=== PATIENT | female | born 1990 | race Caucasian/White ===

== ENCOUNTER 2022-09-14 14:10 | Outpatient (OUT) | payer BC, SELFPAY ==
--- NOTE | 2022-09-14 14:13 | US_ITS ---
[address] [address] Patient Name: MARCUS BURKS MRN: [id number] date: 1990 Sex: F Assigned Patient Location: Current Patient Location: Accession/Order Number: [id number] Exam Date: 09/14/2022 14:15 Report Date: 09/14/2022 15:39 At the request of: DAPHNEY AVILA Procedure: US OB growth EXAMINATION: US OB growth HISTORY: O26.849 size inconsistent with dates COMPARISON: Ultrasound venous anatomy 06/15/2022 FINDINGS: Heart Rate: 157.9 bpm Number: 1.0 Position: Breech Amniotic Fluid Volume: 9.7 cm Maximum Vertical Pocket: 3.1 cm BIOMETRY: BPD: 8.1 cm cm; 32 weeks 3 days; 16% HC: 30.8 cmcm; 34 weeks 3 days; 33% AC: 28.7 cm cm; 32 weeks 5 days; 27% FL: 6.1 cm cm; 31 weeks 4 days; 4% EFW: 1988.4 grams; 15% FL/AC: 21.2 FL/BPD: 75.2 HC/AC: 1.1 GESTATIONAL AGE: Age by EDC: 33 weeks 4 days MIGUEL ANGEL by EDC: 10/21/2022 Age by US: 32 weeks 6 days MIGUEL ANGEL by US: 11/03/2022 IMPRESSION: 1. Single live intrauterine with growth detailed above. Electronically authenticated by: ASHLEY FRANCO Date: 09/14/2022 15:39
--- NOTE | 2022-09-14 14:14 | US_ITS ---
[address] [address] Patient Name: MARCUS BURKS MRN: [id number] date: 1990 Sex: F Assigned Patient Location: US Current Patient Location: Accession/Order Number: [id number] Exam Date: 09/14/2022 14:15 Report Date: 09/14/2022 15:40 At the request of: DAPHNEY AVILA Procedure: US OB BPP w non-stress EXAMINATION: US OB BPP w non-stress HISTORY: O26.849 size inconsistent with dates COMPARISON: Ultrasound anatomy 06/15/2022 TECHNIQUE: Ultrasound biophysical profile was performed in the radiology department. BREATHING MOVEMENTS: 2.0 GROSS BODY MOVEMENTS: 2.0 TONE: 2.0 QUALITATIVE AMNIOTIC FLUID VOLUME: 2.0 PRESENTATION: Breech HEART RATE: 157.9 bpm bpm. AMNIOTIC FLUID VOLUME: 9.7 cm GESTATIONAL AGE: 33 weeks 4 days CONCLUSION: Total biophysical profile score 8.0. Electronically authenticated by: ASHLEY FRANCO Date: 09/14/2022 15:40
[2022-09-14 14:39] VITALS: BP 108/67; PULSE 73
== END 2022-09-14 15:09 | disposition home or self-care (01) ==
LOC: US 14:15 → FBC 14:17
PROVIDERS: PCP Obstetrics & Gynecology; Visit Provider Obstetrics & Gynecology
DX: O26.843 Uterine size-date discrepancy, third trimester (principal); Z3A.33 33 weeks gestation of pregnancy; O32.1XX0 Maternal care for breech presentation, not applicable or unspecified
CPT/HCPCS: 59025; 76816; 76818

== ENCOUNTER 2022-09-17 10:23 | Outpatient (OUT) | payer BC, SELFPAY ==
[2022-09-17 10:25] VITALS: BP 104/65; PULSE 85
== END 2022-09-17 11:52 | disposition home or self-care (01) ==
LOC: FBCO 10:23 → FBC 10:24
PROVIDERS: PCP Obstetrics & Gynecology; Visit Provider Obstetrics & Gynecology
DX: O26.849 Uterine size-date discrepancy, unspecified trimester (principal)
CPT/HCPCS: 59025

== ENCOUNTER 2022-09-21 14:03 | Outpatient (OUT) | payer BC, SELFPAY ==
--- NOTE | 2022-09-21 14:08 | US_ITS ---
[address] [address] Patient Name: MARCUS BURKS MRN: [id number] date: 1990 Sex: F Assigned Patient Location: [facility] Current Patient Location: Accession/Order Number: [id number] Exam Date: 09/21/2022 14:06 Report Date: 09/21/2022 15:25 At the request of: DAPHNEY AVILA Procedure: US OB BPP w non-stress EXAMINATION: US OB BPP w non-stress HISTORY: SIZE INCONSISTENT WITH DATES O26.849 COMPARISON: Ultrasound biophysical profile 09/14/2022 TECHNIQUE: Ultrasound biophysical profile was performed in the radiology department. BREATHING MOVEMENTS: 2.0 GROSS BODY MOVEMENTS: 2.0 TONE: 2.0 QUALITATIVE AMNIOTIC FLUID VOLUME: 2.0 PRESENTATION: BREECH HEART RATE: 149.2 bpm bpm. AMNIOTIC FLUID VOLUME: 11.8 cm GESTATIONAL AGE: 34 weeks 4 days CONCLUSION: Total biophysical profile score 8.0. Electronically authenticated by: ASHLEY FRANCO Date: 09/21/2022 15:25
[2022-09-21 14:39] VITALS: BP 102/67; PULSE 74
== END 2022-09-21 15:05 | disposition home or self-care (01) ==
LOC: FBCO 14:03 → FBC 14:04
PROVIDERS: PCP Obstetrics & Gynecology; Visit Provider Obstetrics & Gynecology
DX: O26.843 Uterine size-date discrepancy, third trimester (principal); Z3A.34 34 weeks gestation of pregnancy
CPT/HCPCS: 59025; 76818

== ENCOUNTER 2022-09-24 14:03 | Outpatient (OUT) | payer BC, SELFPAY ==
[2022-09-24 14:14] VITALS: BP 114/60; PULSE 74
== END 2022-09-24 14:38 | disposition home or self-care (01) ==
LOC: FBCO 14:04 → FBC 14:06
PROVIDERS: Visit Provider Obstetrics & Gynecology
DX: O26.899 Other specified pregnancy related conditions, unspecified trimester (principal)
CPT/HCPCS: 59025

== ENCOUNTER 2022-09-28 14:30 | Outpatient (OUT) | payer BC, SELFPAY ==
--- NOTE | 2022-09-28 14:35 | US_ITS ---
[address] [address] Patient Name: MARCUS BURKS MRN: [id number] date: 1990 Sex: F Assigned Patient Location: [facility] Current Patient Location: Accession/Order Number: [id number] Exam Date: 09/28/2022 14:36 Report Date: 09/28/2022 20:37 At the request of: DAPHNEY AVILA Procedure: US OB BPP w non-stress EXAMINATION: US OB BPP w non-stress HISTORY: size inconsistent with dates O26.849 COMPARISON: No relevant comparison available. TECHNIQUE: Ultrasound biophysical profile was performed in the radiology department. FINDINGS: BREATHING MOVEMENTS: 2.0 GROSS BODY MOVEMENTS: 2.0 TONE: 2.0 QUALITATIVE AMNIOTIC FLUID VOLUME: 2.0 PRESENTATION: Breech HEART RATE: 156.1 bpm H.B./min AMNIOTIC FLUID VOLUME: 8.9 cm cm GESTATIONAL AGE: 35 weeks 4 days CONCLUSION: Total biophysical profile score: 8.0 Electronically authenticated by: NO NICK Date: 09/28/2022 20:37
[2022-09-28 15:09] VITALS: BP 109/69; PULSE 76
== END 2022-09-28 15:32 | disposition home or self-care (01) ==
LOC: US 14:31 → FBC 14:33
PROVIDERS: Visit Provider Obstetrics & Gynecology
DX: Z34.93 Encounter for supervision of normal pregnancy, unspecified, third trimester (principal); O26.843 Uterine size-date discrepancy, third trimester; Z3A.35 35 weeks gestation of pregnancy
CPT/HCPCS: 59025; 76818

== ENCOUNTER 2022-09-28 21:30 | Outpatient (REF) | payer BC, SELFPAY | END 2022-09-28 21:31 | disposition home or self-care (01) | LOC: LAB 21:30 | PROVIDERS: Visit Provider Physician Assistant | DX: Z34.93 Encounter for supervision of normal pregnancy, unspecified, third trimester (principal) | CPT/HCPCS: 87081 ==

== ENCOUNTER 2022-10-01 07:41 | Outpatient (OUT) | payer BC, SELFPAY | END 2022-10-01 15:11 | disposition home or self-care (01) | LOC: FBCO 07:41 → FBC 14:39 | PROVIDERS: Visit Provider Obstetrics & Gynecology | DX: O26.849 Uterine size-date discrepancy, unspecified trimester (principal); Z3A.00 Weeks of gestation of pregnancy not specified | CPT/HCPCS: 59025 ==

== ENCOUNTER 2022-10-04 08:55 | Outpatient (OUT) | payer BC, SELFPAY ==
--- NOTE | 2022-10-04 09:01 | US_ITS ---
[address] [address] Patient Name: MARCUS BURKS MRN: [id number] date: 1990 Sex: F Assigned Patient Location: US Current Patient Location: Accession/Order Number: [id number] Exam Date: 10/04/2022 09:01 Report Date: 10/04/2022 10:48 At the request of: YANG PHAN Procedure: US OB BPP w non-stress EXAMINATION: US OB BPP w non-stress HISTORY: SIZE INCONSISTENT WITH DATES O26.849 COMPARISON: Ultrasound biophysical 09/28/2022 TECHNIQUE: Ultrasound biophysical profile was performed in the radiology department. BREATHING MOVEMENTS: 2.0 GROSS BODY MOVEMENTS: 2.0 TONE: 2.0 QUALITATIVE AMNIOTIC FLUID VOLUME: 2.0 PRESENTATION: BREECH HEART RATE: 150.0 bpm bpm. AMNIOTIC FLUID VOLUME: 8.6 cm GESTATIONAL AGE: 36 weeks 3 days CONCLUSION: Total biophysical profile score 8.0. Electronically authenticated by: ASHLEY FRANCO Date: 10/04/2022 10:48
== END 2022-10-04 10:10 | disposition home or self-care (01) ==
LOC: US 09:06 → FBC 09:07
PROVIDERS: Visit Provider Physician Assistant
DX: O26.843 Uterine size-date discrepancy, third trimester (principal); Z3A.36 36 weeks gestation of pregnancy
CPT/HCPCS: 59025; 76818

== ENCOUNTER 2022-10-08 14:14 | Outpatient (OUT) | payer BC, SELFPAY ==
[2022-10-08 14:30] VITALS: BP 121/76; PULSE 87
== END 2022-10-08 14:58 | disposition home or self-care (01) ==
LOC: FBCO 14:15 → FBC 14:16
PROVIDERS: Visit Provider Obstetrics & Gynecology
DX: O26.849 Uterine size-date discrepancy, unspecified trimester (principal)
CPT/HCPCS: 59025

== ENCOUNTER 2022-10-12 14:00 | Outpatient (OUT) | payer BC, SELFPAY ==
--- NOTE | 2022-10-12 14:23 | US_ITS ---
[address] [address] Patient Name: MARCUS BURKS MRN: [id number] date: 1990 Sex: F Assigned Patient Location: US Current Patient Location: Accession/Order Number: [id number] Exam Date: 10/12/2022 14:25 Report Date: 10/12/2022 15:56 At the request of: DAPHNEY AVILA Procedure: US OB BPP w non-stress EXAMINATION: US OB BPP w non-stress HISTORY: Third trimester Z34.93 COMPARISON: Ultrasound biophysical 10/04/2022 TECHNIQUE: Ultrasound biophysical profile was performed in the radiology department. BREATHING MOVEMENTS: 2.0 GROSS BODY MOVEMENTS: 2.0 TONE: 2.0 QUALITATIVE AMNIOTIC FLUID VOLUME: 2.0 PRESENTATION: Breech HEART RATE: 145.9 bpm bpm. AMNIOTIC FLUID VOLUME: 7.4 cm GESTATIONAL AGE: 37 weeks 4 days CONCLUSION: 1. Total biophysical profile score 8.0. 2. Borderline oligohydramnios. Fluid has decreased slightly since prior study Electronically authenticated by: ASHLEY FRANCO Date: 10/12/2022 15:56
[2022-10-12 14:53] VITALS: BP 112/79; PULSE 90; RESP 16
== END 2022-10-12 15:20 | disposition home or self-care (01) ==
LOC: US 14:23 → FBC 14:24
PROVIDERS: Visit Provider Obstetrics & Gynecology
DX: Z34.93 Encounter for supervision of normal pregnancy, unspecified, third trimester (principal); O26.843 Uterine size-date discrepancy, third trimester; Z3A.37 37 weeks gestation of pregnancy
CPT/HCPCS: 76818

== ENCOUNTER 2022-10-15 14:14 | Outpatient (OUT) | payer BC, SELFPAY ==
[2022-10-15 14:20] VITALS: BP 105/60; PULSE 76
== END 2022-10-15 14:45 | disposition home or self-care (01) ==
LOC: FBCO 14:14 → FBC 14:16
PROVIDERS: Visit Provider Obstetrics & Gynecology
DX: O26.843 Uterine size-date discrepancy, third trimester (principal); Z3A.00 Weeks of gestation of pregnancy not specified
CPT/HCPCS: 59025

== ENCOUNTER 2022-10-18 11:12 | Outpatient (OUT) | payer BC, SELFPAY ==
[2022-10-18 11:18] VITALS: BP 114/77; PULSE 86
--- NOTE | 2022-10-18 11:41 | US_ITS ---
[address] [address] Patient Name: MARCUS BURKS MRN: [id number] date: 1990 Sex: F Assigned Patient Location: US Current Patient Location: Accession/Order Number: [id number] Exam Date: 10/18/2022 11:55 Report Date: 10/18/2022 19:48 At the request of: YANG PHAN Procedure: US OB BPP w non-stress EXAMINATION: US OB BPP w non-stress HISTORY: SIZE INCONSISTENT WITH DATES O26.849 COMPARISON: No relevant comparison available. TECHNIQUE: Ultrasound biophysical profile was performed in the radiology department. non-reactive stress testing was performed by nursing staff in the birthing center. FINDINGS: BREATHING MOVEMENTS: 2.0 GROSS BODY MOVEMENTS: 2.0 TONE: 2.0 QUALITATIVE AMNIOTIC FLUID VOLUME: 2.0 PRESENTATION: BREECH HEART RATE: 145.2 bpm H.B./min AMNIOTIC FLUID VOLUME: 7.1 cm cm GESTATIONAL AGE: 38 weeks 3 days CONCLUSION: Total biophysical profile score: 8.0 Electronically authenticated by: NO NICK Date: 10/18/2022 19:48
== END 2022-10-18 12:56 ==
LOC: US 11:12 → FBC 11:14
PROVIDERS: Visit Provider Physician Assistant
DX: O26.843 Uterine size-date discrepancy, third trimester (principal); Z3A.38 38 weeks gestation of pregnancy
CPT/HCPCS: 59025; 76818

== ENCOUNTER 2022-10-22 14:20 | Outpatient (OUT) | payer BC, SELFPAY ==
--- NOTE | 2022-10-22 14:29 | US_ITS ---
[address] [address] Patient Name: MARCUS BURKS MRN: [id number] date: 1990 Sex: F Assigned Patient Location: [facility] Current Patient Location: [facility] Accession/Order Number: [id number] Exam Date: 10/22/2022 14:30 Report Date: 10/22/2022 15:23 At the request of: DAPHNEY AVLIA Procedure: US OB amniotic fluid vol PROCEDURE: US OB amniotic fluid vol, 10/22/2022 2:30 PM EDT CLINICAL INDICATIONS: Oligohydramnios, encounter for third trimester 2 para 1 Expected gestational age: 39 weeks 0 days Expected MIGUEL ANGEL: 10/29/2022 COMPARISON: 10/18/2022 TECHNIQUE: Limited third trimester obstetric sonogram, amniotic fluid assessment FINDINGS: A single living intrauterine is identified in breech presentation. body, cardiac activity is noted, heart rate 153 bpm. Amniotic fluid index 12.0 cm, 5-95th percentile, maximum vertical pocket 4.5 cm. Placenta: Not evaluated. biometry: Not performed. anatomic assessment: Not performed. US/US OB amniotic fluid vol IMPRESSION: 1. Single living intrauterine , breech presentation 2. Normal amniotic fluid index, 12.0 cm, 5-95th percentile, maximum vertical pocket 4.5 cm. Previously TALYA 7.1 cm Electronically authenticated by: NEIL KENDRICK Date: 10/22/2022 15:23
[2022-10-22 14:32] VITALS: BP 112/65; PULSE 80
== END 2022-10-22 15:25 | disposition home or self-care (01) ==
LOC: FBCO 14:20 → FBC 14:22
PROVIDERS: Visit Provider Obstetrics & Gynecology
DX: O41.03X0 Oligohydramnios, third trimester, not applicable or unspecified (principal); Z3A.39 39 weeks gestation of pregnancy
CPT/HCPCS: 76815

== ENCOUNTER 2022-10-24 08:20 | Inpatient (IN) | payer BC, SELFPAY ==
[2022-10-24] VITALS (23 sets, daily range): BP systolic 93–118; BP diastolic 64–85; PULSE 57–84; RESP 13–23; TEMP 35.8–37.1; O2SAT 99–100
[2022-10-24] MEDS: 0.9 % SODIUM CHLORIDE 1,000 ML 1000 ML IV (08:51)
[2022-10-24] MEDS: CEFAZOLIN SODIUM/DEXTROSE,ISO 2 GM/50 ML PIGGYBACK IV ×2 (08:53→17:15)
[2022-10-24 09:13] LABS: Basophils Percent Auto 0.5 % (0.2-2.0); Eosinophils Absolute Auto 0.1 10^3/uL (0.0-0.7); Eosinophils Percent Auto 0.8 % (0.9-7.0); Hematocrit 37.3 % (36.0-48.0); Hemoglobin 12.4 g/dL (12.0-16.0); Immature Granulocytes Abs Auto 0.04 10^3/uL (0.00-0.03); Immature Granulocytes Pct Auto 0.6 % (0.0-0.5); Lymphocytes Absolute Auto 1.5 10^3/uL (1.2-3.8); Mean Corpuscular HGB Conc 33.2 g/dL (29.9-35.2); Mean Corpuscular Volume 87.4 fL (81.0-99.0); Mean Platelet Volume 11.3 fL (9.5-13.5); Monocytes Absolute Auto 0.3 10^3/uL (0.3-0.8); Monocytes Percent Auto 4.9 % (1.7-12.0); Neutrophils Absolute Auto 4.4 10^3/uL (1.4-6.5); Neutrophils Percent Auto 70.2 % (43.0-75.0); Platelet Count 175 10^3/uL (150-450); Red Blood Count 4.27 10^6/uL (4.20-5.40); White Blood Count 6.3 10^3/uL (4.0-11.0)
[2022-10-24] MEDS: FAMOTIDINE/PF 20 MG/2 ML VIAL IV (09:14)
[2022-10-24] MEDS: ONDANSETRON PF 4 MG/2 ML VIAL IV (09:14)
--- NOTE | 2022-10-24 09:17 | P.OBHP_ITS ---
OB - H&P: HPI History of Present Illness Chief complaint: CONTRACTIONS : 3 Para: 2 Comments: 39wks, active labor, breech presentation History of Present care: good care Medical complications OB: none Review of Systems ROS Status of ROS 10 or more systems reviewed and unremarkable except as noted in history and below [facility] Medical History Social History Within the past year, how often did you have a drink containing alcohol: never Score interpretation: A score less than 3 is consistent with normal alcohol consumption. Smoking status: Never smoker Non-prescribed substance use: denies use Meds Home Medications and Allergies Home Medications Medication Instructions Recorded Confirmed Type prenat.vits,susana,sym-tvfs-tvuij 1 tab PO DAILY 09/21/22 10/22/22 History acyclovir 400 mg tablet 500 mg PO DAILY 10/08/22 10/22/22 History Allergies Allergy/AdvReac Type Severity Reaction Status Date / Time No Known Drug Allergies Allergy Verified 09/21/22 14:29 Exam Constitutional Vital Signs, click to edit/add: Last Vital Signs Temp 96.4 F L 10/24/22 08:26 Pulse 84 10/24/22 08:26 BP 118/85 H 10/24/22 08:26 Documenting provider has reviewed patient's vital signs: yes Common normals: no apparent distress Respiratory Common normals: normal respiratory effort and clear to auscultation bilaterally Cardio Common normals: regular rate and regular rhythm GI Common normals: Normal to inspection, nondistended, normoactive bowel sounds present Common normals: no CVA tenderness Extremity Common normals: no clubbing, cyanosis or edema and no calf tenderness OB - A/P Assessment and Plan (1) Active labor at term: Plan iup at 39wks, breech presentation, active labor-routine labs, consent obtained, mmc reviewed procedure reviewed, will proceed to or for section
[2022-10-24 09:28] LABS: Amphetamine Screen Urine NEGATIVE (NEGATIVE); Barbiturates Screen Urine NEGATIVE (NEGATIVE); Benzodiazepines Screen Urine NEGATIVE (NEGATIVE); Buprenorphine Screen Urine NEGATIVE (NEGATIVE); Cannabinoid Screen Urine NEGATIVE (NEGATIVE); Cocaine Screen Urine NEGATIVE (NEGATIVE); Methadone Screen Urine NEGATIVE (NEGATIVE); Methamphetamines Screen Urine NEGATIVE (NEGATIVE); Opiate Screen Urine NEGATIVE (NEGATIVE); Oxycodone Screen Urine NEGATIVE (NEGATIVE); Phencyclidine Screen Urine NEGATIVE (NEGATIVE); Tricyclic Antidepressant Urine NEGATIVE (NEGATIVE)
[2022-10-24] MEDS: LACTATED RINGER'S SOLUTION 1,000 ML 50 ML IV (09:55)
--- NOTE | 2022-10-24 10:17 | P.ON_ITS ---
Brief Operative Note Date of procedure: 10/24/22 Pre-op diagnosis: iup at 39wks, breech presentatin, active labor Post-op diagnosis: same Procedure: NAME OF PROCEDURE: [ section ] PROCEDURE: Patient was taken back to the Operating Room where she was given a spinal anesthesia with Duramorph without difficulty. She was prepped and draped in the normal sterile fashion. A Pfannenstiel skin incision was then made 2 cm above the symphysis pubis and carried down to underlying rectus fascia using a Bovie. The fascia was incised in the midline and extended laterally using Ellis scissors. Two Kadeem clamps were placed on the superior aspect of the fascia and dissected off the underlying rectus muscles. The same was performed on the inferior aspect as well. The muscles were then in the midline. Peritoneum was identified and entered bluntly. The peritoneum was then extended superiorly and inferiorly with good visualization of the bladder. The bladder blade was inserted. A low transverse incision was made on the patient's uterus and extended laterally digitally. The was then delivered atraumatically after the bladder blade was removed in the cephalic position. The cord was clamped and cut. Cord blood was obtained. The infant was handed off to awaiting team. The patient's placenta was spontaneously delivered. The uterus was then exteriorized. The uterus was cleared of all clots and debris. The bladder blade was reinserted. The patient's uterine incision was closed using #0 Vicryl in a running lock fashion. Excellent hemostasis was assured. The uterus was then returned to the patient's abdomen. The patient's abdomen was copiously irrigated using warm saline. Peritoneal gutters were cleared of all clots and debris. Again excellent hemostasis was assured. The patient's peritoneum was carin sed using 3-0 Vicryl in a running fashion. The patient's fascia was closed using #0 Vicryl in a running fashion. The patient's skin was closed using 4-0 Vicryl subcuticularly. The patient tolerated the procedure well. Sponge, lap, and needle counts were correct x2. The patient was taken to the Recovery Room in stable condition. Anesthesia: spinal Surgeon: Jose Antonio Pena Animal Behaviourist: Aidee Wakefield Estimated blood loss (mL): 575 Pathology: none sent Condition: stable Disposition: floor
--- NOTE | 2022-10-24 10:18 | P.OBPRC_ITS ---
Procedure Pre-op/Post-op diagnoses: Pre-Op/Post-Op Diagnoses Operation Date: 10/24/22 09:15 <No data on this case meets the specified criteria> Procedure: Procedures Operation Date: 10/24/22 09:15 Actual Procedure Side Surgeon p Not Applicable Jose Antonio Pena DO Loss Prevention Lead: Aidee Wakefield Estimated blood loss (mL): 575 Disposition: floor Anesthesia type: Spinal
--- NOTE | 2022-10-24 11:59 | PC.NURSE ---
holds infant , denies pain or needs. Takes ice chips and water well.
[2022-10-24] MEDS: ENOXAPARIN SODIUM 40 MG/0.4 ML SYRINGE SUBQ (20:20)
[2022-10-24] MEDS: KETOROLAC TROMETHAMINE 30 MG/ML VIAL IVP (20:20)
[2022-10-25 00:15] VITALS: BP 106/66; PULSE 67; RESP 14; TEMP 36.6
[2022-10-25] MEDS: KETOROLAC TROMETHAMINE 30 MG/ML VIAL IVP ×2 (02:20→08:11)
[2022-10-25 04:30] VITALS: BP 102/55; PULSE 61; RESP 14; TEMP 36.5
[2022-10-25 06:25] LABS: Basophils Percent Auto 0.2 % (0.2-2.0); Eosinophils Percent Auto 0.2 % (0.9-7.0); Hemoglobin 9.1 g/dL (12.0-16.0); Immature Granulocytes Abs Auto 0.04 10^3/uL (0.00-0.03); Immature Granulocytes Pct Auto 0.4 % (0.0-0.5); Lymphocytes Absolute Auto 1.5 10^3/uL (1.2-3.8); Lymphocytes Percent Auto 12.8 % (20.5-60.0); Mean Corpuscular HGB Conc 33.7 g/dL (29.9-35.2); Mean Corpuscular Hemoglobin 29.7 pg (26.7-34.0); Mean Corpuscular Volume 88.2 fL (81.0-99.0); Monocytes Absolute Auto 0.6 10^3/uL (0.3-0.8); Monocytes Percent Auto 4.8 % (1.7-12.0); Neutrophils Absolute Auto 9.3 10^3/uL (1.4-6.5); Neutrophils Percent Auto 81.6 % (43.0-75.0); Platelet Count 173 10^3/uL (150-450); Red Blood Count 3.06 10^6/uL (4.20-5.40); Red Cell Distribution Width 12.9 % (11.0-15.0); White Blood Count 11.4 10^3/uL (4.0-11.0)
--- NOTE | 2022-10-25 07:59 | W.PC.ACHO ---
Registration Status: ADM JAMIE Primary Language: Preferred Language: Active Medications Report given to Ashish Pan RN Generic Name Dose Route Start Last Admin Trade Name Freq PRN Reason Stop Dose Admin Al Hydroxide/Mg Hydroxide 2,400 mg 10/24/22 10:15 Magnesium Hydroxide 2,400 Mg/10 Ml Oral.Susp PO Q6H PRN Dyspepsia Diphenhydramine HCl 25 mg 10/24/22 10:15 Diphenhydramine Hcl 50 Mg/Ml (1ml) Vial IV 10/25/22 10:16 Q6H PRN Itching Docusate Sodium 100 mg 10/25/22 09:00 Docusate Sodium 100 Mg Capsule PO BID MARIE Enoxaparin Sodium 40 mg 10/24/22 21:00 10/24/22 20:20 Enoxaparin Sodium 40 Mg/0.4 Ml Syringe SUBQ 40 mg Q24H MARIE Administration Lactated Ringer's 1,000 mls @ 50 mls/hr 10/24/22 10:00 10/24/22 09:55 Lactated Ringers IV 50 mls/hr .Q20H MARIE Administration Sodium Chloride 1,000 mls @ 125 mls/hr 10/24/22 10:15 Sodium Chloride 0.9% 1,000 Ml IV .Q8H MARIE Ibuprofen 800 mg 10/24/22 10:15 Ibuprofen 400 Mg Tablet PO Q8H PRN Pain Ketorolac Tromethamine 30 mg 10/24/22 10:15 10/25/22 02:20 Ketorolac Tromethamine 30 Mg/Ml Vial IVP 10/26/22 10:16 30 mg Q6H PRN Administration Pain Nalbuphine HCl 10 mg 10/24/22 10:15 Nalbuphine Hcl 10 Mg/Ml Ampule IV 10/25/22 10:16 Q3H PRN Itching Ondansetron HCl 4 mg 10/24/22 10:15 Ondansetron Pf 4 Mg/2 Ml Vial IV Q6H PRN Nausea And Vomiting Ondansetron HCl 4 mg 10/24/22 10:15 Ondansetron 4 Mg Rapdis Tablet PO Q6H PRN Nausea And Vomiting Oxycodone/Acetaminophen 1 each 10/24/22 10:15 Oxycodone Hcl/Acetaminophen 5-325 Mg Tablet PO Q4H PRN Pain Oxycodone/Acetaminophen 2 each 10/24/22 10:15 Oxycodone Hcl/Acetaminophen 5-325 Mg Tablet PO Q4H PRN Pain Senna 17.2 mg 10/24/22 20:00 Sennosides 8.6 Mg Tablet PO QHS PRN Constipation Simethicone 80 mg 10/24/22 10:15 Simethicone 80 Mg Tab.Chew PO QID PRN Abdominal Distention Diet Category Date Time Status Regular Consistency Diet Diet 10/24/22 Dinner Active IV Insertion/Site Date of IV Line Insertion [ 10/24/22 Long PIV (>1.75 in) 20g left Forearm] IV Insertion Time [Long PIV (> 08:52 1.75 in) 20g left Forearm] Respiratory Lung sounds [Bilateral clear Throughout] Lung sounds [Bilateral clear Throughout] Lung sounds [Bilateral clear Throughout] Pulse Oximetry 100 Pulse Oximetry 100 Pulse Oximetry 100 Pulse Oximetry 100 Pulse Oximetry 99 Pulse Oximetry 100 Pulse Oximetry 100 Pulse Oximetry 100 Pulse Oximetry 100 Pulse Oximetry 100 Pulse Oximetry 100 Pulse Oximetry 100 Pulse Oximetry 100 Pulse Oximetry 100 Pulse Oximetry 100 Pulse Oximetry 100 Pulse Oximetry 100 Pulse Oximetry 100 Pulse Oximetry 100 Pulse Oximetry 100 Oxygen Delivery Method Room Air Oxygen Delivery Method Room Air Oxygen Delivery Method Room Air Oxygen Delivery Method Room Air Oxygen Delivery Method Room Air Oxygen Delivery Method Room Air Oxygen Delivery Method Room Air Oxygen Delivery Method Room Air Oxygen Delivery Method Room Air Cardiology Heart Sounds Strong,Regular Heart Sounds Strong,Regular Heart Sounds Strong,Regular Bowels Bowel Pattern No Bowel Movement Bowel Pattern No Bowel Movement Bowel Pattern No Bowel Movement Renal Bladder Pattern Continent Bladder Pattern Continent Bladder Pattern Continent Catheter Date Urinary Catheter Removed 10/25/22 [Urethral] Time Urinary Catheter 00:15 Discontinued [Urethral]
--- NOTE | 2022-10-25 08:05 | P.OBPN_ITS ---
OB - PN: Subj Subjective Patient comments: no complaints Whitefield status: doing well Exam Constitutional Vital Signs, click to edit/add: Last Vital Signs Temp 97.7 F 10/25/22 04:30 Pulse 61 10/25/22 04:30 Resp 14 10/25/22 04:30 BP 102/55 L 10/25/22 04:30 Pulse Ox 100 10/24/22 11:40 O2 Del Method Room Air 10/25/22 04:30 Documenting provider has reviewed patient's vital signs: yes Common normals: no apparent distress Respiratory Common normals: normal respiratory effort and clear to auscultation bilaterally Cardio Common normals: regular rate and regular rhythm GI Common normals: Normal to inspection, nondistended, normoactive bowel sounds present Extremity Common normals: no clubbing, cyanosis or edema and no calf tenderness Results Labs Labs: Short CBC 10/24/22 10/25/22 Range/Units 08:50 06:20 WBC 6.3 11.4 H (4.0-11.0) 10^3/uL Hgb 12.4 9.1 L (12.0-16.0) g/dL Hct 37.3 27.0 L (36.0-48.0) % Plt Count 175 173 (150-450) 10^3/uL OB - PN: A/P Assessment and Plan (1) Active labor at term: Plan - day: 1 Plan: routine postop care Time Spent with Patient Time: Total time spent is greater than 50% in coordination of care (as documented) at patient's floor/unit and/or counseling patient: Total time spent with greater than 50% in coordination of care (as documented) at patient's floor/unit and/or counseling patient: less than 15 minutes
[2022-10-25] MEDS: DOCUSATE SODIUM 100 MG CAPSULE PO ×2 (08:11→20:31)
[2022-10-25] MEDS: IBUPROFEN 400 MG TABLET 800 MG PO ×2 (11:32→18:36)
[2022-10-25 16:25] VITALS: BP 107/57; PULSE 76
--- NOTE | 2022-10-25 19:18 | W.PC.ACHO ---
Registration Status: ADM IN Primary Language: Preferred Language: Active Medications Generic Name Dose Route Start Last Admin Trade Name Freq PRN Reason Stop Dose Admin Al Hydroxide/Mg Hydroxide 2,400 mg 10/24/22 10:15 Magnesium Hydroxide 2,400 Mg/10 Ml Oral.Susp PO Q6H PRN Dyspepsia Docusate Sodium 100 mg 10/25/22 09:00 10/25/22 08:11 Docusate Sodium 100 Mg Capsule PO 100 mg BID MARIE Administration Enoxaparin Sodium 40 mg 10/24/22 21:00 10/24/22 20:20 Enoxaparin Sodium 40 Mg/0.4 Ml Syringe SUBQ 40 mg Q24H MARIE Administration Lactated Ringer's 1,000 mls @ 50 mls/hr 10/24/22 10:00 10/24/22 09:55 Lactated Ringers IV 50 mls/hr .Q20H MARIE Administration Sodium Chloride 1,000 mls @ 125 mls/hr 10/24/22 10:15 Sodium Chloride 0.9% 1,000 Ml IV .Q8H MARIE Ibuprofen 800 mg 10/24/22 10:15 10/25/22 18:36 Ibuprofen 400 Mg Tablet PO 800 mg Q8H PRN Administration Pain Ketorolac Tromethamine 30 mg 10/24/22 10:15 10/25/22 08:11 Ketorolac Tromethamine 30 Mg/Ml Vial IVP 10/26/22 10:16 30 mg Q6H PRN Administration Pain Ondansetron HCl 4 mg 10/24/22 10:15 Ondansetron Pf 4 Mg/2 Ml Vial IV Q6H PRN Nausea And Vomiting Ondansetron HCl 4 mg 10/24/22 10:15 Ondansetron 4 Mg Rapdis Tablet PO Q6H PRN Nausea And Vomiting Oxycodone/Acetaminophen 1 each 10/24/22 10:15 10/25/22 13:53 Oxycodone Hcl/Acetaminophen 5-325 Mg Tablet PO 1 each Q4H PRN Administration Pain Oxycodone/Acetaminophen 2 each 10/24/22 10:15 Oxycodone Hcl/Acetaminophen 5-325 Mg Tablet PO Q4H PRN Pain Senna 17.2 mg 10/24/22 20:00 Sennosides 8.6 Mg Tablet PO QHS PRN Constipation Simethicone 80 mg 10/24/22 10:15 Simethicone 80 Mg Tab.Chew PO QID PRN Abdominal Distention Respiratory Lung sounds [Bilateral clear Throughout] Lung sounds [Bilateral clear Throughout] Lung sounds [Bilateral clear Throughout] Lung sounds [Bilateral clear Throughout] Oxygen Delivery Method Room Air Oxygen Delivery Method Room Air Oxygen Delivery Method Room Air Oxygen Delivery Method Room Air Oxygen Delivery Method Room Air Oxygen Delivery Method Room Air Cardiology Heart Sounds Strong,Regular Heart Sounds Strong,Regular Heart Sounds Strong,Regular Bowels Bowel Pattern No Bowel Movement Bowel Pattern No Bowel Movement Bowel Pattern No Bowel Movement Renal Bladder Pattern Continent Bladder Pattern Continent Bladder Pattern Continent Catheter Date Urinary Catheter Removed 10/25/22 [Urethral] Time Urinary Catheter 00:15 Discontinued [Urethral]
[2022-10-25] MEDS: ENOXAPARIN SODIUM 40 MG/0.4 ML SYRINGE SUBQ (20:30)
[2022-10-25 23:30] VITALS: BP 101/62; PULSE 73; RESP 16; TEMP 36.7
[2022-10-26] MEDS: IBUPROFEN 400 MG TABLET 800 MG PO ×2 (02:11→11:50)
--- NOTE | 2022-10-26 07:34 | PM.OBPN ---
OB - PN: Subj Subjective Patient comments: no complaints and pain well controlled [facility] status: doing well Exam Constitutional Vital Signs, click to edit/add: Last Vital Signs Temp 98.1 F 10/25/22 23:30 Pulse 73 10/25/22 23:30 Resp 16 10/25/22 23:30 BP 101/62 10/25/22 23:30 Pulse Ox 100 10/24/22 11:40 O2 Del Method Room Air 10/25/22 23:30 Documenting provider has reviewed patient's vital signs: yes Common normals: no apparent distress Respiratory Common normals: normal respiratory effort and clear to auscultation bilaterally Cardio Common normals: regular rate and regular rhythm GI Common normals: Normal to inspection, nondistended, normoactive bowel sounds present Common normals: no CVA tenderness Extremity Common normals: no clubbing, cyanosis or edema and no calf tenderness OB - PN: A/P Assessment and Plan (1) Active labor at term: Plan - day: 2 Plan: routine postop care, discharge home and follow up 6 weeks Time Spent with Patient Time: Total time spent is greater than 50% in coordination of care (as documented) at patient's floor/unit and/or counseling patient: Total time spent with greater than 50% in coordination of care (as documented) at patient's floor/unit and/or counseling patient: less than 15 minutes
--- NOTE | 2022-10-26 07:45 | W.PC.ACHO ---
Registration Status: ADM IN Primary Language: Preferred Language: Active Medications Generic Name Dose Route Start Last Admin Trade Name Freq PRN Reason Stop Dose Admin Al Hydroxide/Mg Hydroxide 2,400 mg 10/24/22 10:15 Magnesium Hydroxide 2,400 Mg/10 Ml Oral.Susp PO Q6H PRN Dyspepsia Docusate Sodium 100 mg 10/25/22 09:00 10/25/22 20:31 Docusate Sodium 100 Mg Capsule PO 100 mg BID MARIE Administration Enoxaparin Sodium 40 mg 10/24/22 21:00 10/25/22 20:30 Enoxaparin Sodium 40 Mg/0.4 Ml Syringe SUBQ 40 mg Q24H MARIE Administration Lactated Ringer's 1,000 mls @ 50 mls/hr 10/24/22 10:00 10/24/22 09:55 Lactated Ringers IV 50 mls/hr .Q20H MARIE Administration Sodium Chloride 1,000 mls @ 125 mls/hr 10/24/22 10:15 Sodium Chloride 0.9% 1,000 Ml IV .Q8H MARIE Ibuprofen 800 mg 10/24/22 10:15 10/26/22 02:11 Ibuprofen 400 Mg Tablet PO 800 mg Q8H PRN Administration Pain Ketorolac Tromethamine 30 mg 10/24/22 10:15 10/25/22 08:11 Ketorolac Tromethamine 30 Mg/Ml Vial IVP 10/26/22 10:16 30 mg Q6H PRN Administration Pain Ondansetron HCl 4 mg 10/24/22 10:15 Ondansetron Pf 4 Mg/2 Ml Vial IV Q6H PRN Nausea And Vomiting Ondansetron HCl 4 mg 10/24/22 10:15 Ondansetron 4 Mg Rapdis Tablet PO Q6H PRN Nausea And Vomiting Oxycodone/Acetaminophen 1 each 10/24/22 10:15 10/25/22 20:31 Oxycodone Hcl/Acetaminophen 5-325 Mg Tablet PO 1 each Q4H PRN Administration Pain Oxycodone/Acetaminophen 2 each 10/24/22 10:15 Oxycodone Hcl/Acetaminophen 5-325 Mg Tablet PO Q4H PRN Pain Senna 17.2 mg 10/24/22 20:00 Sennosides 8.6 Mg Tablet PO QHS PRN Constipation Simethicone 80 mg 10/24/22 10:15 Simethicone 80 Mg Tab.Chew PO QID PRN Abdominal Distention Respiratory Lung sounds [Bilateral clear Throughout] Lung sounds [Bilateral clear Throughout] Oxygen Delivery Method Room Air Oxygen Delivery Method Room Air Renal Bladder Pattern Continent
[2022-10-26 08:18] VITALS: BP 108/64; PULSE 62
[2022-10-26 08:30] VITALS: BP 108/64; PULSE 62; RESP 14; TEMP 36.6
[2022-10-26] MEDS: DOCUSATE SODIUM 100 MG CAPSULE PO (08:33)
--- NOTE | 2022-10-26 19:13 | PC.NURSE ---
All of this charting [id number] has been reviewed and approved by this hand sign writer.
--- NOTE | 2022-11-03 | DS_ITS ---
DISCHARGE DATE: ??11/03/2022 PRIMARY DIAGNOSES: 1.? Intrauterine at 39 weeks. 2.? Breech presentation. 3.? Active labor. PROCEDURE:? Primary low transverse section. HOSPITAL COURSE:? As expected.? Please see chart for full details.? LABORATORY DATA:? Please see chart. COMPLICATIONS:? None. DISCHARGE CONDITION:? Stable. CONSULTATION:? Anesthesia. DISCHARGE INSTRUCTIONS: 1.? Diet:? Regular. 2.? Medications: a.? Percocet 5/325 one to two p.o. every 4-6 hours p.r.n. pain. b.? Motrin 800 one p.o. every 8 hours p.r.n. pain. 3.? Followup in one week. Restrictions:? Pelvic rest for 6 weeks.? No heavy lifting. ?May drive when pain free and no longer on narcotics. MTDD
== END 2022-10-26 12:15 | disposition home or self-care (01) | DRG 788 ==
PROVIDERS: Admitting Provider Obstetrics & Gynecology; Visit Provider Obstetrics & Gynecology
PROC: 10D00Z1 Extraction of Products of Conception, Low, Open Approach (ICD-10-PCS; CPT 59514; principal; 2022-10-24 09:15)
DX: O32.1XX0 Maternal care for breech presentation, not applicable or unspecified (principal); O99.892 Other specified diseases and conditions complicating childbirth; Z3A.39 39 weeks gestation of pregnancy; Z37.0 Single live birth; M47.812 Spondylosis without myelopathy or radiculopathy, cervical region; R56.9 Unspecified convulsions; Z86.19 Personal history of other infectious and parasitic diseases; Z86.79 Personal history of other diseases of the circulatory system; Z98.890 Other specified postprocedural states
CPT/HCPCS: 36415; 51702; 80307; 85025; 86850; 86900; 86901; 96372; 96374; 96375; 96376

== ENCOUNTER 2023-08-16 20:54 | Outpatient (REF) | payer BC, SELFPAY ==
[2023-08-21 09:09] LABS: Age Gdln ACOG Testing Note (.); HPV Aptima Negative (Negative); IGP, Aptima HPV, rfx 16/18,45 Note (.)
== END 2023-08-16 20:55 | disposition home or self-care (01) ==
LOC: LAB 20:54
PROVIDERS: Visit Provider Physician Assistant
DX: Z01.419 Encounter for gynecological examination (general) (routine) without abnormal findings (principal)
CPT/HCPCS: 87624; G0145

== ENCOUNTER 2023-09-23 21:06 | Emergency (ER) | payer BC, SELFPAY ==
--- OUTSIDE RECORDS SUMMARY | 2023-09-23 21:12 | XMS_ITS | CCD ---
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 BC #### [facility] [address] [place] [address] Dr. Laura Duron Platelet mean volume (Bld) [Entitic vol] 10.4 fL Normal 9.5-13.5 [facility] Comment on above: Performed By: #### C BC #### [facility] [address] [place] [address] Dr. Laura Duron PLT 210 103/ul Normal 150-450 [facility] Comment on above: Performed By: #### C BC #### [facility] [address] [place] [address] Dr. Laura Duron RBC 3.84 106/ul Critically low 4.20-5.40 [facility] Comment on above: Performed By: #### C BC #### [facility] [address] [place] [address] Dr. Laura Duron WBC 6.9 103/ul Normal 4.0-11.0 [facility] Comment on above: Performed By: #### C BC #### [facility] [address] [place] [address] Dr. Laura Duron GLUCOSE - 1HRon 05-05-2023 Glucose [Mass/Vol] 128 mg/dL Critically high 74-106 [facility] Comment on above: Performed By: #### G LU1HR #### [facility] [address] [address] [address] Laura Duron US PREG ANATOMY SINGLEon US PREG ANATOMY SINGLE EXAMINATION: US PREG ANATOMY SINGLE HISTORY: anatomy study COMPARISON: No relevant comparison available. TECHNIQUE: Transabdominal sonographic examination was performed for obstetrical and evaluation. FINDINGS: Number: 1 Heart Rate: 142.0 bpm H.B. /min Amniotic Fluid Volume: Subjectively normal Placental Location: FUNDAL; unable to identify lower margin. Cervix Length: 4.1 cm, closed. ANATOMY: Normal Structures -cerebellum, choroid plexus, cisterna magna, lateral cerebral ventricles, orbits, midline falx, hard palate, four-chamber heart, RVOT, LVOT, stomach, bladder, umbilical cord insertion into abdomen, three-vessel cord, right upper extremity, left upper extremity, right lower extremity, left lower extremity. SUBOPTIMALLY SEEN: Kidneys, spine. ABNORMALITIES: None BIOMETRY: BPD: 5.0 cm 21 weeks 1 days HC: 18.3 cm 20 weeks 5 days AC: 15.7 cm 20 weeks 6 days FL: 3.5 cm 20 weeks 6 days EFW:380.2 grams; 60% FL/AC: 22.0 FL/BPD: 68.9 HC/AC: 1.2 GESTATIONAL AGE: Age by EDC: 20 weeks 4 days MIGUEL ANGEL by EDC: 10/21/2022 Age by current US: 20 weeks 6 days MIGUEL ANGEL by current US: 10/27/2022 IMPRESSION: 1. Single live intrauterine with growth detailed above. 2. Suboptimal visualization of the kidneys and spine due to position. 3. Posterior placenta, lower margin could not be identified to evaluate its distance from the cervix. Follow-up recommended. Electronically authenticated by: ASHLEY FRANCO Date: 2022-06-15 15:12 Normal [facility] HEP B SURFACE ANTIGEN SCREEN on 04-13-2022 HBsAg Screen Negative Normal Negative [facility] Comment on above: Performed By: #### H BSANS #### [facility] [address] [address] [address] Laura Duron HEPATITIS C VIRUS AB W/ REFL EX QUANTon 04-13-2022 HCV AB <0.1 Normal 0.0-0.9 [facility] Comment on above: Performed By: #### H CVPCRR ####[facility] [address] [place], [place] [address]HhCass Duron Interpretation: Comment Normal [facility] Comment on above: Result Comment: Nega tive Not infected with HCV, unless recent infection is suspected or other evidence exists to indicate HCV infection. Performed By: #### H CVPCRR ####[facility] [address] [id number]. Laura Duron HIV 1 AND 2 WITH REFLEXon HIV Screen 4th Generation wRfx Non-Reactive Normal Non Reactive [facility] Comment on above: Result Comment: HIV Negative HIV-1/HIV-2 antibodies and HIV-1 p24 antigen were NOT detected. There is no laboratory evidence of HIV infection. Performed By: #### H IV12 #### [facility] [address] [address] [address] Laura Duron RPR QUANTon 04-13-2022 Rapid Plasma Reagin, Quant Non-Reactive Normal NonRea<1:1 [facility] Comment on above: Result Comment: Plea se Note: This test does not meet current guidelines for screening and diagnosis of syphilis. This test is intended for following treatment response in patients being treated for syphilis infection. To screen for syphilis infection, a reflex cascade that includes both RPR and a treponema-specific assay should be utilized, such as Treponema pallidum (Syphilis) Screening [place] (698553) or Rapid Plasma Reagin (RPR) Test With Reflex to Quantitative RPR and Confirmatory Treponema pallidum Antibodies (104949). Performed By: #### R PRQ #### [facility] [address] [place] [address] Dr. Laura Duron RUBELLA AB IGGon 04-13-2022 Rubella Antibodies, IgG 3.05 index Normal Immune >0.99 [facility] Comment on above: Result Comment: Non- immune <0.90 Equivocal 0.90 - 0.99 Immune >0.99 Performed By: #### R UBIGG #### [facility] [address] [address] [address] Laura Duron CBC AUTO DIFFon 04-12-2022 BASO # 0.0 103/ul Normal 0.0-0.1 [facility] Comment on above: Performed By: #### C BC #### [facility] [address] [address] [address] Laura Duron Basophils/100 WBC (Bld) 0.3 % Normal 0.2-2.0 [facility] Comment on above: Performed By: #### C BC #### [facility] [address] [place] [address] Dr. Laura Duron EO # 0.1 103/ul Normal 0.0-0.7 [facility] Comment on above: Performed By: #### C BC #### [facility] [address] [place] [address] Dr. Laura Duron Eosinophils/100 WBC (Bld) 1.5 % Normal 0.9-7.0 [facility] Comment on above: Performed By: #### C BC #### [facility] [address] [place] [address] Dr. Laura Duron Erythrocyte distribution width (RBC) [Ratio] 11.9 % Normal 11.0-15.0 [facility] Comment on above: Performed By: #### C BC #### [facility] [address] [place] [address] Dr. Laura Duron Hematocrit (Bld) [Volume fraction] 37.4 % Normal 36.0-48.0 [facility] Comment on above: Performed By: #### C BC #### [facility] [address] [place] [address] Dr. Laura Duron Hemoglobin (Bld) [Mass/Vol] 13.7 g/dL Normal 12.0-16.0 [facility] Comment on above: Performed By: #### C BC #### [facility] [address] [place] [address] Dr. Laura Duron IG # 0.02 10e3/ul Normal 0.00-0.03 [facility] Comment on above: Performed By: #### C BC #### [facility] [address] [place] [address] Dr. Laura Duron IG % 0.3 % Normal 0.0-0.5 [facility] Comment on above: Performed By: #### C BC #### [facility] [address] [place] [address] Dr. Laura Duron LYMPH # 1.4 103/ul Normal 1.2-3.8 [facility] Comment on above: Performed By: #### C BC #### [facility] [address] [place] [address] Dr. Laura Duron Lymphocytes/100 WBC (Bld) 23.0 % Normal 20.5-60.0 [facility] Comment on above: Performed By: #### C BC #### [facility] [address] [place] [address] Dr. Laura Duron MANUAL DIFF REQ NO Normal [facility] Comment on above: Performed By: #### C BC #### [facility] [address] [place] [address] Dr. Laura Duron MCH (RBC) [Entitic mass] 30.7 pg Normal 26.7-34.0 [facility] Comment on above: Performed By: #### C BC #### [facility] [address] [place] [address] Dr. Laura Duron MCHC (RBC) [Mass/Vol] 36.6 g/dL Critically high 29.9-35.2 [facility] Comment on above: Performed By: #### C BC #### [facility] [address] [place] [address] Dr. Laura Duron MCV (RBC) [Entitic vol] 83.9 fL Normal 81.0-99.0 [facility] Comment on above: Performed By: #### C BC #### [facility] [address] [place] [address] Dr. Laura Duron MONO # 0.3 103/ul Normal 0.3-0.8 [facility] Comment on above: Performed By: #### C BC #### [facility] [address] [place] [address] Dr. Laura Duron Monocytes/100 WBC (Bld) 4.6 % Normal 1.7-12.0 [facility] Comment on above: Performed By: #### C BC #### [facility] [address] [place] [address] Dr. Laura Duron NEUT # 4.2 103/ul Normal 1.4-6.5 [facility] Comment on above: Performed By: #### C BC #### [facility] [address] [place] [address] Dr. Laura Duron Neutrophils/100 WBC (Bld) 70.3 % Normal 43.0-75.0 [facility] Comment on above: Performed By: #### C BC #### [facility] [address] [place] [address] Dr. Laura Duron Platelet mean volume (Bld) [Entitic vol] 9.1 fL Critically low 9.5-13.5 [facility] Comment on above: Performed By: #### C BC #### [facility] [address] [place] [address] Dr. Laura Duron PLT 258 103/ul Normal 150-450 [facility] Comment on above: Performed By: #### C BC #### [facility] [address] [place] [address] Dr. Laura Duron RBC 4.46 106/ul Normal 4.20-5.40 [facility] Comment on above: Performed By: #### C BC #### [facility] [address] [place] [address] Dr. Laura Duron WBC 6.0 103/ul Normal 4.0-11.0 [facility] Comment on above: Performed By: #### C BC #### [facility] [address] [place] [address] Dr. Laura Duron CULTURE URINEon 04-12-2022 CULTURE URINE Culture Observations : LIGHT GROWTH OF MIXED GENITAL ALISHA. NO POTENTIAL PATHOGENS SEEN. Normal [facility] Comment on above: Performed By: #### U RCX ####[facility] [address] [place], [place] [address]LvDr. Laura Duron GLYCOHEMOGLOBIN A1Con 2022 ADA RECOMMENDATION SEE BELOW Normal [facility] Comment on above: Result Comment: ADA RECOMMENDED LIMIT 4.0 - 6.0 ADA THERAPEUTIC TARGET < 7.0 ACTION SUGGESTED > 7.0 Performed By: #### A 1C #### [facility] [address] [address] [address] Laura Duron Glucose [Mass/Vol] 97 mg/dL Normal [facility] Comment on above: Performed By: #### A 1C #### [facility] [address] [place], [place] [address] Dr. Laura Duron HbA1c (Bld) [Mass fraction] 5.0 % Normal 4.5-6.2 [facility] Comment on above: Performed By: #### A 1C #### [facility] [address] [address] [address] Laura Duron TYPE AND SCREENon 04-12-2022 TYPE AND SCREEN Negative Normal [facility] Comment on above: Performed By: #### T NS #### [facility] [address] [place], [place] [address] Dr. Laura Duron US PREG TVon 03-25-2022 US PREG TV EXAMINATION: US PREG TV HISTORY: Missed period COMPARISON: No relevant comparison available. FINDINGS: GESTATIONAL SAC: Present and normal appearing. YOLK SAC: Present and normal appearing. POLE: Present and normal appearing. CARDIAC: Present. UTERUS: Normal size and appearance. OVARIES: Right: Not seen. Left: Collapsing follicle/corpus lutein cyst. CERVIX: 3.8 cm in length and closed. CUL-DE-SAC: Normal. OTHER: None. AGE BY LMP: 8 weeks 6 days MIGUEL ANGEL BY LMP: 10/29/2022 AGE BY US CRL: 8 weeks 4 days MIGUEL ANGEL BY US CRL: 10/31/2022 IMPRESSION: 1. Single live intrauterine . Electronically authenticated by: ASHLEY FRANCO Date: 2022-03-25 16:36 Normal [facility] Automated basophil %on 07-18 Basophils/100 WBC (Bld) 0.6 % [facility] Automated basophil counton 0 07-18-2020 Basophils (Bld) [#/Vol] 0.0 10*3/uL 0.0-0.2 [facility] Automated blood lymphocyte c ount (number/volume)on 07-18-2020 Lymphocytes (Bld) [#/Vol] 1.0 10*3/uL 1.00-4.8 [facility] Automated blood lymphocyte c ount as percentage of total leukocyteson 07-18-2020 Lymphocytes/100 WBC (Bld) 13.9 % [facility] Automated blood monocyte cou nton 07-18-2020 Monocytes (Bld) [#/Vol] 0.4 10*3/uL 0.0-0.8 [facility] Automated blood platelet cou nt (count/volume)on 07-18-2020 Platelets (Bld) [#/Vol] 271 10*3/uL 150-450 [facility] Automated blood platelet opal n volume measurementon 07-18-2020 Platelet mean volume (Bld) [Entitic vol] 8.1 fL 6.3-10.7 [facility] Automated eosinophil %on Eosinophils/100 WBC (Bld) 0.9 % [facility] Automated eosinophil counton 07-18-2020 Eosinophils (Bld) [#/Vol] 0.1 10*3/uL 0.0-0.45 [facility] Automated erythrocyte distri bution width ratioon 07-18-2020 Erythrocyte distribution width (RBC) [Ratio] 12.5 % 11.9-15.3 [facility] Automated erythrocyte mean c orpuscular hemoglobin (mass per erythrocyte)on 07-18-2020 MCH (RBC) [Entitic mass] 32.6 pg 24.7-34.3 [facility] Automated erythrocyte mean c orpuscular hemoglobin concentration measurement (mass/volon 07-18-2020 MCHC (RBC) [Mass/Vol] 35.5 g/dL 32.0-35.0 [facility] Automated erythrocyte mean c orpuscular volumeon 07-18-2020 MCV (RBC) [Entitic vol] 91.9 fL 80-100 [facility] Automated monocyte %on 07-18 Monocytes/100 WBC (Bld) 4.7 % [facility] Automated neutrophil %on Neutrophils/100 WBC (Bld) 79.9 % [facility] Blood erythrocytes automated count (number/volume)on 07-18-2020 RBC (Bld) [#/Vol] 4.19 10*6/uL 3.60-5.00 [facility] Blood hemoglobin measurement (mass/volume)on 07-18-2020 Hemoglobin (Bld) [Mass/Vol] 13.7 g/dL 11.8-15.4 [facility] Blood leukocytes automated c ount (number/volume)on 07-18-2020 WBC (Bld) [#/Vol] 7.5 10*3/uL 3.8-11.6 [facility] Blood neutrophil count by au tomated method (number/volume)on 07-18-2020 Neutrophils (Bld) [#/Vol] 6.0 10*3/uL 1.8-7.7 [facility] Body fluid albumin measureme nt (mass/volume)on 07-18-2020 Albumin (Body fld) [Mass/Vol] 4.2 g/dL 3.2-5.5 [facility] Estimated glomerular filtrat ion rate (GFR) non- Americanon 07-18-2020 GFR/1.73 sq M predicted among non-blacks MDRD (S/P/Bld) [Vol rate/Area] > 60 mL/Min [facility] Hematocrit [Volume Fraction] of Blood by Automated counton 07-18-2020 Hematocrit (Bld) [Volume fraction] 38.5 % 34.0-46.4 [facility] Otheron 07-18-2020 GFR/1.73 sq M.predicted MDRD (S/P/Bld) [Vol rate/Area] > 60 mL/Min [facility] Comment on above: GFR estimated refere nce range: According to KDOQI guidelines, <60 ml/min/1.73m2 is sufficient to diagnose a patient with chronic kidney disease. Nucleated RBC/100 WBC (Bld) [Ratio] 0.1 % 0-0.5 [facility] Creatinine Clearance (Chem 138.35 [facility] Protein [Mass/volume] in Ser um or Plasmaon 07-18-2020 Protein [Mass/Vol] 7.0 g/dL 6.1-7.9 [facility] Serum globulin measurement b y calculation (mass/volume)on 07-18-2020 Globulin (S) [Mass/Vol] 2.8 g/dL [facility] Serum or plasma alanine coates otransferase measurement without P-5'-P (enzymatic activion 07-18-2020 ALT No additional P-5'-P [Catalytic activity/Vol] 12 U/L 10-60 [facility] Serum or plasma albumin/glob ulin mass ratioon 07-18-2020 Albumin/Globulin [Mass ratio] 1.5 {ratio} [facility] Serum or plasma alkaline josé miguel sphatase measurement (enzymatic activity/volume)on 07-18-2020 ALP [Catalytic activity/Vol] 36 U/L 32-92 [facility] Serum or plasma aspartate am inotransferase measurement (enzymatic activity/volume)on 07-18-2020 AST [Catalytic activity/Vol] 17 U/L 10-42 [facility] Serum or plasma beta choriog onadotropin measurement (units/volume)on 07-18-2020 [place] [address].00 m[IU]/mL [facility] Comment on above: Approximate Approxim ate hCG Gestational Age Range (mIU/ml) (weeks)0.2-1 5-50 1-2 50-500 2-3 100-5,000 3-4 500-10,000 4-5 1,000-50,000 5-6 10,000-100,000 6-8 15,000-200,000 8-12 10,000-100,000 Serum or plasma calcium laura urement (mass/volume)on 07-18-2020 Calcium [Mass/Vol] 9.3 mg/dL 8.2-10.2 [facility] Serum or plasma chloride opal surement (moles/volume)on 07-18-2020 Chloride [Moles/Vol] 101 mmol/L 95-114 [facility] [place] Serum or plasma creatinine m easurement with calculation of estimated glomerular filtron 07-18-2020 Creatinine [Mass/Vol] 0.58 mg/dL 0.44-1.03 [facility] Serum or plasma glucose laura urement (mass/volume)on 07-18-2020 Glucose [Mass/Vol] 102 mg/dL 70-100 [facility] Comment on above: ADA recommended refe rence rangeRandom Glucose Reference Range is dependent on time and content of last meal. Glucose of more than 200 mg/dL in a nonstressed, ambulatory subject supports the diagnosis of Diabetes Mellitus. Serum or plasma potassium me asurement (moles/volume)on 07-18-2020 Potassium [Moles/Vol] 3.4 mmol/L 3.5-5.1 [facility] Serum or plasma sodium measu rement (moles/volume)on 07-18-2020 Sodium [Moles/Vol] 132 mmol/L 136-146 [facility] Serum or plasma total biliru bin measurement (mass/volume)on 07-18-2020 Bilirubin [Mass/Vol] 0.7 mg/dL 0.3-1.2 [facility] [place] Serum or plasma total carbon dioxide measurement (moles/volume)on 07-18-2020 CO2 [Moles/Vol] 20.6 mmol/L 22.0-30.0 [facility] Serum or plasma urea nitroge n measurement (mass/volume)on 07-18-2020 Urea nitrogen [Mass/Vol] 6 mg/dL 9-23 [facility] Activated partial thrombopla stin time (aPTT) in platelet poor plasma by coagulation aon 05-28-2020 aPTT Coag (PPP) [Time] 35.1 s 25.1-36.5 [facility] Automated basophil %on 05-28 Basophils/100 WBC (Bld) 0.7 % [facility] Automated basophil counton 0 05-28-2020 Basophils (Bld) [#/Vol] 0.0 10*3/uL 0.0-0.2 [facility] Automated blood lymphocyte c ount (number/volume)on 05-28-2020 Lymphocytes (Bld) [#/Vol] 0.6 10*3/uL 1.00-4.8 [facility] Automated blood lymphocyte c ount as percentage of total leukocyteson 05-28-2020 Lymphocytes/100 WBC (Bld) 14.3 % [facility] Automated blood monocyte cou nton 05-28-2020 Monocytes (Bld) [#/Vol] 0.4 10*3/uL 0.0-0.8 [facility] Automated blood platelet cou nt (count/volume)on 05-28-2020 Platelets (Bld) [#/Vol] 273 10*3/uL 150-450 [facility] Automated blood platelet opal n volume measurementon 05-28-2020 Platelet mean volume (Bld) [Entitic vol] 8.0 fL 6.3-10.7 [facility] Automated eosinophil %on Eosinophils/100 WBC (Bld) 1.6 % [facility] Automated eosinophil counton 05-28-2020 Eosinophils (Bld) [#/Vol] 0.1 10*3/uL 0.0-0.45 [facility] Automated erythrocyte distri bution width ratioon 05-28-2020 Erythrocyte distribution width (RBC) [Ratio] 13.1 % 11.9-15.3 [facility] Automated erythrocyte mean c orpuscular hemoglobin (mass per erythrocyte)on 05-28-2020 MCH (RBC) [Entitic mass] 32.0 pg 24.7-34.3 [facility] Automated erythrocyte mean c orpuscular hemoglobin concentration measurement (mass/volon 05-28-2020 MCHC (RBC) [Mass/Vol] 34.4 g/dL 32.0-35.0 [facility] Automated erythrocyte mean c orpuscular volumeon 05-28-2020 MCV (RBC) [Entitic vol] 93.1 fL 80-100 [facility] Automated monocyte %on 05-28 Monocytes/100 WBC (Bld) 10.6 % [facility] Automated neutrophil %on Neutrophils/100 WBC (Bld) 72.8 % [facility] Blood erythrocytes automated count (number/volume)on 05-28-2020 RBC (Bld) [#/Vol] 4.24 10*6/uL 3.60-5.00 [facility] Blood hemoglobin measurement (mass/volume)on 05-28-2020 Hemoglobin (Bld) [Mass/Vol] 13.5 g/dL 11.8-15.4 [facility] Blood leukocytes automated c ount (number/volume)on 05-28-2020 WBC (Bld) [#/Vol] 4.0 10*3/uL 3.8-11.6 [facility] Blood neutrophil count by au tomated method (number/volume)on 05-28-2020 Neutrophils (Bld) [#/Vol] 2.9 10*3/uL 1.8-7.7 [facility] COVID-19 SOFIAon 05-28-2020 COVID-19 KATELYN Positive Negative [facility] Comment on above: This is a duplicate test result based off of the Katelyn SARS Antigen (TIA) test performed within the Microbiology department. [facility] 05-28-2020 Natriuretic peptide B (Bld) [Mass/Vol] 44.0 pg/mL 5-100 [facility] Estimated glomerular filtrat ion rate (GFR) non- Americanon 05-28-2020 GFR/1.73 sq M predicted among non-blacks MDRD (S/P/Bld) [Vol rate/Area] mL/min/{1.73_m2} [facility] Hematocrit [Volume Fraction] of Blood by Automated counton 05-28-2020 Hematocrit (Bld) [Volume fraction] 39.4 % 34.0-46.4 [facility] Hematologyon 05-28-2020 PT Coag (PPP) [Time] 12.0 s 9.0-12.9 [facility] [place] Otheron 05-28-2020 GFR/1.73 sq M.predicted MDRD (S/P/Bld) [Vol rate/Area] mL/min/{1.73_m2} [facility] Comment on above: GFR estimated refere nce range: According to KDOQI guidelines, <60 ml/min/1.73m2 is sufficient to diagnose a patient with chronic kidney disease. Nucleated RBC/100 WBC (Bld) [Ratio] 0.2 % 0-0.5 [facility] Creatinine Clearance (Chem 102.31 [facility] SARS Antigen (LFIA) [facility] Platelet poor plasma interna tional normalized ratio (INR) by coagulation assay (relaton 05-28-2020 INR Coag (PPP) [Relative time] 1.1 {INR} [facility] Comment on above: INR Therapeutic Rang e A) Pre- and Peroperative OAT started two weeks before surgery. NOT HIP SURGERY: 1.5 - 2.5 HIP SURGERY: 2 - 3B) Primary and secondary prevention of venous THROMBOSIS: 2 - 3C) Active venous thrombosis, pulmonary embolismand prevention of recurrent venous thrombosis: 2 - 3D) Prevention of arterial thromboembolismincluding patients with mechanical heart valves: 3 - 4.5 Serum or plasma calcium laura urement (mass/volume)on 05-28-2020 Calcium [Mass/Vol] 9.4 mg/dL 8.2-10.2 [facility] Serum or plasma cardiac trop onin I measurement (mass/volume)on 05-28-2020 Troponin I.cardiac [Mass/Vol] ng/mL 0-0.02 [facility] Comment on above: AIDEN VT Cut off value > or equal to 0.03 ng/mL in conjunction with clinical conditions of myocardial infarction.([email or web address].org/[email or web address]) Serum or plasma chloride opal surement (moles/volume)on 05-28-2020 Chloride [Moles/Vol] 102 mmol/L 95-114 [facility] Serum or plasma creatinine m easurement with calculation of estimated glomerular filtron 05-28-2020 Creatinine [Mass/Vol] 0.78 mg/dL 0.44-1.03 [facility] Serum or plasma glucose laura urement (mass/volume)on 05-28-2020 Glucose [Mass/Vol] 106 mg/dL 70-100 [facility] Comment on above: ADA recommended refe rence rangeRandom Glucose Reference Range is dependent on time and content of last meal. Glucose of more than 200 mg/dL in a nonstressed, ambulatory subject supports the diagnosis of Diabetes Mellitus. Serum or plasma potassium me asurement (moles/volume)on 05-28-2020 Potassium [Moles/Vol] 3.4 mmol/L 3.5-5.1 [facility] Serum or plasma sodium measu rement (moles/volume)on 05-28-2020 Sodium [Moles/Vol] 139 mmol/L 136-146 [facility] Serum or plasma total carbon dioxide measurement (moles/volume)on 05-28-2020 CO2 [Moles/Vol] 26.3 mmol/L 22.0-30.0 [facility] Serum or plasma urea nitroge n measurement (mass/volume)on 05-28-2020 Urea nitrogen [Mass/Vol] 7 mg/dL 9- [facility] Coding Summary.on 01-13-2018 Coding Summary. CODING DATE: [address] 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 However, the narrative phrase printed from the coding software may appear abbreviated, or result in slightly different terminology. Revised Coded By: Vee Castaneda Revised Date Saved: 01/13/2018 02:06 pm Normal [facility] Main OR Intraoperative Recor don 01-12-2018 Main OR Intraoperative Record IntraOp Document Type FTURO Summary Primary Physician: Supa Mock Jr., MD Finalized Date/Time: 01/12/18 13:55:40 Pt. Name: MARCUS BURKS/Sex: 1990 Female Med Rec #: [id number] Physician: Supa Mock Jr., MD Financial #: [id number] Pt. 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 URETHRAL DILATION Surgeon Description CYSTOSCOPY UD, REVIEW ULTRASOUND Primary Procedure Yes Primary Surgeon Supa Mock Jr., MD 01/12/18 13:50:00 Stop 01/12/18 13:53:00 Anesthesia Type Local Surgical Service Urology Wound Class 2 - Clean-Contaminated Last Modified By: Doris CUELLO, Cyndi CHOU 01/12/18 13:53:28 General Case Data FTURO Pre-Care Text: Classifies surgical wound, implements aseptic technique, initiates traffic control Entry 1 Case Information OR URO 1 FT Case Level None Wound Class 2 - Clean-Contaminated Specialty Urology Preop Diagnosis URETHRAL STRICTURE, Postop Same As Preop Yes UTI, STRESS INCONTINENCE Postop Diagnosis URETHRAL STRICTURE, Outcomes Met? Yes UTI, STRESS INCONTINENCE Last Modified By: oDris CUELLO, Cyndi CHOU 01/12/18 12:53:12 Post-Care Text: The patient is free from signs and symptoms of infection EU IntraOp - FTURO Pre-Care Text: Implements protective measures prior to operative or invasive procedure, confirms identity before the operative or invasive procedure, verifies operative procedure, surgical site, and laterality Entry 1 EU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
[2023-09-23 21:34] VITALS: BP 120/78; PULSE 75; TEMP 36.6; O2SAT 100; BMI 21.7
--- NOTE | 2023-09-23 21:46 | ED_ITS ---
HPI - Abdominal Pain General Chief Complaint: Abdominal Pain Stated Complaint: abdominal pain, feels like passing out Time Seen by Provider: 09/23/23 21:41 Source: patient Mode of arrival: Wheelchair Limitations: no limitations History of Present Illness HPI narrative: patient ill past 3 days with vomiting and diarrhea. Denies hematemesis. States she does have known hemorrhoids so when she wipes there is blood. abdominal cramping. No fever. Past history of ALEMAN, neuro cardiogenic syncope and episodes of SVT. No fever. Not aware of anyone else who is ill Related Data Home Medications ?Medication ?Instructions ?Recorded ?Confirmed prenat.vits,susana,[id number] 1 tab PO DAILY 09/21/22 10/22/22 acyclovir 400 mg tablet 500 mg PO DAILY 10/08/22 10/22/22 Previous Rx's ?Medication ?Instructions ?Recorded ibuprofen 800 mg tablet 800 mg PO Q8H PRN pain 14 days #40 10/26/22 tabs oxycodone-acetaminophen 5 mg-325 1 tab PO Q6H PRN pain 7 days #28 10/26/22 mg tablet (Percocet) tabs Allergies Allergy/AdvReac Type Severity Reaction Status Date / Time No Known Drug Allergies Allergy Verified 09/21/22 14:29 Review of Systems ROS Status of ROS 10 or more systems reviewed and unremark able except as noted in history and below [facility] Medical History Social History Within the past year, how often did you have a drink containing alcohol: never Score interpretation: A score less than 3 is consistent with normal alcohol consumption. Smoking status: Never smoker Non-prescribed substance use: denies use Exam Constitutional Vital Signs, click to edit/add: Last Vital Signs Temp 97.9 F 09/23/23 21:34 Pulse 69 09/24/23 01:06 Resp 18 09/24/23 01:06 BP 106/70 09/24/23 01:06 Pulse Ox 100 09/24/23 01:06 O2 Del Method Room Air 09/24/23 01:06 Common normals: no apparent distress, average body habitus, oriented x3, no limitations, healthy appearing, alert and well nourished [facility] Common normals: normocephalic and head/scalp atraumatic Eye Common normals: PERRL, EOMs intact bilaterally and conjunctivae normal Respiratory Common normals: normal respiratory effort, no retractions, no use of accessory muscles and clear to auscultation bilaterally Cardio Common normals: regular rate, regular rhythm, S1 normal heart sound and S2 normal heart sound GI Other: soft mild bilat lower quad tenderness. no guarding Extremity Common normals: normal to inspection and full ROM Neuro Common normals: oriented x3, CN's II-XII intact bilaterally, moves all extremities and no focal motor deficits Psych Appearance: grossly normal Course Vital Signs Vital signs: Vital Signs Temperature 97.9 F 09/23/23 21:34 Pulse Rate 75 09/23/23 21:34 Respiratory Rate 16 09/23/23 21:34 Blood Pressure 120/78 09/23/23 21:34 Pulse Oximetry 100 09/23/23 21:34 Temperature 97.9 F 09/23/23 21:34 Pulse Rate 69 09/24/23 01:06 Respiratory Rate 18 09/24/23 01:06 Blood Pressure 106/70 09/24/23 01:06 Pulse Oximetry 100 09/24/23 01:06 Oxygen Delivery Method Room Air 09/24/23 01:06 MDM - Abdominal Pain MDM Narrative Medical decision making narrative: patient presents with 3 day history of vomiting and diarrhea. nausea/vomiting controlled . no diarrhea while in the department. Patient hydrated. Bentyl for abdominal pain and pain decreased to 3/10. CT with finding of collapsing hemorrhagic cyst-right. Patient denies pelvic pain or vaginal bleed. She is feeling better at this time and discharged with zofran and bentyl Lab Data Labs: Lab Results 09/23/23 09/23/23 Range/Units 21:45 23:10 WBC 6.3 (4.0-11.0) 10^3/uL RBC 4.46 (4.20-5.40) 10^6/uL Hgb 13.6 (12.0-16.0) g/dL Hct 39.6 (36.0-48.0) % MCV 88.8 (81.0-99.0) fL MCH 30.5 (26.7-34.0) pg MCHC 34.3 (29.9-35.2) g/dL RDW 12.2 (11.0-15.0) % Plt Count 297 (150-450) 10^3/uL MPV 10.1 (9.5-13.5) fL Neut % (Auto) 59.8 (43.0-75.0) % Lymph % (Auto) 33.4 (20.5-60.0) % [place] % (Auto) 4.8 (1.7-12.0) % Eos % (Auto) 1.3 (0.9-7.0) % Baso % (Auto) 0.5 (0.2-2.0) % Neut # (Auto) 3.8 (1.4-6.5) 10^3/uL Lymph # (Auto) 2.1 (1.2-3.8) 10^3/uL [place] # (Auto) 0.3 (0.3-0.8) 10^3/uL Eos # (Auto) 0.1 (0.0-0.7) 10^3/uL Baso # (Auto) 0.0 (0.0-0.1) 10^3/uL Abs Immat Gran (auto) 0.01 (0.00-0.03) 10^3/uL Imm/Tot Granulo (auto) 0.2 (0.0-0.5) % Sodium 138 (136-145) mmol/L Potassium 3.5 (3.5-5.1) mmol/L Chloride 104 (98-107) mmol/L Carbon Dioxide 23.8 (21.0-32.0) mmol/L Anion Gap 13.7 BUN 15.0 (7.0-18.0) mg/dL Creatinine 0.85 (0.55-1.02) mg/dL Est GFR ( Amer) >60 (>=60) Est GFR (Non-Af Amer) >60 (>=60) BUN/Creatinine Ratio 17.6 Glucose 93 (74-106) mg/dL Lactate 1.3 (0.4-2.0) mmol/L Calcium 10.5 H (8.5-10.1) mg/dL Total Bilirubin 0.9 (0.2-1.0) mg/dL AST 13 L (15-37) U/L ALT 16 (14-59) U/L Alkaline Phosphatase 61 (46-116) U/L Troponin I High Sens <4.0 L (4.0-51.3) pg/mL Total Protein 8.0 (6.4-8.2) g/dL Albumin 4.5 (3.4-5.0) g/dL Globulin 3.5 g/dL Albumin/Globulin Ratio 1.3 Lipase 32.0 (16.0-77.0) U/L Urine Color Lt. yellow (YELLOW) Urine Clarity Clear (CLEAR) Urine pH 8.0 (5.0-9.0) Ur Specific [place] 1.020 (1.005-1.025) Urine Protein Negative (NEG/TRACE) mg/dL Urine Glucose (UA) Negative (NEGATIVE) mg/dL Urine Ketones Trace A (NEGATIVE) mg/dL Urine Occult Blood Negative (NEGATIVE) Urine Nitrite Negative (NEGATIVE) Urine Bilirubin Negative (NEGATIVE) Urine Urobilinogen 0.2 (0.2-1.0) EU/dL Ur Leukocyte Esterase Trace A (NEGATIVE) Urine HCG, Qual Negative (NEGATIVE) Imaging Data CT scan - abdomen: Radiologist's impression: ITS Impressions Abdomen/Pelvis CT 09/23/23 23:33 IMPRESSION: 1. Collapsing right ovarian hemorrhagic cyst. 2. Normal appendix. Electronically authenticated by: Ankur HOU Date: 09/24/2023 00:58 Discharge Plan Discharge Stand Alone Forms: Portal Instructions Chief Complaint: Abdominal Pain Clinical Impression: Gastroenteritis, Haemorrhagic cyst Patient Disposition: Home, Self-Care Prescriptions / Home Meds: No Action prenat.vits,susana,[id number] Tablet 1 tab PO DAILY ibuprofen 800 mg tablet 800 mg PO Q8H PRN (Reason: pain) 14 Days Qty: 40 0RF oxycodone-acetaminophen [Percocet] 5-325 mg tablet 1 tab PO Q6H PRN (Reason: pain) 7 Days Qty: 28 0RF acyclovir 400 mg tablet 500 mg PO DAILY Print Language: Romansh Instructions: Gastroenteritis (ED) Additional Instructions: follow up with your doctor next week for recheck Referrals: Physician,Non-Staff, MD [Primary Care Provider] - 1 week
[2023-09-23] MEDS: 0.9 % SODIUM CHLORIDE 1,000 ML 999 ML IV ×2 (22:01→23:48)
[2023-09-23] MEDS: ONDANSETRON PF 4 MG/2 ML VIAL IV (22:04)
[2023-09-23 22:05] LABS: Basophils Percent Auto 0.5 % (0.2-2.0); Eosinophils Absolute Auto 0.1 10^3/uL (0.0-0.7); Eosinophils Percent Auto 1.3 % (0.9-7.0); Hematocrit 39.6 % (36.0-48.0); Hemoglobin 13.6 g/dL (12.0-16.0); Immature Granulocytes Abs Auto 0.01 10^3/uL (0.00-0.03); Immature Granulocytes Pct Auto 0.2 % (0.0-0.5); Lymphocytes Absolute Auto 2.1 10^3/uL (1.2-3.8); Lymphocytes Percent Auto 33.4 % (20.5-60.0); Mean Corpuscular HGB Conc 34.3 g/dL (29.9-35.2); Mean Corpuscular Hemoglobin 30.5 pg (26.7-34.0); Mean Corpuscular Volume 88.8 fL (81.0-99.0); Mean Platelet Volume 10.1 fL (9.5-13.5); Monocytes Absolute Auto 0.3 10^3/uL (0.3-0.8); Monocytes Percent Auto 4.8 % (1.7-12.0); Neutrophils Absolute Auto 3.8 10^3/uL (1.4-6.5); Neutrophils Percent Auto 59.8 % (43.0-75.0); Platelet Count 297 10^3/uL (150-450); Red Blood Count 4.46 10^6/uL (4.20-5.40); Red Cell Distribution Width 12.2 % (11.0-15.0); White Blood Count 6.3 10^3/uL (4.0-11.0)
[2023-09-23 22:16] LABS: Lactate/Lactic Acid 1.3 mmol/L (0.4-2.0)
[2023-09-23 22:23] LABS: Alanine Aminotransferase 16 U/L (14-59); Albumin Globulin Ratio 1.3; Albumin Level 4.5 g/dL (3.4-5.0); Alkaline Phosphatase 61 U/L (46-116); Anion Gap 13.7; Aspartate Amino Transferase 13 U/L (15-37); BUN Creatinine Ratio 17.6; Bilirubin Total 0.9 mg/dL (0.2-1.0); Calcium 10.5 mg/dL (8.5-10.1); Carbon Dioxide 23.8 mmol/L (21.0-32.0); Chloride 104 mmol/L (98-107); Estimated GFR (African America >60 (>=60); Estimated GFR (Non-African Ame >60 (>=60); Globulin 3.5 g/dL; Glucose 93 mg/dL (74-106); Potassium 3.5 mmol/L (3.5-5.1); Sodium 138 mmol/L (136-145); Troponin I High Sensitivity <4.0 pg/mL (4.0-51.3)
[2023-09-23 23:02] VITALS: BP 113/74; PULSE 77; O2SAT 100
[2023-09-23 23:19] LABS: HCG Qualitative Urine* NEGATIVE (NEGATIVE); Internal Control Within Normal Limits
[2023-09-23 23:23] LABS: Bilirubin Urine NEGATIVE (NEGATIVE); Blood Urine NEGATIVE (NEGATIVE); Clarity Urine CLEAR (CLEAR); Color Urine LT. YELLOW (YELLOW); Glucose Urine UA NEGATIVE (NEGATIVE); Ketones Urine TRACE mg/dL (NEGATIVE); Leukocyte Esterase Urine TRACE (NEGATIVE); Nitrite Urine NEGATIVE (NEGATIVE); Protein Urine NEGATIVE (NEG/TRACE); Urobilinogen Urine 0.2 EU/dL (0.2-1.0)
--- NOTE | 2023-09-23 23:33 | CT_ITS ---
The [address] [address] Patient Name: MARCUS BURKS MRN: [id number] date: 1990 Sex: F Assigned Patient Location: ER Current Patient Location: ER Accession/Order Number: [id number] Exam Date: 09/23/2023 23:58 Report Date: 09/24/2023 00:58 At the request of: KERRY NAVARRETE Procedure: CT abdomen pelvis w con EXAM: CT abdomen pelvis w con HISTORY: abdominal pain COMPARISON: None. TECHNIQUE: Axial CT images through the abdomen and pelvis were obtained after the intravenous administration of contrast. Coronal and sagittal reformats were obtained. Dose reduction techniques were achieved by using automated exposure control and/or adjustment of mA and/or kV according to patient size and/or use of iterative reconstruction technique. FINDINGS: The visualized portions of the lung bases are clear. Abdomen: The liver and spleen enhance homogeneously without focal lesion. There is no intra or extrahepatic biliary duct dilatation. The gallbladder is unremarkable. The pancreas, adrenal glands, kidneys, and bowel loops, including the appendix, are unremarkable. There is no mesenteric or retroperitoneal lymphadenopathy. Pelvis: The bladder and rectum are unremarkable. There is no iliac or inguinal lymphadenopathy. The uterus is present. There is a collapsing right ovarian hemorrhagic cyst. The left ovary appears within normal limits by CT. Bone windows show no aggressive osseous lesions. CT/CT abdomen pelvis w con IMPRESSION: 1. Collapsing right ovarian hemorrhagic cyst. 2. Normal appendix. Electronically authenticated by: Ankur HOU Date: 09/24/2023 00:58
[2023-09-23] MEDS: DICYCLOMINE HCL 20 MG/2 ML VIAL IM (23:53)
[2023-09-24 01:06] VITALS: BP 106/70; PULSE 69; O2SAT 100
[2023-09-24] MEDS: DICYCLOMINE HCL 10 MG CAPSULE 20 MG PO (01:23)
[2023-09-24] MEDS: ONDANSETRON 4 MG RAPDIS TABLET SL (01:23)
== END 2023-09-24 01:44 | disposition home or self-care (01) ==
PROVIDERS: Emergency Provider Internal Medicine
DX: K52.9 Noninfective gastroenteritis and colitis, unspecified (principal); N83.201 Unspecified ovarian cyst, right side; G90.A Postural orthostatic tachycardia syndrome [POTS]
CPT/HCPCS: 36415; 74177; 80053; 81003; 83605; 83631; 83690; 84484; 84703; 85025; 87177; 87209; 87493; 87507; 96361; 96372; 96374; 99284; J0500; J2405; Q0162; Q9967

== ENCOUNTER 2023-09-29 17:50 | Emergency (ER) | payer BC, SELFPAY ==
[2023-09-29 17:55] VITALS: BP 110/80; PULSE 78; TEMP 36.6; O2SAT 99; BMI 22.0
--- OUTSIDE RECORDS SUMMARY | 2023-09-29 17:58 | XMS_ITS | CCD ---
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 LYMPH # 1.4 103/ul Normal 1.2-3.[address] [facility] Comment on above: Performed By: #### C BC #### [facility] [address] [place] [address] Dr. Laura Duron Lymphocytes/100 WBC (Bld) 23.0 % Normal 20.5-60.0 [facility] Comment on above: Performed By: #### C BC #### [facility] [address] [place] [address] Dr. Laura Duron MANUAL DIFF REQ NO Normal [facility] Comment on above: Performed By: #### C BC #### [facility] [address] [place] [address] Dr. Laura Duron MCH (RBC) [Entitic mass] 30.7 pg Normal 26.7-34.0 [facility] Comment on above: Performed By: #### C BC #### [facility] [address] [place] [address] Dr. Laura Duron MCHC (RBC) [Mass/Vol] 36.6 g/dL Critically high 29.9-35.2 [facility] Comment on above: Performed By: #### C BC #### [facility] [address] [place] [address] Dr. Laura Duron MCV (RBC) [Entitic vol] 83.9 fL Normal 81.0-99.0 [facility] Comment on above: Performed By: #### C BC #### [facility] [address] [place] [address] Dr. Laura Duron MONO # 0.3 103/ul Normal 0.3-0.8 [facility] Comment on above: Performed By: #### C BC #### [facility] [address] [place] [address] Dr. Laura Duron Monocytes/100 WBC (Bld) 4.6 % Normal 1.7-12.0 [facility] Comment on above: Performed By: #### C BC #### [facility] [address] [place] [address] Dr. Laura Duron NEUT # 4.2 103/ul Normal 1.4-6.[address] [facility] Comment on above: Performed By: #### C BC #### [facility] [address] [place] [address] Dr. Laura Duron Neutrophils/100 WBC (Bld) 70.3 % Normal 43.0-75.0 [facility] Comment on above: Performed By: #### C BC #### [facility] [address] [address] [address] Laura Duron Platelet mean volume (Bld) [Entitic vol] 9.1 fL Critically low 9.5-13.5 [facility] Comment on above: Performed By: #### C BC #### [facility] [address] [address] [address] Laura Duron PLT 258 103/ul Normal 150-[address] [facility] Comment on above: Performed By: #### C BC #### [facility] [address] [address] [address] Laura Duron RBC 4.46 106/ul Normal 4.20-5.40 [facility] Comment on above: Performed By: #### C BC #### [facility] [address] [address] [address] Laura Duron WBC 6.0 103/ul Normal 4.0-11.[address] [facility] Comment on above: Performed By: #### C BC #### [facility] [address] [address] [address] Laura Duron CULTURE URINEon 04-12-2022 CULTURE URINE Culture Observations : LIGHT GROWTH OF MIXED GENITAL ALISHA. NO POTENTIAL PATHOGENS SEEN. Normal [facility] Comment on above: Performed By: #### U RCX ####[facility] [id number] [place] [address]Dr. Laura Duron GLYCOHEMOGLOBIN A1Con 2022 ADA RECOMMENDATION SEE BELOW Normal [facility] Comment on above: Result Comment: ADA RECOMMENDED LIMIT 4.0 - 6.0 ADA THERAPEUTIC TARGET < 7.0 ACTION SUGGESTED > 7.0 Performed By: #### A 1C #### [facility] [address] [place] [address] Dr. Laura Duron Glucose [Mass/Vol] 97 mg/dL Normal [facility] Comment on above: Performed By: #### A 1C #### [facility] [address] [address] [address] Laura Duron HbA1c (Bld) [Mass fraction] 5.0 % Normal 4.5-6.2 [facility] Comment on above: Performed By: #### A 1C #### [facility] [address] [place] [address] Dr. Laura Duron TYPE AND SCREENon 04-12-2022 TYPE AND SCREEN Negative Normal [facility] Comment on above: Performed By: #### T NS #### [facility] [address] [address] [address] Laura Duron US PREG TVon 03-25-2022 [...] ASHLEY FRANCO Date: 2022-03-25 16:[address] [facility] Automated basophil %on 07-18 Basophils/100 WBC (Bld) 0.6 % [facility] Automated basophil counton 0 07-18-2020 Basophils (Bld) [#/Vol] 0.0 10*3/uL 0.0-0.2 [facility] Automated blood lymphocyte c ount (number/volume)on 07-18-2020 Lymphocytes (Bld) [#/Vol] 1.0 10*3/uL 1.00-4.8 [facility] Automated blood lymphocyte c ount as percentage of total leukocyteson 07-18-2020 Lymphocytes/100 WBC (Bld) 13.9 % [facility] Automated blood monocyte cou nton 07-18-2020 Monocytes (Bld) [#/Vol] 0.4 10*3/uL 0.0-0.8 [facility] Automated blood platelet cou nt (count/volume)on 07-18-2020 Platelets (Bld) [#/Vol] 271 10*3/uL 150-450 [facility] Automated blood platelet opal n volume measurementon 07-18-2020 Platelet mean volume (Bld) [Entitic vol] 8.1 fL 6.3-10.7 [facility] Automated eosinophil %on Eosinophils/100 WBC (Bld) 0.9 % [facility] Automated eosinophil counton 07-18-2020 Eosinophils (Bld) [#/Vol] 0.1 10*3/uL 0.0-0.45 [facility] Automated erythrocyte distri bution width ratioon 07-18-2020 Erythrocyte distribution width (RBC) [Ratio] 12.5 % 11.9-15.3 [facility] Automated erythrocyte mean c orpuscular hemoglobin (mass per erythrocyte)on 07-18-2020 MCH (RBC) [Entitic mass] 32.6 pg 24.7-34.3 [facility] Automated erythrocyte mean c orpuscular hemoglobin concentration measurement (mass/volon 07-18-2020 MCHC (RBC) [Mass/Vol] 35.5 g/dL 32.0-35.0 [facility] Automated erythrocyte mean c orpuscular volumeon 07-18-2020 MCV (RBC) [Entitic vol] 91.9 fL 80-100 [facility] Automated monocyte %on 07-18 Monocytes/100 WBC (Bld) 4.7 % [facility] Automated neutrophil %on Neutrophils/100 WBC (Bld) 79.9 % [facility] Blood erythrocytes automated count (number/volume)on 07-18-2020 RBC (Bld) [#/Vol] 4.19 10*6/uL 3.60-5.00 [facility] Blood hemoglobin measurement (mass/volume)on 07-18-2020 Hemoglobin (Bld) [Mass/Vol] 13.7 g/dL 11.8-15.4 [facility] Blood leukocytes automated c ount (number/volume)on 07-18-2020 WBC (Bld) [#/Vol] 7.5 10*3/uL 3.8-11.6 [facility] Blood neutrophil count by au tomated method (number/volume)on 07-18-2020 Neutrophils (Bld) [#/Vol] 6.0 10*3/uL 1.8-7.7 [facility] Body fluid albumin measureme nt (mass/volume)on 07-18-2020 Albumin (Body fld) [Mass/Vol] 4.2 g/dL 3.2-5.5 [facility] Estimated glomerular filtrat ion rate (GFR) non- Americanon 07-18-2020 GFR/1.73 sq M predicted among non-blacks MDRD (S/P/Bld) [Vol rate/Area] > 60 mL/Min [facility] Hematocrit [Volume Fraction] of Blood by Automated counton 07-18-2020 Hematocrit (Bld) [Volume fraction] 38.5 % 34.0-46.4 [facility] Otheron 07-18-2020 GFR/1.73 sq M.predicted MDRD (S/P/Bld) [Vol rate/Area] > 60 mL/Min [facility] Comment on above: GFR estimated refere nce range: According to KDOQI guidelines, <60 ml/min/1.73m2 is sufficient to diagnose a patient with chronic kidney disease. Nucleated RBC/100 WBC (Bld) [Ratio] 0.1 % 0-0.5 [facility] Creatinine Clearance (Chem 138.35 [facility] Protein [Mass/volume] in Ser um or Plasmaon 07-18-2020 Protein [Mass/Vol] 7.0 g/dL 6.1-7.9 [facility] Serum globulin measurement b y calculation (mass/volume)on 07-18-2020 Globulin (S) [Mass/Vol] 2.8 g/dL [facility] Serum or plasma alanine coates otransferase measurement without P-5'-P (enzymatic activion 07-18-2020 ALT No additional P-5'-P [Catalytic activity/Vol] 12 U/L 10-60 [facility] Serum or plasma albumin/glob ulin mass ratioon 07-18-2020 Albumin/Globulin [Mass ratio] 1.5 {ratio} [facility] Serum or plasma alkaline josé miguel sphatase measurement (enzymatic activity/volume)on 07-18-2020 ALP [Catalytic activity/Vol] 36 U/L 32-92 [facility] Serum or plasma aspartate am inotransferase measurement (enzymatic activity/volume)on 07-18-2020 AST [Catalytic activity/Vol] 17 U/L 10-42 [facility] Serum or plasma beta choriog onadotropin measurement (units/volume)on 07-18-2020 [place] [address].00 m[IU]/mL [facility] Comment on above: Approximate Approxim ate hCG Gestational Age Range (mIU/ml) (weeks)0.2-1 5-50 1-2 50-500 2-3 100-5,000 3-4 500-10,000 4-5 1,000-50,000 5-6 10,000-100,000 6-8 15,000-200,000 8-12 10,000-100,000 Serum or plasma calcium laura urement (mass/volume)on 07-18-2020 Calcium [Mass/Vol] 9.3 mg/dL 8.2-10.2 [facility] Serum or plasma chloride opal surement (moles/volume)on 07-18-2020 Chloride [Moles/Vol] 101 mmol/L 95-114 [facility] Serum or plasma creatinine m easurement with calculation of estimated glomerular filtron 07-18-2020 Creatinine [Mass/Vol] 0.58 mg/dL 0.44-1.03 [facility] Serum or plasma glucose laura urement (mass/volume)on 07-18-2020 Glucose [Mass/Vol] 102 mg/dL 70-100 [facility] Comment on above: ADA recommended refe rence rangeRandom Glucose Reference Range is dependent on time and content of last meal. Glucose of more than 200 mg/dL in a nonstressed, ambulatory subject supports the diagnosis of Diabetes Mellitus. Serum or plasma potassium me asurement (moles/volume)on 07-18-2020 Potassium [Moles/Vol] 3.4 mmol/L 3.5-5.1 [facility] Serum or plasma sodium measu rement (moles/volume)on 07-18-2020 Sodium [Moles/Vol] 132 mmol/L 136-146 [facility] Serum or plasma total biliru bin measurement (mass/volume)on 07-18-2020 Bilirubin [Mass/Vol] 0.7 mg/dL 0.3-1.2 [facility] Serum or plasma total carbon dioxide measurement (moles/volume)on 07-18-2020 CO2 [Moles/Vol] 20.6 mmol/L 22.0-30.0 [facility] Serum or plasma urea nitroge n measurement (mass/volume)on 07-18-2020 Urea nitrogen [Mass/Vol] 6 mg/dL 9 [facility] Activated partial thrombopla stin time (aPTT) in platelet poor plasma by coagulation aon 05-28-2020 aPTT Coag (PPP) [Time] 35.1 s 25.1-36.5 [facility] Automated basophil %on 05-28 Basophils/100 WBC (Bld) 0.7 % [facility] Automated basophil counton 0 05-28-2020 Basophils (Bld) [#/Vol] 0.0 10*3/uL 0.0-0.2 [facility] Automated blood lymphocyte c ount (number/volume)on 05-28-2020 Lymphocytes (Bld) [#/Vol] 0.6 10*3/uL 1.00-4.8 [facility] Automated blood lymphocyte c ount as percentage of total leukocyteson 05-28-2020 Lymphocytes/100 WBC (Bld) 14.3 % [facility] Automated blood monocyte cou nton 05-28-2020 Monocytes (Bld) [#/Vol] 0.4 10*3/uL 0.0-0.8 [facility] Automated blood platelet cou nt (count/volume)on 05-28-2020 Platelets (Bld) [#/Vol] 273 10*3/uL 150-450 [facility] Automated blood platelet opal n volume measurementon 05-28-2020 Platelet mean volume (Bld) [Entitic vol] 8.0 fL 6.3-10.7 [facility] Automated eosinophil %on Eosinophils/100 WBC (Bld) 1.6 % [facility] Automated eosinophil counton 05-28-2020 Eosinophils (Bld) [#/Vol] 0.1 10*3/uL 0.0-0.45 [facility] Automated erythrocyte distri bution width ratioon 05-28-2020 Erythrocyte distribution width (RBC) [Ratio] 13.1 % 11.9-15.3 [facility] Automated erythrocyte mean c orpuscular hemoglobin (mass per erythrocyte)on 05-28-2020 MCH (RBC) [Entitic mass] 32.0 pg 24.7-34.3 [facility] Automated erythrocyte mean c orpuscular hemoglobin concentration measurement (mass/volon 05-28-2020 MCHC (RBC) [Mass/Vol] 34.4 g/dL 32.0-35.0 [facility] Automated erythrocyte mean c orpuscular volumeon 05-28-2020 MCV (RBC) [Entitic vol] 93.1 fL 80-100 [facility] Automated monocyte %on 05-28 Monocytes/100 WBC (Bld) 10.6 % [facility] Automated neutrophil %on Neutrophils/100 WBC (Bld) 72.8 % [facility] Blood erythrocytes automated count (number/volume)on 05-28-2020 RBC (Bld) [#/Vol] 4.24 10*6/uL 3.60-5.00 [facility] Blood hemoglobin measurement (mass/volume)on 05-28-2020 Hemoglobin (Bld) [Mass/Vol] 13.5 g/dL 11.8-15.4 [facility] Blood leukocytes automated c ount (number/volume)on 05-28-2020 WBC (Bld) [#/Vol] 4.0 10*3/uL 3.8-11.6 [facility] Blood neutrophil count by au tomated method (number/volume)on 05-28-2020 Neutrophils (Bld) [#/Vol] 2.9 10*3/uL 1.8-7.7 [facility] COVID-19 SOFIAon 05-28-2020 COVID-19 KATELYN Positive Negative [facility] Comment on above: This is a duplicate test result based off of the Katelyn SARS Antigen (TIA) test performed within the Microbiology department. [facility] 05-28-2020 Natriuretic peptide B (Bld) [Mass/Vol] 44.0 pg/mL 5-100 [facility] Estimated glomerular filtrat ion rate (GFR) non- Americanon 05-28-2020 GFR/1.73 sq M predicted among non-blacks MDRD (S/P/Bld) [Vol rate/Area] mL/min/{1.73_m2} [facility] Hematocrit [Volume Fraction] of Blood by Automated counton 05-28-2020 Hematocrit (Bld) [Volume fraction] 39.4 % 34.0-46.4 [facility] Hematologyon 05-28-2020 PT Coag (PPP) [Time] 12.0 s 9.0-12.9 [facility] Otheron 05-28-2020 GFR/1.73 sq M.predicted MDRD (S/P/Bld) [Vol rate/Area] mL/min/{1.73_m2} [facility] Comment on above: GFR estimated refere nce range: According to KDOQI guidelines, <60 ml/min/1.73m2 is sufficient to diagnose a patient with chronic kidney disease. Nucleated RBC/100 WBC (Bld) [Ratio] 0.2 % 0-0.5 [facility] Creatinine Clearance (Chem 102.31 [facility] SARS Antigen (LFIA) [facility] Platelet poor plasma interna tional normalized ratio (INR) by coagulation assay (relaton 05-28-2020 INR Coag (PPP) [Relative time] 1.1 {INR} [facility] Comment on above: INR Therapeutic Rang [...] (mass/volume)on 05-28-2020 Calcium [Mass/Vol] 9.4 mg/dL 8.2-10.2 [facility] Serum or plasma cardiac trop onin I measurement (mass/volume)on 05-28-2020 Troponin I.cardiac [Mass/Vol] ng/mL 0-0.02 [facility] Comment on above: [facility] Cut off value > or equal to 0.03 ng/mL in conjunction with clinical conditions of myocardial infarction.(www.escardio.org/guidelines) Serum or plasma chloride opal surement (moles/volume)on 05-28-2020 Chloride [Moles/Vol] 102 mmol/L 95-114 [facility] Serum or plasma creatinine m easurement with calculation of estimated glomerular filtron 05-28-2020 Creatinine [Mass/Vol] 0.78 mg/dL 0.44-1.03 [facility] Serum or plasma glucose laura urement (mass/volume)on 05-28-2020 Glucose [Mass/Vol] 106 mg/dL 70-100 [facility] Comment on above: ADA recommended refe rence rangeRandom Glucose Reference Range is dependent on time and content of last meal. Glucose of more than 200 mg/dL in a nonstressed, ambulatory subject supports the diagnosis of Diabetes Mellitus. Serum or plasma potassium me asurement (moles/volume)on 05-28-2020 Potassium [Moles/Vol] 3.4 mmol/L 3.5-5.1 [facility] Serum or plasma sodium measu rement (moles/volume)on 05-28-2020 Sodium [Moles/Vol] 139 mmol/L 136-146 [facility] Serum or plasma total carbon dioxide measurement (moles/volume)on 05-28-2020 CO2 [Moles/Vol] 26.3 mmol/L 22.0-30.0 [facility] Serum or plasma urea nitroge n measurement (mass/volume)on 05-28-2020 Urea nitrogen [Mass/Vol] 7 mg/dL 9-23 [facility] Coding Summary.on 01-13-2018 Coding Summary. CODING DATE: 018 FINAL [facility] DSC STATUS: Home (Routine DC) PAYOR: Medical [employer] DESCRIPTION 5373 Level 3 Urology and [...] Castaneda Revised Date Saved: 01/13/2018 02:06 pm [facility] Main OR Intraoperative Recor krissy 01-12-2018 Main OR Intraoperative Record IntraOp Document Type FTURO Summary Primary Physician: Supa Mock Jr., MD Finalized Date/Time: 01/12/18 13:55:40 Pt. Name: HAKAN BURKSBRISEIDA Go/Sex: 1990 Female Med Rec #: [id number] Physician: Supa Mock Jr., MD Financial #: [id number] Pt. Type: O Room/Bed: / Admit/Disch: 01/12/18 12:46:24 - Institution: Case Times FTURO Entry 1 Patient Times In Room 01/12/18 13:47:00 Out Room 01/12/18 13:55:00 Procedure Times Start 01/12/18 13:50:00 Stop 01/12/18 13:53:00 Anesthesia Times Last Modified By: Doris CUELLO, RN, Cyndi 01/12/18 13:53:24 Case Attendance FTURO Entry 1 Entry 2 Entry 3 Case Attendee Nish Oneal MD, Supa Le [facility], [place] CUELLO, RN, Cyndi Role Performed Surgeon - Primary Scrub - Primary Recreation Officer - Primary Time In 01/12/18 13:47:00 01/12/18 13:47:00 01/12/18 13:47:00 Time Out 01/12/18 13:55:00 01/12/18 13:55:00 01/12/18 13:55:00 Procedure CYSTOSCOPY LOCAL WITH CYSTOSCOPY LOCAL WITH CYSTOSCOPY LOCAL WITH URETHRAL DILATION(.) URETHRAL DILATION(.) URETHRAL DILATION(.) Comments giuliano medical student in the room during the procedure Last Modified By: Doris CUELLO, JOSÉ ANTONIO, Doris CUELLO, JOSÉ ANTONIO, Doris CUELLO, Cyndi CHOU 01/12/18 13:53:27 Cyndi 01/12/18 13:53:27 Cyndi 01/12/18 13:53:27 Surgical Procedures FTURO Entry 1 Procedure Description Procedure CYSTOSCOPY LOCAL WITH Modifiers . URETHRAL DILATION Surgeon Description CYSTOSCOPY UD, REVIEW ULTRASOUND Primary Procedure Yes Primary Surgeon Nish Oneal MD, Supa Munson Start 01/12/18 13:50:00 Stop 01/12/18 13:53:00 Anesthesia Type Local Surgical Service Urology Wound Class 2 - Clean-Contaminated Last Modified By: Doris CUELLO RN, Kelly 01/12/18 13:53:28 General Case Data FTURO Pre-Care Text: Classifies surgical wound, implements aseptic technique, initiates traffic control Entry 1 Case Information OR URO 1 FT Case Level None Wound Class 2 - Clean-Contaminated Specialty Urology Preop Diagnosis URETHRAL STRICTURE, Postop Same As Preop Yes UTI, STRESS INCONTINENCE Postop Diagnosis URETHRAL STRICTURE, Outcomes Met? Yes UTI, STRESS INCONTINENCE Last Modified By: Doris CUELLO RN, Cyndi 01/12/18 12:53:12 Post-Care Text: The patient is [...] Position Verified Availability Equipment, Medication Time Out Supa Mock Jr., MD, Verified (If Participants [place], Applicable) Doris CUELLO RN, Kelly Time Out [...] Doris CUELLO RN, Kelly 01/12/18 13:55 Normal [facility] Main OR Preoperative Recordo n 01-12-2018 Main OR Preoperative Record Holding Area Document Type FTURO Summary Primary Physician: Supa Mock Jr., MD Finalized Date/Time: 01/12/18 13:47:49 Pt. Name: HAKAN BURKSBRISEIDA Go/Sex: 1990 Female Med Rec #: [id number] Physician: Supa Mcok Jr., MD Financial #: [id number] Pt. Type: O Room/Bed: / Admit/Disch: 01/12/18 [...] Complaints of Pain: No Skin Integrity Intact, [place], Warm, & Dry Vitals - EU Blood Pressure 106/66 Pulse 78 bpm Respirations 16 br/min SPO2 Additional None RN Reviewed Yes Specimens Collected Last Modified By: Doris CUELLO RN, Kelly 01/12/18 13:33:30 Finalized By: Doris CUELLO RN, Kelly Document Signatures Signed By: Doris CUELLO RN, Kelly 01/12/18 13:33 Renu Cardenas 01/12/18 13:10 Doris CUELLO RN, Kelly 01/12/18 13:47 Normal [facility] Operative Reporton Operative Report Patient: MARCUS BURKS Age: 27 [...] urine. The Urethra was dilated to: 28 Bulgarian w/ sounds. Devices Implanted: None. Removal: Cystoscope is removed, The patient tolerated it well. Postoperative Information Discharge: Patient is discharged home with antibiotic coverage, Follow up arranged. Normal [facility] Comment on above: Result Comment: Elec tronically Signed By: Krissy Mock Jr., MDald L\.br\Date and Time Signed: 01/12/18 13:58 EDT Vital Signs Date Time Vital Sign Value Performing Clinician Facility 09-23-2023 20:00-0400 Heart rate 88 /min REFRACTORY MANAGER Jenn Kiepert Work Phone: [facility] 09-23-2023 19:32-0400 Body height 172.72 cm REFRACTORY MANAGER Jenn Kiepert Work Phone: [facility] 09-23-2023 19:32-0400 Body temperature 98 [degF] REFRACTORY MANAGER Jenn Kiepert Work Phone: [facility] 09-23-2023 19:32-0400 Body weight 63 kg REFRACTORY MANAGER Jenn Kiepert Work Phone: [facility] 09-23-2023 19:32-0400 Diastolic blood pressure 72 mm[Hg] REFRACTORY MANAGER Jenn Kiepert Work Phone: [facility] 09-23-2023 19:32-0400 Respiratory rate 22 /min REFRACTORY MANAGER Jenn Kiepert Work Phone: [facility] 09-23-2023 19:32-0400 SaO2% (BldA) [Mass fraction] 96 % REFRACTORY MANAGER Jenn Kiepert Work Phone: [facility] 09-23-2023 19:32-0400 Systolic blood pressure 115 mm[Hg] REFRACTORY MANAGER Jenn Kiepert Work Phone: [facility] 02-15-2023 10:36-0500 Diastolic blood pressure 74 mm[Hg] REFRACTORY MANAGER Jenn Kiepert Work Phone: [facility] 02-15-2023 10:36-0500 Heart rate 79 /min REFRACTORY MANAGER Jenn Kiepert Work Phone: [facility] 02-15-2023 10:36-0500 Respiratory rate 18 /min REFRACTORY MANAGER Jenn Kiepert Work Phone: [facility] 02-15-2023 10:36-0500 SaO2% (BldA) [Mass fraction] 97 % REFRACTORY MANAGER Jenn Kiepert Work Phone: [facility] 02-15-2023 10:36-0500 Systolic blood pressure 119 mm[Hg] REFRACTORY MANAGER Jenn Kiepert Work Phone: [facility] 02-15-2023 08:34-0500 Body height 172.72 cm REFRACTORY MANAGER Jenn Kiepert Work Phone: [facility] 02-15-2023 08:34-0500 Body temperature 97.4 [degF] REFRACTORY MANAGER Jenn Kiepert Work Phone: [facility] 02-15-2023 08:34-0500 Body weight 61.8 kg REFRACTORY MANAGER Jenn Kiepert Work Phone: [facility] 10-04-2022 15:30-0400 Respiratory rate 16 /min REFRACTORY MANAGER Jenn Kiepert Work Phone: [facility] 10-04-2022 13:33-0400 SaO2% (BldA) [Mass fraction] 100 % REFRACTORY MANAGER Jenn Kiepert Work Phone: [facility] 10-04-2022 13:31-0400 Diastolic blood pressure 74 mm[Hg] REFRACTORY MANAGER Jenn Kiepert Work Phone: [facility] 10-04-2022 13:31-0400 Heart rate 71 /min REFRACTORY MANAGER Jenn Kiepert Work Phone: [facility] 10-04-2022 13:31-0400 Systolic blood pressure 108 mm[Hg] REFRACTORY MANAGER Jenn Kiepert Work Phone: [facility] 10-04-2022 13:30-0400 Body temperature 97.3 [degF] REFRACTORY MANAGER Jenn Kiepert Work Phone: [facility] 10-04-2022 13:05-0400 Body temperature 97.8 [degF] REFRACTORY MANAGER Jenn Kiepert Work Phone: [facility] 10-04-2022 13:05-0400 Diastolic blood pressure 82 mm[Hg] REFRACTORY MANAGER Jenn Kiepert Work Phone: [facility] 10-04-2022 13:05-0400 Heart rate 86 /min REFRACTORY MANAGER Jenn Kiepert Work Phone: [facility] 10-04-2022 13:05-0400 Respiratory rate 22 /min REFRACTORY MANAGER Jenn Kiepert Work Phone: [facility] 10-04-2022 13:05-0400 SaO2% (BldA) [Mass fraction] 100 % JOLEEN Fall Kiepert Work Phone: [facility] 10-04-2022 13:05-0400 Systolic blood pressure 121 mm[Hg] REFRACTORY MANAGER Jenn Kiepert Work Phone: [facility] 09-29-2021 12:00-0400 Body height Christian Ditty Other [employer] [facility] Other 09-29-2021 12:00-0400 Body mass index (BMI) [Ratio] 20.68 kg/m2 Christian Ditty Other [facility] Other 09-29-2021 12:00-0400 Body weight 61.69 kg Christian Clancy Other [facility] Other 09-29-2021 12:00-0400 Diastolic blood pressure 84 mm[Hg] Christian Clancy Other [facility] Other 09-29-2021 12:00-0400 Systolic blood pressure 131 mm[Hg] Christian Clancy Other [facility] Other 07-18-2020 14:12-0400 BP Diastolic 66 mm[Hg] Jenn Fuentest [facility] 07-18-2020 14:12-0400 BP Systolic 120 mm[Hg] Jenn Fuentest [facility] 07-18-2020 14:12-0400 Pulse (Heart Rate) 79 /min Jenn Ballard [facility] 07-18-2020 14:12-0400 Pulse Oximetry 98 % Jennlorenzo Ballard [facility] 07-18-2020 14:12-0400 Respiratory Rate 18 /min Jenn Ballard [facility] 07-18-2020 12:07-0400 Body Temperature 98.4 [degF] Jenn Ballard [facility] 07-18-2020 12:04-0400 BMI (Body Mass Index) 19.9 kg/m2 [facility] 07-18-[facility] 12:04-0400 Body weight 61.23 kg Jennlorenzo Ballard [facility] 07-18-2020 12:04-0400 Height [facility].26 [facility] 16:58-0500 BP Diastolic 80 mm[Hg] [facility]2020 16:58-0500 BP Systolic 124 mm[Hg] Jennlorenzo Ballard [facility] 05-28-2020 16:58-0500 Pulse (Heart Rate) 94 /min Jenn Ballard [facility] 05-28-2020 16:58-0500 Pulse Oximetry 99 % Jennlorenzo Ballard [facility] 05-28-2020 15:52-0500 Respiratory Rate 16 /min Jenn Ballard [facility] 05-28-2020 14:29-0500 BMI (Body Mass Index) 19.8 kg/m2 [facility]-2020 14:29-0500 Body Temperature 98.6 [degF] [facility]2020 14:29-0500 Body weight 60.9 [facility]-28-2020 14:29-0500 Height 175.26 cm Jenn Ballard [facility] Encounters Encounter Date Encounter Type Care Provider Facility Start: 09-23-2023 End: 09-24-2023 Emergency department patient visit JOLEEN Ballard Work Phone: [facility] Work Phone: Start: 09-16-2023 End: 09-16-2023 ambulatory PARRISH Dyan LESLIE Not Available Start: 09-02-2023 End: 09-02-2023 ambulatory PARRISH A LESLIE Not Available Start: 08-16-2023 End: 08-16-2023 ambulatory YANG PHAN Not Available Start: 02-15-2023 End: 02-15-2023 Emergency department patient visit JOLEEN Ballard Work Phone: [facility] Work Phone: Start: 10-04-2022 End: 10-04-2022 Patient encounter procedure JOLEEN Ballard Work Phone: [facility] - O/P Start: 10-04-2022 End: 10-04-2022 ambulatory JOLEEN Ballard Work Phone: [facility] Work Phone: Start: 10-04-2022 End: 10-04-2022 Emergency department patient visit JOLEEN Ballard Work Phone: [facility] Work Phone: Start: 08-06-2022 End: 08-07-[address] DAPHNEY AVILA . Facility:[facility] Start: 06-15-2022 End: 06-16-[address] NONE LISTED REQUEST Facility:[facility] Start: 04-12-2022 End: 04-13-[address] DAPHNEY AVILA . Facility:[facility] Start: 03-25-2022 End: 03-26-[address] NONE LISTED REQUEST Facility:[facility] Start: 09-29-2021 End: 09-29-2021 ambulatory Christian Clancy Other [facility] Other Start: 09-29-2021 [facility] visit new patient Christian Clancy [facility] Start: 01-13-2021 ([facility]) [facility] Visit Radhika Best [facility] Start: 07-18-2020 End: 07-18-2020 Emergency department patient visit Jenn Ballard -Emergency Room Start: 05-28-2020 End: 05-28-2020 Emergency department patient visit Jenn Ballard -Emergency Room Start: 01-12-2018 End: 01-13-2018 Patient encounter procedure [facility] Facility:[facility] Procedures Date Procedure Procedure Detail Performing Clinician Start: 10-04-2022 Ultrasound scan - obstetric REFRACTORY MANAGER Jenn Ballard Work Phone: Start: 07-18-2020 Diagnostic ultrasoun d of gravid uterus Jenn Ballard Start: 05-28-2020 Plain chest X-ray Zamzam Ballard Start: 05-28-2020 SARS Antigen (LFIA) Car bhaskar Ballard Plan of Treatment Date Care Activity Detail Author Start: 09-23-2023 [facility] Start: 10-04-2022 [facility] Start: 10-04-2022 Bacteria identified in Urine by Culture Urine Culture [facility] Start: 10-04-2022 Hospital admission [facility] Start: 10-04-2022 Ultrasound scan - obstetric US OB li mited [facility] Patient Education [facility] Patient referral [facility] Immunizations Immunization Date Immunization Notes Care Provider Fa pepito 10-12-2017 KENALOG - 10 mg Radhika mcleod Other [facility] Other 04-29-2016 influenza, seasonal, injectable Radhika Best Other [facility] Payers Date Payer Category Payer Self-pay [id number] 2022 Unknown [id number] 2018 Unknown [id number] 1990 Unknown [id number] 2.16.84 [id number] 1991 Unknown [id number] 2.16.84 [id number] 1991 Unknown [id number] 2.16.84 [id number] 1991 Unknown [id number] 2.16.84 [id number] 1991 Unknown [id number] 2.16.84 0.1.527855.3.579.2.593 1991 Unknown [id number] 2.16.84 0.1.610858.3.579.2.1259 1991 Unknown [id number] 2.16.84 0.1.589797.3.579.2.1259 1991 Unknown [id number] 2.16.84 0.1.112341.3.579.2.1259 1991 Unknown [id number] 2.16.84 0.1.817342.3.579.2.1259 1959 Unknown [id number] 1959 Unknown [id number] Unknown [id number] Unknown [id number] Unknown [id number] 2.16.8 [id number] Unknown [id number] 2.16.8 40.1.154977.3.579.2.531 Unknown [id number] 2.16.8 40.1.942229.3.579.2.531 Unknown [id number] 2.16.8 [id number] Social History Date Type Detail Facility Start: 07-18-2020 End: 09-23-2023 Tobacco smoking status NHIS Never smoked tobacco (finding) [facility] Start: 1990 Sex Assigned At Female [facility] Sex Assigned At Sex Assigned At [facility] Other NEGATED: Highlighted row [facility] Goals Date Patient Goal Desired Activity /State Evaluation note 09-29-2021 Note Date & Type Note Facility 09-29-2021 Evaluation note Encounter Date Diagnosis Assessment Notes Sep, Anal fissure (ICD-10 - K60.2) Sep, Hemorrhoids (ICD-10 - K64.9) Sep, Rectal pain (ICD-10 - K62.89) Sep, Family history of colon cancer (ICD-10 - Z80.0) Sep, Rectal bleeding (ICD-10 - K62.5) [facility] Other Evaluation note 01-13-2021 Note Date & [...] email. She has follow-up appointment with her TRUCK MANAGER today and plans to review her lab results with them. The elevation of her total and LDL cholesterol is likely due to her . She is currently 34 weeks. She has requested a reasonable alternative form, and will take this to her TRUCK MANAGER today to have filled out. Again the patient was informed to review the results of her labs with both her primary care physician as well as her TRUCK MANAGER. She denies any additional questions or concerns at this time. [facility] Other Evaluation note Note Date & Type Note Facility Evaluation note No assessment information availa ble [facility] Work Phone: History general Narrative - Reported Note Date & Type Note Facility History general Narrative - Reported Type Medical History Neurocardiogenic syncope Medical History POTS Medical History Chicken Pox Medical History Venous Insufficiency Medical History Measles Medical History Shingles Medical History Arthritis Medical History Fracture right arm Surgical History wisdom teeth extract [facility] Other Hospital Discharge instructions Note Date & Type Note Facility Hospital Discharge instructions Additional Instructions Rest as much as possible. [facility] Work Phone: Summary Purpose Family History No [...] pain-36 wks iup Chief Complaint allergic reaction Chief Complaint abdominal pain, ligh theaded Assessments No Assessments Information Available Additional Source Comments INFORMATION SOURCE (unrecogn ized section and content) DATE CREATED AUTHOR [facility]/13/2018 [place] [facility] DATE CREATED AUTHOR AUTHOR'S ORGANIZ ATION 08/13/2022 [facility] DATE CREATED AUTHOR AUTHOR'S ORGANIZ ATION 09/17/2023 [facility] EPIC DATE CREATED AUTHOR AUTHOR'S ORGANIZ ATION 09/25/2023 [facility] [address] [facility] REASON FOR VISIT (unrecogniz ed section and content) ERIECO F/U WELLNESS PHY, Fol low-upPATIENT HERE FOR CASING MACHINE OPERATOR VISIT FOR ANAL FISSURE/HEMORRHOIDS Care Teams (unrecognized sec tion and content) Team Status: Active Member Role Status Dates Jenn Kiepert , REFRACTORY MANAGER CASING MACHINE OPERATOR-C Primary Care Provider Activ e Team Status: Inactive Member Role Status Dates Jenn Ballard , REFRACTORY MANAGER CASING MACHINE OPERATOR-C Primary Care Provider Activ e Carlitos Mock MD Emergency Provider Active Team Status: Inactive Member Role Status Dates Jenn Ballard , REFRACTORY MANAGER CASING MACHINE OPERATOR-C Primary Care Provider Activ e Hola Kendall , DO Attending Provider Active Team Status: Active Member Role Status Dates Jenn Ballard , REFRACTORY MANAGER CASING MACHINE OPERATOR-C Primary Care Provider Activ e Hola Kendall , DO Attending Provider Active Team Status: Inactive Member Role Status Dates Jenn Ballard , REFRACTORY MANAGER CASING MACHINE OPERATOR-C Primary Care Provider Activ e Francisco Martinez , DO Emergency Provider Active Team Status: Inactive Member Role Status Dates Jenn Ballard , JOLEEN CASING MACHINE OPERATOR-C Primary Care Provider Activ e Start: September 23, 2023 End: September 24, 2023 Mark Marshall DO Emergency Provider Active St art: September 23, 2023 End: September 24, 2023 Goals (unrecognized section and content) Goals may [...] BE BASED ON THE PRIMARY CLINICAL RECORDS. [facility] [employer] [facility]. provides no warranty or guarantee of the accuracy or completeness of information in this document.
[2023-09-29 18:32] LABS: Basophils Percent Auto 0.4 % (0.2-2.0); Eosinophils Absolute Auto 0.1 10^3/uL (0.0-0.7); Hemoglobin 13.4 g/dL (12.0-16.0); Immature Granulocytes Abs Auto 0.02 10^3/uL (0.00-0.03); Immature Granulocytes Pct Auto 0.3 % (0.0-0.5); Lymphocytes Absolute Auto 1.3 10^3/uL (1.2-3.8); Lymphocytes Percent Auto 17.4 % (20.5-60.0); Mean Corpuscular HGB Conc 34.4 g/dL (29.9-35.2); Mean Corpuscular Hemoglobin 30.5 pg (26.7-34.0); Mean Corpuscular Volume 88.8 fL (81.0-99.0); Mean Platelet Volume 10.1 fL (9.5-13.5); Monocytes Absolute Auto 0.3 10^3/uL (0.3-0.8); Monocytes Percent Auto 3.7 % (1.7-12.0); Neutrophils Absolute Auto 5.6 10^3/uL (1.4-6.5); Neutrophils Percent Auto 77.2 % (43.0-75.0); Platelet Count 314 10^3/uL (150-450); Red Blood Count 4.39 10^6/uL (4.20-5.40); White Blood Count 7.3 10^3/uL (4.0-11.0)
--- NOTE | 2023-09-29 18:41 | ED_ITS ---
HPI - Abdominal Pain General Chief Complaint: Abdominal Pain Stated Complaint: abdominal pain Time Seen by Provider: 09/29/23 18:11 Source: patient Mode of arrival: Wheelchair Limitations: no limitations History of Present Illness HPI narrative: This patient is here with her [id number] for continuing and ongoing nausea vomiting abdominal cramping and diarrhea. Symptoms started 8 days ago. She was in this emergency months. She then followed up with a netezza developer the netezza developer did not know what the problem was and they cannot do any type of endoscopy until October 13. She had a previous colonoscopy number of years ago and it was normal. There is no family history of ulcerative colitis, Crohn's disease or any type of inflammatory bowel disease. There is someone who had colon cancer. She did call occasionally notices flecks of bright red blood in the toilet and on the toilet tissue and she attributes that to some hemorrhoidal problems and an anal fissure. She has continued vomiting she is really not been able to eat or drink for about 8 days. She did not have any travel history. There is no antibiotic use. 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 She has no urinary symptoms such as frequency urgency dysuria. No back or flank pain. The cramping is anterior left right upper and lower abdomen. Related Data Home Medications ?Medication ?Instructions ?Recorded ?Confirmed prenat.vits,susana,[id number] 1 tab PO DAILY 09/21/22 10/22/22 acyclovir 400 mg tablet 500 mg PO DAILY 10/08/22 10/22/22 Previous Rx's ?Medication ?Instructions ?Recorded ibuprofen 800 mg tablet 800 mg PO Q8H PRN pain 14 days #40 10/26/22 tabs oxycodone-acetaminophen 5 mg-325 1 tab PO Q6H PRN pain 7 days #28 10/26/22 mg tablet (Percocet) tabs Allergies Allergy/AdvReac Type Severity Reaction Status Date / Time No Known Drug Allergies Allergy Verified 09/21/22 14:29 [facility] Medical History Social History Within the past year, how often did you have a drink containing alcohol: never Score interpretation: A score less than 3 is consistent with normal alcohol consumption. Smoking status: Never smoker Non-prescribed substance use: denies use Exam Narrative Exam Narrative: Awake alert pleasant but uncomfortable. Bent over when walking holding her belly. Vital signs are stable she is afebrile she does not have tachycardia there is no respiratory distress her blood pressure is good. Skin integument are normal with no petechia purpura rash or exanthem there is no evidence of pallor or scleral icterus or anemia. Examination abdomen there are no surgical incisions. There is no hepatosplenomegaly. There is good bowel sounds in all quadrants. There is no rebound or rigidity diffuse tenderness to palpation. She has no respiratory distress cough or congestion. Neurological examination is normal and she has no neurological symptomatology or complaints. Extremities appear normal with no joint swelling or arthropathy. Constitutional Vital Signs, click to edit/add: Last Vital Signs Temp 98 F 09/29/23 17:55 Pulse 78 09/29/23 17:55 Resp 20 09/29/23 17:55 BP 110/80 09/29/23 17:55 Pulse Ox 99 09/29/23 17:55 O2 Del Method Room Air 09/29/23 17:55 Course Vital Signs Vital signs: Vital Signs Temperature 98 F 09/29/23 17:55 Pulse Rate 78 09/29/23 17:55 Respiratory Rate 20 09/29/23 17:55 Blood Pressure 110/80 09/29/23 17:55 Pulse Oximetry 99 09/29/23 17:55 Oxygen Delivery Method Room Air 09/29/23 17:55 Temperature 98 F 09/29/23 17:55 Pulse Rate 78 09/29/23 17:55 Respiratory Rate 20 09/29/23 17:55 Blood Pressure 110/80 09/29/23 17:55 Pulse Oximetry 99 09/29/23 17:55 Oxygen Delivery Method Room Air 09/29/23 17:55 MDM - Abdominal Pain MDM Narrative Medical decision making narrative: Patient with 8 days of continuous vomiting and diarrhea. No history of gastritis pancreatitis hepatitis or previous GI problems. Did not eat any leftover food products or anything that might be food related. No antibiotic us e. 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 Care will be turned over the next ER physician laboratory studies and IV hydration was advised Lab Data Labs: Lab Results 09/29/23 Range/Units 18:25 WBC 7.3 (4.0-11.0) 10^3/uL RBC 4.39 (4.20-5.40) 10^6/uL Hgb 13.4 (12.0-16.0) g/dL Hct 39.0 (36.0-48.0) % MCV 88.8 (81.0-99.0) fL MCH 30.5 (26.7-34.0) pg MCHC 34.4 (29.9-35.2) g/dL RDW 12.0 (11.0-15.0) % Plt Count 314 (150-450) 10^3/uL MPV 10.1 (9.5-13.5) fL Neut % (Auto) 77.2 H (43.0-75.0) % Lymph % (Auto) 17.4 L (20.5-60.0) % [place] % (Auto) 3.7 (1.7-12.0) % Eos % (Auto) 1.0 (0.9-7.0) % Baso % (Auto) 0.4 (0.2-2.0) % Neut # (Auto) 5.6 (1.4-6.5) 10^3/uL Lymph # (Auto) 1.3 (1.2-3.8) 10^3/uL [place] # (Auto) 0.3 (0.3-0.8) 10^3/uL Eos # (Auto) 0.1 (0.0-0.7) 10^3/uL Baso # (Auto) 0.0 (0.0-0.1) 10^3/uL Abs Immat Gran (auto) 0.02 (0.00-0.03) 10^3/uL Imm/Tot Granulo (auto) 0.3 (0.0-0.5) % Discharge Plan Discharge Chief Complaint: Abdominal Pain Clinical Impression: Gastroenteritis Patient Disposition: Still a Patient Prescriptions / Home Meds: No Action prenat.vits,susana,[id number] Tablet 1 tab PO DAILY ibuprofen 800 mg tablet 800 mg PO Q8H PRN (Reason: pain) 14 Days Qty: 40 0RF oxycodone-acetaminophen [Percocet] 5-325 mg tablet 1 tab PO Q6H PRN (Reason: pain) 7 Days Qty: 28 0RF acyclovir 400 mg tablet 500 mg PO DAILY Print Language: Mongolian Referrals: Physician,Non-Staff, MD [Primary Care Provider] - 1 week
--- NOTE | 2023-09-29 18:45 | CT_ITS ---
[address] [address] Patient Name: MARCUS BURKS MRN: [id number] date: 1990 Sex: F Assigned Patient Location: ER Current Patient Location: ED.MAIN Accession/Order Number: [id number] Exam Date: 09/29/2023 19:33 Report Date: 09/29/2023 20:22 At the request of: SAURABH RICK Procedure: CT abdomen pelvis w con EXAM: CT abdomen pelvis w con HISTORY: Vomiting/diarrhea x 8 days COMPARISON: 09/24/2023 exam TECHNIQUE: CT exam was obtained from the diaphragm through the symphysis pubis with Omnipaque 300 IV contrast. FINDINGS: No liver masses. No intra or extrahepatic biliary dilatation. No gallstones or cholecystitis. No evidence of acute pancreatitis. Pancreatic duct is not dilated. No pancreatic lesions are seen. No splenomegaly or splenic masses. Normal symmetrical nephrograms. No renal masses. No renal or ureteral stones are seen. No hydronephrosis or hydroureter bilaterally. No adrenal nodules. Patent IVC, hepatic veins, renal veins and portal venous system. No bowel dilatation or bowel wall thickening. No evidence of bowel obstruction. Moderate diffuse wall thickening of the colon with mild pericolonic fat stranding is seen suggestive of pancolitis. Please correlate clinically. Normal appendix. No ascites or fluid collections. No adenopathy. Clear lung bases. No aggressive osseous lesions are seen. Ovulating follicle in right ovary. Small amount of free fluid in cul-de-sac, probably physiological. Bladder and uterus are unremarkable. CT/CT abdomen pelvis w con IMPRESSION: 1. Moderate diffuse wall thickening of the colon with mild pericolonic fat stranding is seen suggestive of pancolitis. Please correlate clinically. 2. Ovulating right ovarian follicle. Small amount of free fluid in cul-de-sac, probably physiological. Electronically authenticated by: NEFTALY RUSSELL Date: 09/29/2023 20:22
[2023-09-29 18:49] LABS: Alanine Aminotransferase 10 U/L (14-59); Albumin Globulin Ratio 1.3; Albumin Level 4.4 g/dL (3.4-5.0); Alkaline Phosphatase 61 U/L (46-116); Anion Gap 15.7; Aspartate Amino Transferase 12 U/L (15-37); BUN Creatinine Ratio 11.3; Bilirubin Total 0.7 mg/dL (0.2-1.0); Calcium 9.3 mg/dL (8.5-10.1); Carbon Dioxide 23.6 mmol/L (21.0-32.0); Chloride 105 mmol/L (98-107); Estimated GFR (African America >60 (>=60); Estimated GFR (Non-African Ame >60 (>=60); Globulin 3.4 g/dL; Glucose 98 mg/dL (74-106); Potassium 3.3 mmol/L (3.5-5.1); Sodium 141 mmol/L (136-145); Total Protein 7.8 g/dL (6.4-8.2)
[2023-09-29 18:52] LABS: Lactate/Lactic Acid 1.7 mmol/L (0.4-2.0)
[2023-09-29] MEDS: HYDROMORPHONE HCL 1 MG/ML CARTRIDGE IV (19:00)
[2023-09-29] MEDS: PROMETHAZINE HCL 12.5 MG in 0.9 % SODIUM CHLORIDE 50 ML 202 MG IV (19:06)
[2023-09-29] MEDS: 0.9 % SODIUM CHLORIDE 1,000 ML 999 ML IV (19:08)
[2023-09-29] MEDS: ONDANSETRON PF 4 MG/2 ML VIAL IV (19:08)
[2023-09-29] MEDS: CIPROFLOXACIN HCL 500 MG TABLET PO (20:46)
[2023-09-29] MEDS: METRONIDAZOLE 250 MG TABLET 500 MG PO (20:46)
[2023-09-29 21:02] VITALS: BP 112/82; PULSE 80; O2SAT 100
== END 2023-09-29 21:02 | disposition home or self-care (01) ==
PROVIDERS: Emergency Medicine Emergency Medical Services; Emergency Provider Emergency Medicine
DX: K52.9 Noninfective gastroenteritis and colitis, unspecified (principal)
CPT/HCPCS: 36415; 74177; 80053; 83605; 83690; 85025; 87493; 96361; 96374; 96375; 99285; J1170; J2250; J2405; Q9967

== ENCOUNTER 2024-10-16 19:58 | Outpatient (REF) | payer BC, SELFPAY ==
--- OUTSIDE RECORDS SUMMARY | 2017-07-18 04:30 | XMS_ITS | Continuity of Care Document ---
Author Organization [facility] Address [address] [place] [address] Phone Care Team Providers Care Mine Deputy Name Role Phone Hola Knight Unavailable Unavailable Procedures Procedure Date ROUTINE VENIPUNCTURE UDS Exempt TB INTRADERMAL TEST TB INTRADERMAL TEST IMMUNIZATION ADMIN, EACH ADD TDAP VACCINE >7 IM IMMUNIZATION ADMIN CHICKEN POX VACCINE, SC IMMUNIZATION ADMIN, EACH ADD IMMUNIZATION ADMIN TDAP VACCINE >7 IM FLU VAC NO PRSV 4 ISRA[place] 3 YRS+ TB INTRADERMAL TEST PREVENTIVE COUNSELING, INDIV HEPB VACC PED/ADOL 3 DOSE IM HEPB VACC PED/ADOL 3 DOSE IM PREVENTIVE COUNSELING, INDIV TB INTRADERMAL TEST TB INTRADERMAL TEST TB INTRADERMAL TEST PREVENTIVE COUNSELING, INDIV HEPB VACC PED/ADOL 3 DOSE IM HEPB VACC PED/ADOL 3 DOSE IM PREVENTIVE COUNSELING, INDIV Results Test Name Date and Time Measure Units Reference Range Abnormal Flag Status Comments Panel Description: Hepatitis B Surf Ab Quant Fi nal Hepatitis B Surf Ab Quant 13:24:00 7.3 mIU/mL Immunity>9.9 L Final Status of Immunity Anti-HBs Level --- I nconsistent with Immunity 0.0 - 9.9Consistent with Immunity >9.9Performed by:Alphonso Ellison (LAUREN) Panel Description: RPR, Rfx Qn RPR/Confirm TP F inal RPR 04:03:00 Non Reactive Non Reactive Final Performed by:Alphonso Ellison (LAUREN) Panel Description: HIV 1+2 A b+HIV1 p24 Ag [Presence] in Serum or Plasma by Immunoassay Final HIV Screen 4th Generation wRfx 02:25:00 Non Reactive Non Reactive Final Performed by:Alphonso Ellison (LAUREN) Panel Description: HCV Antibody reflex to KELSI F inal HCV Ab 02:26:00 <0.1 s/co ratio 0.0-0.9 Final Performed by:Alhponso Ellison (LAUREN) Panel Description: Interpretation: Final Interpretation : 02:26:00 Comment Final NegativeNot infected with HCV, unless recent infection is suspected or otherevidence exists to indicate HCV infection.Perfo rmed by:Alphonso Ellison (LAUREN) Panel Description: HBsAg Screen Final HBsAg Screen 13:24:00 Negative Negative Final Performed by:Alphonso NAILS) Advance Directives Directive Yes / No Effective Date File Name No Information Encounters Encounter Description Practice Location Reason(s) For Visit Diagnoses Date Provider Providers Copied on Encounter [facility], [address] [place] [address], [id number], [place] tel:[phone] [facility] needle stick labs (chief complaint) No Information Faiza Kumar. [address] [place] [address], [id number], [place]. tel:[phone] [facility], [address] [place] [address], [id number], [place] tel:[phone] [facility] labs (chief complaint) Contact with hypodermic needle, initial encounter Faiza Kumar. [address], [place], [id number], [place]. tel:[phone] [facility], [address], [place], [id number], [place] tel:[phone] [facility] Encounter for screening for respiratory tuberculosis Faiza Kumar. [address], [place], [id number], [place]. tel:[phone] [facility], [address], [place], [id number], [place] tel:[phone] [facility] Encounter for screening for respiratory tuberculosis Faiza Kumar. [address], [place], [id number], [place]. tel:[phone] [facility], [address], [place], [id number], [place] tel:[phone] [facility] Encounter for screening for respiratory tuberculosis Faiza Kumar. [address], [place], [id number], [place]. tel:[phone] [facility], [address], [place], [id number], [place] tel:[phone] [facility] Screening examination for pulmonary tuberculosis Faiza Kumar. [address], [place], [id number], [place]. tel:[phone] [facility], [address], [place], [id number], [place] tel:[phone] [facility] Screening examination for pulmonary tuberculosis Faiza Kumar. [address], [place], [id number], [place]. tel:[phone] PREVENTIVE COUNSELING, INDIV [facility], [address], [place], [id number], [place] tel:[phone] [facility] No Information Faiza Kumar. [address], [place], [id number], [place]. tel:[phone] PREVENTIVE COUNSELING, [facility], [address], [place], [id number], [place] tel:[phone] [facility] No Information Viscdebra Kumar. [address], [place], [id number], [place]. tel:[phone] [facility], [address], [place], [id number], [place] tel:[phone] [facility] No Information Viscdebra Kumar. [address], [place], [id number], [place]. tel:[phone] PREVENTIVE COUNSELING, [facility], [address], [place], [id number], [place] tel:[phone] [facility] No Information Faiza Kumar. [address], [place], [id number], [place]. tel:[phone] PREVENTIVE COUNSELING, [facility], [address], [place], [id number], [place] tel:[phone] [facility] No Information Faiza Kumar. [address], [place], [id number], [place]. tel:[phone] Family History Family Member Type Diagnosis Age At Onset No Information Immunizations Vaccine Date Status Comments Flu (split) (3 yrs or older) administered Note: VIS 11/20/2013 given. ; Source: New Immunization Record Tdap administered Source: New Imm unization Record Hep B (ped/adol, 3 dose) administered Lamar rce: New Immunization Record Hep B (adult) administered Source: New Im munization Record Hep B (ped/adol, 3 dose) administered Not e: DECLINES HPV;MCV;HAV ; Source: New Immunization Record Payers Payer name Insurance type Covered democrat ID Susy mcgregor(s) [employer] [place] [employer] [id number] [employer] [place] [employer] [id number] Social History Type Description Quantity Date Captured Comments Sex Female Smoking Status No Information Chief Complaint And Reason For Visit From encounter dated '07/18/2017 08:30'. needle stick labs (chief complaint). Description: Labs obtained via left antecub after first attempt, pt tolerated well. KBowlingRN Reason For Referral Reason For Referral No Information History Of Present Illness Encounter Date Complaint History Of Prese nt Illness needle stick labs Labs obtained via left antecub after first attempt, pt tolerated well. KBowlingRN labs Pt labs obtained by JOSÉ ANTONIO Hoyt. Functional Status Date Functional Assessmen t No Information Instructions Date Instruction Additional Infor mation No Information Assessments Type Assessment Date No Information Patient Care Teams Name Effective Dates (start - stop) Status Members No Information
--- OUTSIDE RECORDS SUMMARY | 2024-10-15 14:00 | XMS_ITS | Encounter Summary ---
Author Organization [facility] Address [address] [facility] [place] [address] Care Team Providers Care Computer Application Developer Name Role Phone Elida Maria MD Primary Care Provider [phone] Reason for Visit * Reason Comments Adenopathy Encounter Details Date Type Department Care Team (Late st Contact Info) Description 10/15/2024 2:00 PM EDT Office Visit [facility] [address] [place] [id number] Gina Smith [employer] [address] [place] [address] Acute tonsillitis, unspecified etiology (Primary Dx) Social History Tobacco Use Types Packs/Day Years Used Date Smoking Tobacco: Never Smokeless Tobacco: Never Alcohol Use Standard Drinks/Week Comments Never 0 (1 standard drink = 0.6 oz pur e alcohol) Caffeine: none Comments Unknown Sex and Gender Information Value Date Recorded Sex Assigned at Not on file Legal Sex Female 6:38 PM EDT Gender Identity Not on file Sexual Orientation Not on file documented as of this encounter Last Filed Vital Signs Vital Sign Reading Time Taken Comments Blood Pressure 108/72 10/15/2024 2:06 PM EDT Pulse 99 10/15/2024 2:06 PM EDT Temperature 36.1 C (97 F) 10/15/2024 2:06 PM EDT Respiratory Rate - - Oxygen Saturation 99% 10/15/2024 2:06 PM EDT Inhaled Oxygen Concentration - - Weight 58.3 kg (128 lb 9.6 oz) 10/15/2024 2:06 P M EDT Height 172.7 cm (5' 8 ) 10/15/2024 2:06 PM EDT Body Mass Index 19.55 10/15/2024 2:06 PM EDT documented in this encounter Progress Notes * Gina Smith, [employer] - 10/15/2024 2:00 PM EDT Images from the original note were not included. Maryls Carrero is a 34 y.o. female presents with chief complaint of Adenopathy HPI: History of Present Illness The patient is a 34-year-old female who presents with concerns about severe left sided sore throat,pain and lymphadenopathy. She began experiencing unilateral throat pain on 10/08/2024, which she initially attributed to a possible infection from her child. The throat discomfort lasted for a few days and was managed with DayQuil. Currently, the throat pain has subsided, but she reports persistent pain on one side of her neck, which is exacerbated by lying down, turning her head, or swallowing. She also mentions a mild postnasal drip. She recalls feeling unwell on the second day of her symptoms, but this quickly resolved. She still has her tonsils intact. She attempted to seek care at an urgent care facility but was deterred by the long wait time. She reports no fever, body aches, or chills. 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 Before first use, prime pump. After use, clean tip and replace cap. valACYclovir (Valtrex) 500 MG tablet TAKE 1 TABLET BY MOUTH EVERY DAY FOR 30 DAYS ALLERGIES: Allergies Allergen Reactions Midodrine Itching Polymyxin B Swelling SURGICAL HISTORY: Past Surgical History: Procedure Laterality Date SECTION, CLASSIC 10/24/2022 SECTION, LOW TRANSVERSE 10-24-22 COLPOSCOPY 2020 [place] CYSTOSCOPY,DIL URETHRAL STRICTURE 2018 Urethral Dilation TOENAIL EXCISION 2010 WISDOM TOOTH EXTRACTION 2009 [place] Teeth Extraction FAMILY HISTORY: Family History Problem Relation Name Age of Onset Graves' disease Mother Alcohol abuse Father Raynaud syndrome Father Myasthenia gravis Father No Known Problems Sister No Known Problems Daughter Fallyn Colon cancer Maternal Grandmother Jill Rectal cancer Maternal Grandmother Jill Stage 4 Cancer Maternal Grandmother Jill Clotting disorder Paternal Grandmother Aidee Diabetes Paternal Grandmother Aidee SOCIAL HISTORY: Social History Tobacco Use Smoking status: Never Smokeless tobacco: Never Substance Use Topics Alcohol use: Never Comment: Caffeine: none Drug use: Never Depression: Not on file REVIEW OF SYMPTOMS: Review of Systems Constitutional: Negative for activity change, appetite change, fatigue, fever and unexpected weightchange. HENT: Positive for postnasal drip, sore throat, trouble swallowing and voice change. Eyes: Negative. Respiratory: Negative for cough, chest tightness, shortness of breath and wheezing. Cardiovascular: Negative for chest pain, palpitations and leg swelling. Gastrointestinal: Negative for abdominal pain, blood in stool, diarrhea, nausea and vomiting. Musculoskeletal: Negative for arthralgias and myalgias. Skin: Negative for color change, rash and wound. Neurological: Negative for dizziness, tremors, syncope, weakness, numbness and headaches. Psychiatric/Behavioral: Negative for suicidal ideas. The patient is not nervous/anxious. OBJECTIVE: Visit Vitals BP 108/72 Pulse 99 Temp 97 ??F Ht 5' 8 Wt 128 lb 9.6 oz SpO2 99% BMI 19.55 kg/m?? OB Status Unknown Smoking Status Never BSA 1.67 m?? Physical Exam Vitals and nursing note reviewed. Constitutional: General: She is not in acute distress. Appearance: Normal appearance. She is not ill-appearing or toxic-appearing. HENT: Head: Normocephalic and atraumatic. Right Ear: Tympanic membrane, ear canal and external ear normal. There is no impacted cerumen. Left Ear: Tympanic membrane, ear canal and external ear normal. There is no impacted cerumen. Nose: Nose normal. No congestion or rhinorrhea. Mouth/Throat: Pharynx: Posterior oropharyngeal erythema present. No oropharyngeal exudate. Comments: Left sided posterior tonsil crypt appears mildly more full then the right but swelling does not cross the uvula, no saliva pooling, garbled speech noted Neck: Vascular: No carotid bruit. Cardiovascular: Rate and Rhythm: Normal rate and regular rhythm. Pulses: Normal pulses. Heart sounds: Normal heart sounds. No murmur heard. No friction rub. No gallop. Pulmonary: Effort: Pulmonary effort is normal. No respiratory distress. Breath sounds: Normal breath sounds. No stridor. No wheezing, rhonchi or rales. Musculoskeletal: General: Normal range of motion. Cervical back: Tenderness (moderate tenderness to left submandibular area) present. No rigidity. Lymphadenopathy: Cervical: No cervical adenopathy. Skin: General: Skin is warm and dry. Capillary Refill: Capillary refill takes less than 2 seconds. Findings: No rash. Neurological: General: No focal deficit present. Mental Status: She is alert and oriented to person, place, and time. Coordination: Coordination normal. Gait: Gait normal. Psychiatric: Mood and Affect: Mood normal. Behavior: Behavior normal. Thought Content: Thought content normal. Judgment: Judgment normal. Results ASSESSMENT AND PLAN: Assessment & Plan 1. Tonsillitis. - Symptoms include unilateral throat pain, neck pain, and tenderness in the tonsillar crypt. - Physical exam reveals swelling on the left side of the throat, no visible abscess for drainage. - Discussed the possibility of a peritonsillar abscess and the need for antibiotics due to persistent tenderness. - Prescribed Augmentin 875 mg, 1 tablet twice daily with food, and Medrol Dosepak with instructionsto take all six steroid pills on the first day with food. Medication sent to pharmacy. Assessment/Plan 1. Acute tonsillitis, unspecified etiology (Primary) Return In 3-5 days or sooner if worsening Dispose of toothbrush in 5-7 days Warm salt water gargles - amoxicillin-clavulanate (Augmentin) 875-125 MG tablet; Take 1 tablet (875 mg) by mouth in the morning and 1 tablet (875 mg) before bedtime. Do all this for 10 days. Dispense: 20 tablet; Refill: 0 - methylPREDNISolone (Medrol Dospak) 4 MG tablets; Follow schedule on package instructions Dispense: 21 tablet; Refill: 0 documented in this encounter Plan of Treatment Upcoming Encounters Date Type Department Care Team ([facility] st Contact Info) Description 10/22/2024 10:20 AM EDT Office Visit [facility] [address] [place] [id number] Chico Baires, DPM [address] [address] documented as of this encounter Visit Diagnoses Diagnosis Acute tonsillitis, unspecified etiology- Primary Metatarsal deformity, left- Primary Metatarsal deformity, right documented in this encounter Care Teams Computer Application Developer Relationship Specialty Start Date End Date Elida Maria MD [address] [place] [address] PCP - General Family Medicine 09/21/24 documented as of this encounter
--- OUTSIDE RECORDS SUMMARY | 2024-10-16 13:00 | XMS_ITS | Encounter Summary ---
Author Organization [facility] Address [address] [facility] [place] [address] Care Team Providers Care Orderlies Teacher Name Role Phone Elida Maria MD Primary Care Provider [phone] Reason for Visit * Reason Comments Well Women Visit Encounter Details Date Type Department Care Team (Late st Contact Info) Description 10/16/2024 1:00 PM EDT Office Visit [facility] [address] [facility] [facility] [id number] Beverly Bliss PA [address] [facility] [address] [place], [facility] Well woman exam with routine gynecological exam Social History Tobacco Use Types Packs/Day Years [...] Sign Reading Time Taken Comments Blood Pressure 120/70 10/16/2024 1:04 PM EDT Pulse - - Temperature - - Respiratory Rate - - Oxygen Saturation - - Inhaled Oxygen Concentration - - Weight 58.2 kg (128 lb 6.4 oz) 10/16/2024 1:04 P M EDT Height - - Body Mass Index 19.52 10/15/2024 2:06 PM EDT documented in this encounter Progress Notes * INGRIS Lorenzana - 10/16/2024 1:00 PM EDT Reason for Appointment: Patient ID: Marlys Carrero is a 34 y.o. female who presents for Well Women Visit Patient presents today for Annual Exam. MEDICATIONS Current Outpatient Medications Medication Instructions amitriptyline (ELAVIL) 10 mg, Nightly amoxicillin-clavulanate (Augmentin) 875-125 MG tablet 875 mg, Oral, 2 times daily azelastine (Astelin) 0.1 % nasal spray 2 sprays, Each Nostril, 2 times daily, Use in each nostril as directed fluticasone (Flonase) 50 MCG/ACT nasal spray 2 sprays, Each Nostril, Daily, Shake gently. Before first use, prime pump. After use, clean tip and replace cap. 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 Anxiety disorder 10/01/2022 Cervical radiculopathy 10/01/2022 Convulsion (HCC) 04/21/2012 Deep dyspareunia 10/01/2022 Episodic tension-type headache, not intractable 10/01/2022 cardiac echogenic focus, antepartum ([facility]) 10/28/2020 Internal derangement of left shoulder 10/01/2022 Menorrhagia with irregular cycle 10/01/2022 Migraine 10/01/2022 Missed period 10/01/2022 Moderate episode of recurrent major depressive disorder (HCC) 10/01/2022 Nontoxic multinodular goiter 10/01/2022 Nontoxic single thyroid nodule 10/01/2022 POTS (postural orthostatic tachycardia syndrome) 02/22/2013 Primary insomnia 10/01/2022 PERI (stress urinary incontinence, female) 10/01/2022 Peripheral edema 10/01/2022 Vitamin D deficiency 10/01/2022 Neurocardiogenic syncope 09/21/2024 Resolved Ambulatory Problems Diagnosis Date Noted No Resolved Ambulatory Problems Past Medical History: Diagnosis Date Atypical nevus Callus Chicken pox Hammer toe Ingrown toenail Menorrhagia Migraines Krishnan splints SVT (supraventricular tachycardia) (HCC) HISTORY PAST MEDICAL HISTORY SOCIAL HISTORY Past Medical History: Diagnosis Date Atypical nevus Atypical Melanocytic Nevus Leg/Shoulder Callus Cervical radiculopathy Chicken pox Hammer toe Ingrown toenail Menorrhagia Migraines Neurocardiogenic syncope 2013 Nontoxic single thyroid nodule Peripheral edema Krishnan splints 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 SVT (supraventricular tachycardia) (HCC) Tower Climber wants her to avoid Estrogen Vitamin D deficiency Social History Tobacco Use Smoking status: Never Smokeless tobacco: Never Substance Use Topics Alcohol use: Never Comment: Caffeine: none Drug use: Never FAMILY HISTORY Family History Problem Relation Name Age of Onset Graves' disease Mother Alcohol abuse Father Raynaud syndrome Father Myasthenia gravis Father No Known Problems Sister No Known Problems Daughter Fallyn Colon cancer Maternal Grandmother Jill Rectal cancer Maternal Grandmother Jill Stage 4 Cancer Maternal Grandmother Jill Clotting disorder Paternal Grandmother Aidee Diabetes Paternal Grandmother Aidee SURGICAL HISTORY Past Surgical History: Procedure Laterality Date SECTION, CLASSIC 10/24/2022 SECTION, LOW TRANSVERSE 10-24-22 COLPOSCOPY 2020 [place] CYSTOSCOPY,DIL URETHRAL STRICTURE 2018 Urethral Dilation TOENAIL EXCISION 2010 WISDOM TOOTH EXTRACTION 2009 [place] Teeth Extraction REVIEW OF SYSTEMS Review of Systems: Review of Systems All other systems reviewed and are negative. OBJECTIVE Objective: Physical Exam Constitutional: Appearance: Normal appearance. She is well-developed. Genitourinary: Vulva normal. Cardiovascular: Rate and Rhythm: Normal rate and regular rhythm. Pulmonary: Effort: Pulmonary effort is normal. Breath sounds: Normal breath sounds. Abdominal: General: Bowel sounds are normal. There is no distension. Palpations: Abdomen is soft. Tenderness: There is no abdominal tenderness. There is no guarding or rebound. Musculoskeletal: General: No swelling. Normal range of motion. Right lower leg: No edema. Left lower leg: No edema. Neurological: Mental Status: She is alert and oriented to person, place, and time. Skin: General: Skin is warm and dry. Psychiatric: Mood and Affect: Mood normal. Behavior: Behavior normal. Vitals and nursing note reviewed. Exam conducted with a data processing manager present. Vitals: Estimated body mass index is 19.52 kg/m?? as calculated from the following: Height as of 10/15/24: 5' 8 . Weight as of this encounter: 128 lb 6.4 oz. BP: 120/70 Patient's last menstrual period was 10/04/2024. ASSESSMENT & PLAN ICD-10-CM 1. Well woman exam with routine gynecological exam Z01.419 Pap Smear HPV DNA probe, amplified Annual Exam: Patient presents today for an annual exam. Patient states she is doing well and has no complaints. Pap was obtained without difficulty. Patient spouse had an outbreak of HSV and patient would like janet checked. Discussed some control options with patient and discussed [place], Nuva ring and IUD with patient. Patient will think about this and call office with what she would like. Orders Placed This Encounter Procedures HPV DNA probe, amplified Follow Up: Patient is to return in one year for annual unless needed otherwise. Documented by Eufemia Spann LPN on behalf of: INGRIS Lorenzana documented in this encounter Plan of Treatment Upcoming Encounters Date Type Department Care Team (Late st Contact Info) Description 10/22/2024 10:20 AM EDT Office Visit [facility] [address] [place] [address] Chico Baires DPM [address] [address] Scheduled Orders Name Type Priority Associated Diagnoses Orde r Schedule Pap Smear Pathology and Cytology Routine Well woman exam with routine gynecological exam Ordered: 10/16/2024 HPV DNA probe, amplified Microbiology Routine Well woman exam with routine gynecological exam Ordered: 10/16/2024 documented as of this encounter Procedures Procedure Name Priority Date/Time Associated Diagnosis Comments PAP SMEAR Routine 08/16/2023 12:00 AM EDT documented in this encounter Results * Pap Smear (08/16/2023 12:00 AM EDT) Swab Cervical swab / Unknown us Beverly [facility] CYTOLOGY ORDERABLES Final Re sult EXTERNAL LAB documented in this encounter Visit Diagnoses Diagnosis Well woman exam with routine gynecological exam Routine gynecological examination Metatarsal deformity, left- Primary Metatarsal deformity, right documented in this encounter Care Teams Orderlies Teacher Relationship Specialty Start Date End Date Elida Maria MD [address] [place] [address] PCP - General Family Medicine 09/21/24 documented as of this encounter
--- OUTSIDE RECORDS SUMMARY | 2024-10-16 20:03 | XMS_ITS | Encounter Summary ---
Author Organization [facility] Address [address] [place] [address] Care Team Providers Care Machine Spreader Name Role Phone Jason Cabrera DO Unavailable [phone] Ot[address]arlys [facility] Primary Care Provider [phone] Source Comments In the event this information is protected by the Federal Confidentiality of Alcohol and Drug AbusePatient Records regulations: The Federal rules restrict any use of the information to criminally investigate or prosecute any alcohol or drug abuse patient.[facility] Encounter Details Date Type Department Care Team (Late st Contact Info) Description 10/16/2024 Patient Msg HOSP MAIN H060 [address] [place], [place] [id number] Provider, Ccf Sign up to manage your digestive symptoms in between visits, covered by insurance Social History Tobacco Use Types Packs/Day Years Used Date Smoking Tobacco: Never Smokeless Tobacco: Never Alcohol Use Standard Drinks/Week Comments No 0 (1 standard drink = 0.6 oz pur e alcohol) Area Deprivation Index Answer Date Phill rded National Score (1-100), trav r number is lower risk 58 11/07/2023 State Score (1-10), lower number is lower risk 4 11/07/2023 Data from: https://www.neighborhoodatlas.medicine.[facility].edu/ . Last address used for calculation [address] [facility] 11/07/2023 Comments No Sex and Gender Information Value Date Recorded Sex Assigned at Female 10/14/2023 4:38 PM EDT Legal Sex Female 9:42 AM EST Gender Identity Female 10/14/2023 4:38 PM EDT Sexual Orientation Straight 10/14/2023 4: 38 PM EDT documented as of this encounter Plan of Treatment Upcoming Encounters Date Type Department Care Team (Late st Contact Info) Description 02/07/2025 9:15 AM EST Procedure Cardiology [address] [id number] POTS 02/07/2025 10:00 AM EST Office Visit Cardiology [address] [place] [address] Elijah Painter MD [address] [place] [address] POTS 03/04/2025 1:45 PM EST Office Visit Cardiology [address] [place] [address] POTS documented as of this encounter Visit Diagnoses Not on filedocumented in this encounter Care Teams Machine Spreader Relationship Specialty Start Date End Date Marlys Alcazar CNP [address] [place] [address] PCP - General Family Medicine 09/27/23 Jason Cabrera DO [address] [place] [address] Primary Staff Physician Cardiology 06/20/18 documented as of this encounter
--- OUTSIDE RECORDS SUMMARY | 2024-10-16 20:03 | XMS_ITS | Encounter Summary ---
Author Organization [facility] Address [address] [facility] [place] [address] Care Team Providers Care Market Research Executive Name Role Phone Benny Huerta MD Primary Care Provider [phone] Elida Maria MD Primary Care Provider [phone] Reason for Visit * Reason Onset Date Comments Casting For Braces Or Orthotics 09/02/2023 Encounter Details Date Type Department Care Team ([facility] Contact Info) Description 09/02/2023 Telephone [facility] [address] [facility] [address] [place] [id number] Chico Baires DPM [address] [facility] [address] [place] [address] Casting For Braces Or Orthotics Social History Tobacco Use Types Packs/Day Years [...] on file documented as of this encounter Miscellaneous Notes * Telephone Encounter - Dior Tena MA - 09/16/2023 10:[address] Baires patient was scanned for orthotics and images were sent to [employer] * Telephone Encounter - Sheila Petty MA - 09/15/2023 4:59 PM EDT Per Availity Chat: Upon checking the benefits, It is covered at 100%. Deductible does apply. Co Payment not applicable. Once the deductible is met, the member's responsibility is 0% Coinsurance of the allowed amount. There are no visit limits for this service. Accumulator Disclaimer: Please be aware that the final determination of these amounts will be made at the time of claims processing, there could be additional claims that could change these amounts. Please note that the most recent information is available in Availity. The Individual Deductible is $200 Per Calendar Year and member haven't accumulated any amount yet. The Family (Embedded) Deductible is $400 Per Calendar Year and member haven't accumulated any amount yet. The Individual max out of pocket amount is $1400 Per Calendar Year ($1400 remaining) and Family max out of pocket amount is $2800 Embedded Per Calendar Year ($2280 remaining). Upon checking pre certification is required. * Telephone Encounter - Chico Baires DPM - 09/02/2023 2:58 PM EDT Please precertify for custom orthotics for the diagnosis of metatarsal deformity documented in this encounter Plan of Treatment Upcoming Encounters Date Type Department Care Team (Late st Contact Info) Description 10/22/2024 10:20 AM EDT Office Visit [facility] [address] [place] [address] Chico Baires DPM [address] [address] documented as of this encounter Visit Diagnoses Not on filedocumented in this encounter Care Teams Market Research Executive Relationship Specialty Start Date End Date Benny Huerta MD [address] [place], [place] [id number] PCP - General Pediatrics 09/02/23 09/20/24 Elida Maria MD [address] [place] [address] PCP - General Family Medicine 09/21/24 documented as of this encounter
--- OUTSIDE RECORDS SUMMARY | 2024-10-16 20:03 | XMS_ITS | Clinical Summary ---
Author Organization [facility] Address [address] [place] [address] Care Team Providers Care In Store Marketing Representative Name Role Phone Unavailable Primary Care Provider Unavailabl e Social History Tobacco Use Types Packs/Day Years Used Date Smoking Tobacco: Never Assessed [place] Safety & Environment Answer Date Rec orded Fear of Current or Ex-Partner Not on file Emotionally Abused Not on file 05/26/2023 Physically Abused Not on file 05/26/2023 Sexually Abused Not on file 05/26/2023 Physically or Sexually Abused Not on file Comments Unknown Sex and Gender Information Value Date Recorded Sex Assigned at Not on file Legal Sex Female 12:36 AM EDT Gender Identity Not on file Sexual Orientation Not on file Last Filed Vital Signs Vital Sign Reading Time Taken Comments Blood Pressure 108/72 01/29/2021 5:20 PM EDT Pulse - - Temperature - - Respiratory Rate - - Oxygen Saturation - - Inhaled Oxygen Concentration - - Weight 69.4 kg (153 lb) 01/29/2021 5:16 PM EDT Height 172.7 cm (5' 8 ) 01/29/2021 5:16 PM EDT Body Mass Index 23.26 01/29/2021 5:16 PM EDT Plan of Treatment Not on file
--- OUTSIDE RECORDS SUMMARY | 2024-10-16 20:03 | XMS_ITS | Encounter Summary ---
Author Organization [facility] Address [address] [facility] [place] [address] Care Team Providers Care Window Installation Subcontractor Name Role Phone Neil Huerta MD Primary Care Provider [phone] Elida Maria MD Primary Care Provider + [phone] Encounter Details Date Type Department Care Team (Late Contact Info) Description 10/31/2023 Clinisync Result Encounter [facility] External Department Unsolicited Provider, Generic External Data Social History Tobacco Use Types Packs/Day Years [...] on file documented as of this encounter Plan of Treatment Upcoming Encounters Date Type Department Care Team (Late Contact Info) Description 10/22/2024 10:20 AM EDT Office Visit [facility] [place] [facility] [address] [place] [phone] Chico Baires DPM [address] [address] documented as of this encounter Procedures Procedure Name Priority Date/Time Associated Diagnosis Comments MRI ABD ENTEROG WO/W IVCON 10/31/2023 9:22 AM EDT [facility] TTG IGA SER-ACNC Routine 10/31/2023 6:49 AM EDT documented in this encounter Results * MRI ABD ENTEROG WO/W IVCON (10/31/2023 9:22 AM EDT) Anatomical Region Laterality Modality Other 10/31/2023 9:22 AM EDT Narrative 10/31/2023 10:10 AM EDT * * *Final Report* * * DATE OF EXAM: Oct 31 2023 9:22AM Q 0684 - MRI ABD ENTEROG WO/W IVCON / PROCEDURE REASON: multiple diagnoses * * * * Physician Interpretation * * * * MRI ABDOMEN AND PELVIS (ENTEROGRAPHY) WITHOUT AND WITH IV CONTRAST HISTORY: Nonspecific abdominal pain, LEFT upper quadrant radiating to the LEFT lower quadrant. Occasional pelvic cramping. Also reports bloody diarrhea.. TECHNIQUE: Magnet: 3.0T scanner. Multiplanar MRI with multiple sequences before and after contrast. Contrast: IV: 12 ml of Dotarem Oral: 1000 ml of Breeza RESULT: GI tract -Small bowel: No mural hyperenhancement or wall thickening. Normal caliber. -Colon and Rectum: No mural hyperenhancement or wall thickening. -Strictures: None -Fistulae/Sinus tracts: None Other abdomen and pelvis Liver: Normal morphology. No focal abnormality. Biliary: No bile duct dilation. Spleen: No mass. No splenomegaly. Pancreas: No mass or duct dilation. Adrenals: No mass. Kidneys: No solid or cystic mass. No hydronephrosis. Lymph nodes: No abdominal or pelvic lymphadenopathy. Mesentery / Peritoneum / Retroperitoneum: No ascites or mass. Vasculature: - Abdominal aorta and iliac arteries: No aneurysm. - Celiac and SMA: Patent. - Portal venous system: Patent. - Hepatic veins: Patent. Pelvis: No mass, ascites or fluid collection. Uterus and adnexa: Corpus lutein cyst in the RIGHT adnexa. Uterus and ovaries are normal for age. Bladder: No focal or diffuse wall thickening. Bones/Soft Tissues: No significant finding. Localizer images: No significant findings. IMPRESSION: Normal MR enterography, specifically no inflammatory bowel disease. No potential etiology for the presenting symptoms. Telesales Professional: MARCI Transcribe Date/Time: Oct 31 2023 9:59A Dictated by : AG CARTER MD This examination was interpreted and the report reviewed and electronically signed by: AG CARTER MD on Oct 31 2023 10:08AM EST [id number] Procedure Note Radiology, Radiologist, - 10/31/2023 * * *Final Report* * * DATE OF EXAM: Oct 31 2023 9:22AM QBM 0684 - MRI ABD ENTEROG WO/W IVCON / PROCEDURE REASON: multiple diagnoses * * * * Physician Interpretation * * * * MRI ABDOMEN AND PELVIS (ENTEROGRAPHY) WITHOUT AND WITH IV CONTRAST HISTORY: Nonspecific abdominal pain, LEFT upper quadrant radiating to the LEFT lower quadrant. Occasional pelvic cramping. Also reports bloody diarrhea.. TECHNIQUE: Magnet: 3.0T scanner. Multiplanar MRI with multiple sequences before and after contrast. Contrast: IV: 12 ml of Dotarem Oral: 1000 ml of Breeza RESULT: GI tract -Small bowel: No mural hyperenhancement or wall thickening. Normal caliber. -Colon and Rectum: No mural hyperenhancement or wall thickening. -Strictures: None -Fistulae/Sinus tracts: None Other abdomen and pelvis Liver: Normal morphology. No focal abnormality. Biliary: No bile duct dilation. Spleen: No mass. No splenomegaly. Pancreas: No mass or duct dilation. Adrenals: No mass. Kidneys: No solid or cystic mass. No hydronephrosis. Lymph nodes: No abdominal or pelvic lymphadenopathy. Mesentery / Peritoneum / Retroperitoneum: No ascites or mass. Vasculature: - Abdominal aorta and iliac arteries: No aneurysm. - Celiac and SMA: Patent. - Portal venous system: Patent. - Hepatic veins: Patent. Pelvis: No mass, ascites or fluid collection. Uterus and adnexa: Corpus lutein cyst in the RIGHT adnexa. Uterus and ovaries are normal for age. Bladder: No focal or diffuse wall thickening. Bones/Soft Tissues: No significant finding. Localizer images: No significant findings. IMPRESSION: Normal MR enterography, specifically no inflammatory bowel disease. No potential etiology for the presenting symptoms. Telesales Professional: MARCI Transcribe Date/Time: Oct 31 2023 9:59A Dictated by : AG CARTER MD This examination was interpreted and the report reviewed and electronically signed by: AG CARTER MD on Oct 31 2023 10:08AM EST [id number] us Generic External Data Provider [facility] Final Result * [facility] TTG IGA SER-ACNC (10/31/2023 6:49 AM EDT) [facility] TTG IGA SER-ACNC <2 <4 U/mL [facility] TRANSGLUTAMINASE IGA ABS INTERPRETATION Negative Negative [facility] Comment: The following results were obtained with EdufiiA UEISe R h-tTG IgA RUBI.???R h-tTG IgA values obtained with different manufacturers' assay methods may not be used interchangeably. The magnitude of the reported IgA levels cannot be correlated to an endpoint???concentration. This is used as an aid in diagnosis of celiac disease. Clinical correlation is required. 10/31/2023 6:49 AM EDT 10/31/2023 8:07 AM EDT Narrative CORI - 10/31/2023 10:37 PM EDT Specimen Type: BLOOD SPECIMEN Ordering Facility: [facility] Address: [address] [place] [address] Original Ordering Provider: NEIL PATRICIO Generic External Data Provider CORI paige Result CORI [facility] [address] [place], [place] [address] [address] documented in this encounter Visit Diagnoses Not on filedocumented in this encounter Care Teams Window Installation Subcontractor Relationship Specialty Start Date End Date Neil Huerta MD [address] [place] [address] PCP - General Pediatrics 09/02/23 09/20/24 Eldia Maria MD [address] [place] [address] PCP - General Family Medicine 09/21/24 documented as of this encounter
--- OUTSIDE RECORDS SUMMARY | 2024-10-16 20:03 | XMS_ITS | Encounter Summary ---
Author Organization [facility] Address [address] [place] [address] Care Team Providers Care Central Office Mechanic Name Role Phone Jason Cabrera DO Unavailable [phone] OttonielMarlys Dyan [facility] Primary Care Provider [phone] Source Comments In the event this information is protected by the Federal Confidentiality of Alcohol and Drug AbusePatient Records regulations: The Federal rules restrict any use of the information to criminally investigate or prosecute any alcohol or drug abuse patient.[facility] Encounter Details Date Type Department Care Team (Late st Contact Info) Description 10/31/2023 Get Medical Advice [facility] [address] [place] [address] Lor Unger APRN.SPORTS DOCTOR [address] [place] [address] So now what? Social History Tobacco Use Types Packs/Day Years Used Date Smoking Tobacco: Never Smokeless Tobacco: Never Alcohol Use Standard Drinks/Week Comments No 0 (1 standard drink = 0.6 oz pur e alcohol) Area Deprivation Index Answer Date Phill rded National Score (1-100), lower number is lower ri sk 58 09/27/2023 State Score (1-10), lower number is lower risk 4 09/27/2023 Data from: https://www.neighborhoodatlas.medicine.[facility].edu/. Last address used for calculation [address] [facility] 09/27/2023 Comments No Sex and Gender Information Value [...] 02/07/2025 9:15 AM EST Procedure Cardiology [address] [place] [address] POTS 02/07/2025 10:00 AM EST Office Visit Cardiology [address] [place] [phone] Elijah Painter MD [address] [place] [address] POTS 03/04/2025 1:45 PM EST Office Visit Cardiology [address] [place] [address] POTS documented as of this encounter Visit Diagnoses Not on filedocumented in this encounter Care Teams Central Office Mechanic Relationship Specialty Start Date End Date Marlys Alcazar CNP [address] [place] [address] PCP - General Family Medicine 09/27/23 Jason Cabrera DO [address] [place] [address] Primary Staff Physician Cardiology 06/20/18 documented as of this encounter
--- OUTSIDE RECORDS SUMMARY | 2024-10-16 20:03 | XMS_ITS | Encounter Summary ---
Author Organization [facility] Address [address] [facility] [place] [address] Care Team Providers Care Olive Packer Name Role Phone Elida Maria MD Primary Care Provider [phone] Encounter Details Date Type Department Care Team (Late Contact Info) Description 10/03/2024 Telephone [facility] [address] [place] [address] oMna Walker LPN Social History Tobacco Use Types Packs/Day Years [...] encounter Miscellaneous Notes * Telephone Encounter - Mona Walker LPN - 10/03/2024 10:17 AM EDT Error void documented in this encounter Plan of Treatment Upcoming Encounters Date Type Department Care Team (Late Contact Info) Description 10/22/2024 10:20 AM EDT Office Visit [facility] [address] [place] [address] Chico Baires DPM [address] [address] documented as of this encounter Visit Diagnoses Not on filedocumented in this encounter Care Teams Olive Packer Relationship Specialty Start Date End Date Elida Maria MD [address] [place] [phone] PCP - General Family Medicine 09/21/24 documented as of this encounter
--- OUTSIDE RECORDS SUMMARY | 2024-10-16 20:03 | XMS_ITS | Encounter Summary ---
Author Organization [facility] Address [address] [facility] [place] [address] Care Team Providers Care Core Microarchitect Name Role Phone Elida Maria MD Primary Care Provider Encounter Details Date Type Department Care Team (Latest Contact Info) Description 10/15/2024 Travel Social History Tobacco Use Types Packs/Day Years [...] EDT Office Visit [facility] [place] [facility] [address] [place] [phone] Chico Baires DPM [address] [address] documented as of this encounter Visit Diagnoses Not on filedocumented in this encounter Care Teams Core Microarchitect Relationship Specialty Start Date End Date Elida Maria MD [address] [place] [address] PCP - General Family Medicine 09/21/24 documented as of this encounter
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
--- OUTSIDE RECORDS SUMMARY | 2024-10-16 20:03 | XMS_ITS | Encounter Summary ---
Author Organization [facility] Address [address] [facility] [place] [address] Care Team Providers Care Sheriff Sergeant Name Role Phone Benny Huerta MD Primary Care Provider [phone] Elida Maria MD Primary Care Provider [phone] Encounter Details Date Type Department Care Team (Late Contact Info) Description 11/23/2023 External Result Encounter [facility] External Department Unsolicited Marlys Alcazar, MANAGER FLOAT [address] [place] [address] Social History Tobacco Use Types Packs/Day Years [...] EDT Office Visit [facility] [address] [place] [phone] Chico Baires DPM [address] [address] documented as of this encounter Procedures Procedure Name Priority Date/Time Associated Diagnosis Comments US GALLBLADDER 11/23/2023 1:23 PM EDT documented in this encounter Results * US gallbladder (11/23/2023 1:23 PM EDT) Anatomical Region Laterality Modality Gall bladder Ultrasound 11/23/2023 1:23 PM EDT Impressions 11/23/2023 1:26 PM EDT NO ACUTE PROCESS. . Impression dictated by: Evangelista Estrada Jr., D.OCass11/23/2023 1:24 PM Dictation Location: [place] [address] Tech: Angeli Gao Transcribed By: LILIAN 11/23/23 1324 Dictated By: Evangelista Estrada Jr, DO 11/23/23 1323 Signed By: <Electronically signed by Evangelista Estrada Jr, DO in OV> 11/23/23 1324 Narrative 11/23/2023 1:26 PM EDT [place] [address] Ultrasound Report Signed Patient: Marlys Carrero MR#: [id number] : 1990 Acct:[id number] Age/Sex: 33 / F ADM Date: 11/23/23 Loc: Room: Type: [facility] Attending Dr: Marlys BARAJAS Ordering Provider: KARL Hurd Date of Service: 11/23/23 US/US gall bladder: ABD PAIN Copies to: KARL Hurd LIMITED ABDOMINAL ULTRASOUND: CLINICAL HISTORY: Abdominal pain. COMPARISON: None TECHNIQUE: Grayscale and color Doppler images of the right upper quadrant organs were obtained. FINDINGS: Pancreas: Visualized portions appear unremarkable. Liver: Unremarkable. Gallbladder: Unremarkable. CBD: 3 mm. US/US gall bladder Procedure Note Radiology, Radiologist, - 11/23/2023 [facility] Main [place] [id number] Ultrasound Report Signed Patient: Marlys Carrero RMR#: [id number] : 1990Acct:[id number] Age/Sex: 33 / FADM Date: 11/23/23 Loc: UL Room:Type: [facility] Attending Dr: Marlys Alcazar MANAGER FLOAT-C Ordering Provider: KARL Hurd Date of Service: 11/23/23 US/US gall bladder: ABD PAIN Copies to: KARL Hurd LIMITED ABDOMINAL ULTRASOUND: CLINICAL HISTORY: Abdominal pain. COMPARISON: None TECHNIQUE: Grayscale and color Doppler images of the right upper quadrantorgans were obtained. FINDINGS: Pancreas: Visualized portions appear unremarkable. Liver: Unremarkable. Gallbladder: Unremarkable. CBD: 3 mm. US/US gall bladder IMPRESSION: NO ACUTE PROCESS. . Impression dictated by: Evangelista Estrada Jr., DCassOCass11/23/2023 1:24 PM Dictation Location: [place] [address] Tech: Angeli Gao Transcribed By: PWS 11/23/23 1324 Dictated By: Evangelista Estrada Jr, DO 11/23/23 1323 Signed By: <Electronically signed by Evangelista Estrada Jr, DO inOV> 11/23/23 1324 us Marlys Alcazar MANAGER FLOAT IMG US PROCEDURES Final Res ult documented in this encounter Visit Diagnoses Not on filedocumented in this encounter Care Teams Sheriff Sergeant Relationship Specialty Start Date End Date Benny Huerta MD [address] [place] [address] PCP - General Pediatrics 09/02/23 09/20/24 Elida Maria MD [address] [place] [address] PCP - General Family Medicine 09/21/24 documented as of this encounter
--- OUTSIDE RECORDS SUMMARY | 2024-10-16 20:03 | XMS_ITS | Encounter Summary ---
Author Organization [facility] Address [facility] [place] [address] Care Team Providers Care Dye House Worker Name Role Phone Yeison Antony DO Primary Care Provid er Jason Cabrera DO Unavailable [phone] Jason Cabrera DO Unavailable [phone] Ottoniel Marlys [facility] Primary Care Provider [phone] Source Comments In the event this information is protected by the Federal Confidentiality of Alcohol and Drug AbusePatient Records regulations: The Federal rules restrict any use of the information to criminally investigate or prosecute any alcohol or drug abuse patient.[facility] Encounter Details Date Type Department Care Team (Late st Contact Info) Description 08/20/2015 Patient Msg Medical Records [address] [place] [address] Provider, [facility] Premedication for MRI Social History Tobacco Use Types Packs/Day Years Used Date Smoking Tobacco: Never Smokeless Tobacco: Never Alcohol Use Standard Drinks/Week Comments No 0 (1 standard drink = 0.6 oz pur e alcohol) Comments Unknown Sex and Gender Information Value [...] 02/07/2025 9:15 AM EST Procedure Cardiology [address] [place] [address] POTS 02/07/2025 10:00 AM EST Office Visit Cardiology [address] [place] [address] Elijah Painter MD [address] [place] [address] POTS 03/04/2025 1:45 PM EST Office Visit Cardiology [address] [place] [address] POTS documented as of this encounter Visit Diagnoses Not on filedocumented in this encounter Care Teams Dye House Worker Relationship Specialty Start Date End Date Yeison Antony DO [address] [address] PCP - General Family Medicine 01/22/13 09/26/23 Marlys Alcazar PROCED TECH [address] [place] [address] PCP - General Family Medicine 09/27/23 Jason Cabrera DO [address] [place] [address] Primary Staff Physician Cardiology 06/20/18 Jason Cabrera DO [address] [place] [address] Primary Staff Physician Cardiology 06/20/18 documented as of this encounter
--- OUTSIDE RECORDS SUMMARY | 2024-10-16 20:03 | XMS_ITS | Encounter Summary ---
Author Organization [facility] Address [facility] [place] [address] Care Team Providers Care Ceo & Board Director Name Role Phone Jason Cabrera DO Unavailable [phone] OttonielMarlys [facility] Primary Care Provider [phone] Source Comments In the event this information is protected by the Federal Confidentiality of Alcohol and Drug AbusePatient Records regulations: The Federal rules restrict any use of the information to criminally investigate or prosecute any alcohol or drug abuse patient.[facility] Encounter Details Date Type Department Care Team (Late st Contact Info) Description 08/09/2024 Patient Msg Colorectal Surgery [address] [place] [id number] Karol Magana APRN.[address] [address] Enema for Anorectal Manometry Testing Social History Tobacco Use Types Packs/Day Years Used Date Smoking Tobacco: Never Smokeless Tobacco: Never Alcohol Use Standard Drinks/Week Comments No 0 (1 standard drink = 0.6 oz pur e alcohol) Area Deprivation Index Answer Date Phill rded National Score (1-100), lowe r number is lower risk 58 11/07/2023 State Score (1-10), lower number is lower risk 4 11/07/2023 Data from: https://www.neighborhoodatlas.medicine.[facility].edu/ . Last address used for calculation [address] 11/07/2023 Comments No Sex and Gender Information [...] 02/07/2025 9:15 AM EST Procedure Cardiology [address] [place] [phone] POTS 02/07/2025 10:00 AM EST Office Visit Cardiology [address] [place] [phone] Elijah Painter MD [address] [place] [address] POTS 03/04/2025 1:45 PM EST Office Visit Cardiology [address] [place] [address] POTS documented as of this encounter Visit Diagnoses Not on filedocumented in this encounter Care Teams Ceo & Board Director Relationship Specialty Start Date End Date Marlys Alcazar CNP [address] [place] [address] PCP - General Family Medicine 09/27/23 Jason Cabrera DO [address] [place] [address] Primary Staff Physician Cardiology 06/20/18 documented as of this encounter
--- OUTSIDE RECORDS SUMMARY | 2024-10-16 20:03 | XMS_ITS | Encounter Summary ---
Author Organization [facility] tem Address [id number] [address] [place] [address] Care Team Providers Care Lead Data Entry Operator Name Role Phone No Pcp, No Pcp Primary Care Provider Unavailabl e Encounter Details Date Type Department Care Team (Late st Contact Info) Description 10/24/2020 Orders Only Maternal- Medicine at [facility] [address] [place] [address] Ref Prov, [place] [address] Social History Tobacco Use Types Packs/Day Years Used Date Smoking Tobacco: Never Smokeless Tobacco: Never Alcohol Use Standard Drinks/Week Comments Not Currently 0 (1 standard drink = 0.6 oz pur e alcohol) Childcare Answer Date Recorded Childcare Unknown 09/13/2018 Employment Answer Date Recorded Employment Unknown 09/13/2018 Comments Yes Sex and Gender Information Value Date Recorded Sex Assigned at Not on file Legal Sex Female 11:45 AM EDT Gender Identity Not on file Sexual Orientation Not on file documented as of this encounter Plan of Treatment Not on file documented as of this encounter Procedures Procedure Name Priority Date/Time Associated Diagnosis Comments HEMOGLOBIN A1C Routine 08/18/2020 documented in this encounter Results * Hemoglobin A1c (08/18/2020) us Not In System Ref Prov LAB BLOOD ORDERABLES Almita l Result MANUALLY TRANSCRIBED RESULTS documented in this encounter Visit Diagnoses Not on filedocumented in this encounter Care Teams Lead Data Entry Operator Relationship Specialty Start Date End Date No Pcp, [place] [address] PCP - General Family Medicine 10/28/20 documented as of this encounter
--- OUTSIDE RECORDS SUMMARY | 2024-10-16 20:03 | XMS_ITS | Encounter Summary ---
Author Organization [facility] tem Address [id number] [address] [place] [address] Care Team Providers Care Hydrogen Operator Name Role Phone No Pcp, No Pcp Primary Care Provider Unavailabl e Encounter Details Date Type Department Care Team (Late st Contact Info) Description 06/17/2022 Orders Only Maternal- Medicine at [facility] [address] [place] [phone] Jose Antonio Pena, DO [address] [place] [address] Social History Tobacco Use Types Packs/Day Years Used Date Smoking Tobacco: Never Smokeless Tobacco: Never Alcohol Use Standard Drinks/Week Comments Not Currently 0 (1 standard drink = 0.6 oz pur e alcohol) Childcare Answer Date Recorded Childcare Unknown 09/13/2018 Employment Answer Date Recorded Employment Unknown 09/13/2018 Hunger Screening Answer Date Recorded Within the past 12 months we worried whether our food would run out before we got money to buy more. Never True 06/18/2022 Within the past 12 months th e food we bought just didn't last and we didn't have money to get more. Never True 06/18/2022 Comments Yes Sex and Gender Information Value Date Recorded Sex Assigned at Not on file Legal Sex Female 11:45 AM EDT Gender Identity Not on file Sexual Orientation Not on file COVID-19 Exposure Response Date Recorded In the last month, have you been in contact with someone who was confirmed or suspected to have Coronavirus / COVID-19? No / Unsure 06/18/2022 11:17 AM EDT documented as of this encounter Plan of Treatment Not on file documented as of this encounter Procedures Procedure Name Priority Date/Time Associated Diagnosis Comments US PREG LMTD 1 OR MORE FETUS Routine 06/15/2022 US PREG LMTD 1 OR MORE FETUS Routine 03/25/2022 documented in this encounter Results * Ultrasound limited 1 or more fetus (06/15/2022) Anatomical Region Laterality Modality OB-INDUSTRIAL SERVICES WORKER Ultrasound us Beverly AMADO IMG US ORDERABLES Final Result * Ultrasound limited 1 or more fetus (03/25/2022) Anatomical Region Laterality Modality OB-INDUSTRIAL SERVICES WORKER Ultrasound us Jose Antonio Pena DO IMG US ORDERABLES Final Result documented in this encounter Visit Diagnoses Not on filedocumented in this encounter Care Teams Hydrogen Operator Relationship Specialty Start Date End Date No Pcp, [place] [address] PCP - General Family Medicine 10/28/20 documented as of this encounter
--- OUTSIDE RECORDS SUMMARY | 2024-10-16 20:03 | XMS_ITS | Clinical Summary ---
Author Organization [facility] Address [address] [facility] [place] [address] Care Team Providers Care Environmental Services Director Name Role Phone Elida Maria MD Primary Care Provider Allergies Active Allergy Reactions Criticality Noted Date Comments Midodrine Itching 02/17/2015 Polymyxin B Swelling 02/15/2023 Medications amitriptyline (Elavil) 10 MG tablet Take 10 mg by mouth at bedtime 025 Active valACYclovir (Valtrex) 500 MG tabletIndications:Preg nant state, incidental ([facility]) TAKE 1 TABLET BY MOUTH EVERY DAY FOR 30 DAYS 30 tablet 11 025 Active azelastine (Astelin) 0.1 % nasal sprayIndications:Aller gic rhinitis due to animals Administer 2 sprays into each nostril in the morning and 2 sprays before bedtime. Use in each nostril as directed. 90 mL 3 025 2025 Active fluticasone (Flonase) 50 MCG/ACT nasal sprayIndications:Aller gic rhinitis due to animals Administer 2 sprays into each nostril Daily Shake gently. Before first use, prime pump. After use, clean tip and replace cap. 48 g 11 025 2025 Active amoxicillin-clavulanat e (Augmentin) 875-125 MG tabletIndications:Acut e tonsillitis, unspecified etiology Take 1 tablet (875 mg) by mouth in the morning and 1 tablet (875 mg) before bedtime. Do all this for 10 days. 20 tablet 025 2024 Active methylPREDNISolone (Medrol Dospak) 4 MG tabletsIndications:Acu te tonsillitis, unspecified etiology Follow schedule on package instructions 21 tablet 025 Active methylPREDNISolone (Medrol Dospak) 4 MG tabletsIndications:Cap sulitis of metatarsophalangeal (MTP) joint of left foot Follow schedule on MEDROL PACK package instructions to be used as directed 21 tablet 024 2024 Disconti nued(The rapy complete d) fluticasone (Flonase) 50 MCG/ACT nasal sprayIndications:Eusta chian tube dysfunction, left Administer 2 sprays into each nostril Daily 18.2 mL 2 025 2024 Disconti nued(Dup licate order) predniSONE (Deltasone) 20 MG tabletIndications:Non- recurrent acute suppurative otitis media of both ears without spontaneous rupture of tympanic membranes 3 pills days 1 and 2, 2 pills days 3 and 4, 1 pill day 5 and 6, 1/2 pill days 7 and 8. 13 tablet 025 2024 Disconti nued(The rapy complete d) diphenhydrAMINE-acetam inophen (Tylenol PM) 25-500 MG per tablet Take 1 tablet by mouth as needed at bedtime for sleep 2024 Disconti nued(The rapy complete d) Active Problems Problem Noted Date Diagnosed Date Neurocardiogenic syncope 09/21/2024 Anxiety disorder 10/01/2022 Cervical radiculopathy 10/01/2022 Deep dyspareunia 10/01/2022 Episodic tension-type headache, not intractable 10/01/2022 Internal derangement of left shoulder 10/01/2022 Menorrhagia with irregular cycle 10/01/2022 Migraine 10/01/2022 Missed period 10/01/2022 Moderate episode of recurrent major depressive d isorder 10/01/2022 Nontoxic multinodular goiter 10/01/2022 Nontoxic single thyroid nodule 10/01/2022 Primary insomnia 10/01/2022 PERI (stress urinary incontinence, female) 2022 Peripheral edema 10/01/2022 Vitamin D deficiency 10/01/2022 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 08/24/2022 cardiac echogenic focus, antepartum (HHS-H CC) 10/28/2020 POTS (postural orthostatic tachycardia syndrome) 02/22/2013 Convulsion 04/21/2012 Encounters Date Type Department Care Team Description 10/16/2024 1:00 PM EDT Office Visit [facility] [address] [place] [phone] Beverly Bliss PA Well woman exam with routine gynecological exam 10/15/2024 2:00 PM EDT Office Visit [facility] [address] [place] [address] Gina Smith NP Acute tonsillitis, unspecified etiology (Primary Dx) 10/15/2024 Bamboo flowsheet [facility] [address] [place] [address] Gina Smith NP 10/15/2024 Travel 10/03/2024 Telephone [facility] [address] [place] [address] Mona Walker LPN 09/21/2024 10:00 AM EDT Office Visit [facility] [address] [place] [address] Gina Smith NP History of shingles (Primary Dx); Encounter to establish care; POTS (postural orthostatic tachycardia syndrome); Exposure to human papillomavirus; Puncture wound of left foot, initial encounter; Neurocardiogenic syncope 09/21/2024 Bamboo flowsheet [facility] [address] [place] [address] Gina Smith NP 09/21/2024 Travel 09/05/2024 10:00 AM EDT Office Visit [facility] [address] [place] [phone] Maulik Askew MD Allergic rhinitis due to animals (Primary Dx); Xerosis cutis 09/05/2024 Bamboo flowsheet [facility] [address] [place] [address] Maulik Askew MD 09/05/2024 Travel 08/28/2024 9:15 AM EDT Office Visit [facility] [place] [address] [place] [phone] Harvey Root, DO Chronic rhinitis (Primary Dx) 08/28/2024 Bamboo flowsheet [facility] [address] [place] [address] Harvey Root, DO 08/28/2024 Travel 08/23/2024 Telephone [facility] [address] [place] [phone] Charito Onael LPN 08/16/2024 1:30 PM EDT Ancillary Procedure [facility] [address] [place] [address] Chronic pansinusitis 08/16/2024 Travel 08/09/2024 Telephone [facility] [address] [place] [address] Harvey Root, DO 08/08/2024 4:00 PM EDT Office Visit [facility] [place] [address] [place] [address] Harvey Root, DO Chronic pansinusitis (Primary Dx) 08/08/2024 Bamboo flowsheet [facility] [address] [place] [address] Harvey Root, DO 08/08/2024 Travel from Last 3 Months Immunizations Immunization Administration Dates Next Due DTaP, Unspecified 03/24/1992, 2,1991,1991 HPV 9-Valent 11/29/2017,07/25/2017,05/27/2017 Hep A, Adult 11/29/2017,05/27/2017 Hep B, Adolescent or Pediatric 01/19/2010,2009,07/19/2009 HiB, unspecified 07/01/1992, 2,1991,1991 Influenza, seasonal, injectable 04/29/2016,01/10,06/21/2014 Influenza, seasonal, injecta ble, preservative free 01/08/2016 MMR 07/01/1992 Polio, Unspecified 03/24/1992,1991, 992 Rubella/Mumps 07/26/1996 Tdap 06/21/2014,07/26/1996 Family History Medical History Relation Name Comments No Known Problems Daughter 1 Fallyn Alcohol abuse Father Myasthenia gravis Father Raynaud syndrome Father Cancer Maternal Grandmother Jill Colon cancer Maternal Grandmother Jill Rectal cancer Maternal Grandmother Jill Stage 4 Graves' disease Mother Clotting disorder Paternal Grandmother Aidee Diabetes Paternal Grandmother Adiee No Known Problems Sister Relation Name Status Comments Daughter 1 Fallyn Alive Daughter 2 Alive Father Alive Maternal Grandmother Jill Mother Alive Paternal Grandmother Aidee Sister Alive Social History Tobacco Use Types Packs/Day Years Used Date Smoking Tobacco: Never Smokeless Tobacco: Never Tobacco Cessation:Counseling Given: Not Answered Alcohol Use Standard Drinks/Week Comments Never 0 [...] Pressure 120/70 10/16/2024 1:04 PM EDT Pulse 99 10/15/2024 2:06 PM EDT Temperature 36.1 C (97 F) 10/15/2024 2:06 PM EDT Respiratory Rate 18 09/21/2024 9:54 AM EDT Oxygen Saturation 99% 10/15/2024 2:06 PM EDT Inhaled Oxygen Concentration - - Weight 58.2 kg (128 lb 6.4 oz) 10/16/2024 1:04 P M EDT Height 172.7 cm (5' 8 ) 10/15/2024 2:06 PM EDT Body Mass Index 19.52 10/15/2024 2:06 PM EDT Plan of Treatment Upcoming Encounters Date Type Department Care Team (Late st Contact Info) Description 10/22/2024 10:20 AM EDT Office Visit [facility] [address] [place] [phone] Chico Baires, DPM [address] [facility] [address] [place] [address] Health Maintenance Due Date Last Done Comments Influenza Vaccine (#1) 2024 7, 01/08/2016, 01/10/2015, Additional history exists Cervical Cancer Screening 08/15/2028 HPV/Cotest 08/15/2028 12/25/2018 Pap Smear 08/15/2028 08/16/2023 Procedures Procedure Name Priority Date/Time Associated Diagnosis Comments CT MAXILLOFACIAL WO IV CONTRAST Routine 08/16/2024 1:32 PM EDT Chronic pansinusitis PAP SMEAR Routine 08/16/2023 12:00 AM EDT THINPREP TIS PAP REFLEX HPV MRNA E6/E7 (50172) Routine 12/25/2018 from Last 3 Months or Most Recently Relevant to Health Maintenance Results * CT maxillofacial wo IV contrast (08/16/2024 1:32 PM EDT) Anatomical Region Laterality Modality Head, Neck Computed Tomogra phy 08/17/2024 10:1 3 AM EDT Impressions 08/17/2024 10:23 AM EDT Paranasal sinus disease as detailed. ELECTRONICALLY SIGNED BY: Benny Bowman DO Narrative 08/17/2024 10:23 AM EDT Exam: CT MAXILLOFACIAL WO IV CONTRAST History: chronic pansinusitis Technique: Multiple contiguous axial images were obtained of the maxillofacial bones without contrast. Multiplanar reformats were obtained. All CT scans at this facility use dose modulation, iterative reconstruction, and/or weight based dosing when appropriate to reduce radiation dose to as low as reasonably achievable. Comparison: CT June 18, 2024 Findings: Maxillary Sinuses: Minimal mucosal thickening of both maxillary sinuses. Ethmoid sinuses: Clear. Sphenoid sinuses: Clear. There is sphenoid pneumatization that extends inferior and posterior to the sella, resulting in a thin posterior bony margin of the clivus, consistent with sellar type pneumatization. Frontal sinuses: Clear. Right sphenoethmoidal recess: Clear. Left sphenoethmoidal recess: Clear. Right ostiomeatal complex and frontal recess: Clear. Left ostiomeatal complex and frontal recess: Clear. Nasal septum: Rightward septal deviation with spurring Other: Keros type 2 olfactory fossa. Bilateral Onodi cells. Right Britt cell. Mastoid air cells & middle ears: Clear. The middle ears are unremarkable. Soft tissues & Brain: No acute abnormality identified. Orbital contents are within normal limits. Procedure Note Benny Bowman DO - 08/17/2024 Exam: CT MAXILLOFACIAL WO IV CONTRAST History: chronic pansinusitis Technique: Multiple contiguous axial images were obtained of themaxillofacial bones without contrast. Multiplanar reformats wereobtained. All CT scans at this facility use dose modulation, iterativereconstruction, and/or weight based dosing when appropriate to reduceradiation dose to as low as reasonably achievable. Comparison: CT June 18, 2024 Findings: Maxillary Sinuses: Minimal mucosal thickening of both maxillary sinuses. Ethmoid sinuses: Clear. Sphenoid sinuses: Clear. There is sphenoid pneumatization that extendsinferior and posterior to the sella, resulting in a thin posterior bonymargin of the clivus, consistent with sellar type pneumatization. Frontal sinuses: Clear. Right sphenoethmoidal recess: Clear. Left sphenoethmoidal recess: Clear. Right ostiomeatal complex and frontal recess: Clear. Left ostiomeatal complex and frontal recess: Clear. Nasal septum: Rightward septal deviation with spurring Other: Keros type 2 olfactory fossa. Bilateral Onodi cells. Right Hallercell. Mastoid air cells & middle ears: Clear. The middle ears areunremarkable. Soft tissues & Brain: No acute abnormality identified. Orbital contentsare within normal limits. IMPRESSION: Paranasal sinus disease as detailed. ELECTRONICALLY SIGNED BY: Benny Bowman DO Harvey Root DO IMG CT PROCEDURES Final Res ult * Pap Smear (08/16/2023 12:00 AM EDT) Swab Cervical swab / Unknown us Beverly AMADO LAB CYTOLOGY ORDERABLES Final Re sult EXTERNAL LAB * THINPREP TIS PAP REFLEX HPV MRNA E6/E7 (42422) (12/25/2018) CLINICAL INFORMATION: None given [facility] LMP: None given [facility] PREV. PAP: 05/09/17- NEG [facility] PREV. BX: None given [facility] SOURCE: Cervix [facility] STATEMENT OF ADEQUACY: SEE COMMENT [facility] Comment: Satisfactory for evaluation. Endocervical/transformation zone component present. INTERPRETATION/RESU LT: SEE COMMENT [facility] Comment: Negative for intraepithelial lesion or malignancy. Reactive cellular changes associated with repair COMMENT: This Pap test has been evaluated with computer assisted technology. [facility] NITROGLYCERIN NITRATOR OPERATOR BATCH: SEE COMMENT [facility] Comment: TNS, CT(ASCP) CT screening location: [facility], [address] [place] [address]. PATHOLOGIST: SEE COMMENT [facility] Comment: Jake Guzman M.D. Board Certified in Anatomic Pathology and Cytopathology (electronic signature) For questions regarding this report call Anatomic Pathology at [phone] Jake Guzman MD, Industrial Maintenance Technician [employer] [place], [place] COMMENT SEE COMMENT [facility] Comment: EXPLANATORY NOTE: The Pap is a screening test for cervical cancer. It is not a diagnostic test and is subject to false negative and false positive results. It is most reliable when a satisfactory sample, regularly obtained, is submitted with relevant clinical findings and history, and when the Pap result is evaluated along with historic and current clinical information. 12/25/2018 us Hola Kendall DO [facility] Final Result [facility] from Last 3 Months or Most Recently Relevant to Health Maintenance Insurance [facility] Care Teams Environmental Services Director Relationship Specialty Start Date End Date Elida Maria MD [address] [place] [address] PCP - General Family Medicine 09/21/24
--- OUTSIDE RECORDS SUMMARY | 2024-10-16 20:03 | XMS_ITS | Encounter Summary ---
Author Organization [facility] Address [address] [facility] [place] [address] Care Team Providers Care Sander Wooden Pencils Name Role Phone Benny Huerta MD Primary Care Provider [phone] Elida Maria MD Primary Care Provider + [phone] Encounter Details Date Type Department Care Team [...] EDT Office Visit [facility] [address] [place] [address] Chico Baires DPM [address] [address] documented as of this encounter Procedures Procedure Name Priority Date/Time Associated Diagnosis Comments MRI PEL ENTEROG WO/W IVCON 10/31/2023 9:22 AM EDT documented in this encounter Results * MRI PEL ENTEROG WO/W IVCON (10/31/2023 9:22 AM EDT) Anatomical Region Laterality Modality Other 10/31/2023 9:22 AM EDT Narrative 10/31/2023 10:10 AM EDT * * *Final Report* * * DATE OF EXAM: Oct 31 2023 9:22AM QBM 0736 - MRI PEL ENTEROG WO/W IVCON / PROCEDURE REASON: multiple [...] No potential etiology for the presenting symptoms. Auctioneer Art: MARCI Transcribe Date/Time: Oct 31 2023 9:59A Dictated by : AG CARTER MD This examination was interpreted and the report reviewed and electronically signed by: AG CARTER MD on Oct 31 2023 10:08AM EST [id number] Procedure Note Radiology, Radiologist, - 10/31/2023 * * *Final Report* * * DATE OF EXAM: Oct 31 2023 9:22AM Q 0736 - MRI PEL ENTEROG WO/W IVCON / PROCEDURE REASON: multiple [...] No potential etiology for the presenting symptoms. Auctioneer Art: [email or web address] Transcribe Date/Time: Oct 31 2023 9:59A Dictated by : AG CARTER MD This examination was interpreted and the report reviewed and electronically signed by: AG CARTER MD on Oct 31 2023 10:08AM EST [id number]^SI^ACN us Generic External Data Provider [facility] Final Result documented in this encounter Visit Diagnoses Not on filedocumented in this encounter Care Teams Sander Wooden Pencils Relationship Specialty Start Date End Date Benny Huerta MD [address] [place] [address] PCP - General Pediatrics 09/02/23 09/20/24 Elida Maria MD [address] [place] [address] PCP - General Family Medicine 09/21/24 documented as of this encounter
--- OUTSIDE RECORDS SUMMARY | 2024-10-16 20:03 | XMS_ITS | Encounter Summary ---
Author Organization [facility] Address [address] [facility] [place] [address] Care Team Providers Care Mastic Sprayer Name Role Phone Elida Maria MD Primary Care Provider [phone] Encounter Details Date Type Department Care Team (Special Care Hospital Contact Info) Description 10/15/[address] [facility] [address] [place] [phone] Gina Smith DEMAND EQUIPMENT REPAIRER [address] [place] [address] Social History Tobacco Use Types Packs/Day Years [...] EDT Office Visit [facility] [address] [place] [address] Chico Baires DPM [address] [address] documented as of this encounter Visit Diagnoses Not on filedocumented in this encounter Care Teams Mastic Sprayer Relationship Specialty Start Date End Date Elida Maria MD [address] [place] [address] PCP - General Family Medicine 09/21/24 documented as of this encounter
--- OUTSIDE RECORDS SUMMARY | 2024-10-16 20:03 | XMS_ITS | Encounter Summary ---
Author Organization [facility] Address [address] [place] [address] Care Team Providers Care Reimbursement Manager Name Role Phone Jason Cabrera DO Unavailable [phone] [facility] Primary Care Provider [phone] Source Comments In the event this information is protected by the Federal Confidentiality of Alcohol and Drug AbusePatient Records regulations: The Federal rules restrict any use of the information to criminally investigate or prosecute any alcohol or drug abuse patient.[facility] Encounter Details Date Type Department Care Team (Late st Contact Info) Description 10/29/2023 [place] [address] Provider, [facility] MRI Screening Questionnaire Completion Required Social History Tobacco Use Types Packs/Day Years Used Date Smoking Tobacco: Never Smokeless Tobacco: Never Alcohol Use Standard Drinks/Week Comments No 0 (1 standard drink = 0.6 oz pur e alcohol) Area Deprivation Index Answer Date Phill rded National Score (1-100), lower number is lower ri sk 58 09/27/2023 State Score (1-10), lower number is lower risk 4 09/27/2023 Data from: https://www.neighborhoodatlas.[facility]/. Last address used for calculation [address] [facility] [address] [facility] 09/27/2023 Comments No Sex and Gender Information [...] 02/07/2025 9:15 AM EST Procedure Cardiology [address] [place] [address] POTS 02/07/2025 10:00 AM EST Office Visit Cardiology [address] [place], [place] [phone] Elijah Painter MD [address] [place] [address] POTS 03/04/2025 1:45 PM EST Office Visit Cardiology [address] [place] [address] POTS documented as of this encounter Visit Diagnoses Not on filedocumented in this encounter Care Teams Reimbursement Manager Relationship Specialty Start Date End Date Marlys Alcazar CNP [address] [place] [address] PCP - General Family Medicine 09/27/23 Jason Cabrera DO [address] [place] [address] Primary Staff Physician Cardiology 06/20/18 documented as of this encounter
--- OUTSIDE RECORDS SUMMARY | 2024-10-16 20:03 | XMS_ITS | Clinical Summary ---
Author Organization [facility] Address [address] [place] [address] Care Team Providers Care Skip Miner Name Role Phone Jason Cabrera DO Unavailable [phone] OttonielRickMarcus A [facility] Primary Care Provider [phone] Allergies Active Allergy Reactions Criticality Noted Date Comments Midodrine Itching Low 02/17/2015 Polymyxin B Swelling 02/15/2023 Medications dicyclomine (BENTYL) 20 mg tablet Take 1 tablet by mouth four times a day as needed. 90 tablet 1 05/29/19 25 Active ondansetron orally disintegrating (ZOFRAN ODT) 4 mg disintegrating tabletIndications: Generalized abdominal pain,Nausea and vomiting, unspecified vomiting type Take 1 tablet by mouth every 8 hours as needed for nausea/vomiting . 60 tablet 1 05/29/19 25 Active fluticasone (FLONASE) 50 mcg/actuation nasal spray 2 Sprays. 05/25/19 25 Active amitriptyline (ELAVIL) 10 mg tablet Take 1 tablet by mouth daily at bedtime. 90 tablet 3 07/05/19 25 Active Additional Information Patient not taking.Reported on 08/10/2024 Active Problems Problem Noted Date Diagnosed Date POTS (postural orthostatic tachycardia syndrome) 02/22/2013 Resolved Problems Problem Noted Date Diagnosed Date Resolved Date Syncope and collapse 01/22/2013 016 Encounters Date Type Department Care Team Description 10/16/2024 Patient Msg HOSP MAIN [id number] [id number] Provider, [facility] Sign up to manage your digestive symptoms in between visits, covered by insurance 08/23/2024 10:00 AM EDT Televisit Colorectal Surgery [address] [place] [address] Karol Magana, JOLEEN.STRAIGHTENING PRESS OPERATOR HELPER Constipation, unspecified constipation type (Primary Dx) 08/23/2024 Patient Msg Colorectal Surgery [address] [id number] Karol Magana BUSINESS SERVICES VICE PRESIDENT.YADIRA Pelvic Floor PT Resoures and Defecography instructions 08/10/2024 10:30 AM EDT Office Visit Gastroenterology [address] [place] [address] Marco Antonio Rowe MD Other constipation (Primary Dx); Irritable bowel syndrome with mixed bowel habits 08/10/2024 10:00 AM EDT Procedure Colorectal Surgery [address] [place] [address] Karol Magana, BUSINESS SERVICES VICE PRESIDENT.YADIRA Manometry 08/09/2024 Travel 08/09/2024 [place] [facility] [place] [address] [place] [address] Karol Magana APRN.STRAIGHTENING PRESS OPERATOR HELPER Enema for Anorectal Manometry Testing 08/02/2024 Orders Only Cardiology [address] [place] [address] Alfa Bell, Syncope and collapse (Primary Dx) from Last 3 Months Family History Medical History Relation Comments Hypertension Father Genitourinary () Mother Psychiatry Mother depression Thyroid Mother Relation Status Comments Father Alive Mother Alive Social History Tobacco Use Types Packs/Day Years Used Date Smoking Tobacco: Never Smokeless Tobacco: Never Tobacco Cessation:Counseling Given: Not Answered Alcohol Use Standard Drinks/Week Comments No 0 (1 standard drink = 0.6 oz pur e alcohol) Area Deprivation Index Answer Date Phill rded National Score (1-100), lowe r number is lower risk 58 11/07/2023 State Score (1-10), lower number is lower risk 4 11/07/2023 Data from: https://www.neighborhoodatlas.medicine.[place] [facility]/ . Last address used for calculation [address] 11/07/2023 Comments No Sex and Gender Information Value Date Recorded Sex Assigned at Female 10/14/2023 4:38 PM EDT Legal Sex Female 9:42 AM EST Gender Identity Female 10/14/2023 4:38 PM EDT Sexual Orientation Straight 10/14/2023 4: 38 PM EDT Last Filed Vital Signs Vital Sign Reading Time Taken Comments Blood Pressure 107/76 08/10/2024 10:35 AM EDT Pulse 80 08/10/2024 10:35 AM EDT Temperature 36.6 C (97.9 F) 08/10/2024 10:35 AM EDT Respiratory Rate 16 10/31/2023 9:32 AM EDT Oxygen Saturation 100% 08/10/2024 10:35 AM EDT Inhaled Oxygen Concentration - - Weight 56.9 kg (125 lb 6.4 oz) 08/10/2024 10:35 AM EDT Height 172.7 cm (5' 8 ) 08/10/2024 10:35 AM EDT Body Mass Index 19.07 08/10/2024 10:35 AM EDT Plan of Treatment Upcoming Encounters Date Type Department Care Team (Late st Contact Info) Description 02/07/2025 9:15 AM EST Procedure Cardiology [address] [phone] [facility] 02/07/2025 10:00 AM EST Office Visit Cardiology [address] [phone] Elijah Painter MD [address] [place] [address] [facility] 03/04/2025 1:45 PM EST Office Visit Cardiology [address] [phone] [facility] Health Maintenance Due Date Last Done Comments Anxiety Screening 2009 Depression Screening 2009 HIV Screening 2009 Hepatitis C Screening 2009 Cervical Cancer Screening 2012 Covid-19 Vaccine (2023-2 5 season) 2023 DTaP,Tdap,Td Vaccine (7 - Td or Tdap) 06/21/2024 06/21/2014, 07/26/1996, 03/24/1992, Additional history exists Influenza Vaccine (#1) 2024 7, 01/08/2016, 01/10/2015, Additional history exists Hepatitis B Vaccine Completed 01/19/2010, 08/18/2009, 07/19/2009 Procedures Procedure Name Priority Date/Time Associated Diagnosis Comments [facility] ANORECTAL [facility]OMETRY Routine 08/10/2024 Constipation, unspecified constipation type PT ED PATIENT INFORMATION 07/22/2024 from Last 3 Months Results * ADULT MAINE ANORECTAL MANOMETRY (08/10/2024) Anatomical Region Laterality Modality Other Narrative 08/10/2024 Referred by: Dr. Marco Antonio Rowe Reason for testing: constipation Ileoanal pouch: No Anorectal Manometry Testing: SENSITIVE EXAMINATION CONSENT: The sensitive examination was discussed with the Patient or Patient's Authorized Wood Fence Erector. As applicable, any other physician, advance practice provider, medical student, or other health professional student that will be observing or involved in the sensitive examination for educational or training purposes was discussed with the Patient or Authorized Wood Fence Erector. The Patient or Authorized Wood Fence Erector has agreed to proceed with the sensitive examination. Gun Perforator Loader present: Yes, Parul Solis Anal Tone and Contractility : Mean anal resting pressure: 93 mmHg (Female normal 33-101, Male normal 38-114) Squeeze pressure increase: 76 mmHg (Female normal >45, Male normal >61) Disorders of anal tone and contractility: Anal Tone Normal Normal Contractility Rectoanal co-ordination Balloon expulsion: no Disorders of recto-anal coordination : Abnormal expulsion with normal recto- anal co-ordination Sensation Volume First sensation value 17 mL / Normal Range: 10-105 mL Defecatory desire volume 165 mL / Normal Range: 30-200 mL Maximum tolerated volume 185 mL / Normal Range: 65-285 mL Disorders of rectal sensation : Normal sensitivity A recto-anal inhibitory reflex (RAIR) was present. Rectoanal areflexia : No This testing was preformed by KHUSHBOO Chu RN, under the direct supervision of the provider listed below. Karol Magana, BUSINESS SERVICES VICE PRESIDENT, STRAIGHTENING PRESS OPERATOR HELPER Colorectal Surgery I have reviewed, verified, and confirmed the results of anorectal manometry, rectal sensation, tone and compliance testing and EMG testing. I agree with the impression as written above. Penny Moreno MD Colon & Rectal Surgery Marco Antonio Rowe MD DIGESTIVE DISEASE Final Resul t * PT ED PATIENT INFORMATION (07/22/2024) 07/22/2024 Narrative MALATHI - 09/06/2024 Provider KATHI your patient MARCUS BURKS has not started their Malathi program, time has . Malathi program: PATIENT SAFETY INSTRUCTIONS FOR HEALTHCARE SETTINGS Marco Antonio Rowe MD MALATHI Final Result MALATHI from [place] [address] [address] [place] [address] [place] [address] [employer] Care Teams Skip Miner Relationship Specialty Start Date End Date Marcus Alcazar CNP [address] [place] [address] PCP - General Family Medicine 09/27/23 Jason Cabrera DO [address] [place] [address] Primary Staff Physician Cardiology 06/20/18
--- OUTSIDE RECORDS SUMMARY | 2024-10-16 20:17 | XMS_ITS | CCD ---
Author Organization [facility] [employer] Care Team Providers Care [employer] Name Role Phone Cj, Neil W Unavailable Unavailable Rice, Neil W Unavailable Unavailable Rice, Neil W Unavailable Unavailable EUFEMIA BALLARD Unavailable Unavailable Eufemia Ballard Primary Care Provider [phone] Radhika Best Unavailable Christian Clancy Unavailable REQUEST, [...] DR ASHLEY [employer] Unavailable SYLVESTER ., BEVERLY Admitting Unavailable SYLVESTER ., BEVERLY Attending Unavailable SYLVESTER ., BEVERLY Consulting Unavailable JOLEEN Ballard Primary Care Provider MD Carlitos Mock Emergency Provider DO Hola Kendall Attending Provider JOLEEN Ballard Primary Care Provider DO Francisco Martinez Emergency Provider [phone] JOLEEN Ballard Primary Care Provider DO Cindy Montiel Emergency Provider [phone] Jason Cabrera DO Unavailable Raúl YADIRA, Marlys A Primary Care Provider [phone] Raúl, FRONT END ALIGNMENT SPECIALIST-C Marlys Woods Primary Care Provider Raúl, FRONT END ALIGNMENT SPECIALIST-C Marlys Woods Attending Provider Francisco Martinez Admitting Unavailable Francisco Martinez Attending Unavailable Kiepert, Eufemia Primary Care Unavailable Raúl, Marlys Woods Admitting Unavailable Raúl, Marlys Woods Attending Unavailable Raúl, Marlys Peggy Primary Care Unavailable Tupa, Cindy M Admitting Unavailable Tupa, Cindy M Attending Unavailable Kiepert, Eufemia Primary Care Unavailable Neil Huerta MD Primary Care Provider LOR UNGER Referring Unavailable RAÚL, MARLYS A Primary Care Unavailable RAÚL, MARLYS A Primary Care Unavailable ELIZABETH, NEIL F Referring Unavailable RAÚL, MARLYS A Primary Care Unavailable ELIZABETH, NEIL F Referring Unavailable RAÚL, MARLYS A Primary Care Unavailable ELIZABETH, NEIL F Referring Unavailable WYROCK, KAROL Munson Attending Unavailable RAÚL, MARLYS A Primary Care Unavailable ELIZABETH, NEIL F Referring Unavailable KATHI, MARCO ANTONIO Munson Attending Unavailable RAÚL, MARLYS A Primary Care Unavailable WYROCK, KAROL Munson Attending Unavailable KATHI, MARCO ANTONIO L Referring Unavailable RAÚL, MARLYS A Primary Care Unavailable ELIZABETH, NEIL F Referring Unavailable KATHI, MARCO ANTONIO L Attending Unavailable RAÚL, MARLYS A Primary Care Unavailable KARAN AMBRIZ Attending Unavailable LING WONG Attending Unavailable MAIK RANDALL Attending Unavailable MURCEK, HARVEY Toro Attending Unavailable MURCEK, HARVEY W Referring Unavailable SAMYTETE Attending Unavailable MURCEK, HARVEY W Attending Unavailable MURCEK, HARVEY W Attending Unavailable MURCEK, HARVEY W Referring Unavailable MURCEK, HARVEY W Attending Unavailable RAMBASEKANDERS Attending Unavailable MURCEK, HARVEY W Referring Unavailable CASE, MILLER Munson Attending Unavailable CHICO NELSON Attending Unavailable Candace VIDAL, Elida Emerson Primary Care Provider Unavailable Unavailable Unavailable Allergies Allergy Classification Reported Allergen(s) Allergy Type Date of Onset Reaction(s) Facility (1 source) No Known Medication Allergies; Translations: [No Known Medication Allergies] Propensity to adverse reactions (disorder) [facility] Repository (20 sources) polymyxin B; Translations: [polymyxin B] Propensity to adverse reactions 3 [facility] (20 sources) Midodrine; Translations: [MIDODRINE] Drug Allergy 5 Itching [facility] Work Phone: Medications Current Medications Medication Drug Class(es) Dates Sig (Normalized) Sig (Original) acetaminophen 500 mg / diphenhydrAMINE hydrochloride 25 mg oral tablet (3 sources) Histamine-1 Receptor Antagonist take 25-500 mg by mouth once as needed diphenhydrAMINE-ac etaminophen (Tylenol PM) 25-500 MG per tablet Take 1 tablet by mouth as needed at bedtime for sleep Active amitriptyline hydrochloride 10 mg oral tablet (20 sources) Tricyclic Antidepressant Start: 07-04-2024 take 1 tablet by mouth at bedtime amitriptyline (Elavil) 10 MG tablet Take 10 mg by mouth at bedtime 07/04/2024 Active amoxicillin 875 mg / clavulanate 125 mg oral tablet (6 sources) Penicillin-class Antibacterial Start: 10-15-2024 End: 10-25-2024 take 1 tablet by mouth in the morning amoxicillin-clavul anate (Augmentin) 875-125 MG tablet Indications: Acute tonsillitis, unspecified etiology Take 1 tablet (875 mg) by mouth in the morning and 1 tablet (875 mg) before bedtime. Do all this for 10 days. 20 tablet 10/15/2024 10/25/2024 Active Start: 06-01-2024 End: 06-11-2024 take 1 tablet by mouth in the morning amoxicillin-clavulanate (Augmentin) 875-125 MG tablet Indications: Acute non-recurrent maxillary sinusitis Take 1 tablet (875 mg) by mouth in the morning and 1 tablet (875 mg) before bedtime. Do all this for 10 days. 20 tablet 06/01/2024 06/11/2024 Active Aspir-81 81 MG (2 sources) Aspir-81 81 MG 1 tablet Orally PRN Active take 1 tablet by mouth once alonso y Aspir-81 81 MG 1 tablet Orally Once a day Not-Taking azelastine hydrochloride 0.137 mg/actuat metered dose nasal spray (8 sources) Histamine-1 Receptor Antagonist Start: 09-05-2024 End: 09-05-2025 take 2 spray(s) nasal route in the morning azelastine (Astelin) 0.1 % nasal spray Indications: Allergic rhinitis due to animals Administer 2 sprays into each nostril in the morning and 2 sprays before bedtime. Use in each nostril as directed. 90 mL 3 09/05/2024 09/05/2025 Active 24 hr clarithromycin 500 mg extended release oral tablet (2 sources) Macrolide Antimicrobial Start: 06-20-2024 End: 07-11-2024 take 1 tablet by mouth every twenty-four hours clarithromycin XL (BIAXIN XL) 500 mg 24 hr tablet Take 1,000 mg by mouth. 06/20/2024 07/11/2024 Active dicyclomine hydrochloride 20 mg oral tablet (20 sources) Anticholinergic Start: 11-07-2023 End: 02-05-2024 take 1 tablet by mouth three times daily dicyclomine (BENTYL) 20 mg tablet Take 1 tablet by mouth three times a day. 90 tablet 2 11/07/2023 02/05/2024 Active Start: 09-27-2023 End: 05-29-2024 take 1 tablet by mouth every six hours as needed dicyclomine (BENTYL) 20 mg tablet Take 1 tablet by mouth four times a day as needed. 90 tablet 1 05/29/2024 Active fluticasone propionate 0.05 mg/actuat metered dose nasal spray (20 sources) Corticosteroid Start: 05-25-2024 End: 09-05-2025 take 2 spray(s) nasal route once daily fluticasone (Flonase) 50 MCG/ACT nasal spray Indications: Allergic rhinitis due to animals Administer 2 sprays into each nostril Daily Shake gently. Before first use, prime pump. After use, clean tip and replace cap. 48 g 11 09/05/2024 09/05/2025 Active Start: 05-25-2024 fluticasone (F LONASE) 50 mcg/actuation nasal spray 2 Sprays. 05/25/2024 Active hydroCHLOROthiazide 12.5 mg oral capsule (8 sources) Thiazide Diuretic Start: 04-06-2017 Hydrochlorothiazide Active 12.5 MG PO As Directed April 06, 2017 1:00am lidocaine 0.05 mg/mg topical ointment (5 sources) Antiarrhythmic, Amide Local Anesthetic Start: 10-14-2021 Lidocaine Active 1 APPLIC TOPICAL Four times daily October 14, 2021 12:00am Medical Compression Stockings 30-40mmHG (2 sources) Start: 04-29-2016 Medical Compression Stockings 30-40mmHG as directed Apr, Active Start: 04-29-2016 Medical Compre ssion Stockings 30-40mmHG as directed Apr, Not-Taking methylPREDNISolone (20 sources) Corticosteroid Start: 10-15-2024 methylPREDNISo lone (Medrol Dospak) 4 MG tablets Indications: Acute tonsillitis, unspecified etiology Follow schedule on package instructions 21 tablet 10/15/2024 Active Start: 09-02-2023 methylPREDNISo lone (Medrol Dospak) 4 MG tablets Indications: Capsulitis of metatarsophalangeal (MTP) joint of left foot Follow schedule on MEDROL PACK package instructions to be used as directed 21 tablet 09/02/2023 Active Start: 02-15-2023 take 1 tablet by mouth once Me thylprednisolone (Medrol (Nathan)) 4 mg tablets,dose pack Active 0 PO .COMPLEX February 15, 2023 1:00am orally per package directions Multivitamin preparation (6 sources) Start: 05-28-2020 take 1 tablet by [...] 28, 2020 1:00am October 13, 2021 1:41pm ondansetron 4 mg disintegrating oral tablet (20 sources) Serotonin-3 Receptor Antagonist Start: 09-27-2023 End: 05-29-2024 take 1 tablet by mouth every eight hours as needed for nausea ondansetron orally disintegrating (ZOFRAN ODT) 4 mg disintegrating tablet Indications: Generalized abdominal pain , Nausea and vomiting, unspecified vomiting type Take 1 tablet by mouth every 8 hours as needed for nausea/vomiting. 60 tablet 1 05/29/2024 Active predniSONE 20 mg oral tablet (13 sources) Start: 06-12-2024 predniSONE (Deltasone) 20 MG tablet Indications: Non-recurrent acute suppurative otitis media of both ears without spontaneous rupture of tympanic membranes 3 pills days 1 and 2, 2 pills days 3 and 4, 1 pill day 5 and 6, 1/2 pill days 7 and 8. 13 tablet 06/12/2024 Active sulfamethoxazole 800 mg / trimethoprim 160 mg oral tablet (3 sources) Dihydrofolate Reductase Inhibitor Antibacterial, Sulfonamide Antimicrobial Start: 06-12-2024 End: 06-22-2024 take 1 tablet by mouth once in the morning, then take 1 tablet by mouth once at bedtime sulfamethoxazole-tri methoprim (Bactrim DS) 800-160 MG per tablet Indications: Non-recurrent acute suppurative otitis media of both ears without spontaneous rupture of tympanic membranes Take 1 tablet by mouth in the morning and 1 tablet before bedtime. Do all this for 10 days. 20 tablet 06/12/2024 06/22/2024 Active valACYclovir 500 mg oral tablet (20 sources) Herpesvirus Nucleoside Analog DNA Polymerase Inhibitor, Herpes Simplex Virus Nucleoside Analog DNA Polymerase Inhibitor, Herpes Zoster Virus Nucleoside Analog DNA Polymerase Inhibitor Start: 08-23-2024 take 1 tablet by mouth once daily valACYclovir (Valtrex) 500 MG tablet Indications: state, incidental ([facility]) TAKE 1 TABLET BY MOUTH EVERY DAY FOR 30 DAYS 30 tablet 08/23/2024 Active Start: 10-13-2021 take 1 tablet by meredith once daily valACYclovir (Valtrex) 500 MG tablet Indications: state, incidental TAKE 1 TABLET BY MOUTH EVERY DAY FOR 30 DAYS 30 tablet 08/16/2023 Active Completed/Discontinued Medications Medication Drug Class(es) Dates Sig (Normalized) Sig (Original) ALPRAZolam 0.25 mg oral tablet (7 sources) Benzodiazepine Start: 04-06-2017 End: 10-13-2021 take [...] 10mg 1 Oral 3 times daily Not-Taking diazePAM 5 mg oral tablet (1 source) Benzodiazepine Start: 08-18-19 End: 09-27-19 diazepam (VALIUM) 5 mg tablet Take one tablet 60 minutes prior to MRI, may repeat once if needed for anxiolysis. Will require a mail truck driver after MRI 2 tablet 0 08/18/2015 09/27/2023 Discontinued diclofenac sodium 75 mg delayed release oral tablet (2 sources) Nonsteroidal Anti-inflammatory Drug Start: 11-25-19 take 1 tablet by mouth every twelve hours Diclofenac Sodium 75 MG 1 tablet with food or milk Orally Twice a day for 15 day(s) Nov, Not-Taking Start: 10-12-2017 take 1 capsule by [facility] every twelve hours Zipsor 25 mg 1 Capsule By Mouth bid for 30 day(s) Oct, Not-Taking enteric contrast (will be provided with radiology test) (2 sources) Start: 10-14-2023 End: 10-15-2023 enteric contrast (will be provided with radiology test) For MRI ENTEROGRAPHY WO/W Administer, As Directed One Time Only, via Oral, Rectal, both Oral and Rectal, Enteric Tube, Stoma or Indwelling Catheter, Enteric Contrast as designated per enteric contrast guidelines 1 Each 10/14/2023 10/15/2023 Start: 10-14-2023 End: 10-15-2023 enteric contrast (will be pr ovided with radiology test) For MRI ENTEROGRAPHY WO/W Administer, As Directed One Time Only, via Oral, Rectal, both Oral and Rectal, Enteric Tube, Stoma or Indwelling Catheter, Enteric Contrast as designated per enteric contrast guidelines 1 Each 0 10/14/2023 10/15/2023 Active 21 day ethinyl estradiol 0.794077 mg/hr / etonogestrel 0.005 mg/hr vaginal system (1 source) Progestin, Estrogen Start: 02-10-2014 End: 09-27-2023 Etonogestrel-Ethinyl Estradiol (NUVARING) 0.12-0.015 mg/24 hr vaginal ring Use 1 Each vaginally as directed. Insert vaginally and leave in place for 3 consecutive weeks, then remove for 1 week. 0 02/10/2014 09/27/2023 Discontinued glucagon (rdna) 1 mg injection (5 sources) Antihypoglycemic Agent Start: 10-14-2023 End: 11-07-2023 inject 1 mg intravenously once glucagon (GLUCAGEN) 1 mg/mL injection Inject 1 mg intravenously one time only for 1 dose. For MRI Enterography, Inject 1 mg intravenously, as directed. Slow push at the appropriate time during MRI Scan 1 Each 10/14/2023 11/07/2023 Discontinued iv contrast (will be provided with radiology test) (2 sources) Start: 10-14-2023 End: 10-15-2023 iv contrast (will be provided with radiology test) MRI Enterography Inject, intravenously, once for 1 dose. No IV access, insert saline lock prior to the beginning of sedation, infusion, injection of imaging exam. Discontinue saline lock post exam. If Pt. has a central line or IVAD, may access for administration according to line specific nursing protocol. Once exam is complete flush line and de-access according to line specific nursing protocol in the MR contrast administration guidelines link. 1 Each 10/14/2023 10/15/2023 Start: 10-14-2023 End: 10-15-2023 iv contrast (will be provide d with radiology test) MRI Enterography Inject, intravenously, once for 1 dose. No IV access, insert saline lock prior to the beginning of sedation, infusion, injection of imaging exam. Discontinue saline lock post exam. If Pt. has a central line or IVAD, may access for administration according to line specific nursing protocol. Once exam is complete flush line and de-access according to line specific nursing protocol in the MR contrast administration guidelines link. 1 Each 0 10/14/2023 10/15/2023 Active meloxicam 7.5 mg oral tablet (1 source) Nonsteroidal Anti-inflammatory Drug Start: 05-17-2017 take 1-2 tablets by mouth once daily Meloxicam 7.5 MG 1-2 tablets Orally Once a day for 30 day(s) May, Not-Taking metoprolol tartrate 25 mg oral tablet (1 source) beta-Adrenergic Freddie Start: 07-23-2015 End: 09-27-2023 take 0.5 tablet by mouth twice daily metoprolol tartrate, short acting, (LOPRESSOR) 25 mg tablet Take 0.5 tablets by mouth twice daily. 60 tablet 3 07/23/2015 09/27/2023 Discontinued MISCELLANEOUS MEDICAL SUPPLY (COMPRESSION STOCKINGS MISC) (1 source) End: 09-27-2023 MISCELLANEOUS MEDICAL SUPPLY (COMPRESSION STOCKINGS MISC) 20-30 mm Hg Knee-High stockings as needed 0 09/27/2023 Discontinued naproxen 500 mg oral tablet (1 source) Nonsteroidal Anti-inflammatory Drug Start: 09-13-2017 take 1 tablet by mouth every twelve hours at mealtime as needed Naproxen 500 MG 1 tablet with food or milk as needed Orally every 12 hrs for 30 days Sep, Not-Taking pregabalin 50 mg oral capsule (7 sources) Start: 01-11-2018 End: 05-28-2020 take 1 tablet by mouth once daily Pregabalin (Lyrica) 50 mg capsule Discontinued 1 TAB PO Daily March 31, 2018 1:00am May 28, 2020 4:31pm promethazine hydrochloride 25 mg oral tablet (6 sources) Phenothiazine Start: 07-18-2020 End: 10-13-2021 take 25 mg by mouth every six hours Promethazine Discontinued 25 MG PO Q6H July 18, 2020 12:00am October 13, 2021 1:41pm 1000 ml sodium chloride 9 mg/ml injection (1 source) Start: 10-14-2023 End: 12-09-2023 take 30 mL intravenously every hour 30 mL/hr, INTRAVENOUS, CONTINUOUS, Starting on Tue10/14/23 at 1100, Until Tue12/09/23 at 1337, Preprocedure [id number] Diclofenac Na 3%, Gabapentin 10%, Lidocaine [...] Active Problems Problem Classification Problem Date Documented Da te Episodic/Chronic Acute and chronic tonsillitis (2 sources) Acute tonsillitis; Translations: [Acute tonsillitis, unspecified] 10-15-2024 Episodic Allergic reactions (3 sources) Allergic reaction; Translations: [Allergy, unspecified, initial encounter] 02-15-2023 Episodic Anxiety disorders (20 sources) Anxiety disorder; Translations: [Anxiety disorder, unspecified] Onset: 3 10-01-2022 Chronic Cardiac dysrhythmias (20 sources) Postural orthostatic tachycardia syndrome ; Translations: [POTS (postural orthostatic tachycardia syndrome)] Onset: 3 02-10-2015 Chronic Disorders of teeth and jaw (2 sources) Pain of left temporomandibular joint; Translations: [Arthralgia of left temporomandibular joint] 06-18-2024 Episodic Fluid and electrolyte disorders (6 sources) Dehydration; Translations: [Dehydration] 07-18-2020 Episodic Genitourinary symptoms and ill-defined conditions (20 sources) Female stress incontinence; Translations: [Stress incontinence (female) (male)] Onset: 3 10-01-2022 Chronic Headache; including migraine (20 sources) Episodic tension-type headache; Translations: [Episodic tension-type headache, not intractable] Onset: 3 10-01-2022 Chronic Menstrual disorders (20 sources) Irregular menstruation, unspecified; Translations: [Menometrorrhagia] Onset: 3 Chronic Miscellaneous mental health disorders (20 sources) Primary insomnia; Translations: [Primary insomnia] Onset: 3 10-01-2022 Chronic Mood disorders (20 sources) Moderate recurrent major depression; Translations: [Major depressive disorder, recurrent, moderate] Onset: 3 10-01-2022 Chronic Nausea and vomiting (8 sources) Nausea and vomiting; Translations: [Nausea with vomiting, unspecified] Onset: 5 09-27-2023 Episodic Nonspecific chest pain (6 sources) Atypical chest pain; Translations: [Other chest pain] 05-28-2020 Episodic Nutritional deficiencies (20 sources) Vitamin D deficiency; Translations: [Vitamin D deficiency, unspecified] Onset: 3 10-01-2022 Chronic Other complications of (3 sources) Traumatic injury during ; Translations: [Injury, poisoning and certain other consequences of external causes complicating , third trimester] 10-11-2022 Episodic Other complications of (3 sources) Abdominal pain in ; Translations: [Other specified related conditions, unspecified trimester] 10-05-2022 Episodic Other connective tissue disease (2 sources) Pain in limb; Translations: [Pain in arm, unspecified] Episodic Other diseases of veins and lymphatics (2 sources) Venous insufficiency of leg; Translations: [Venous insufficiency (chronic) (peripheral)] Episodic Other female genital disorders (20 sources) Deep pain on intercourse; Translations: [Deep dyspareunia] Onset: 3 10-01-2022 Chronic Other gastrointestinal disorders (2 sources) Irritable bowel syndrome; Translations: [Mixed irritable bowel syndrome] 08-10-2024 Chronic Other gastrointestinal disorders (1 source) Mixed irritable bowel syndrome; Translations: [Irritable bowel syndrome with mixed bowel habits] Onset: 5 Chronic Other gastrointestinal disorders (4 sources) Diarrhea; Translations: [Diarrhea, unspecified] 09-27-2023 Episodic Other gastrointestinal disorders (13 sources) Constipation; Translations: [Constipation, unspecified] 05-29-2024 Episodic Other gastrointestinal disorders (2 sources) Abnormal defecation; Translations: [Other specified symptoms and signs involving the digestive system and abdomen] 05-30-2024 Episodic Other gastrointestinal disorders (1 source) Constipation, unspecified; Translations: [Constipation, unspecified constipation type] Onset: 5 Episodic Other gastrointestinal disorders (1 source) Other constipation; Translations: [Other constipation] Onset: 5 Episodic Other nervous system disorders (2 sources) Chronic pain; Translations: [Other chronic pain] Chronic Other nervous system disorders (20 sources) Sodium channelopathy-related small fiber neuropathy; Translations: [Other specified polyneuropathies] Onset: 3 08-24-2022 Chronic Other nervous system disorders (2 sources) Skin sensation disturbance; Translations: [Anesthesia of skin] Episodic Other nervous system disorders (2 sources) Disorder of vagus nerve; Translations: [Disorders of vagus nerve] 07-04-2024 Episodic Other non-traumatic joint disorders (20 sources) Derangement of left shoulder joint; Translations: [Other specific joint derangements of left shoulder, not elsewhere classified] Onset: 3 10-01-2022 Chronic Other and delivery including normal (11 sources) ; Translations: [Encounter for supervision of normal , unspecified, second trimester] Onset: 2 Episodic Other screening for suspected conditions (not mental disorders or infectious disease) (4 sources) Encounter for other specified screening; Translations: [ENCTR OTH SPEC SCREENING] Onset: 3 Episodic Other skin disorders (2 sources) Asteatosis cutis; Translations: [Xerosis cutis] 09-05-2024 Episodic Other upper respiratory disease (2 sources) Chronic rhinitis; Translations: [Chronic rhinitis] 08-28-2024 Chronic Other upper respiratory disease (2 sources) Allergic rhinitis due to animals; Translations: [Allergic rhinitis due to animal (cat) (dog) hair and dander] 09-05-2024 Chronic Other upper respiratory infections (8 sources) Chronic sinusitis; Translations: [Other chronic sinusitis] 06-18-2024 Chronic Other upper respiratory infections (2 sources) Acute maxillary sinusitis; Translations: [Acute maxillary sinusitis, unspecified] 06-01-2024 Episodic Otitis media and related conditions (6 sources) Dysfunction of left eustachian tube; Translations: [Unspecified Eustachian tube disorder, left ear] 05-25-2024 Episodic Residual codes; unclassified (3 sources) Gestation period, 36 weeks; Translations: [36 weeks gestation of ] 10-05-2022 Episodic Spondylosis; intervertebral disc disorders; other back problems (2 sources) Cervical spondylosis; Translations: [Spondylosis without myelopathy or radiculopathy, cervical region] Chronic Syncope (20 sources) Syncope and collapse; Translations: [Syncope and collapse] Onset: 3 Resolved: 6 01-06-2016 Episodic Thyroid disorders (20 sources) Non-toxic multinodular goiter; Translations: [Nontoxic multinodular goiter] Onset: 3 10-01-2022 Chronic Unclassified (1 source) POTS (postural orthostatic tachycardia syndrome); Translations: [POTS (postural orthostatic tachycardia syndrome)] Onset: Viral infection (6 sources) Other specified viral infection; Translations: [Disease caused by 2019-nCoV] 05-28-2020 Episodic Past or Other Problems Problem Classification Problem Date Documented Da te Episodic/Chronic Abdominal pain (15 sources) Generalized abdominal pain; Translations: [Generalized abdominal pain] Onset: 10-31-2023 09-27-2023 Episodic Anal and rectal conditions (2 sources) Anal fissure, unspecified; Translations: [Other specified diseases of anus and rectum] Onset: 09-29-2021 Resolved: 09-29-2021 Episodic Epilepsy; convulsions (20 sources) Seizure; Translations: [Unspecified convulsions] Onset: 04-21-2012 10-01-2022 Episodic Gastrointestinal hemorrhage (5 sources) Hemorrhage of anus and rectum; Translations: [Rectal hemorrhage] Onset: 09-29-2021 Resolved: 09-29-2021 Episodic Hemorrhoids (1 source) Unspecified hemorrhoids Onset: 09-29-2021 Resolved: 09-29-2021 Episodic Other aftercare (1 source) Encounter for follow-up examination after completed treatment for conditions other than malignant neoplasm; Translations: [Follow-up examination Z09] Onset: 01-13-2021 Resolved: 01-13-2021 Episodic Other complications of ; puerperium affecting management of mother (20 sources) heart echogenicity on obstetric ultrasound scan; Translations: [ cardiac echogenic focus, antepartum] Onset: 10-28-2020 10-01-2022 Episodic Other eye disorders (1 source) Other specified disorders of eye and adnexa; Translations: [Other specified disorders of eye and adnexa] Onset: 02-15-2023 Episodic Other gastrointestinal disorders (1 source) Diarrhea, unspecified; Translations: [Diarrhea, unspecified type] Onset: 10-31-2023 Episodic Residual codes; unclassified (1 source) Family history of malignant neoplasm of digestive organs Onset: 09-29-2021 Resolved: 09-29-2021 Episodic Residual codes; unclassified (1 source) 8 weeks gestation of ; Translations: [8 WEEKS GESTATION OF ] Onset: 04-01-2022 Episodic Residual codes; unclassified (20 sources) Peripheral edema; Translations: [Localized edema] Onset: 10-01-2022 10-01-2022 Episodic Spondylosis; intervertebral disc disorders; other back problems (20 sources) Cervico-occipital neuralgia; Translations: [Occipital neuralgia] Onset: 10-01-2022 10-01-2022 Episodic Results Test Name Value Interpretation Reference Range Facility CT MAXILLOFACIAL WO IV CONTR Trina 08-16-2024 CT MAXILLOFACIAL WO IV CONTRAST Exam: CT MAXILLOFACIAL WO IV CONTRAST History: [...] identified. Orbital contents are within normal limits. IMPRESSION: Paranasal sinus disease as detailed. ELECTRONICALLY SIGNED BY: Neil Bowman, DO Normal Not Available CT MAXILLOFACIAL WO IV CONTR Trina 06-18-2024 CT MAXILLOFACIAL WO IV CONTRAST CT MAXILLOFACIAL WO IV CONTRAST Reason for exam: Chronic sinusitis Thin axial sections were obtained with sagittal and coronal reconstructions. FINDINGS: Orbits: Normal. Nasal bones: There is nasal septal bowing towards the right. Zygomatic arches: Normal. Maxilla: Normal. Pterygoid plates: Normal. Mandible: Normal. Sinuses: Fluid levels are noted in each maxillary sinus and in the left-sided sphenoid sinus. Fluid is also visible throughout the ethmoid and frontal sinuses. No evidence of masses or bone destruction. Soft tissues: Normal. Other: None. IMPRESSION: Acute pansinusitis. All CT scans at this institution are performed using dose optimization techniques as appropriate for the performed exam including the following: Automated exposure control Adjustment of the mA and/or kV according to patient size Use of iterative reconstruction technique Dictated on: 06/18/2024 4:30 PM This report has been electronically signed and approved by the interpreting Radiologist. Normal Not Available NM Biliary ducts and Gallbla dder Views for patency of biliary structures and ejection fraction W sincalide and W radionuclide Cecily 05-11-2024 IMPRESSION: High gallbladder ejection fraction, which can be due to physiologic variation or a functional disorder. Allergy Physician: MARCI Transcribe Date/Time: May 11 2024 2:44P Dictated by : ELY PACHECO MD This examination was interpreted and the report reviewed and electronically signed by: ELY PACHECO MD on May 11 2024 2:45PM EST [facility] * * *Final Report* * * DATE OF EXAM: May 11 2024 2:41PM N 0021 - NM HEPATOBILIARY W EF AND/OR RX / PROCEDURE REASON: multiple diagnoses * * * * Physician Interpretation * * * * EXAM: HEPATOBILIARY SCAN WITH GALLBLADDER EJECTION FRACTION HISTORY: Generalized abdominal pain Nausea TECHNIQUE: 5.4 millicuries of Tc-99m Choletec administered IV. Dynamic planar imaging of the abdomen acquired for 60 minutes. Next, 1.18 micrograms of CCK was administered IV followed by additional imaging to calculate a gallbladder ejection fraction. CORRELATION: MRI 10/31/2023 RESULT: Liver: Within normal limits. Gallbladder: Luminal activity present by one hour, indicating cystic duct patency. * Ejection fraction (EF): 86% (normal > 35% and < 80%) CBD: Activity present in the proximal small bowel by 1 hour, indicating patency. Other: No enterogastric reflux. [facility] Provider, Mario [facility] - 05/11/2024 * * *Final Report* * * DATE OF EXAM: May 11 2024 2:41PM N 0021 - NM HEPATOBILIARY W EF AND/OR RX / PROCEDURE REASON: multiple diagnoses * * * * Physician Interpretation * * * * EXAM: HEPATOBILIARY SCAN WITH GALLBLADDER EJECTION FRACTION HISTORY: Generalized abdominal pain Nausea TECHNIQUE: 5.4 millicuries of Tc-99m Choletec administered IV. Dynamic planar imaging of the abdomen acquired for 60 minutes. Next, 1.18 micrograms of CCK was administered IV followed by additional imaging to calculate a gallbladder ejection fraction. CORRELATION: MRI 10/31/2023 RESULT: Liver: Within normal limits. Gallbladder: Luminal activity present by one hour, indicating cystic duct patency. * Ejection fraction (EF): 86% (normal > 35% and < 80%) CBD: Activity present in the proximal small bowel by 1 hour, indicating patency. Other: No enterogastric reflux. IMPRESSION IMPRESSION: High gallbladder ejection fraction, which can be due to physiologic variation or a functional disorder. Allergy Physician: MARCI Transcribe Date/Time: May 11 2024 2:44P Dictated by : ELY PACHECO MD This examination was interpreted and the report reviewed and electronically signed by: ELY PACHECO MD on May 11 2024 2:45PM [facility] Radiology Study observation (narrative) [facility] HEPATOBILIARY W EF AND/OR RXon 05-11-2024 * * *Final Report* * * DATE OF EXAM: May 11 2024 2:41PM [facility] 0021 - NM HEPATOBILIARY W EF AND/OR RX / PROCEDURE REASON: multiple diagnoses * * * * Physician Interpretation * * * * EXAM: HEPATOBILIARY SCAN WITH GALLBLADDER EJECTION FRACTION HISTORY: Generalized abdominal pain Nausea TECHNIQUE: 5.4 millicuries of Tc-99m Choletec administered IV. Dynamic planar imaging of the abdomen acquired for 60 minutes. Next, 1.18 micrograms of CCK was administered IV followed by additional imaging to calculate a gallbladder ejection fraction. CORRELATION: MRI 10/31/2023 RESULT: Liver: Within normal limits. Gallbladder: Luminal activity present by one hour, indicating cystic duct patency. * Ejection fraction (EF): 86% (normal > 35% and < 80%) CBD: Activity present in the proximal small bowel by 1 hour, indicating patency. Other: No enterogastric reflux. IMPRESSION: High gallbladder ejection fraction, which can be due to physiologic variation or a functional disorder. Allergy Physician: [facility] Transcribe Date/Time: May 11 2024 2:44P Dictated by : ELY PACHECO MD This examination was interpreted and the report reviewed and electronically signed by: ELY PACHECO MD on May 11 2024 2:45PM EST [id number]^ACN [facility], Radiologi MD wade - 05/11/2024 * * *Final Report* * * DATE OF EXAM: May 11 2024 2:41PM N 0021 - NM HEPATOBILIARY W EF AND/OR RX / PROCEDURE REASON: multiple diagnoses * * * * Physician Interpretation * * * * EXAM: HEPATOBILIARY SCAN WITH GALLBLADDER EJECTION FRACTION HISTORY: Generalized abdominal pain Nausea TECHNIQUE: 5.4 millicuries of Tc-99m Choletec administered IV. Dynamic planar imaging of the abdomen acquired for 60 minutes. Next, 1.18 micrograms of CCK was administered IV followed by additional imaging to calculate a gallbladder ejection fraction. CORRELATION: MRI 10/31/2023 RESULT: Liver: Within normal limits. Gallbladder: Luminal activity present by one hour, indicating cystic duct patency. * Ejection fraction (EF): 86% (normal > 35% and < 80%) CBD: Activity present in the proximal small bowel by 1 hour, indicating patency. Other: No enterogastric reflux. IMPRESSION: High gallbladder ejection fraction, which can be due to physiologic variation or a functional disorder. Allergy Physician: MARCI Transcribe Date/Time: May 11 2024 2:44P Dictated by : ELY PACHECO MD This examination was interpreted and the report reviewed and electronically signed by: ELY PACHECO MD on May 11 2024 2:45PM EST [id number]^SI^ACN [facility] HEPATOBILIARY W EF AND/OR RX * * *Final Report* * * DATE OF EXAM: May 11 2024 2:41PM [facility] 0021 - NM HEPATOBILIARY W EF AND/OR RX / PROCEDURE REASON: multiple diagnoses * * * * Physician Interpretation * * * * EXAM: HEPATOBILIARY SCAN WITH GALLBLADDER EJECTION FRACTION HISTORY: Generalized abdominal pain Nausea TECHNIQUE: 5.4 millicuries of Tc-99m Choletec administered IV. Dynamic planar imaging of the abdomen acquired for 60 minutes. Next, 1.18 micrograms of CCK was administered IV followed by additional imaging to calculate a gallbladder ejection fraction. CORRELATION: MRI 10/31/2023 RESULT: Liver: Within normal limits. Gallbladder: Luminal activity present by one hour, indicating cystic duct patency. * Ejection fraction (EF): 86% (normal > 35% and < 80%) CBD: Activity present in the proximal small bowel by 1 hour, indicating patency. Other: No enterogastric reflux. IMPRESSION: High gallbladder ejection fraction, which can be due to physiologic variation or a functional disorder. Allergy Physician: [facility] Transcribe Date/Time: May 11 2024 2:44P Dictated by : ELY PACHECO MD This examination was interpreted and the report reviewed and electronically signed by: ELY PACHECO MD on May 11 2024 2:45PM EST [id number] Normal [facility] Radiology Study observation (narrative) [facility] [employer] No Panel InformationOrdered By: Radiologist Radiology on 05-11-2024 [facility] [employer] Work Phone: CNPPeri 05-10-2024 [facility] Telephone (AVXRMN) -- MARLYS CARRERO ([id number]) 1990 F Date Time Provider Department 05/10[facility] During your visit today, we recorded the following information about you: Allergies As of Date: 05/10/2024 Noted Allergy Reaction MIDODRINE 02/17/2015 9 - Itching Date Reviewed: 05/10/2024 Reviewed by: Kelsey Parra, RT(R) - Fully Assessed Reason for Visit: Radiology NM [5480] Cmt: Appointment reminder. Prescriptions as of 05/10/2024 - dicyclomine (BENTYL) 20 mg tablet Take 1 tablet by mouth four times a day as needed. - ondansetron orally disintegrating (ZOFRAN ODT) 4 mg disintegrating tablet Take 1 tablet by mouth every 8 hours as needed for nausea/vomiting. Problem List As Of Date 05/10/2024 Noted Resolved Syncope and collapse [R55] 01/22/2013 01/06/2016 POTS (postural orthostatic tachycardia syndrome*02/22/2013 Encounter Status:Closed by KELSEY PARRA on 05/10/24 [facility] US gall bladderon 11-23-[address] [facility] [place] [address] Ultrasound Report Signed Patient: Marlys Carrero MR#: [id number] : 1990 Acct:[id number] Age/Sex: 33 / F ADM Date: 11/23/23 Loc: Room: Type: [facility] Attending Dr: Marlys BARAJAS Ordering Provider: KARL [...] NO ACUTE PROCESS. . Impression dictated by: Royal Fletcher Jr.OCass11/23/2023 1:24 PM Dictation Location: [place] [address] Tech: Angeli Gao Transcribed By: LILIAN 11/23/23 1324 Dictated By: Evangelista Estrada Jr, DO 11/23/23 1323 Signed By: 11/23/23 1324 Normal [facility] IMMUNOGLOBULIN Aon IgA [Mass/Vol] 156 mg/dL 70 - 400 mg/dL [facility] IgA SerPl-mCncon 10-31-2023 IgA [Mass/Vol] 156 mg/dL Normal 70-400 [facility] Comment on above: Order Comment: Speci men Type: BLOOD SPECIMEN Ordering Facility: [facility] Address: [address] [place] [address] [place] [address] Performed By: #### 2 458-8 #### [facility] CLIA [id number] [address] [facility] [address] [id number] [id number] [place] IgA [Mass/Vol]on 10-31-2023 Interpretation and review of laboratory results Normal [facility] MR Abdomen WO and W contrast Cecily 10-31-2023 * * *Final Report* * * DATE [...] significant finding. Localizer images: No significant findings. DIVISION OF RADIOLOGY Provider, Mario Connell Markie - 10/31/2023 * * *Final Report* * [...] significant finding. Localizer images: No significant findings. IMPRESSION IMPRESSION: Normal MR enterography, specifically no inflammatory bowel disease. No potential etiology for the presenting symptoms. [facility] Phys[facility] Transcribe Date/Time: Oct 31 2023 9:59A Dictated by : AG CARTER MD This examination was interpreted and the report reviewed and electronically signed by: AG CARTER MD on Oct 31 2023 10:08AM [facility] MR Pelvis WO and W contrast Cecily 10-31-2023 * * *Final Report* * * DATE [...] significant finding. Localizer images: No significant findings. DIVISION OF RADIOLOGY Provider, [facility] - 10/31/2023 * * *Final Report* * * DATE OF EXAM: Oct 31 2023 9:22AM [facility] 0736 - MRI PEL ENTEROG WO/W IVCON [...] significant finding. Localizer images: No significant findings. IMPRESSION IMPRESSION: Normal MR enterography, specifically no inflammatory bowel disease. No potential etiology for the presenting symptoms. Allergy Phys[facility] Transcribe Date/Time: Oct 31 2023 9:59A Dictated by : AG CARTER MD This examination was interpreted and the report reviewed and electronically signed by: AG CARTER MD on Oct 31 2023 10:08AM [facility] MRI ABD ENTEROG WO/W IVCONon 10-31-2023 MRI ABD ENTEROG WO/W IVCON * * *Final Report* * * DATE [...] No potential etiology for the presenting symptoms. Allergy Physician: MARCI Transcribe Date/Time: Oct 31 2023 9:59A Dictated by : AG CARTER MD This examination was interpreted and the report reviewed and electronically signed by: AG CARTER MD on Oct 31 2023 10:08AM EST [id number] Normal [facility] MRI PEL ENTEROG WO/W IVCONon 10-31-2023 MRI PEL ENTEROG WO/W IVCON * * *Final Report* * * DATE [...] No potential etiology for the presenting symptoms. [facility]ergy Phys[facility] Transcribe Date/Time: Oct 31 2023 9:59A Dictated by : AG CARTER MD This examination was interpreted and the report reviewed and electronically signed by: AG CARTER MD on Oct 31 2023 10:08AM EST [id number] Normal [facility] No Panel Informationon 10-30 IMPRESSION: Normal MR enterography, specifically no inflammatory bowel disease. No potential etiology for the presenting symptoms. Allergy Physician: [facility] Transcribe Date/Time: Oct 31 2023 9:59A Dictated by : AG CARTER MD This examination was interpreted and the report reviewed and electronically signed by: AG CARTER MD on Oct 31 2023 10:08AM EST DIVISION OF RADIOLOGY Radiology Study observation (narrative) [facility] No Panel InformationOrdered By: Mario Provider on 10-31-2023 [facility] TRANSGLUTAMINASE IGAOrdered By: Carlitos Betancourt on 10-31-2023 tTG IgA Qn (S) U/mL NINF - 4 U/mL [facility] tTG IgA Qn (S)Ordered By: Yvonne Betancourt on 10-31-2023 Interpretation and review of laboratory results Normal [facility] Transglutaminase IgA Abs Interpretation Negative Negative [facility] Comment on above: The following result s were obtained with [employer] Lite R h-tTG IgA RUBI. R h-tTG IgA values obtained with different manufacturers' assay methods may not be used interchangeably. The magnitude of the reported IgA levels cannot be correlated to an endpoint concentration. This is used as an aid in diagnosis of celiac disease. Clinical correlation is required. [facility] tTG IgA Qn (S)on 10-31-2023 TRANSGLUTAMINASE IGA ABS INTERPRETATION Negative Normal Negative [facility] Comment on above: Order Comment: Diandra chopra Type: BLOOD SPECIMEN Ordering Facility: [facility] Address: [address] [place] [address] Result Comment: The following results were obtained with [employer] R h-tTG IgA RUBI.???R h-tTG IgA values obtained with different manufacturers' assay methods may not be used interchangeably. The magnitude of the reported IgA levels cannot be correlated to an endpoint???concentration. This is used as an aid in diagnosis of celiac disease. Clinical correlation is required. Performed By: #### 3 1017-7 #### [facility] CLIA [id number] [address] [place] [address] [place] tTG IgA Ser-aCncon 4 tTG IgA Qn (S) <2 Normal <4 [facility] Comment on above: Order Comment: Diandra chopra Type: BLOOD SPECIMEN Ordering Facility: [facility] Address: [address] [place] [address] Performed By: #### 3 1017-7 #### [facility] CLIA [id number] [address] [place] [address] [place] EGD Study observation Narrat iveon 10-14-2023 [facility] Radiology Study observation (narrative) [facility] Flexible sigmoidoscopy study on 10-14-2023 [facility] Radiology Study observation (narrative) [facility] ECG 12 lead ECGon 09-23-2023 [address] [facility] [place] [address] Electrocardiograph Report Signed Patient: Marlys Carrero MR#: [id number] : 1990 Acct:[id number] Age/Sex: 33 / F ADM Date: 09/23/23 Loc: ER Room: Type: [facility] ER Attending Dr: Ordering Provider: Cindy Montiel DO Date of Service: 09/23/23 ECG/ECG 12 [...] Borderline ECG When compared with ECG of 18-JUL-2020 12:17, No significant change was found Confirmed by CINDY MONTIEL DO ([id number]) on 09/24/2023 10:41:27 PM Referred By: Electronically Signed By:CINDY MONTIEL DO Transcribed By: MUS Signed By Cindy Montiel DO 0963 Normal [facility] Cytology Cervical or vaginal smear or scraping studyon 08-16-2023 [facility] Amphetamine Screen Ql (U)Ord ered By: Hola Kendall on 10-04-2022 Amphetamines Ql (U) Negative Negative [facility] Automated erythrocytes count in urine sediment (number/area)Ordered By: Hola Kendall on 10-04-2022 RBC Auto (Urine sed) [#/Area] 0-1 [HPF] 0-4 [facility] Automated leukocytes count i n urine sediment (number/area)Ordered By: Hola Kendall on 10-04-2022 WBC Auto (Urine sed) [#/Area] 10-19 [HPF] 0-4 [facility] Automated urine hyaline cast s count (number/volume)Ordered By: Hola Kendall on 10-04-2022 Hyaline casts Auto (U) [#/Vol] 5-9 [LPF] 0-1 [facility] Barbiturates [Presence] in U rine by Screen methodOrdered By: Hola Kendall on 10-04-2022 Barbiturates Screen Ql (U) Negative Negative [facility] Benzodiazepines Screen Ql (U )Ordered By: Hola Kendall on 10-04-2022 Benzodiazepines Ql (U) Negative Negative [facility] Benzoylecgonine [Presence] i n Urine by Screen methodOrdered By: Hola Kendall on 10-04-2022 Benzoylecgonine Screen Ql (U) Negative Negative [facility] Bilirubin Test strip Ql (U)O rdered By: Hola Kendall on 10-04-2022 Bilirubin Ql (U) Negative Negative [facility] Casts typing in urine sedime nt by light microscopyOrdered By: Hola Kendall on 10-04-2022 Casts LM Nom (Urine sed) N/A [facility] Color Auto (U)Ordered By: Ruthann Kendall on 10-04-2022 Color (U) Yellow Yellow [facility] Ketones Auto test strip (U) [Mass/Vol]Ordered By: Hola Kendall on 10-04-2022 Ketones (U) [Mass/Vol] Negative Negative [facility] Nitrite Test strip Ql (U)Ord ered By: Hola Kendall on 10-04-2022 Nitrite Ql (U) Negative Negative [facility] Opiates [Presence] in Urine by Screen methodOrdered By: Hola Kendall on 10-04-2022 Opiates Screen Ql (U) Negative Negative [facility] Phencyclidine Screen Ql (U)O rdered By: Hola Kendall on 10-04-2022 Phencyclidine Ql (U) Negative Negative [facility] Comment on above: These are unconfirme d results and should not be used for legal purposes. Drug Cut-Off Concentration: AMPH 1000 ng/mL GUICHO 200 ng/mL VERONICA 200 ng/mL COCM 300 ng/mL OP 300 ng/mL PCP 25 ng/mL Protein Auto test strip (U) [Mass/Vol]Ordered By: Hola Kendall on 10-04-2022 Protein (U) [Mass/Vol] Negative Negative [facility] Specific gravity Auto test s trip (U) [Rel density]Ordered By: Hola Kendall on 10-04-2022 Specific gravity (U) [Rel density] 1.009 1.001-1.030 [facility] Squamous epithelial cells de tection in urine sediment by light microscopyOrdered By: Hola Kendall on 10-04-2022 Epithelial cells.squamous LM Ql (Urine sed) 10-19 [HPF] 0-2 [facility] Urine bacteria detection by automated methodOrdered By: Hola Kendall on 10-04-2022 Bacteria Auto Ql (U) None seen None Seen [facility] Urine clarity by refractomet ry automatedOrdered By: Hola Kendall on 10-04-2022 Clarity Refractometry automated (U) Cloudy Clear [facility] Urine glucose measurement by automated test strip (mass/volume)Ordered By: Hola Kendall on 10-04-2022 Glucose Auto test strip (U) [Mass/Vol] Normal mg/dL Normal [facility] Urine hemoglobin detection b y automated test stripOrdered By: Hola Kendall on 10-04-2022 Hemoglobin Auto test strip Ql (U) Negative Negative [facility] Urine leukocyte esterase det ection by automated test stripOrdered By: Hola Kendall on 10-04-2022 Leukocyte esterase Auto test strip Ql (U) 2+ Negative [facility] Urobilinogen Auto test strip (U) [Mass/Vol]Ordered By: Hola Kendall on 10-04-2022 Urobilinogen (U) [Mass/Vol] Normal mg/dL Normal [facility] pH Auto test strip (U)Ordere d By: Hola Kendall on 10-04-2022 pH (U) 6.5 [pH] 5.0-9.0 [facility] CBC AUTO DIFFon 08-06-2022 BASO # 0.0 103/ul Normal 0.0-0.1 [facility] Comment on above: Performed By: #### C BC #### [facility] [address] [place] [address] Dr. Laura Duron Basophils/100 WBC (Bld) 0.4 % Normal 0.2-2.0 [facility] Comment on above: Performed By: #### C BC #### [facility] [address] [place] [address] Dr. Laura Duron EO # 0.1 103/ul Normal 0.0-0.7 [facility] Comment on above: Performed By: #### C BC #### [facility] [address] [place] [address] [address] Laura Duron Eosinophils/100 WBC (Bld) 1.3 % Normal 0.9-7.0 [facility] Comment on above: Performed By: #### C BC #### [facility] [address] [place] [address] Dr. Laura Duron Erythrocyte distribution width (RBC) [Ratio] 12.2 % Normal 11.0-15.0 [facility] Comment on above: Performed By: #### C BC #### [facility] [address] [place] [address] Dr. Laura Duron Hematocrit (Bld) [Volume fraction] 35.4 % Critically low 36.0-48.0 [facility] Comment on above: Performed By: #### C BC #### [facility] [address] [place] [address] Dr. Laura Duron Hemoglobin (Bld) [Mass/Vol] 11.9 g/dL Critically low 12.0-16.0 [facility] Comment on above: Performed By: #### C BC #### [facility] [address] [place] [address] Dr. Laura Duron IG # 0.05 10e3/ul Critically high 0.00-0.03 [facility] Comment on above: Performed By: #### C BC #### [facility] [address] [place] [address] Dr. Laura Duron IG % 0.7 % Critically high 0.0-0.5 [facility] Comment on above: Performed By: #### C BC #### [facility] [address] [place] [address] Dr. Laura Duron LYMPH # 1.3 103/ul Normal 1.2-3.8 [facility] Comment on above: Performed By: #### C BC #### [facility] [address] [place] [address] Dr. Laura Duron Lymphocytes/100 WBC (Bld) 18.8 % Critically low 20.5-60.0 [facility] Comment on above: Performed By: #### C BC #### [facility] [address] [place] [address] Dr. Laura Duron MANUAL DIFF REQ NO Normal [facility] Comment on above: Performed By: #### C BC #### [facility] [address] [place] [address] Dr. Laura Duron MCH (RBC) [Entitic mass] 31.0 pg Normal 26.7-34.0 [facility] Comment on above: Performed By: #### C BC #### [facility] [address] [place] [address] Dr. Laura Duron MCHC (RBC) [Mass/Vol] 33.6 g/dL Normal 29.9-35.2 [facility] Comment on above: Performed By: #### C BC #### [facility] [address] [place] [address] Dr. Laura Duron MCV (RBC) [Entitic vol] 92.2 fL Normal 81.0-99.0 [facility] Comment on above: Performed By: #### C BC #### [facility] [address] [place] [address] Dr. Laura Duron MONO # 0.3 103/ul Normal 0.3-0.8 [facility] Comment on above: Performed By: #### C BC #### [facility] [address] [place] [address] Dr. Laura Duron Monocytes/100 WBC (Bld) 4.4 % Normal 1.7-12.0 [facility] Comment on above: Performed By: #### C BC #### [facility] [address] [place] [address] Dr. Laura Duron NEUT # 5.1 103/ul Normal 1.4-6.5 [facility] Comment on above: Performed By: #### C BC #### [facility] [address] [place] [address] Dr. Laura Duron Neutrophils/100 WBC (Bld) 74.4 % Normal 43.0-75.0 [facility] Comment on above: Performed By: #### C BC #### [facility] [address] [place] [address] Dr. Laura Duron Platelet mean volume (Bld) [Entitic vol] 10.4 fL Normal 9.5-13.5 [facility] Comment on above: Performed By: #### C BC #### [facility] [address] [place], [place] [address] Dr. Laura Duron PLT 210 103/ul Normal 150-450 [facility] Comment on above: Performed By: #### C BC #### [facility] [address] [place] [address] Dr. Laura Duron RBC 3.84 106/ul Critically low 4.20-5.40 [facility] Comment on above: Performed By: #### C BC #### [facility] [address] [place] [address] Dr. Laura Duron WBC 6.9 103/ul Normal 4.0-11.0 [facility] Comment on above: Performed By: #### C BC #### [facility] [address] [place] [address] Dr. Laura Duron GLUCOSE - 1HRon 08-06-2022 Glucose [Mass/Vol] 128 mg/dL Critically high 74-106 [facility] Comment on above: Performed By: #### G LU1HR #### [facility] [address] [place] [address] Dr. Laura Duron US PREG ANATOMY SINGLEon [...] ASHLEY FRANCO Date: 2022-06-15 15:12 Normal [facility] HEP B SURFACE ANTIGEN SCREEN on 04-13-2022 HBsAg Screen Negative Normal Negative [facility] Comment on above: Performed By: #### H BSANS #### [facility] [address] [address] [address] Laura Duron HEPATITIS C VIRUS AB W/ REFL EX QUANTon 04-13-2022 HCV AB <0.1 Normal 0.0-0.9 [facility] Comment on above: Performed By: #### H CVPCRR ####[facility] [address] [place], [place] [address]ZsDr. Laura Duron Interpretation: Comment Normal [facility] Comment on above: Result Comment: Nega tive Not infected with HCV, unless recent infection is suspected or other evidence exists to indicate HCV infection. Performed By: #### H CVPCRR ####[facility] [address] [place], [place] [address]NiCass Duron HIV 1 AND 2 WITH REFLEXon HIV Screen 4th Generation wRfx Non-Reactive Normal Non Reactive [facility] Comment on above: Result Comment: HIV Negative HIV-1/HIV-2 antibodies and HIV-1 p24 antigen were NOT detected. There is no laboratory evidence of HIV infection. Performed By: #### H IV12 #### [facility] [address] [address] [address] Laura Duron RPR QUANTon 04-13-2022 Rapid Plasma Reagin, Quant Non-Reactive Normal NonRea<1:1 [facility] Comment on above: Result Comment: Plea se Note: This test does not meet current guidelines for screening and diagnosis of syphilis. This test is intended for following treatment response in patients being treated for syphilis infection. To screen for syphilis infection, a reflex cascade that includes both RPR and a treponema-specific assay should be utilized, such as Treponema pallidum (Syphilis) Screening [place] (780531) or Rapid Plasma Reagin (RPR) Test With Reflex to Quantitative RPR and Confirmatory Treponema pallidum Antibodies (419459). Performed By: #### R PRQ #### [facility] [address] [place] [address] Dr. Laura Duron RUBELLA AB IGGon 04-13-2022 Rubella Antibodies, IgG 3.05 index Normal Immune >0.99 [facility] Comment on above: Result Comment: Non- immune <0.90 Equivocal 0.90 - 0.99 Immune >0.99 Performed By: #### R UBIGG #### [facility] [address] [place] [address] Dr. Laura Duron CBC AUTO DIFFon 04-12-2022 BASO # 0.0 103/ul Normal 0.0-0.1 [facility] Comment on above: Performed By: #### C BC #### [facility] [address] [place] [address] Dr. Laura Duron Basophils/100 WBC (Bld) 0.3 % Normal 0.2-2.0 [facility] Comment on above: Performed By: #### C BC #### [facility] [address] [place] [address] Dr. Laura Duron EO # 0.1 103/ul Normal 0.0-0.7 [facility] Comment on above: Performed By: #### C BC #### [facility] [address] [place] [address] Dr. Laura Duron Eosinophils/100 WBC (Bld) 1.5 % Normal 0.9-7.0 [facility] Comment on above: Performed By: #### C BC #### [facility] [address] [place] [address] Dr. Laura Duron Erythrocyte distribution width (RBC) [Ratio] 11.9 % Normal 11.0-15.0 [facility] Comment on above: Performed By: #### C BC #### [facility] [address] [place] [address] Dr. Laura Duron Hematocrit (Bld) [Volume fraction] 37.4 % Normal 36.0-48.0 [facility] Comment on above: Performed By: #### C BC #### [facility] [address] [place] [address] Dr. Laura Duron Hemoglobin (Bld) [Mass/Vol] 13.7 g/dL Normal 12.0-16.0 [facility] Comment on above: Performed By: #### C BC #### [facility] [address] [place] [address] Dr. Laura Duron IG # 0.02 10e3/ul Normal 0.00-0.03 [facility] Comment on above: Performed By: #### C BC #### [facility] [address] [place] [address] Dr. Laura Duron IG % 0.3 % Normal 0.0-0.5 [facility] Comment on above: Performed By: #### C BC #### [facility] [address] [place] [address] Dr. Laura Duron LYMPH # 1.4 103/ul Normal 1.2-3.8 [facility] Comment on above: Performed By: #### C BC #### [facility] [address] [place] [address] Dr. Laura Duron Lymphocytes/100 WBC (Bld) 23.0 % Normal 20.5-60.0 [facility] Comment on above: Performed By: #### C BC #### [facility] [address] [place] [address] Dr. Laura Duron MANUAL DIFF REQ NO Normal [facility] Comment on above: Performed By: #### C BC #### [facility] [address] [place] [address] Dr. Laura Duron MCH (RBC) [Entitic mass] 30.7 pg Normal 26.7-34.0 [facility] Comment on above: Performed By: #### C BC #### [facility] [address] [address] [address] Laura Duron MCHC (RBC) [Mass/Vol] 36.6 g/dL Critically high 29.9-35.2 [facility] Comment on above: Performed By: #### C BC #### [facility] [address] [address] [address] Laura Duron MCV (RBC) [Entitic vol] 83.9 fL Normal 81.0-99.0 [facility] Comment on above: Performed By: #### C BC #### [facility] [address] [place] [address] Dr. Laura Duron MONO # 0.3 103/ul Normal 0.3-0.8 [facility] Comment on above: Performed By: #### C BC #### [facility] [address] [place] [address] Dr. Laura Duron Monocytes/100 WBC (Bld) 4.6 % Normal 1.7-12.0 [facility] Comment on above: Performed By: #### C BC #### [facility] [address] [place] [address] Dr. Laura Duron NEUT # 4.2 103/ul Normal 1.4-6.5 [facility] Comment on above: Performed By: #### C BC #### [facility] [address] [place] [address] Dr. Laura Duron Neutrophils/100 WBC (Bld) 70.3 % Normal 43.0-75.0 [facility] Comment on above: Performed By: #### C BC #### [facility] [address] [place] [address] Dr. Laura Duron Platelet mean volume (Bld) [Entitic vol] 9.1 fL Critically low 9.5-13.5 [facility] Comment on above: Performed By: #### C BC #### [facility] [address] [place] [address] Dr. Laura Duron PLT 258 103/ul Normal 150-450 [facility] Comment on above: Performed By: #### C BC #### [facility] [address] [address] [address] Laura Duron RBC 4.46 106/ul Normal 4.20-5.40 [facility] Comment on above: Performed By: #### C BC #### [facility] [address] [address] [address] Laura Duron WBC 6.0 103/ul Normal 4.0-11.0 [facility] Comment on above: Performed By: #### C BC #### [facility] [address] [address] [address] Laura Duron CULTURE URINEon 04-12-2022 CULTURE URINE Culture Observations : LIGHT GROWTH OF MIXED GENITAL ALISHA. NO POTENTIAL PATHOGENS SEEN. Normal [facility] Comment on above: Performed By: #### U RCX ####[facility] [address] [address]Dr. Laura Duron GLYCOHEMOGLOBIN A1Con 2022 ADA RECOMMENDATION SEE BELOW Normal The [facility] Comment on above: Result Comment: ADA RECOMMENDED LIMIT 4.0 - 6.0 ADA THERAPEUTIC TARGET < 7.0 ACTION SUGGESTED > 7.0 Performed By: #### A 1C #### [facility] [address] [address] [address] Laura Duron Glucose [Mass/Vol] 97 mg/dL Normal [facility] Comment on above: Performed By: #### A 1C #### [facility] [address] [address] [address] Laura Duron HbA1c (Bld) [Mass fraction] 5.0 % Normal 4.5-6.2 [facility] Comment on above: Performed By: #### A 1C #### [facility] [address] [address] [address] Laura Duron TYPE AND SCREENon 04-12-2022 TYPE AND SCREEN Negative Normal [facility] Comment on above: Performed By: #### T NS #### [facility] [address] [address] [address] Laura Duron US PREG TVon 03-25-2022 [...] by: ASHLEY FRANCO Date: 2022-03-25 16:36 Normal [facility] Automated basophil %on 07-18 Basophils/100 WBC (Bld) 0.6 % [facility] Automated basophil counton 0 07-18-2020 Basophils (Bld) [#/Vol] 0.0 10*3/uL 0.0-0.2 [facility] Automated blood lymphocyte c ount (number/volume)on 07-18-2020 Lymphocytes (Bld) [#/Vol] 1.0 10*3/uL 1.00-4.8 [facility] Automated blood lymphocyte c ount as percentage of total leukocyteson 07-18-2020 Lymphocytes/100 WBC (Bld) 13.9 % [facility] Automated blood monocyte cou nton 07-18-2020 Monocytes (Bld) [#/Vol] 0.4 10*3/uL 0.0-0.8 [facility] Automated blood platelet cou nt (count/volume)on 07-18-2020 Platelets (Bld) [#/Vol] 271 10*3/uL 150-450 [facility] Automated blood platelet opal n volume measurementon 07-18-2020 Platelet mean volume (Bld) [Entitic vol] 8.1 fL 6.3-10.7 [facility] Automated eosinophil %on Eosinophils/100 WBC (Bld) 0.9 % [facility] Automated eosinophil counton 07-18-2020 Eosinophils (Bld) [#/Vol] 0.1 10*3/uL 0.0-0.45 [facility] Automated erythrocyte distri bution width ratioon 07-18-2020 Erythrocyte distribution width (RBC) [Ratio] 12.5 % 11.9-15.3 [facility] Automated erythrocyte mean c orpuscular hemoglobin (mass per erythrocyte)on 07-18-2020 MCH (RBC) [Entitic mass] 32.6 pg 24.7-34.3 [facility] Automated erythrocyte mean c orpuscular hemoglobin concentration measurement (mass/volon 07-18-2020 MCHC (RBC) [Mass/Vol] 35.5 g/dL 32.0-35.0 [facility] Automated erythrocyte mean c orpuscular volumeon 07-18-2020 MCV (RBC) [Entitic vol] 91.9 fL 80-100 [facility] Automated monocyte %on 07-18 Monocytes/100 WBC (Bld) 4.7 % [facility] Automated neutrophil %on Neutrophils/100 WBC (Bld) 79.9 % [facility] Blood erythrocytes automated count (number/volume)on 07-18-2020 RBC (Bld) [#/Vol] 4.19 10*6/uL 3.60-5.00 [facility] Blood hemoglobin measurement (mass/volume)on 07-18-2020 Hemoglobin (Bld) [Mass/Vol] 13.7 g/dL 11.8-15.4 [facility] Blood leukocytes automated c ount (number/volume)on 07-18-2020 WBC (Bld) [#/Vol] 7.5 10*3/uL 3.8-11.6 [facility] Blood neutrophil count by au tomated method (number/volume)on 07-18-2020 Neutrophils (Bld) [#/Vol] 6.0 10*3/uL 1.8-7.7 [facility] Body fluid albumin measureme nt (mass/volume)on 07-18-2020 Albumin (Body fld) [Mass/Vol] 4.2 g/dL 3.2-5.5 [facility] Estimated glomerular filtrat ion rate (GFR) non- Americanon 07-18-2020 GFR/1.73 sq M predicted among non-blacks MDRD (S/P/Bld) [Vol rate/Area] > 60 mL/Min [facility] Hematocrit [Volume Fraction] of Blood by Automated counton 07-18-2020 Hematocrit (Bld) [Volume fraction] 38.5 % 34.0-46.4 [facility] Otheron 07-18-2020 GFR/1.73 sq M.predicted MDRD (S/P/Bld) [Vol rate/Area] > 60 mL/Min [facility] Comment on above: GFR estimated refere nce range: According to KDOQI guidelines, <60 ml/min/1.73m2 is sufficient to diagnose a patient with chronic kidney disease. Nucleated RBC/100 WBC (Bld) [Ratio] 0.1 % 0-0.5 [facility] Creatinine Clearance (Chem 138.35 [facility] Protein [Mass/volume] in Ser um or Plasmaon 07-18-2020 Protein [Mass/Vol] 7.0 g/dL 6.1-7.9 [facility] Serum globulin measurement b y calculation (mass/volume)on 07-18-2020 Globulin (S) [Mass/Vol] 2.8 g/dL [facility] Serum or plasma alanine coates otransferase measurement without P-5'-P (enzymatic activion 07-18-2020 ALT No additional P-5'-P [Catalytic activity/Vol] 12 U/L 10-60 [facility] Serum or plasma albumin/glob ulin mass ratioon 07-18-2020 Albumin/Globulin [Mass ratio] 1.5 {ratio} [facility] Serum or plasma alkaline josé miguel sphatase measurement (enzymatic activity/volume)on 07-18-2020 ALP [Catalytic activity/Vol] 36 U/L 32-92 [facility] Serum or plasma aspartate am inotransferase measurement (enzymatic activity/volume)on 07-18-2020 AST [Catalytic activity/Vol] 17 U/L 10-42 [facility] Serum or plasma beta choriog onadotropin measurement (units/volume)on 07-18-2020 [place] [address].00 m[IU]/mL [facility] Comment on above: Approximate Approxim ate hCG Gestational Age Range (mIU/ml) (weeks)0.2-1 5-50 1-2 50-500 2-3 100-5,000 3-4 500-10,000 4-5 1,000-50,000 5-6 10,000-100,000 6-8 15,000-200,000 8-12 10,000-100,000 Serum or plasma calcium laura urement (mass/volume)on 07-18-2020 Calcium [Mass/Vol] 9.3 mg/dL 8.2-10.2 [facility] Serum or plasma chloride opal surement (moles/volume)on 07-18-2020 Chloride [Moles/Vol] 101 mmol/L 95-114 [place] Serum or plasma creatinine m easurement with calculation of estimated glomerular filtron 07-18-2020 Creatinine [Mass/Vol] 0.58 mg/dL 0.44-1.03 [facility] Serum or plasma glucose laura urement (mass/volume)on 07-18-2020 Glucose [Mass/Vol] 102 mg/dL 70-100 [facility] Comment on above: ADA recommended refe rence rangeRandom Glucose Reference Range is dependent on time and content of last meal. Glucose of more than 200 mg/dL in a nonstressed, ambulatory subject supports the diagnosis of Diabetes Mellitus. Serum or plasma potassium me asurement (moles/volume)on 07-18-2020 Potassium [Moles/Vol] 3.4 mmol/L 3.5-5.1 [facility] Serum or plasma sodium measu rement (moles/volume)on 07-18-2020 Sodium [Moles/Vol] 132 mmol/L 136-146 [facility] Serum or plasma total biliru bin measurement (mass/volume)on 07-18-2020 Bilirubin [Mass/Vol] 0.7 mg/dL 0.3-1.2 [place] Serum or plasma total carbon dioxide measurement (moles/volume)on 07-18-2020 CO2 [Moles/Vol] 20.6 mmol/L 22.0-30.0 [facility] Serum or plasma urea nitroge n measurement (mass/volume)on 07-18-2020 Urea nitrogen [Mass/Vol] 6 mg/dL 9-23 [facility] Activated partial thrombopla stin time (aPTT) in platelet poor plasma by coagulation aon 05-28-2020 aPTT Coag (PPP) [Time] 35.1 s 25.1-36.5 [facility] Automated basophil %on 05-28 Basophils/100 WBC (Bld) 0.7 % [facility] Automated basophil counton 0 05-28-2020 Basophils (Bld) [#/Vol] 0.0 10*3/uL 0.0-0.2 [facility] Automated blood lymphocyte c ount (number/volume)on 05-28-2020 Lymphocytes (Bld) [#/Vol] 0.6 10*3/uL 1.00-4.8 [facility] Automated blood lymphocyte c ount as percentage of total leukocyteson 05-28-2020 Lymphocytes/100 WBC (Bld) 14.3 % [facility] Automated blood monocyte cou nton 05-28-2020 Monocytes (Bld) [#/Vol] 0.4 10*3/uL 0.0-0.8 [facility] Automated blood platelet cou nt (count/volume)on 05-28-2020 Platelets (Bld) [#/Vol] 273 10*3/uL 150-450 [facility] Automated blood platelet opal n volume measurementon 05-28-2020 Platelet mean volume (Bld) [Entitic vol] 8.0 fL 6.3-10.7 [facility] Automated eosinophil %on Eosinophils/100 WBC (Bld) 1.6 % [facility] Automated eosinophil counton 05-28-2020 Eosinophils (Bld) [#/Vol] 0.1 10*3/uL 0.0-0.45 [facility] Automated erythrocyte distri bution width ratioon 05-28-2020 Erythrocyte distribution width (RBC) [Ratio] 13.1 % 11.9-15.3 [facility] Automated erythrocyte mean c orpuscular hemoglobin (mass per erythrocyte)on 05-28-2020 MCH (RBC) [Entitic mass] 32.0 pg 24.7-34.3 [facility] Automated erythrocyte mean c orpuscular hemoglobin concentration measurement (mass/volon 05-28-2020 MCHC (RBC) [Mass/Vol] 34.4 g/dL 32.0-35.0 [facility] Automated erythrocyte mean c orpuscular volumeon 05-28-2020 MCV (RBC) [Entitic vol] 93.1 fL 80-100 [facility] Automated monocyte %on 05-28 Monocytes/100 WBC (Bld) 10.6 % [facility] Automated neutrophil %on Neutrophils/100 WBC (Bld) 72.8 % [facility] Blood erythrocytes automated count (number/volume)on 05-28-2020 RBC (Bld) [#/Vol] 4.24 10*6/uL 3.60-5.00 [facility] Blood hemoglobin measurement (mass/volume)on 05-28-2020 Hemoglobin (Bld) [Mass/Vol] 13.5 g/dL 11.8-15.4 [facility] Blood leukocytes automated c ount (number/volume)on 05-28-2020 WBC (Bld) [#/Vol] 4.0 10*3/uL 3.8-11.6 [facility] Blood neutrophil count by au tomated method (number/volume)on 05-28-2020 Neutrophils (Bld) [#/Vol] 2.9 10*3/uL 1.8-7.7 [facility] COVID-19 SOFIAon 05-28-2020 COVID-19 KATELYN Positive Negative [facility] Comment on above: This is a duplicate test result based off of the Katelyn SARS Antigen (TIA) test performed within the Microbiology department. [facility] 05-28-2020 Natriuretic peptide B (Bld) [Mass/Vol] 44.0 pg/mL 5-100 [facility] Estimated glomerular filtrat ion rate (GFR) non- Americanon 05-28-2020 GFR/1.73 sq M predicted among non-blacks MDRD (S/P/Bld) [Vol rate/Area] mL/min/{1.73_m2} [facility] Hematocrit [Volume Fraction] of Blood by Automated counton 05-28-2020 Hematocrit (Bld) [Volume fraction] 39.4 % 34.0-46.4 [facility] Hematologyon 05-28-2020 PT Coag (PPP) [Time] 12.0 s 9.0-12.9 [place] Otheron 05-28-2020 GFR/1.73 sq M.predicted MDRD (S/P/Bld) [Vol rate/Area] mL/min/{1.73_m2} [facility] Comment on above: GFR estimated refere nce range: According to KDOQI guidelines, <60 ml/min/1.73m2 is sufficient to diagnose a patient with chronic kidney disease. Nucleated RBC/100 WBC (Bld) [Ratio] 0.2 % 0-0.5 [facility] Creatinine Clearance (Chem 102.31 [facility] SARS Antigen (LFIA) [facility] Platelet poor plasma interna tional normalized ratio (INR) by coagulation assay (relaton 05-28-2020 INR Coag (PPP) [Relative time] 1.1 {INR} [facility] Comment on above: INR Therapeutic Rang [...] (mass/volume)on 05-28-2020 Calcium [Mass/Vol] 9.4 mg/dL 8.2-10.2 [facility] Serum or plasma cardiac trop onin I measurement (mass/volume)on 05-28-2020 Troponin I.cardiac [Mass/Vol] ng/mL 0-0.02 [facility] Comment on above: AIDEN IA Cut off value > or equal to 0.03 ng/mL in conjunction with clinical conditions of myocardial infarction.(www.escardio.org/guidelines) Serum or plasma chloride opal surement (moles/volume)on 05-28-2020 Chloride [Moles/Vol] 102 mmol/L 95-114 [place] Serum or plasma creatinine m easurement with calculation of estimated glomerular filtron 05-28-2020 Creatinine [Mass/Vol] 0.78 mg/dL 0.44-1.03 [facility] Serum or plasma glucose laura urement (mass/volume)on 05-28-2020 Glucose [Mass/Vol] 106 mg/dL 70-100 [facility] Comment on above: ADA recommended refe rence rangeRandom Glucose Reference Range is dependent on time and content of last meal. Glucose of more than 200 mg/dL in a nonstressed, ambulatory subject supports the diagnosis of Diabetes Mellitus. Serum or plasma potassium me asurement (moles/volume)on 05-28-2020 Potassium [Moles/Vol] 3.4 mmol/L 3.5-5.1 [facility] Serum or plasma sodium measu rement (moles/volume)on 05-28-2020 Sodium [Moles/Vol] 139 mmol/L 136-146 [facility] Serum or plasma total carbon dioxide measurement (moles/volume)on 05-28-2020 CO2 [Moles/Vol] 26.3 mmol/L 22.0-30.0 [facility] Serum or plasma urea nitroge n measurement (mass/volume)on 05-28-2020 Urea nitrogen [Mass/Vol] 7 mg/dL 9- [facility] Coding Summary.on 01-13-2018 Coding Summary. CODING DATE: 018 FINAL [facility] STATUS: Home (Routine DC) PAYOR: [facility] DESCRIPTION 5373 Level 3 Urology and [...] Revised Date Saved: 01/13/2018 02:06 pm Normal [facility] Main OR Intraoperative Recor krissy 01-12-2018 Main OR Intraoperative Record IntraOp Document Type FTURO Summary Primary Physician: Supa Mock Jr., MD Finalized Date/Time: 01/12/18 13:55:40 Pt. Name: MARLYS CARRERO Harsha Go/Sex: 1990 Female Med Rec #: [id number] Physician: Supa Mock Jr., MD Financial #: [id number] Pt. Type: O Room/Bed: / Admit/Disch: 01/12/18 12:46:24 - Institution: Case Times FTURO Entry 1 Patient Times In Room 01/12/18 13:47:00 Out Room 01/12/18 13:55:00 Procedure Times Start 01/12/18 13:50:00 Stop 01/12/18 13:53:00 Anesthesia Times Last Modified By: Doris CUELLO, RN, Cyndi 01/12/18 13:53:24 Case Attendance FTURO Entry 1 Entry 2 Entry 3 Case Attendee Nish Oneal MD, Supa Montgomeryill OPERATING ENGINEER APPRENTICE, Selina CUELLO, RN, Cyndi Role Performed Surgeon - Primary Scrub - Primary Machine Stonecutter - Primary Time In 01/12/18 13:47:00 01/12/18 [...] INCONTINENCE Last Modified By: Doris CUELLO RN, Kelly 01/12/18 12:53:12 Post-Care Text: The patient is [...] Oneal MD, Supa Munson, Verified (If [facility], Applic[facility]) Doris CUELLO RN, Kelly Time Out [...] Doris CUELLO RN, Kelly 01/12/18 13:55 Normal [facility] Main OR Preoperative Recordo n 01-12-2018 Main OR Preoperative Record Holding Area Document Type FTURO Summary Primary Physician: Supa Mock Jr., MD Finalized Date/Time: 01/12/18 13:47:49 Pt. Name: HAKAN CARREROBRISEIDA Go/Sex: 1990 Female Med Rec #: [id number] Physician: Supa Mock Jr., MD Financial #: [id number] Pt. Type: O Room/Bed: / Admit/Disch: 01/12/18 [...] Complaints of Pain: No Skin Integrity Intact, [place], Warm, & Dry Vitals - EU Blood Pressure 106/66 Pulse 78 bpm Respirations 16 br/min SPO2 Additional None RN Reviewed Yes Specimens Collected Last Modified By: Doris CUELLO RN, Kelly 01/12/18 13:33:30 Finalized By: Doris CUELLO RN, Kelly Document Signatures Signed By: Doris CUELLO RN, Kelly 01/12/18 13:33 Renu Cardenas 01/12/18 13:10 Doris CUELLO RN, Kelly 01/12/18 13:47 Normal [facility] Operative Reporton 8 Operative Report Patient: MARLYS CARREOR Age: 27 years Sex: Female : 1990 Associated Diagnoses: None Author: Nish Oneal MD, Supa Munson Procedure Operative Information Details: Date/ Time: 01/12/18 [...] urine. The Urethra was dilated to: 28 Albanian w/ sounds. Devices Implanted: None. Removal: Cystoscope is removed, The patient tolerated it well. Postoperative Information Discharge: Patient is discharged home with antibiotic coverage, Follow up arranged. Normal [facility] Comment on above: Result Comment: Elec tronically Signed By: Nish Oneal MD, Supa Munson\.br\Date and Time Signed: 01/12/18 13:58 EDT Vital Signs Date Time Vital Sign Value Performing Clinician Facility 10-16-2024 13:04-0400 Body mass index (BMI) [Ratio] 19.52 kg/m2 Beverly AMADO Work Phone: [facility] 10-16-2024 13:04-0400 Body weight 58.24 kg Beverly AMADO Work Phone: [facility] 10-16-2024 13:04-0400 Diastolic blood pressure 70 mm[Hg] Beverly AMADO Work Phone: [facility] 10-16-2024 13:04-0400 Systolic blood pressure 120 mm[Hg] Beverly AMADO Work Phone: [facility] 10-15-2024 14:06-0400 Body height 172.7 cm Miller Smith FRONT END ALIGNMENT SPECIALIST Work Phone: [facility] 10-15-2024 14:06-0400 Body mass index (BMI) [Ratio] 19.55 kg/m2 Miller Case FRONT END ALIGNMENT SPECIALIST Work Phone: [facility] 10-15-2024 14:06-0400 Body temperature 97 [degF] Miller Case FRONT END ALIGNMENT SPECIALIST Work Phone: [facility] 10-15-2024 14:06-0400 Body weight 58.33 kg Miller Case FRONT END ALIGNMENT SPECIALIST Work Phone: [facility] 10-15-2024 14:06-0400 Diastolic blood pressure 72 mm[Hg] Miller Case FRONT END ALIGNMENT SPECIALIST Work Phone: [facility] 10-15-2024 14:06-0400 Heart rate 99 /min Miller Case FRONT END ALIGNMENT SPECIALIST Work Phone: [facility] 10-15-2024 14:06-0400 SaO2% (BldA) [Mass fraction] 99 % Miller Case FRONT END ALIGNMENT SPECIALIST Work Phone: [facility] 10-15-2024 14:06-0400 Systolic blood pressure 108 mm[Hg] Miller Case FRONT END ALIGNMENT SPECIALIST Work Phone: [facility] 09-05-2024 10:04-0400 Body height 172.7 cm Anders Askew MD Work Phone: [facility] 09-05-2024 10:04-0400 Body mass index (BMI) [Ratio] 19.31 kg/m2 Anders Askew MD Work Phone: [facility] 09-05-2024 10:04-0400 Body weight 57.61 kg Anders Askew MD Work Phone: [facility] 08-28-2024 09:14-0400 Body height 172.7 cm Harvey Root DO Work Phone: [facility] 08-28-2024 09:14-0400 Body mass index (BMI) [Ratio] 20.53 kg/m2 Harvey Rizok DO Work Phone: [facility] 08-28-2024 09:14-0400 Body weight 61.24 kg Harvey Root DO Work Phone: [facility] 08-10-2024 10:35-0400 Body height 172.7 cm Marco Antonio Rowe MD Work Phone: [facility] 08-10-2024 10:35-0400 Body mass index (BMI) [Ratio] 19.07 kg/m2 Marco Antonio Rowe MD Work Phone: [facility] 08-10-2024 10:35-0400 Body temperature 97.9 [degF] Marco Antonio Rowe MD Work Phone: [facility] 08-10-2024 10:35-0400 Body weight 56.88 kg Marco Antonio Rowe MD Work Phone: [facility] 08-10-2024 10:35-0400 Diastolic blood pressure 76 mm[Hg] Marco Antonio Rowe MD Work Phone: [facility] 08-10-2024 10:35-0400 Heart rate 80 /min Marco Antonio Rowe MD Work Phone: [facility] 08-10-2024 10:35-0400 SaO2% (BldA) [Mass fraction] 100 % Marco Antonio Rowe MD Work Phone: [facility] 08-10-2024 10:35-0400 Systolic blood pressure 107 mm[Hg] Marco Antonio Rowe MD Work Phone: [facility] 08-08-2024 15:48-0400 Body height 172.7 cm Harvey Root DO Work Phone: [facility] 08-08-2024 15:48-0400 Body mass index (BMI) [Ratio] 20.53 kg/m2 Harvey Root DO Work Phone: [facility] 08-08-2024 15:48-0400 Body weight 61.24 kg Harvey Root DO Work Phone: [facility] 07-04-2024 14:07-0400 Body height 172.7 cm Marco Antonio Rowe MD Work Phone: [facility] 07-04-2024 14:07-0400 Body mass index (BMI) [Ratio] 19.74 kg/m2 Marco Antonio Rowe MD Work Phone: [facility] 07-04-2024 14:07-0400 Body temperature 98.4 [degF] Marco Antonio Rowe MD Work Phone: [facility] 07-04-2024 14:07-0400 Body weight 58.88 kg Marco Antonio Rowe MD Work Phone: [facility] 07-04-2024 14:07-0400 Diastolic blood pressure 82 mm[Hg] Marco Antonio Rowe MD Work Phone: [facility] 07-04-2024 14:07-0400 Heart rate 98 /min Marco Antonio Rowe MD Work Phone: [facility] 07-04-2024 14:07-0400 SaO2% (BldA) [Mass fraction] 97 % Marco Antonio Rowe MD Work Phone: [facility] 07-04-2024 14:07-0400 Systolic blood pressure 120 mm[Hg] Marco Antonio Rowe MD Work Phone: [facility] 06-18-2024 10:31-0400 Body height 172.7 cm Harvey Root DO Work Phone: [facility] 06-18-2024 10:31-0400 Body mass index (BMI) [Ratio] 20.53 kg/m2 Harvey Root DO Work Phone: [facility] 06-18-2024 10:31-0400 Body weight 61.24 kg Harvey Root DO Work Phone: [facility] 06-01-2024 09:10-0500 Body mass index (BMI) [Ratio] 20.37 kg/m2 Ling Wong FRONT END ALIGNMENT SPECIALIST Work Phone: [facility] 06-01-2024 09:10-0500 Body temperature 98.1 [degF] Ling Wong FRONT END ALIGNMENT SPECIALIST Work Phone: [facility] 06-01-2024 09:10-0500 Body weight 60.78 kg Ling Judith FRONT END ALIGNMENT SPECIALIST Work Phone: [facility] 06-01-2024 09:10-0500 Diastolic blood pressure 78 mm[Hg] Ling Wong FRONT END ALIGNMENT SPECIALIST Work Phone: [facility] 06-01-2024 09:10-0500 Heart rate 103 /min Ling Wong FRONT END ALIGNMENT SPECIALIST Work Phone: [facility] 06-01-2024 09:10-0500 SaO2% (BldA) [Mass fraction] 97 % Ling Judith FRONT END ALIGNMENT SPECIALIST Work Phone: [facility] 06-01-2024 09:10-0500 Systolic blood pressure 122 mm[Hg] Lingphilly Wong FRONT END ALIGNMENT SPECIALIST Work Phone: [facility] 05-29-2024 13:31-0500 Body height 172.7 cm Neil Johnson MD Work Phone: [facility] 05-29-2024 13:31-0500 Body mass index (BMI) [Ratio] 19.92 kg/m2 Neil Johnson MD Work Phone: [facility] 05-29-2024 13:31-0500 Body weight 59.42 kg Neil Johnson MD Work Phone: [facility] 05-29-2024 13:31-0500 Diastolic blood pressure 79 mm[Hg] Neil Johnson MD Work Phone: [facility] 05-29-2024 13:31-0500 Heart rate 107 /min Neil Johnson MD Work Phone: [facility] Comment on above: her normal 05-29-2024 13:31-0500 Systolic blood pressure 113 mm[Hg] Neil Johnson MD Work Phone: [facility] 05-25-2024 17:27-0500 Body mass index (BMI) [Ratio] 20.07 kg/m2 Karan Ambriz DO Work Phone: [facility] 05-25-2024 17:27-0500 Body temperature 97.81 [degF] Karan Ambriz DO Work Phone: [facility] 05-25-2024 17:27-0500 Body weight 59.88 kg Karan Ambriz DO Work Phone: [facility] 05-25-2024 17:27-0500 Diastolic blood pressure 60 mm[Hg] Karan Ambriz DO Work Phone: [facility] 05-25-2024 17:27-0500 Heart rate 86 /min Karan Ambriz DO Work Phone: [facility] 05-25-2024 17:27-0500 SaO2% (BldA) [Mass fraction] 98 % Karan Ambriz DO Work Phone: [facility] 05-25-2024 17:27-0500 Systolic blood pressure 116 mm[Hg] Karan Ambriz DO Work Phone: [facility] 04-30-2024 14:30-0500 Body height 172.7 cm Lor Unger APRN.CRUSHER OPERATOR Work Phone: [facility] 04-30-2024 14:30-0500 Body mass index (BMI) [Ratio] 19.77 kg/m2 Lor Unger APRN.CRUSHER OPERATOR Work Phone: [facility] 04-30-2024 14:30-0500 Body temperature 98.2 [degF] Lor Unger APRN.CRUSHER OPERATOR Work Phone: [facility] 04-30-2024 14:30-0500 Body weight 58.97 kg Lor Unger APRN.CRUSHER OPERATOR Work Phone: [facility] 04-30-2024 14:30-0500 Diastolic blood pressure 75 mm[Hg] Lor Unger APRN.CRUSHER OPERATOR Work Phone: [facility] 04-30-2024 14:30-0500 Heart rate 92 /min Lor Ute GOODRICH.CRUSHER OPERATOR Work Phone: [facility] 04-30-2024 14:30-0500 Systolic blood pressure 106 mm[Hg] Lor Ute GOODRICH.CRUSHER OPERATOR Work Phone: [facility] 11-07-2023 15:11-0400 Body height 172.7 cm Neil Johnson MD Work Phone: [facility] 11-07-2023 15:11-0400 Body mass index (BMI) [Ratio] 19.43 kg/m2 Neil Johnson MD Work Phone: [facility] 11-07-2023 15:11-0400 Body weight 57.97 kg Neil Johnson MD Work Phone: [facility] 11-07-2023 15:11-0400 Diastolic blood pressure 74 mm[Hg] Neil Johnson MD Work Phone: [facility] 11-07-2023 15:11-0400 Heart rate 91 /min Neil Johnson MD Work Phone: [facility] 11-07-2023 15:11-0400 Systolic blood pressure 106 mm[Hg] Neil Johnson MD Work Phone: [facility] 10-31-2023 09:32-0400 Diastolic blood pressure 62 mm[Hg] Mri (I-Stat/1.5t/3t) Work Phone: [facility] 10-31-2023 09:32-0400 Heart rate 88 /min Mri (I-Stat/1.5t/3t) Work Phone: [facility] 10-31-2023 09:32-0400 Respiratory rate 16 /min Mri (I-Stat/1.5t/3t) Work Phone: [facility] 10-31-2023 09:32-0400 SaO2% (BldA) [Mass fraction] 98 % Mri (I-Stat/1.5t/3t) Work Phone: [facility] 10-31-2023 09:32-0400 Systolic blood pressure 98 mm[Hg] Mri (I-Stat/1.5t/3t) Work Phone: [facility] 10-14-2023 12:40-0400 Diastolic blood pressure 86 mm[Hg] Neil Johnson MD Work Phone: [facility] 10-14-2023 12:40-0400 Heart rate 65 /min Neil Johnson MD Work Phone: [facility] 10-14-2023 12:40-0400 Respiratory rate 16 /min Neil Johnson MD Work Phone: [facility] 10-14-2023 12:40-0400 SaO2% (BldA) [Mass fraction] 100 % Neil Johnson MD Work Phone: [facility] 10-14-2023 12:40-0400 Systolic blood pressure 123 mm[Hg] Neil Johnson MD Work Phone: [facility] 10-14-2023 10:34-0400 Body height 172.7 cm Neil Johnson MD Work Phone: [facility] 10-14-2023 10:34-0400 Body mass index (BMI) [Ratio] 19.77 kg/m2 Neil Johnson MD Work Phone: [facility] 10-14-2023 10:34-0400 Body temperature 97.7 [degF] Neil Johnson MD Work Phone: [facility] 10-14-2023 10:34-0400 Body weight 58.97 kg Neil Johnson MD Work Phone: [facility] 09-27-2023 13:02-0400 Body height 172.7 cm Lor Unger APRN.CRUSHER OPERATOR Work Phone: [facility] 09-27-2023 13:02-0400 Body mass index (BMI) [Ratio] 20.98 kg/m2 Lor Unger APRN.CRUSHER OPERATOR Work Phone: [facility] 09-27-2023 13:02-0400 Body weight 62.6 kg Lor Unger FITNESS AND WELLNESS COORDINATOR.CRUSHER OPERATOR Work Phone: [facility] 09-27-2023 13:02-0400 Diastolic blood pressure 71 mm[Hg] Lor Unger FITNESS AND WELLNESS COORDINATOR.CRUSHER OPERATOR Work Phone: [facility] 09-27-2023 13:02-0400 Heart rate 87 /min Lor Unger FITNESS AND WELLNESS COORDINATOR.CRUSHER OPERATOR Work Phone: [facility] 09-27-2023 13:02-0400 Systolic blood pressure 108 mm[Hg] Lor Unger FITNESS AND WELLNESS COORDINATOR.CRUSHER OPERATOR Work Phone: [facility] 09-23-2023 20:00-0400 Heart rate 88 /min FITNESS AND WELLNESS COORDINATOR Eufemia Kiepert Work Phone: [facility] 09-23-2023 19:32-0400 Body height 172.72 cm FITNESS AND WELLNESS COORDINATOR Eufemia Kiepert Work Phone: [facility] 09-23-2023 19:32-0400 Body temperature 98 [degF] FITNESS AND WELLNESS COORDINATOR Eufemia Kiepert Work Phone: [facility] 09-23-2023 19:32-0400 Body weight 63 kg FITNESS AND WELLNESS COORDINATOR Eufemia Kiepert Work Phone: [facility] 09-23-2023 19:32-0400 Diastolic blood pressure 72 mm[Hg] FITNESS AND WELLNESS COORDINATOR Eufemia Kiepert Work Phone: [facility] 09-23-2023 19:32-0400 Respiratory rate 22 /min FITNESS AND WELLNESS COORDINATOR Eufemia Kiepert Work Phone: [facility] 09-23-2023 19:32-0400 SaO2% (BldA) [Mass fraction] 96 % FITNESS AND WELLNESS COORDINATOR Eufemia Kiepert Work Phone: [facility] 09-23-2023 19:32-0400 Systolic blood pressure 115 mm[Hg] FITNESS AND WELLNESS COORDINATOR Eufemia Kiepert Work Phone: [facility] 02-15-2023 10:36-0500 Diastolic blood pressure 74 mm[Hg] FITNESS AND WELLNESS COORDINATOR Eufemia Kiepert Work Phone: [facility] 02-15-2023 10:36-0500 Heart rate 79 /min FITNESS AND WELLNESS COORDINATOR Eufemia Kiepert Work Phone: [facility] 02-15-2023 10:36-0500 Respiratory rate 18 /min FITNESS AND WELLNESS COORDINATOR Eufemia Kiepert Work Phone: [facility] 02-15-2023 10:36-0500 SaO2% (BldA) [Mass fraction] 97 % FITNESS AND WELLNESS COORDINATOR Eufemia Kiepert Work Phone: [facility] 02-15-2023 10:36-0500 Systolic blood pressure 119 mm[Hg] FITNESS AND WELLNESS COORDINATOR Eufemia Kiepert Work Phone: [facility] 02-15-2023 08:34-0500 Body height 172.72 cm FITNESS AND WELLNESS COORDINATOR Eufemia Kiepert Work Phone: [facility] 02-15-2023 08:34-0500 Body temperature 97.4 [degF] FITNESS AND WELLNESS COORDINATOR Eufemia Kiepert Work Phone: [facility] 02-15-2023 08:34-0500 Body weight 61.8 kg FITNESS AND WELLNESS COORDINATOR Eufemia Kiepert Work Phone: [facility] 10-04-2022 15:30-0400 Respiratory rate 16 /min FITNESS AND WELLNESS COORDINATOR Eufemia Kiepert Work Phone: [facility] 10-04-2022 13:33-0400 SaO2% (BldA) [Mass fraction] 100 % FITNESS AND WELLNESS COORDINATOR Eufemia Kiepert Work Phone: [facility] 10-04-2022 13:31-0400 Diastolic blood pressure 74 mm[Hg] FITNESS AND WELLNESS COORDINATOR Eufemia Kiepert Work Phone: [facility] 10-04-2022 13:31-0400 Heart rate 71 /min FITNESS AND WELLNESS COORDINATOR Eufemia Kiepert Work Phone: [facility] 10-04-2022 13:31-0400 Systolic blood pressure 108 mm[Hg] FITNESS AND WELLNESS COORDINATOR Eufemia Kiepert Work Phone: [facility] 10-04-2022 13:30-0400 Body temperature 97.3 [degF] FITNESS AND WELLNESS COORDINATOR Eufemia Kiepert Work Phone: [facility] 10-04-2022 13:05-0400 Body temperature 97.8 [degF] FITNESS AND WELLNESS COORDINATOR Uefemia Kiepert Work Phone: [facility] 10-04-2022 13:05-0400 Diastolic blood pressure 82 mm[Hg] FITNESS AND WELLNESS COORDINATOR Eufemia Kiepert Work Phone: [facility] 10-04-2022 13:05-0400 Heart rate 86 /min FITNESS AND WELLNESS COORDINATOR Eufemia Kiepert Work Phone: [facility] 10-04-2022 13:05-0400 Respiratory rate 22 /min FITNESS AND WELLNESS COORDINATOR Eufemia Kiepert Work Phone: [facility] 10-04-2022 13:05-0400 SaO2% (BldA) [Mass fraction] 100 % FITNESS AND WELLNESS COORDINATOR Eufemia Kiepert Work Phone: [facility] 10-04-2022 13:05-0400 Systolic blood pressure 121 mm[Hg] FITNESS AND WELLNESS COORDINATOR Eufemia Kiepert Work Phone: [facility] 09-29-2021 12:00-0400 Body height Christian Alisaedilma Other [employer] [facility] [employer] Other 09-29-2021 12:00-0400 Body mass index (BMI) [Ratio] 20.68 kg/m2 Christian Clancy Other [employer] [facility] [employer] Other 09-29-2021 12:00-0400 Body weight 61.69 kg Christian Clancy Other [employer] [facility] [employer] Other 09-29-2021 12:00-0400 Diastolic blood pressure 84 mm[Hg] Christian Clancy Other [employer] [facility] [employer] Other 09-29-2021 12:00-0400 Systolic blood pressure 131 mm[Hg] Christian Clancy Other [employer] [facility] [employer] Other 07-18-2020 14:12-0400 BP Diastolic 66 mm[Hg] [facility] 14:12-0400 BP Systolic 120 mm[Hg] [facility] 07-18-2020 14:12-0400 Pulse (Heart Rate) 79 /min [facility] 07-18-2020 14:12-0400 Pulse Oximetry 98 % [facility] 07-18-2020 14:12-0400 Respiratory Rate 18 /min [facility] 07-18-2020 12:07-0400 Body Temperature 98.4 [degF] [facility] 07-18-2020 12:04-0400 BMI (Body Mass Index) 19.9 kg/m2 [facility] 07-18-2020 12:04-0400 Body weight 61.23 kg [facility] 07-18-2020 12:04-0400 Height 175.26 cm [facility] 05-28-2020 16:58-0500 BP Diastolic 80 mm[Hg] [facility] 05-28-2020 16:58-0500 BP Systolic 124 mm[Hg] [facility] 05-28-2020 16:58-0500 Pulse (Heart Rate) 94 /min [facility] 02-24-[facility]21 16:58-0500 Pulse Oximetry 99 % [facility] 05-28-2020 15:52-0500 Respiratory Rate 16 /min [facility] 05-28-2020 14:29-0500 BMI (Body Mass Index) 19.8 kg/m2 [facility] 05-28-2020 14:29-0500 Body Temperature 98.6 [degF] [facility] 05-28-2020 14:29-0500 Body weight 60.9 kg [facility] 05-28-2020 14:29-0500 Height 175.26 cm [facility] Encounters Encounter Date Encounter Type Care Provider Facility Start: 10-16-2024 End: 10-16-2024 Patient encounter procedure Beverly AMADO Work Phone: [facility] Work Phone: Start: 10-16-2024 End: 10-16-2024 Periodic preventive med est patient 18-39 yrs Beverly AMADO Work Phone: [facility] Comment on above: Well woman exam with routine gynecological exam Start: 10-15-2024 End: 10-15-2024 Bamboo flowsheet Miller L Case FRONT END ALIGNMENT SPECIALIST Work Phone: [facility] Start: 10-15-2024 End: 10-15-2024 Bamboo flowsheet Miller L Case FRONT END ALIGNMENT SPECIALIST Work Phone: [facility] Start: 10-15-2024 End: 10-15-2024 Office outpatient visit 15 minutes Miller L Case FRONT END ALIGNMENT SPECIALIST Work Phone: [facility] Comment on above: Acute tonsillitis, u nspecified etiology (Primary Dx) Start: 09-21-2024 End: 09-21-2024 Bamboo flowsheet Miller L Case FRONT END ALIGNMENT SPECIALIST Work Phone: [facility] Start: 09-21-2024 End: 09-21-2024 Bamboo flowsheet Miller L Case FRONT END ALIGNMENT SPECIALIST Work Phone: [facility] Start: 09-21-2024 End: 09-21-2024 ambulatory MILLER L CASE Not Available Start: 09-05-2024 End: 09-05-2024 Bamboo flowsheet Anders Aksew MD Work Phone: [facility] Start: 09-05-2024 End: 09-05-2024 Bamboo flowsheet Anders Askew MD Work Phone: [facility] Start: 09-05-2024 End: 09-05-2024 Office outpatient new 30 minutes Anders Askew MD Work Phone: [facility] Comment on above: Allergic rhinitis du e to animals (Primary Dx); Xerosis cutis Start: 09-05-2024 End: 09-05-2024 ambulatory ANDERS ASKEW Not Available Start: 08-28-2024 End: 08-28-2024 Bamboo flowsheet Harvey Root DO Work Phone: [facility] Start: 08-28-2024 End: 08-28-2024 Bamboo flowsheet Harvey Root DO Work Phone: [facility] Start: 08-28-2024 End: 08-28-2024 Office outpatient visit 25 minutes Harvey Root DO Work Phone: [facility] Comment on above: Chronic rhinitis (Pr imary Dx) Start: 08-28-2024 End: 08-28-2024 ambulatory HARVEY ROOT Not Available Start: 08-23-2024 End: 08-24-2024 ambulatory KAROL MAGANA Facility:[facility] Start: 08-16-2024 End: 08-16-2024 ambulatory HARVEY ROOT Not Available Start: 08-10-2024 End: 08-10-2024 Admission to same day surgery center Karol Magana FITNESS AND WELLNESS COORDINATOR.CRUSHER OPERATOR Work Phone: Col[facility] Surgery Comment on above: Manometry Start: 08-10-2024 End: 08-10-2024 Patient encounter procedure Karol L Izzy FITNESS AND WELLNESS COORDINATOR.CRUSHER OPERATOR Work Phone: Col[facility] Surgery Comment on above: Other constipation ( Primary Dx); Irritable bowel syndrome with mixed bowel habits Start: 08-10-2024 End: 08-10-2024 ambulatory KAROL L IZZY Facility:[facility] Start: 08-08-2024 End: 08-08-2024 Office outpatient visit 25 minutes Harvey Root DO Work Phone: [facility] Comment on above: Chronic pansinusitis (Primary Dx) Start: 08-08-2024 End: 08-08-2024 ambulatory HARVEY ROOT Not Available Start: 08-08-2024 End: 08-08-2024 Bamboo flowsheet Harvey Root DO Work Phone: [facility] Start: 08-08-2024 End: 08-08-2024 Bamboo flowsheet Harvey Root DO Work Phone: [facility] Start: 08-02-2024 End: 08-02-2024 Orders Only Alfa Bell DO Work Phone: Cardiology Comment on above: Syncope and collapse (Primary Dx) Start: 07-04-2024 End: 07-04-2024 ambulatory NEIL JOHNSON Facility:[facility] Start: 07-04-2024 End: 07-04-2024 Patient encounter procedure Marco Antonio Rowe MD Work Phone: Gastroenterology Comment on above: Constipation, unspec ified constipation type (Primary Dx); Generalized abdominal pain; Vagal nerve sensitivity Start: 06-20-2024 End: 06-20-2024 ambulatory HARVEY ROOT Not Available Start: 06-19-2024 End: 06-19-2024 ambulatory TETE PABLO Not Available Start: 06-18-2024 End: 06-18-2024 Bamboo flowsheet Harvey Root DO Work Phone: [facility] Start: 06-18-2024 End: 06-18-2024 Bamboo flowsheet Harvey Root DO Work Phone: [facility] Start: 06-18-2024 End: 06-18-2024 Office outpatient new 45 minutes Harvey Toro Dk DO Work Phone: [facility] Comment on above: Other chronic sinusi tis (Primary Dx); Dysfunction of left eustachian tube; Arthralgia of left temporomandibular joint Start: 06-18-2024 End: 06-18-2024 ambulatory HARVEY Toro DK Not Available Start: 06-12-2024 End: 06-12-2024 ambulatory MAIK Del Real TONIA Not Available Start: 06-01-2024 End: 06-01-2024 Office outpatient visit 25 minutes Ling Wong FRONT END ALIGNMENT SPECIALIST Work Phone: [facility] Comment on above: Acute non-recurrent maxillary sinusitis (Primary Dx); Non-recurrent acute serous otitis media of both ears Start: 06-01-2024 End: 06-01-2024 ambulatory LING WONG Not Available Start: 05-29-2024 End: 05-30-2024 Orders Only Neil Johnson MD Work Phone: [facility] Comment on above: Constipation, unspec ified constipation type (Primary Dx) Abnormal defecation (Primary Dx) Start: 05-25-2024 End: 05-25-2024 ambulatory KARAN AMBRIZ Not Available Start: 05-25-2024 End: 05-25-2024 Office outpatient visit 25 minutes Karan Ambriz DO Work Phone: [facility] Comment on above: Eustachian tube dysf unction, left (Primary Dx) Start: 05-11-2024 End: 05-11-2024 Clinisync Result Encounter Generic External Data Provider [facility] Department Unsolicited Start: 05-11-2024 End: 05-11-2024 Clinisync Result Encounter Generic External Data Provider [facility] External Department Unsolicited Start: 05-11-2024 ambulatory [facility] Facility:[facility] Start: 05-11-2024 End: 05-11-2024 Subsequent hospital visit by physician [facility] Work Phone: [facility] Comment on above: Generalized abdomina l pain [R10.84] Start: 05-10-2024 End: 05-10-2024 Telephone encounter Kelsey Parra RT(R) [facility] Comment on above: Radiology NM (Appoin tment reminder.) Start: 04-30-2024 End: 04-30-2024 Patient encounter procedure Lor Unger APRKellieCRUSHER OPERATOR Work Phone: [facility] [place] Comment on above: Generalized abdomina l pain (Primary Dx); Nausea Start: 12-08-2023 End: 12-08-2023 ambulatory Lor Unger APRKellieCRUSHER OPERATOR Work Phone: [facility] [place] Comment on above: Breath test Start: 12-08-2023 End: 12-08-2023 E-mail encounter from caregiver Lor Unger APRNCassCRUSHER OPERATOR Work Phone: [facility] Start: 12-06-2023 End: 12-06-2023 Nursing evaluation of patient and report Breath Test Jesse Cp Nsg Wl Work Phone: [facility] [place] Comment on above: Generalized abdomina l pain (Primary Dx) Start: 11-23-2023 End: 11-23-2023 Patient encounter procedure FITNESS AND WELLNESS COORDINATOR Eufemialorenzo Ballard Work Phone: [facility]-Ultrasound Main [place] Work Phone: Start: 11-23-2023 End: 11-23-2023 ambulatory JOLEEN Fuenteswilder Work Phone: [facility] Work Phone: Start: 11-07-2023 End: 11-07-2023 Patient encounter procedure Neil Johnson MD Work Phone: [facility] Comment on above: Dyspepsia (Primary D x); Diarrhea, unspecified type Start: 10-31-2023 End: 10-31-2023 ambulatory Marlys Nevarez RN MRI Q Comment on above: Patient Education Post MRI Start: 10-31-2023 End: 10-31-2023 Subsequent hospital visit by physician Mri 3 Radio Main Q (I-Stat/1.5t/3t) Work Phone: MRI Q Comment on above: Generalized abdomina l pain [R10.84] Start: 10-22-2023 End: 10-22-2023 ambulatory CHICO Zaidi LESLIE Not Available Start: 10-14-2023 End: 10-14-2023 Orders Only Neil Johnson MD Work Phone: [facility] [place] Comment on above: Upper abdominal pain (Primary Dx) Generalized abdomina l pain [R10.84] Start: 09-30-2023 Telephone encounter Lor Quinteros on FITNESS AND WELLNESS COORDINATOR.CRUSHER OPERATOR Work Phone: [facility] [place] Comment on above: Patient Update Start: 09-29-2023 Telephone encounter Lor Quinteros on FITNESS AND WELLNESS COORDINATOR.CRUSHER OPERATOR Work Phone: [facility] [place] Comment on above: Patient Question; Pa tient Update Start: 09-27-2023 End: 09-27-2023 Patient encounter procedure Lor Unger FITNESS AND WELLNESS COORDINATOR.CRUSHER OPERATOR Work Phone: [facility] [place] Comment on above: Generalized abdomina l pain (Primary Dx); Nausea and vomiting, unspecified vomiting type; Diarrhea, unspecified type; Rectal bleeding Start: 09-23-2023 End: 09-24-2023 Emergency department patient visit JOLEEN Fuenteswilder Work Phone: [facility]-Emergency Room Work Phone: Start: 02-15-2023 End: 02-15-2023 Emergency department patient visit JOLEEN Fuentest Work Phone: [facility] Work Phone: Start: 10-04-2022 End: 10-04-2022 ambulatory JOLEEN Fuenteswilder Work Phone: [facility] Work Phone: Start: 10-04-2022 End: 10-04-2022 Patient encounter procedure JOLEEN Ballard Work Phone: [facility]-3 East Labor - O/P Start: 10-04-2022 End: 10-04-2022 Emergency department patient visit JOLEEN Ballard Work Phone: [facility]gency [facility] Work Phone: Start: 08-06-2022 End: 08-07-[address] DAPHNEY AVILA . Facility: Start: 06-15-2022 End: 06-16-2022 ambulatory NONE LISTED REQUEST Facility: Start: 04-12-2022 End: 04-13-[address] DAPHNEY AVILA . Facility: Start: 03-25-2022 End: 03-26-2022 ambulatory NONE LISTED REQUEST Facility: Start: 09-29-2021 End: 09-29-2021 ambulatory Christian Clancy Other [place] [employer] Other Start: 09-29-2021 [facility] visit new patient Christian Clancy [facility] Start: 01-13-2021 ([facility]) Corpor[facility] Visit Radhika Nasir JD [facility] Start: 07-18-2020 End: 07-18-2020 Emergency department patient visit Eufemia Ballard -Emergency Room Start: 05-28-2020 End: 05-28-2020 Emergency department patient visit Eufemia Ballard -Emergency Room Start: 01-12-2018 End: 01-13-2018 Patient encounter procedure Neil Corona Facility:[facility] Procedures Date Procedure Procedure Detail Performing Clinician Start: 08-10-2024 ADULT [facility] [employer] Marco Antonio reed MD Work Phone: Start: 05-11-2024 Hepatobil syst imag inc gb w/pharma intervenj Lor Unger FITNESS AND WELLNESS COORDINATOR.CRUSHER OPERATOR Work Phone: Start: 05-11-2024 NM HEPATOBILIARY W EF AND/OR RX Generic External Data Provider Start: 11-23-2023 US scan of gallbladder FITNESS AND WELLNESS COORDINATOR Eufemia Joiner rt Work Phone: Start: 10-31-2023 MRI ABD ENTEROG WO/W IVCON Neil beckford MD Work Phone: Start: 10-31-2023 Mri pelvis w/o & w/contrast material Neil Johnson MD Work Phone: Start: 10-14-2023 Colonoscopy flx dx w/collj spec when pfrmd Lor Unger FITNESS AND WELLNESS COORDINATOR.CRUSHER OPERATOR Work Phone: Start: 10-14-2023 Esophagogastroduodenoscopy transoral diagnostic Lor Unger FITNESS AND WELLNESS COORDINATOR.CRUSHER OPERATOR Work Phone: Start: 08-16-2023 Microscopic observation [Identifier] in Cervix by Cyto stain Miller Smith FRONT END ALIGNMENT SPECIALIST Work Phone: Start: 08-16-2023 Cytp cerv/vag auto thin layer prep mnl screen Beverly AMADO Work Phone: Start: 10-04-2022 Ultrasound scan - obstetric FITNESS AND WELLNESS COORDINATOR Eufemia Ballard Work Phone: Start: 07-18-2020 Diagnostic ultrasound of gravid uterus Eufemia Ballard Start: 05-28-2020 Plain chest X-ray Eufemia Ballard Start: 05-28-2020 SARS Antigen (LFIA) Eufemia Ballard Plan of Treatment Date Care Activity Detail Author Start: 08-15-2028 Screening for malignant neoplasm of cervix [facility] Start: 03-04-2025 End: 03-04-2025 Patient encounter procedure 03/04/2025 1:45 PM EST Office Visit Cardiology [address] [place] [address] [facility] Comment on above: POTS Start: 02-06-2025 End: 02-06-2025 ambulatory 02/06/2025 12:00 PM EST Procedure Cardiology [address] [place] [address] [facility] Comment on above: [facility]OTS Start: 02-06-2025 End: 02-06-2025 Patient encounter procedure Cardiology Comment on above: [place]OTS Start: 12-03-2024 Influenza vaccination [facility] Start: 10-22-2024 End: 10-22-2024 Patient encounter procedure 10/22/2024 10:20 AM EDT Office Visit [facility] [address] [place] [phone] Chico Nelson DPM [address] [address] [facility] Start: 10-16-2024 End: 10-16-2024 Patient encounter procedure 10/16/2024 1:00 PM EDT Office Visit [facility] [address] [place] [address] Beverly Bliss, PA [address] [facility] [address] [place] [address] [facility] Start: 10-15-2024 End: 10-15-2024 Patient encounter procedure 10/15/2024 2:00 PM EDT Office Visit [facility] [address] [place] [phone] Miller Smith FRONT END ALIGNMENT SPECIALIST [address] [place] [address] Arrived [facility] Comment on above: Arrived Start: 10-09-2024 End: 10-09-2024 Patient encounter procedure 10/09/2024 10:00 AM EDT Office Visit [facility] [place] [address] [place] [phone] Harvey Root, [address] [place] [address] [facility] [place] Start: 09-27-2024 End: 09-27-2024 Patient encounter procedure 09/27/2024 10:00 AM EDT Office Visit [facility] [address] [place] [address] Beverly Bliss, PA [address] [facility] [place] [address] [facility] Start: 09-21-2024 End: 09-21-2024 Patient encounter procedure [facility] Comment on above: Arrived Start: 09-05-2024 End: 09-05-2024 Patient encounter procedure 09/05/2024 10:00 AM EDT Office Visit [facility] [address] [facility] [address] [place] [phone] Anders Askew MD [address] [facility] [address] [place] [address] Arrived [facility] Comment on above: Arrived Start: 08-28-2024 End: 08-28-2024 Patient encounter procedure [facility] [place] Comment on above: Arrived Start: 08-23-2024 End: 08-23-2024 Admission to same day surgery center 08/23/2024 10:00 AM EDT [facility] Colorectal Surgery [address] [place] [id number] Karol Magana, FITNESS AND WELLNESS COORDINATOR.CRUSHER OPERATOR [address] [phone] [facility] Virtual Colorectal Surgery Comment on above: Manometry Virtual Start: 08-10-2024 End: 08-10-2024 Patient encounter procedure 08/10/2024 10:30 AM EDT Office Visit Gastroenterology [address] [address] Marco Antonio Rowe MD [address] [place] [address] 2nd opinion IBS & abdominal pain, referred by Dr Johnson Gastroenterology Comment on above: 2nd opinion IBS & abdominal pain, referr ed by Dr Johnson Start: 08-10-2024 End: 08-10-2024 Admission to same day surgery center 08/10/2024 10:00 AM EDT Procedure Colorectal Surgery [address] [place] [id number] Karol Magana JOLEEN.CRUSHER OPERATOR [address] [place] [address] Constipation, unspecified constipation type [K59.00] Colorectal Surgery Comment on above: Constipation, unspecified constipation t ype [K59.00] Start: 08-08-2024 End: 08-08-2024 Patient encounter procedure 08/08/2024 4:00 PM EDT Office Visit [facility] [place] [address] [place] [address] Harvey Root, DO [address] [place] [address] Arrived [facility] [place] Comment on above: Arrived Start: 08-08-2024 End: 08-08-2025 CT Maxillofacial region WO and W contrast IV CT maxillofacial wo IV contrast Imaging Routine Chronic pansinusitis Expected: 08/08/2024 (Approximate), Expires: 08/08/2025 [facility] Work Phone: Comment on above: Expected: 08/08/2024 (Approximate), Expi res: 08/08/2025 Start: 07-04-2024 End: 07-04-2024 Patient encounter procedure 07/04/2024 2:30 PM EDT Office Visit Gastroenterology [address] [address] Marco Antonio Rowe MD [address] [place] [phone] 2nd opinion IBS & abdominal pain, referred by Dr Johnson Gastroenterology Comment on above: 2nd opinion IBS & abdominal pain, referr ed by Dr Johnson Start: 06-27-2024 End: 06-27-2024 Patient encounter procedure 06/27/2024 2:30 PM EDT Office Visit [facility] [place] [address] [place] [address] Harvey Root, DO [address] [place] [address] RAFA[facility]Abbi [place] Start: 06-21-2024 Urine microalbumin profile DTaP,Tdap,Td Vaccine (7 - Td or Tdap) [facility] Start: 06-18-2024 End: 06-18-2025 CT Maxillofacial region WO and W contrast IV CT maxillofacial wo IV contrast Imaging Routine Other chronic sinusitis Expected: 06/18/2024 (Approximate), Expires: 06/18/2025 [facility] Work Phone: Comment on above: Expected: 06/18/2024 (Approximate), Expi res: 06/18/2025 Start: 06-18-2024 End: 06-18-2024 Professional / ancillary services management [facility] Comment on above: Other chronic sinusitis Start: 06-18-2024 End: 06-18-2024 Patient encounter procedure 06/18/2024 10:45 AM EDT Office Visit [facility]NY [place] [address] [place] [address] Harvey Root, DO [address] [place] [address] Arrived DANNY [place] Comment on above: Arrived Start: 05-29-2024 End: 05-29-2024 Patient encounter procedure 05/29/2024 1:20 PM EST Office Visit CP [facility] [address] [place] [address] [address] [place] [address] Neil Johnson MD [address] [place] [address] [address] [place] [address] 1 mo fu [facility] Comment on above: 1 mo fu Start: 05-11-2024 End: 05-11-2024 Patient encounter procedure 05/11/2024 1:00 PM EST Appointment [facility] Radiology Molecular [address] [place] [address] Weight 130 / Not Diabetic / DX: Generalized abdominal pain [R10.84] sched w/ patient. [facility] Radiology Molecular Comment on above: Weight 130 / Not Diabetic / DX: Generali zed abdominal pain [R10.84] sched w/ patient. Start: 12-06-2023 End: 12-06-2023 Nursing evaluation of patient and report 12/06/2023 7:30 AM EDT Nurse Visit [facility] [place] [address] [place] [phone] sibo [facility] [place] Comment on above: [facility] Start: 12-04-2023 Covid-19 Vaccine ( season) Covid-19 Vaccine () [facility] Start: 12-04-2023 Covid-19 Vaccine () Covid-19 Vaccine () [facility] Start: 12-04-2023 Influenza vaccination [facility] Start: 11-07-2023 End: 11-07-2023 Patient encounter procedure 11/07/2023 2:20 PM EDT Office Visit CP [facility] [place] [address] [place] [phone] Neil Johnson MD [address] [facility] [address] [place] [id number] f/u [facility] Comment on above: f/u Start: 10-31-2023 End: 10-31-2023 Patient encounter procedure MRI Q Comment on above: MRI ABD ENTEROG WO/W IVCONGeneralized ab dominal pain [R10.84]Diarrhea, unspecified type [R19.7]Rectal bleeding [K62.5]POTS (postural orthostatic tachycardia syndrome) [G90.A] Start: 10-14-2023 End: 10-14-2023 Patient encounter procedure 10/14/2023 10:30 AM EDT Appointment [facility] [address] [facility] [address] [place] [address] Neil Johnson MD [address] [facility] [address] [place] [address] [facility] Start: 09-23-2023 [facility] Start: 04-04-2023 Behavioral Health Screening Behavioral Health Screening [facility] Start: 12-03-2022 Covid-19 Vaccine ( season) Covid-19 Vaccine () [facility] Start: 10-04-2022 [facility] Start: 10-04-2022 Bacteria identified in Urine by Culture Urine Culture [facility] Start: 10-04-2022 Hospital admission [facility] Start: 10-04-2022 Ultrasound scan - obstetric US OB limited [facility] Start: 2012 Screening for malignant neoplasm of cervix Cervical Cancer Screening [facility] Start: 2009 Anxiety Screening Anxiety Screening [facility] Start: 2009 Depression Screening Depression Screening [facility] Start: 2009 Hepatitis C screening Hepatitis C Screening [facility] Start: 2009 HIV screening HIV Screening [facility] End: 07-04-2025 ADULT [facility] [employer] ADULT [facility] [employer]OMETRY Endoscopy Routine Constipation, unspecified constipation type 1 Occurrences starting 07/04/2024 until 07/04/2025 [facility] Work Phone: Comment on above: 1 Occurrences starting 07/04/2024 until 07/04/2025 ADULT [facility] [employer]OM[employer] ADULT [facility] [employer]OM[employer] Endoscopy Routine Constipation, unspecified constipation type 08/10/2024 [facility] Work Phone: End: 11-06-2024 BREATH TEST GLUCOSE BREATH TEST GLUCOSE Endoscopy Routine Dyspepsia 1 Occurrences starting 11/07/2023 until 11/06/2024 [facility] Comment on above: 1 Occurrences starting 11/07/2023 until 11/06/2024 Cardiovascular funct ion eval w/tilt table w/mntr TILT TABLE EVALUATION Cardiology Routine Syncope and collapse Ordered: 08/02/2024 [facility] Comment on above: Ordered: 08/02/2024 Cytology Cervical or vaginal smear or scraping study Pap Smear Pathology and Cytology Routine Well woman exam with routine gynecological exam Ordered: 10/16/2024 [facility] [employer] Work Phone: Comment on above: Ordered: 10/16/2024 End: 08-02-2025 ECG COMPLETE ECG COMPLETE ECG Routine Syncope and collapse 1 Occurrences starting 08/02/2024 until 08/02/2025 [facility] Work Phone: Comment on above: 1 Occurrences starting 08/02/2024 until 08/02/2025 End: 09-26-2024 EGD DIAGNOSTIC EGD DIAGNOSTIC Endoscopy Routine Generalized abdominal pain Nausea and vomiting, unspecified vomiting type 1 Occurrences starting 09/27/2023 until 09/26/2024 [facility] Comment on above: 1 Occurrences starting 09/27/2023 until 09/26/2024 End: 09-26-2024 Flexible sigmoidoscopy study COLONOSCOPY DIAGNOSTIC Endoscopy Routine Generalized abdominal pain Diarrhea, unspecified type Rectal bleeding 1 Occurrences starting 09/27/2023 until 09/26/2024 [facility] [place] Work Phone: Comment on above: 1 Occurrences starting 09/27/2023 until 09/26/2024 Human papilloma viru s DNA [Presence] in Unspecified specimen by Probe with amplification HPV DNA probe, amplified Microbiology Routine Well woman exam with routine gynecological exam Ordered: 10/16/2024 [facility] Comment on above: Ordered: 10/16/2024 End: 05-30-2025 NM Biliary ducts and Gallbladder Views for patency of biliary structures and ejection fraction W sincalide and W radionuclide IV NM HEPATOBILIARY W EF AND/OR RX Radiology Routine Generalized abdominal pain Nausea 1 Occurrences starting 04/30/2024 until 05/30/2025 [facility] [place] Work Phone: Comment on above: 1 Occurrences starting 04/30/2024 until 05/30/2025 End: 12-06-2024 NM Stomach Views for gastric emptying solid phase W radionuclide PO [facility] [place] Work Phone: Comment on above: 1 Occurrences starting 11/07/2023 until 12/06/2024 Patient Education [facility] Patient referral [facility] End: 09-09-2025 RF Gastrointestinal tract upper Views W water soluble contrast PO XR DEFECOGRAPHY Radiology Routine Other constipation 1 Occurrences starting 08/10/2024 until 09/09/2025 [facility] Work Phone: Comment on above: 1 Occurrences starting 08/10/2024 until 09/09/2025 SURGICAL PATHOLOGY SURGICAL PATH OLOGY Lab Routine Upper abdominal pain Ordered: 10/14/2023 [facility] Work Phone: Comment on above: Ordered: 10/14/2023 Immunizations Immunization Date Immunization Notes Care Provider Paloma beyer 11-29-2017 hepatitis A vaccine, adult dosage Harvey Darriusk DO Work Phone: [facility] 11-29-2017 Human Papillomavirus 9-valent vaccine Harvey Shayycek DO Work Phone: [facility] 10-12-2017 KENALOG - 10 mg Radhika Gaspar r Other [facility] [employer] Other 07-25-2017 Human Papillomavirus 9-valent vaccine Harvey Murcek DO Work Phone: [facility] 05-27-2017 hepatitis A vaccine, adult dosage Harvey Rizok DO Work Phone: [facility] 05-27-2017 Human Papillomavirus 9-valent vaccine Harvey Murcek DO Work Phone: [facility] 04-29-2016 influenza, seasonal, injectable Radhika Best Other [facility] 04-29-2016 influenza virus vaccine, unspecified formulation Lor Unger APRN.CRUSHER OPERATOR Work Phone: [facility] 01-08-2016 influenza, seasonal, injectable, preservative free Harvey Shayycek DO Work Phone: [facility] 01-10-2015 influenza, seasonal, injectable Harvey Murcek DO Work Phone: [facility] 06-21-2014 influenza, seasonal, injectable Harvey Murcek DO Work Phone: [facility] 06-21-2014 tetanus toxoid, redu emma diphtheria toxoid, and acellular pertussis vaccine, adsorbed Harvey Murcek DO Work Phone: [facility] 01-19-2010 hepatitis B vaccine, pediatric or pediatric/adolescent dosage Harvey Root DO Work Phone: [facility] 08-18-2009 hepatitis B vaccine, pediatric or pediatric/adolescent dosage Harvey Root DO Work Phone: [facility] 07-19-2009 hepatitis B vaccine, pediatric or pediatric/adolescent dosage Harvey Root DO Work Phone: [facility] 07-26-1996 rubella and mumps vi alice vaccine Harvey Root DO Work Phone: [facility] 07-26-1996 tetanus toxoid, redu emma diphtheria toxoid, and acellular pertussis vaccine, adsorbed Harvey Root DO Work Phone: [facility] 07-01-1992 haemophilus influenz ae type b vaccine, conjugate unspecified formulation Harvey Root DO Work Phone: [facility] 07-01-1992 measles, mumps and rubella virus vaccine Harvey Root DO Work Phone: [facility] 03-24-1992 diphtheria, tetanus toxoids and acellular pertussis vaccine, unspecified formulation Harvey Root DO Work Phone: [facility] 03-24-1992 poliovirus vaccine, unspecified formulation Harvey Root DO Work Phone: [facility] 1991 diphtheria, tetanus toxoids and acellular pertussis vaccine, unspecified formulation Harvey Root DO Work Phone: [facility] 1991 haemophilus influenz ae type b vaccine, conjugate unspecified formulation Harvey Root DO Work Phone: [facility] 1991 diphtheria, tetanus toxoids and acellular pertussis vaccine, unspecified formulation Harvey Root DO Work Phone: [facility] 1991 haemophilus influenz ae type b vaccine, conjugate unspecified formulation Harvey Root DO Work Phone: [facility] 1991 poliovirus vaccine, unspecified formulation Harvey Root DO Work Phone: [facility] 1991 diphtheria, tetanus toxoids and acellular pertussis vaccine, unspecified formulation Harvey Root DO Work Phone: [facility] 1991 haemophilus influenz ae type b vaccine, conjugate unspecified formulation Harvey Root DO Work Phone: [facility] 1991 poliovirus vaccine, unspecified formulation Harvey Root DO Work Phone: [facility] Payers Date Payer Category Payer Self-pay [id number] 2022 [facility] [id number] 2022 Unknown [id number] 2018 Unknown [id number] [id number]. [id number] 2018 Unknown [id number] 1991 Unknown [id number] 2.16.840.1.564038.3.579.2.72 7 1991 Unknown [id number] 2.16.840.1.870204.3.579.2.59 3 1991 Unknown [id number] 2.16.840.1.904972.3.579.2.59 3 1991 Unknown [id number] 2.16.840.1.996474.3.579.2.59 3 1991 Unknown [id number] 2.16.840.1.045704.3.579.2.59 3 1991 Unknown [id number] 2.16.840.1.941481.3.579.2.12 59 1991 Unknown [id number] 2.16.840.1.922019.3.579.2.12 59 1991 Unknown [id number] 2.16.840.1.712787.3.579.2.12 59 1991 Unknown [id number] 2.16.840.1.850296.3.579.2.12 59 1991 Unknown [id number] 2.16.840.1.677385.3.579.2.12 59 1991 Unknown [id number] 2.16.840.1.067958.3.579.2.12 59 1991 Unknown [id number] 2.16.840.1.255566.3.579.2.12 59 1991 Unknown [id number] 2.16.840.1.643122.3.579.2.12 59 1991 Unknown [id number] 2.16840.1.462485.3.579.2.12 59 1991 Unknown [id number] 2.16.840.1.751157.3.579.2.12 59 1991 Unknown [id number] 2.16.840.1.015225.3.579.2.12 59 1991 Unknown [id number] 2.16.840.1.091862.3.579.2.12 59 1991 Unknown [id number] 2.16840.1.021131.3.579.2.12 59 1959 Unknown [id number] 1959 Unknown [id number] Unknown [id number] Unknown [id number] Unknown Regular Auto/Liability [id number] Unknown [id number] 2.16.840.1.936887.3.579.2.53 1 Unknown [id number] 2.16.840.1.307221.3.579.2.53 1 Unknown [id number] 2.16.840.1.285549.3.579.2.53 1 Social History Date Type Detail Facility Start: 07-18-2020 End: 09-21-2022 Tobacco smoking status NHIS Never smoked tobacco (finding) [facility] Start: 1990 Sex Assigned At Female F [facility] Start: 09-27-2023 End: 10-15-2024 Sex Assigned At [employer] Other Start: 01-22-2013 End: 09-21-2022 Tobacco use and exposure Smokeless tobacco non-user [facility] Start: 09-27-2023 End: 08-10-2024 Alcohol intake Current non-drinker of alcohol (finding) [facility] Start: 09-27-2023 End: 10-15-2024 History of Social function [facility] National Score (1-100), lower number is lower risk 58 [facility] Start: 1991 Sex Assigned At Not on file C [facility] Start: 10-14-2023 Gender identity Identifies as female gender (finding) [facility] Start: 10-14-2023 Sexual orientation Heterosexual (fin ding) [facility] Start: 09-16-2023 End: 10-16-2024 Alcoholic beverage intake Lifetime non-drinker (finding) [facility] Start: 09-21-2022 Alcohol Comment Caffeine: none [facility] NEGATED: Highlighted row [facility] Goals Date Patient Goal Desired Activity /State Clinical Notes 01-13-2021 to 10-16-2024 INGRIS Lorenzana - 10/16/2024 1:00 PM EDEmiliana Smith NP - 10/15/2024 2:00 PM Angella Askew MD - 09/05/2024 10:00 AM Roldan Root DO - 08/28/2024 9:15 AM EDTPatient Instructions Note Date & Type Note Facility 10-16-2024 History of Present illness Narrative Reason for Appointment: Patient ID: Marlys Carrero [...] not intractable 10/01/2022 cardiac echogenic focus, antepartum ([facility]) 10/28/2020 Internal derangement of left shoulder 10/01/2022 [...] with sodium channelopathy SVT (supraventricular tachycardia) (HCC) Vice President Risk Management wants her to avoid Estrogen Vitamin D [...] 10/24/2022 SECTION, LOW TRANSVERSE 10-24-22 COLPOSCOPY 2020 [place] CYSTOSCOPY,DIL URETHRAL STRICTURE 2018 Urethral Dilation TOENAIL EXCISION 2010 WISDOM TOOTH EXTRACTION 2009 [place] Teeth Extraction REVIEW OF SYSTEMS Review of [...] nursing note reviewed. Exam conducted with a knitting machine fixer head present. Vitals: Estimated body mass index is 19.52 kg/m as calculated from the following: Height as [...] outbreak of HSV and patient would like to be checked. Discussed some control options with patient and discussed Amelia, Nuva ring and IUD with patient. Patient will think about this and call office with what she would like. Orders Placed This Encounter Procedures HPV DNA probe, amplified Follow Up: Patient is to return in one year for annual unless needed otherwise. Documented by Eufemia Spann LPN on behalf of: INGRIS Lorenzana documented in this encounter [facility] 10-15-2024 History of Present illness Narrative Images from the original note were not included. Marlys Carrero is a 34 y.o. female presents with chief complaint of Adenopathy HPI: History of Present Illness The patient is a 34-year-old female who presents with concerns about severe left sided sore throat, pain and lymphadenopathy. She began experiencing unilateral throat [...] associated with sodium channelopathy SVT (supraventricular tachycardia) ([facility]) Vice President Risk Management wants her to avoid Estrogen Vitamin D [...] 10/24/2022 SECTION, LOW TRANSVERSE 10-24-22 COLPOSCOPY 2020 [place] CYSTOSCOPY,DIL URETHRAL STRICTURE 2018 Urethral Dilation TOENAIL EXCISION 2009 WISDOM TOOTH EXTRACTION 2009 [place] Teeth Extraction FAMILY HISTORY: Family History Problem [...] change, appetite change, fatigue, fever and unexpected weight change. HENT: Positive for postnasal drip, sore throat, [...] Vitals BP 108/72 Pulse 99 Temp 97 F Ht 5' 8 Wt 128 lb 9.6 oz SpO2 99% BMI 19.55 kg/m OB Status Unknown Smoking Status Never BSA 1.67 m Physical Exam Vitals and nursing note reviewed. [...] daily with food, and Medrol Dosepak with instructions to take all six steroid pills on the [...] tablet; Refill: 0 documented in this encounter [facility] 09-05-2024 History of Present illness Narrative Marlys Carrero is a very pleasant 34 y.o. year old female who comes to the office today with the chief complaint of concern about environmental allergies. Referred by Dr. Root Patient recently had a CT scan showed opacification and she was treated for sinusitis and repeat CT scan showed complete clearing of this. However she continued to have nasal congestion after treatment for sinusitis. She was told to increase her Flonase to twice daily and have allergy testing performed. She has been having facial pressure nasal airway obstruction rhinorrhea post nasal drip and hoarseness in spite of the above antibiotics. She feels mowing is a trigger for her symptoms. Her symptoms are worse in the spring. She has tried Benadryl with partial relief. Flonase did not help her symptoms much. She has mild throat itching and occasional chest tightness but has never been diagnosed with asthma. She feels cat is a trigger for her symptoms. Flonase elavil The patient appears comfortable in the office today. Lungs are clear to auscultation bilaterally. The oral mucosa is pink and healthy without any lesions or ulcers. The palate elevates in the midline. The nasal mucosa is pale and congested with a moderate amount of turbinate engorgement and clear rhinorrhea. No polyps or epistaxis is noted. The skin is clear of any rashes, lesions, or ulceration/excoriation. She does have mild diffuse xerosis. Based on the HPI and physical exam, it is medically necessary to perform allergy skin testing today to differentiate if the patients symptoms are allergic in nature and devise a treatment plan. This is a separate procedure from the time spent on the EM encounter. As the patient has not taken any antihistamines within the past five days, we will proceed with skin testing today. Skin testing in the office today performed under direct physician supervision showed Positive testing for cat dander and dust mite but is otherwise negative for indoor and outdoor allergens in the setting of a positive histamine control. IMPRESSION: Chronic rhinitis - We agreed she would perform CT avoidance measures in the home environment. We reviewed these measures in detail in the office today. I suggested she use a combination of Flonase and azelastine. We discussed the risks and benefits of immunotherapy and agreed to defer on this at the current time. Follow-up was arranged in 6 months for reassessment or sooner should problems arise. Xerosis - Pt will use body wash in the shower followed by applying mineral oil. documented in this encounter [facility] 08-28-2024 History of Present illness Narrative HPI Patient presents today following repeat CT scan after I treated her appropriately for chronic sinusitis. Repeat CT scan shows complete clearing of all the opacification she had before. She very minimal floor of the maxillary sinus mucosal thickening. However, she is nasally congested today again. Relevant postoperative physical examination Intranasal examination shows boggy edema of the turbinates and cyanotic appearing mucosa, no mucopus however. Assessment/plan Marlys was seen today for sinusitis. Diagnoses and all orders for this visit: Chronic rhinitis (Primary) Comments: Patient does not need anymore antibiotics over she does need allergy testing. I want her to increase her Flonase to twice daily, she can use an [id number] nonsedating antihistamine and I will refer her for allergy testing. I will see her back in 6 weeks. documented in this encounter [facility] 08-23-2024 Note HNO ID: [id number] Author: KAROL MAGANA APRN.CRUSHER OPERATOR Service: ? Author Type: Nurse Practitioner Type: Progress Notes Filed: 08/24/2024 12:41 Note Text: PELVIC FLOOR Televisit COLON AND RECTAL SURGERY Reason for visit: Review anorectal manometry and EMG results I have communicated my name and active licensure. The patient's identity and physical location were verified at the time of this visit. Either the patient or their legal payable representative has been informed of the risks and benefits of -- and alternatives to -- treatment through a remote evaluation and consents to proceed with the evaluation remotely. History of Present Illness: Marlys Carrero is a 34 year old FEMALE who was seen at the request of Dr. Marco Antonio Rowe for anorectal manometry testing, rectal sensation testing and EMG recruitment. Mrs. Carrero was referred for testing due to symptoms of constipation. GI Symptoms: Onset of issues: last September, in the ER for colitis flare, nausea, vomiting, constipation Previous bowels:always had a mix of constipation diarrhea Stool frequency: 2-3 times a day to one per week Stool type: Varies between Type 1: Separate hard lumps, like nuts (hard to pass) Type 4: Like a sausage or snake, smooth and soft and Type 7 Stool straining: excessive straining Incomplete evacuation: Yes, feels like they are not emptying completely intermittent Maneuvers: -digital disimpaction -squatty pottly Current bowel regimen: -amytriptaline -Isagard peppermint supplement -Activia -bentyl and zofran as needed Use of enemas or suppositories: -None What medications have you tried in the past? : -Miralax, Senakot, colace Vaginal/perineal pressure: Nonne Abdominal pressure/pain: -Abdominal pressure/bloating/cramping and pain intermittent when really constiapted Anorectal pain: -only with constipation and straining, not typically day to day basis -hemorrhoidal and fissure pain Feelings of prolapse : -None Do you have accidental bowel leakage, fecal incontinence, or urgency with bowel movements? -no fecal incontinence, intermittent urgency Blood or mucous: -intermittent blood and mucus from rectal Hx of Surgery: - 10/2022 Hx of Abuse/trauma/stress: None, is in a safe situation now PMH: malignant melanoma 2013 status post excision Previous PFPT: None GI provider: Dr. Marco Antonio Rowe Prior hysterectomy: No Urinary Symptoms: Urinary incontinence: with coughing, laughing, lifting Urinary frequency: No Obstetric history: 2 Para 2 Vaginal delivery: 1 vaginal births and 1 c-sections. - Episiotomy: No - Tear: No - Forceps No baby was 7 lbs 5 ounce Previous Testing Results include: Colonoscopy: Yes Date:10/14/2023 - random biopsies: Yes - polyps: No Impression: - Hemorrhoids found on perianal exam. - The entire examined colon is normal. - Normal mucosa in the entire examined colon. Biopsied. - The examined portion of the ileum was normal. - The distal rectum and anal verge are normal on retroflexion view. - No lesions to suggest cause of symptoms Manometry: at previous appointment Defecography: No PAST MEDICAL HISTORY Diagnosis Date DJD (degenerative joint disease) C2-6 Melanoma (HCC) malignant Neurocardiogenic syncope Osteoarthritis C5 AND6 POTS (postural orthostatic tachycardia syndrome) Seizure (HCC) SVT (supraventricular tachycardia) (HCC) Syncope and collapse TMJ (dislocation of temporomandibular joint) PAST SURGICAL HISTORY Procedure Laterality Date SECTION HX 2022 PAST SURGICAL HISTORY OF 04/04/2008 wisdom teeh removal Current Outpatient Medications Medication Sig Dispense Refill fluticasone (FLONASE) 50 mcg/actuation nasal spray 2 Sprays. amitriptyline (ELAVIL) 10 mg tablet Take 1 tablet by mouth daily at bedtime. (Patient not taking: Reported on 08/10/2024) 90 tablet 3 dicyclomine (BENTYL) 20 mg tablet Take 1 tablet by mouth four times a day as needed. 90 tablet 1 ondansetron orally disintegrating (ZOFRAN ODT) 4 mg disintegrating tablet Take 1 tablet by mouth every 8 hours as needed for nausea/vomiting. 60 tablet 1 No current facility-administered medications for this visit. ALLERGIES Allergen Reactions Polymyxin B Swelling Midodrine Itching FAMILY HISTORY Problem Relation Age of Onset Genitourinary () Mother Psychiatry Mother depression Thyroid Mother Hypertension Father Social History Tobacco Use Smoking status: Never Smokeless tobacco: Never Vaping Use Vaping status: Never Used Substance Use Topics Alcohol use: No Drug use: No No physical exam, televisit Previous ALEXY from ARM testing on 08/10/2024: Digital Rectal Exam: Anus: closed Resting tone: NORMAL Squeeze tone: NORMAL Valsalva: pelvic floor relaxation is abnormal. Appropriate relaxation, but poor straightening of rectum. Puborectalis: non-tender in Left anterior, R (more content not included)... [facility] 08-10-2024 Note HNO ID: [id number] Author: KAROL MAGANA APRN.CRUSHER OPERATOR Service: ? Author Type: Nurse Practitioner Type: Progress Notes Filed: 08/24/2024 12:36 Note Text: Participation of a fellow, resident, medical student, or advanced practice provider student in performing the sensitive examination was discussed with the patient or authorized payable representative. The patient or authorized payable representative has agreed to proceed with the sensitive examination. Printer Apprentice present: Yes, Parul Solis Digital Rectal Exam: Anus: closed Resting tone: NORMAL Squeeze tone: NORMAL Valsalva: pelvic floor relaxation is abnormal. Appropriate relaxation, but poor straightening of rectum. Puborectalis: non-tender in Left anterior, Right anterior, Left posterior, and Right posterior to palpation on valsalva Rectocele: Absent Full thickness rectal prolapse: No Karol Magana APRN, CRUSHER OPERATOR Colorectal Surgery [facility] 08-10-2024 Instructions Marco Antonio Rowe MD - 08/10/2024 10:55 AM EDT --Start amitriptyline 10mg at night, we can increase the dose every 2 weeks as needed --Schedule defecography to evaluate pelvic floor --Schedule pelvic floor Physical Therapy --Return to clinic in 3 months. You can call [phone] to schedule, I would recommend calling 2 months prior to the expected appointment documented in this encounter [facility] 08-10-2024 Note HNO ID: [id number] Author: MARCO ANTONIO ROWE MD Service: ? Author Type: Physician Type: Progress Notes Filed: 08/10/2024 11:02 Note Text: Marlys Carrero, 34 year old female here for follow-up for IBS Recording using [employer] software for draft documentation of the visit was discussed with the patient/authorized payable representative; all questions welcomed and answered. Patient/authorized payable representative agreed to proceed Patient is a 34-year-old female with a history of POTS and IBS presenting for follow-up. Patient recently underwent a balloon expulsion test but was unable to expel the balloon. She reports that the clinician performing the test mentioned a possible nerve dysfunction and an abnormal anatomical positioning of the rectum. Patient has not yet received the official results of the test. She has not started amitriptyline, as she was waiting for the test results before initiating the medication. Patient inquires about the use of IBgard for her symptoms. ALLERGIES Allergen Reactions Polymyxin B Swelling Midodrine Itching Current Outpatient Medications Medication Sig Dispense Refill fluticasone (FLONASE) 50 mcg/actuation nasal spray 2 Sprays. dicyclomine (BENTYL) 20 mg tablet Take 1 tablet by mouth four times a day as needed. 90 tablet 1 ondansetron orally disintegrating (ZOFRAN ODT) 4 mg disintegrating tablet Take 1 tablet by mouth every 8 hours as needed for nausea/vomiting. 60 tablet 1 amitriptyline (ELAVIL) 10 mg tablet Take 1 tablet by mouth daily at bedtime. (Patient not taking: Reported on 08/10/2024) 90 tablet 3 No current facility-administered medications for this visit. Past medical, surgical and social history is reviewed and unchanged from prior visit. PHYSICAL EXAMINATION BP 107/76 Pulse 80 Temp (Src) 97.9 (Temporal) Ht 5' 8 (1.73m) Wt 125 lb 6.4 oz (56.9kg) SpO2 100% LMP 08/08/2024 BMI 19.07 kg/(m2). General appearance: NAD Lymph: Assessment IMPRESSION Problem List Items Addressed This Visit None Assessment: Pleasant 34F with POTS, presents with 1 year of constipation alternating with diarrhea and intermittent pain with pre-syncope. ARM today - prelim report of not able to expel balloon, but there was no paradoxical contraction Recommend: --Defecography to ensure no anatomic issue causing inability to expel balloon on ARM --Pelvic floor PT for constipation --Amitriptyline 10mg QHS - this may help her pain and vagal issues --RTC in 3 months Marco Antonio Rowe MD August 10, 2024 10:39 AM [facility] 05-09-2025 History of Present illness Narrative Marlys Carrero, 34 year old female here for follow-up for IBS Recording using [employer] software for draft documentation of the visit was discussed with the patient/authorized payable representative; all questions welcomed and answered. Patient/authorized payable representative agreed to proceed Patient is a 34-year-old female with a history of POTS and IBS presenting for follow-up. Patient recently underwent a balloon expulsion test but was unable to expel the balloon. She reports that the clinician performing the test mentioned a possible nerve dysfunction and an abnormal anatomical positioning of the rectum. Patient has not yet received the official results of the test. She has not started amitriptyline, as she was waiting for the test results before initiating the medication. Patient inquires about the use of IBgard for her symptoms. ALLERGIES Allergen Reactions Polymyxin B Swelling Midodrine Itching Current Outpatient Medications Medication Sig Dispense Refill fluticasone (FLONASE) 50 mcg/actuation nasal spray 2 Sprays. dicyclomine (BENTYL) 20 mg tablet Take 1 tablet by mouth four times a day as needed. 90 tablet 1 ondansetron orally disintegrating (ZOFRAN ODT) 4 mg disintegrating tablet Take 1 tablet by mouth every 8 hours as needed for nausea/vomiting. 60 tablet 1 amitriptyline (ELAVIL) 10 mg tablet Take 1 tablet by mouth daily at bedtime. (Patient not taking: Reported on 08/10/2024) 90 tablet 3 No current facility-administered medications for this visit. Past medical, surgical and social history is reviewed and unchanged from prior visit. PHYSICAL EXAMINATION BP 107/76 Pulse 80 Temp (Src) 97.9 (Temporal) Ht 5' 8 (1.73m) Wt 125 lb 6.4 oz (56.9kg) SpO2 100% LMP 08/08/2024 BMI 19.07 kg/(m^2). General appearance: NAD Lymph: Assessment IMPRESSION Problem List Items Addressed This Visit None Assessment: Pleasant 34F with POTS, presents with 1 year of constipation alternating with diarrhea and intermittent pain with pre-syncope. ARM today - prelim report of not able to expel balloon, but there was no paradoxical contraction Recommend: --Defecography to ensure no anatomic issue causing inability to expel balloon on ARM --Pelvic floor PT for constipation --Amitriptyline 10mg QHS - this may help her pain and vagal issues --RTC in 3 months Marco Antonio Rowe MD August 10, 2024 10:39 AM documented in this encounter [facility] 08-08-2024 History of Present illness Narrative Subjective Patient ID: HPI Patient presents today following treatment for chronic pansinusitis. I had seen her her CT scan showed pansinusitis. She was placed on 2 weeks of antibiotics as well as a Kenalog injection. She says she almost immediately got better but toward the end of therapy got the symptoms back again with pressure and pain and some purulent nasal drainage. She was out of town and was treated at an urgent care center with a another 10 day course of the same antibiotic again getting better but now feels like the symptoms are returning. She is using her Flonase and frequent nasal saline. Review of Systems ROS The specialty specific review of systems is noncontributory except for that recorded in the intake questionnaire and /or described in the history of present illness. Objective ENT Physical Exam Physical Exam Constitutional: Appearance: Normal appearance. HENT: Head: Atraumatic. Ears: External ear shows no abnormality Bilateral ear canals are clear Tympanic membranes intact, no evidence of middle ear fluid or other pathology. Nose: External nose appears to be normal Nares patent. Septal deviation to the right No evidence of polyp, mass or pus bilaterally. Mucosa somewhat dry. Oral Cavity: No evidence of trismus Lips appear normal Dental good Tongue of normal size and configuration, floor of mouth mucosa clear. Buccal mucosa shows no evidence of ulceration, mass or other abnormality Hard palate soft palate mucosa intact with no evidence of mass, ulceration or other abnormality Uvula of normal size and configuration Oropharynx: Tonsils Posterior pharyngeal wall Neck: No evidence of palpable abnormality Thyroid without evidence of thyromegaly or mass. No cervical lymphadenopathy present. Cardiovascular: Rate and Rhythm: Normal rate and regular rhythm. . Skin: General: Skin is warm and dry. Neurological: General: No focal deficit present. Mental Status: alert and oriented to person, place, and time. Assessment/Plan Marlys was seen today for sinusitis. Diagnoses and all orders for this visit: Chronic pansinusitis (Primary) Comments: I want the patient to continue her Flonase and nasal saline. I am going to repeat her CT scan and see her back following that. Orders: - CT maxillofacial wo IV contrast; Future She may be nearing medical therapy failure. She documented in this encounter [facility] 07-04-2024 Instructions Marco Antonio Rowe MD - 07/04/2024 3:16 PM EDT --Anorectal manometry - this is a small balloon that goes into your rectum and measures the function of the rectum and anal sphincter to ensure that the muscles are working normally. This is done in the lab by one of our colorectal surgeons (it isn't surgery, the surgeon performs the test). --I would recommend trying a low dose of an antidepressant called amitriptyline. This helps to decrease nerve pain and confusion - it works through the serotonin and norepinephrine chemicals in your body. I start with a very low dose of 10mg (the max dose is 300mg) and increase it every month as needed. The main side effect is sleepiness, so you take it at night before bed. Can you send me a [employer] message in 2-4 weeks? We can increase the dose every 2 weeks if needed --One option for constipation is kiwifruit - a recent study demonstrated 2 green kiwifruit per day can help with constipation: https://pubmed.ncbi.nlm.nih.gov/3 7380745/ Or, you can try Kiwi Regularity tabs - you can get these on [employer] --Return to clinic in 3 months. You can call [phone] to schedule, I would recommend calling 2 months prior to the expected appointment documented in this encounter [facility] 07-04-2024 Note HNO ID: [id number] Author: MARCO ANTONIO ROWE MD Service: ? Author Type: Physician Type: Progress Notes Filed: 07/04/2024 15:31 Note Text: DEPARTMENT OF GASTROENTEROLOGY - NEW PATIENT/CONSULT REASON FOR VISIT IBS + Abdominal pain HISTORY OF PRESENT ILLNESS Marlys Carrero is a 34 year old female with a past medical history of POTS who presents today for an evaluation of abdominal pain. Patient states that she has been having episodes of abdominal pain associated with rectal urgency since 09/2023. Describes these episodes as a acute onset abdominal pain located in the epigastric and left upper quadrant region. During these episodes she will try to defecate however, regardless of the amount she pushes she would be unable to have a bowel movement and would become nauseous to the point of vomiting. These episodes occur on average about once per week. In between these episodes patient will fluctuate between having constipation that requires digitally disimpacting and diarrhea. The patient was given a diagnosis of IBS and trialed on a low FODMAP diet which she says did not help her symptoms. Previous Work-up Colonoscopy 10/14/2023 Impression: - Hemorrhoids found on perianal exam. - The entire examined colon is normal. - Normal mucosa in the entire examined colon. Biopsied. - The examined portion of the ileum was normal. - The distal rectum and anal verge are normal on retroflexion view. - No lesions to suggest cause of symptoms EGD 10/14/2023 Impression: - Normal esophagus. - Normal stomach. Biopsied. - Normal duodenal bulb and second portion of the duodenum. PAST MEDICAL HISTORY PAST MEDICAL HISTORY Diagnosis Date DJD (degenerative joint disease) C2-6 Melanoma (HCC) malignant Neurocardiogenic syncope Osteoarthritis C5 AND6 POTS (postural orthostatic tachycardia syndrome) Seizure (HCC) SVT (supraventricular tachycardia) (HCC) Syncope and collapse TMJ (dislocation of temporomandibular joint) PAST SURGICAL HISTORY PAST SURGICAL HISTORY Procedure Laterality Date SECTION HX 2022 PAST SURGICAL HISTORY OF 04/04/2008 wisdom teeh removal SOCIAL HISTORY Social History Tobacco Use Smoking status: Never Smokeless tobacco: Never Vaping Use Vaping status: Never Used Substance Use Topics Alcohol use: No Drug use: No FAMILY HISTORY (grandparents, parents, brothers, sisters, aunts, or uncles) Non-contributory Current Outpatient Medications Medication Sig Dispense Refill fluticasone (FLONASE) 50 mcg/actuation nasal spray 2 Sprays. clarithromycin XL (BIAXIN XL) 500 mg 24 hr tablet Take 1,000 mg by mouth. dicyclomine (BENTYL) 20 mg tablet Take 1 tablet by mouth four times a day as needed. 90 tablet 1 ondansetron orally disintegrating (ZOFRAN ODT) 4 mg disintegrating tablet Take 1 tablet by mouth every 8 hours as needed for nausea/vomiting. 60 tablet 1 No current facility-administered medications for this visit. ALLERGIES Allergen Reactions Polymyxin B Swelling Midodrine Itching PHYSICAL EXAMINATION BP 120/82 Pulse 98 Temp (Src) 98.4 (Temporal) Ht 5' 8 (1.73m) Wt 129 lb 12.8 oz (58.9kg) SpO2 97% LMP 06/15/2024 BMI 19.74 kg/(m2). General Appearance: Well appearing, alert, in no acute distress, well-hydrated, well nourished. Eyes: PERRLA, conjunctiva and sclera normal Lungs: normal wob Abdomen: not distended, normal bowel sounds, soft and depressible, no guarding or rebound, no palpable mass, no organomegaly Rectal exam: Deferred. Extremities: no cyanosis or edema Skin: no jaundice, no spider angiomas, no palmar erythema Neuro:alert, oriented x 3, pleasant and in no acute distress LABS Reviewed in EPIC ASSESSMENT #Abdominal Pain PLAN: - Anorectal manometry - can continue viriyl danitza Currie MD (Abdul) Gastroenterology Fellow Attending Note I evaluated the patient and personally participated in the do components. I agree with the resident's findings and plan as documented and have discussed the case and management of the patient's care with the resident. Signature: Marco Antonio Rowe MD Date: 07/04/2024 Time: 3:29 PM Pleasant 34F with POTS, presents with 1 year of constipation alternating with diarrhea and intermittent pain with pre-syncope. Recommend: --Anorectal manometry --Amitriptyline 10mg QHS - this may help her pain and vagal issues --Kiwifruit for constipation --RTC in 3 months [facility] 07-04-2024 History of Present illness Narrative DEPARTMENT OF GASTROENTEROLOGY - NEW PATIENT/CONSULT REASON FOR VISIT IBS + Abdominal pain HISTORY OF PRESENT ILLNESS Marlys Carrero is a 34 year old female with a past medical history of POTS who presents today for an evaluation of abdominal pain. Patient states that she has been having episodes of abdominal pain associated with rectal urgency since 09/2023. Describes these episodes as a acute onset abdominal pain located in the epigastric and left upper quadrant region. During these episodes she will try to defecate however, regardless of the amount she pushes she would be unable to have a bowel movement and would become nauseous to the point of vomiting. These episodes occur on average about once per week. In between these episodes patient will fluctuate between having constipation that requires digitally disimpacting and diarrhea. The patient was given a diagnosis of IBS and trialed on a low FODMAP diet which she says did not help her symptoms. Previous Work-up Colonoscopy 10/14/2023 Impression: - Hemorrhoids found on perianal exam. - The entire examined colon is normal. - Normal mucosa in the entire examined colon. Biopsied. - The examined portion of the ileum was normal. - The distal rectum and anal verge are normal on retroflexion view. - No lesions to suggest cause of symptoms EGD 10/14/2023 Impression: - Normal esophagus. - Normal stomach. Biopsied. - Normal duodenal bulb and second portion of the duodenum. PAST MEDICAL HISTORY PAST MEDICAL HISTORY Diagnosis Date DJD (degenerative joint disease) C2-6 Melanoma (HCC) malignant Neurocardiogenic syncope Osteoarthritis C5 &6 POTS (postural orthostatic tachycardia syndrome) Seizure (HCC) SVT (supraventricular tachycardia) (HCC) Syncope and collapse TMJ (dislocation of temporomandibular joint) PAST SURGICAL HISTORY PAST SURGICAL HISTORY Procedure Laterality Date SECTION HX 2022 PAST SURGICAL HISTORY OF 04/04/2008 wisdom teeh removal SOCIAL HISTORY Social History Tobacco Use Smoking status: Never Smokeless tobacco: Never Vaping Use Vaping status: Never Used Substance Use Topics Alcohol use: No Drug use: No FAMILY HISTORY (grandparents, parents, brothers, sisters, aunts, or uncles) Non-contributory Current Outpatient Medications Medication Sig Dispense Refill fluticasone (FLONASE) 50 mcg/actuation nasal spray 2 Sprays. clarithromycin XL (BIAXIN XL) 500 mg 24 hr tablet Take 1,000 mg by mouth. dicyclomine (BENTYL) 20 mg tablet Take 1 tablet by mouth four times a day as needed. 90 tablet 1 ondansetron orally disintegrating (ZOFRAN ODT) 4 mg disintegrating tablet Take 1 tablet by mouth every 8 hours as needed for nausea/vomiting. 60 tablet 1 No current facility-administered medications for this visit. ALLERGIES Allergen Reactions Polymyxin B Swelling Midodrine Itching PHYSICAL EXAMINATION BP 120/82 Pulse 98 Temp (Src) 98.4 (Temporal) Ht 5' 8 (1.73m) Wt 129 lb 12.8 oz (58.9kg) SpO2 97% LMP 06/15/2024 BMI 19.74 kg/(m^2). General Appearance: Well appearing, alert, in no acute distress, well-hydrated, well nourished. Eyes: PERRLA, conjunctiva and sclera normal Lungs: normal wob Abdomen: not distended, normal bowel sounds, soft and depressible, no guarding or rebound, no palpable mass, no organomegaly Rectal exam: Deferred. Extremities: no cyanosis or edema Skin: no jaundice, no spider angiomas, no palmar erythema Neuro:alert, oriented x 3, pleasant and in no acute distress LABS Reviewed in EPIC ASSESSMENT #Abdominal Pain PLAN: - Anorectal manometry - can continue viriyl danitza Rockwell (Ashley Currie MD Gastroenterology Fellow Attending Note I evaluated the patient and personally participated in the do components. I agree with the resident's findings and plan as documented and have discussed the case and management of the patient's care with the resident. Signature: Marco Antonio Rowe MD Date: 07/04/2024 Time: 3:29 PM Pleasant 34F with POTS, presents with 1 year of constipation alternating with diarrhea and intermittent pain with pre-syncope. Recommend: --Anorectal manometry --Amitriptyline 10mg QHS - this may help her pain and vagal issues --Kiwifruit for constipation --RTC in 3 months documented in this encounter [facility] 06-18-2024 History of Present illness Narrative Subjective Patient ID: HPI Patient is a 34-year-old female referred for essentially left-sided ear pain. This is now been going on about a month. She certainly has sinusitis type symptoms. She did a 10 day course of Augmentin that did not get better, was recently started on 10 days course of Bactrim as well as prednisone. She has got a few days of that left and still having mucopurulent nasal discharge. She says her hearing in her left ear is muffled. Review of Systems ROS The specialty specific review of systems is noncontributory except for that recorded in the intake questionnaire and /or described in the history of present illness. Objective ENT Physical Exam Physical Exam Constitutional: Appearance: Normal appearance. HENT: Head: Atraumatic. Ears: External ear shows no abnormality Bilateral ear canals are clear Tympanic membranes intact, no evidence of middle ear fluid or other pathology. The left tympanic membrane may be a bit retracted. I do not see any evidence of fluid. Nose: External nose appears to be normal Nares patent. Septal deviation to the left, mild No evidence of polyp, mass or pus bilaterally. Oral Cavity: No evidence of trismus Lips appear normal Dental good Tongue of normal size and configuration, floor of mouth mucosa clear. Buccal mucosa shows no evidence of ulceration, mass or other abnormality Hard palate soft palate mucosa intact with no evidence of mass, ulceration or other abnormality Uvula of normal size and configuration Opening the jaw does reveal some crepitus in the left TMJ and reproducible pain. Oropharynx: Tonsils 1+ Posterior pharyngeal wall normal Neck: No evidence of palpable abnormality Thyroid without evidence of thyromegaly or mass. No cervical lymphadenopathy present. Cardiovascular: Rate and Rhythm: Normal rate and regular rhythm. . Skin: General: Skin is warm and dry. Neurological: General: No focal deficit present. Mental Status: alert and oriented to person, place, and time. Assessment/Plan Marlys was seen today for otitis media. Diagnoses and all orders for this visit: Other chronic sinusitis (Primary) Comments: Given the fact the patient has been on 20 days of antibiotics and her sinus issues are not getting better she needs imaging. Orders: - CT maxillofacial wo IV contrast; Future Dysfunction of left eustachian tube Comments: Patient has Eustachian tube dysfunction secondary to her chronic sinusitis. Arthralgia of left temporomandibular joint Comments: I placed the patient on a leave twice daily, with a meal, and discussed altered alternate side chewing, soft diet, etcetera. I want her to increase her Flonase to twice daily as well as nasal saline. I will get the CT and see her back hopefully in about a week or so. We will do an audiogram on her next visit. documented in this encounter [facility] 06-01-2024 History of Present illness Narrative Images from the original note were not included. [address], [address] [facility], [address] P: [phone] F: [phone] HPI Historian of HPI: patient is present Marlys Carrero is a 34 y.o. female who presents today to the Urgent Care with the following complaints and denials which have been present for 3 day(s) Pt states that she just had seen Dr. Ambriz here at the last week. Dr. Gordon stated that she had fluid behind her ears and treated her for an ear infection. Now pt states that she feels like she has been hit buy a bus. Pt denies any N/D/V at this time. Pt is holding off on testing until she sees a provider. C/O Denies Symptom Comments [] [x] Runny Nose [x] [] Difficulty Swallowing [x] [] Sore Throat [x] [] Cough Dry cough, chest congestion [x] [] Ear Pain Popping, pressure, bilateral ear [x] [] Fever Comes and goes [x] [] Chills Comes and goes [x] [] Nasal Congestion [x] [] Myalgia [] [] Sinus Pain [x] [] Sinus Pressure Maxillary Additional Comments: pt has taken nite quill and day quill OTC medication without relief Denies or ROS A complete system ROS was performed and negative aside from the pertinent positives PHYSICAL EXAM Examination General Examination: General Examination: in no acute distress, well developed, well nourished Head: normocephalic, atraumatic Eyes: no discharge Ears: BOTH EARS canals normal. TM with mild effusion and rodger in color bilat Nose: thick clear nasal discharge bilat. Maxillary sinus tenderness bilat. Oral Cavity: mucosa moist Throat: pharynx with erythema and PND. No trismus, muffled voice, drooling or protrusion of soft palate. Uvula midline Neck/Thyroid: neck supple, trachea midline Lymph Nodes: no cervical adenopathy Skin: warm and dry Heart: S1, S2 normal, regular rate and rhythm, no S3, S4, no murmurs, rubs, gallops Lungs: clear anteriorly and posteriorly, clear to auscultation bilaterally, good air movement, no wheezes, rales, rhonchi Chest: normal shape and expansion, normal anteroposterior (AP) diameter Psych: alert, oriented. TREATMENT PLAN 1. Acute non-recurrent maxillary sinusitis (Primary) Start augmentin-see rx, discussed Se, take with food, discussed may decrease effects of OCP if concurrent use. Immediate eval if new, worsening sx otherwise follow up with PCP 2 weeks for recheck, sooner if not improving over next 72 hours. - amoxicillin-clavulanate (Augmentin) 875-125 MG tablet; Take 1 tablet (875 mg) by mouth in the morning and 1 tablet (875 mg) before bedtime. Do all this for 10 days. Dispense: 20 tablet; Refill: 0 2. Non-recurrent acute serous otitis media of both ears See 1 documented in this encounter [facility] 05-29-2024 History of Present illness Narrative Images from the original note were not included. [facility] DATE: 05/29/2024 PATIENT NAME: Marlys Carrero : 1990 CHIEF COMPLAINT No chief complaint on file. HPI Marlys Carrero is a 34 year old female established patient abd pain Can have multiple stools daily, or can get constipated Sometimes, recently, she has had to manually self-digitalize, because fred won't come out on their own Uses squatty potty No certain foods cause the problem Uses Bentyl and Zofran Sometimes dry heaves when sitting on toilet trying to pass stool Did Low FODMAP very strictly for 4 months, but any noticeable change in symptoms. Evaluation thus far has included celiac serologies, ultrasound which was normal, HIDA scan which was significant for ejection fraction of 86%, MRE, CT, EGD, colonoscopy, and SIBO breath test. PMH PAST MEDICAL HISTORY Diagnosis Date DJD (degenerative joint disease) C2-6 Melanoma (HCC) malignant Neurocardiogenic syncope Osteoarthritis C5 &6 POTS (postural orthostatic tachycardia syndrome) Seizure (HCC) SVT (supraventricular tachycardia) (HCC) Syncope and collapse TMJ (dislocation of temporomandibular joint) PSH PAST SURGICAL HISTORY Procedure Laterality Date SECTION HX 2022 PAST SURGICAL HISTORY OF 04/04/2008 wisdom teeh removal ALLERGIES ALLERGIES Allergen Reactions Polymyxin B Swelling Midodrine Itching CURRENT MEDS PRIOR TO VISIT Current Outpatient Medications Medication Sig Dispense Refill dicyclomine (BENTYL) 20 mg tablet Take 1 tablet by mouth four times a day as needed. 90 tablet 1 ondansetron orally disintegrating (ZOFRAN ODT) 4 mg disintegrating tablet Take 1 tablet by mouth every 8 hours as needed for nausea/vomiting. 60 tablet 1 No current facility-administered medications for this visit. ALLERGIES ALLERGIES Allergen Reactions Polymyxin B Swelling Midodrine Itching FH Family History Problem Relation Age of Onset Genitourinary () Mother Psychiatry Mother depression Thyroid Mother Hypertension Father SH SOCIAL HISTORY No social history on file. REVIEW OF SYSTEMS ROS GASTROENTEROLOGY A complete and comprehensive 12 system ROS was ow negative. OBJECTIVE VITALS: BP 113/79 Pulse 107[her normal[ Ht 5' 8 (1.73m) Wt 131 lb (59.4kg) LMP 10/03/2023 BMI 19.92 kg/(m^2). PHYSICAL EXAMINATION GEN: Appears well nourished. No signs of acute distress present. Speech is normal. Alert and oriented X 3. No involuntary movement. Patient is cooperative. HEAD/FACE: Normocephalic on inspection. EYES: PERRLA. Sclerae clear and anicteric. NECK: Neck is supple RESP: Respiration rate is normal. CV: Rate is regular. Rhythm is regular. ABDOMEN: Abdomen is soft, nontender, and nondistended without guarding, rigidity or rebound tenderness. No abdominal masses palpable. No palpable hepatosplenomegaly. PERINEUM/ANUS/RECTUM: Exam deferred at this time. SKIN: Skin is warm and dry with no jaundice, lesions or rashes. NEURO: No focal deficits appreciated. LABS No new labs IMAGING As above 34 year old female here today for abdominal pain with diarrhea alternating with constipation. Suspect IBS, mixed. She also has POTS syndrome. Unclear if there is any connection between the 2. Extensive evaluation is unremarkable. Her symptoms are rather severe and do interfere with her daily activities, including being a mother of 3 young children Recommend pelvic floor physical therapy, and hopefully she will be able to see 1 in her hometown of [place] I have also asked her to make an appointment with Marco Antonio Rowe at [facility]. She and I would appreciate his expert opinion in regards to treating her. Neil Johnson MD [facility] [address] [place] [address] Office: [phone] documented in this encounter [facility] 05-25-2024 History of Present illness Narrative [address], [address] [facility], [address] P: [phone] F: [phone] HPI Historian of HPI: patient Marlys Carrero is a 34 y.o. female who presents today to the Urgent Care with the following complaints and denials which have been present for 12 day(s) pt states she recently had a sinus infection and is has now moved up to her left ear and left side of neck. C/O Denies Symptom Comments [] [x] Runny Nose [] [x] Difficulty Swallowing [x] [] Sore Throat Tenderness on left side of throat [x] [] Cough Slight dry cough [x] [] Ear Pain Left ear pain and pressure [] [x] Fever [] [x] Chills [x] [] Nasal Congestion Worse at night [] [x] Myalgia [] [x] Sinus Pain [] [x] Sinus Pressure Additional Comments: pt has taken tylenol and motrin and night quill OTC medication with relief ROS A complete system ROS was performed and negative aside from the pertinent positives noted in the HPI and PE. IH Testing: PHYSICAL EXAM Physical Exam Constitutional: Appearance: Normal appearance. HENT: Right Ear: Tympanic membrane and ear canal normal. Left Ear: Ear canal normal. Ears: Comments: Mild amount of serous fluid behind L TM Neurological: Mental Status: She is alert. TREATMENT PLAN Diagnoses and all orders for this visit: Eustachian tube dysfunction, left (Primary) - fluticasone (Flonase) 50 MCG/ACT nasal spray; Administer 2 sprays into each nostril Daily Chewing gum, valsalva maneuver, and decongestants suggested. Fluticasone will help, but on a 3-4 delay. RTC if not improving. documented in this encounter [facility] 05-11-2024 History of Present illness Narrative RADIOLOGY SERVICE PROGRESS NOTE SERVICE DATE: 05/11/2024 SERVICE TIME: 1:29 PM PATIENT IDENTITY VERIFICATION COMPLETED USING TWO (2) STANDARD IDENTIFIERS: Name and Date of confirmed by patient verbally FALL SCREENING: Has the patient had 2 falls in the last year or 1 fall with injury or currently using an Ambulatory Assistive Device (Walker, Cane, Wheelchair, Crutches, etc.)? No PATIENT GENDER DATA: .female : No ALLERGIES: N/A MEDICATIONS REVIEWED: Not applicable PATIENT RELEVANT IMPLANT DATA REVIEWED: Not Applicable PATIENT PRESENTS WITH AN IMPLANTABLE OR ATTACHED SENIOR QC TECHNICIAN: No CREATININE: Creatinine Date Value Ref Range Status 08/20/2015 0.84 0.70 - 1.40 mg/dL Final 03/07/2000 0.8 0.3 - 1.0 mg/dL Final eGFR-All Other Races Date Value Ref Range Status 08/20/2015 >60 . Final Comment: eGFR (Estimated GFR) Units of measure: mL/min/1.73 meters squared eGFR is derived from the reexpressed MDRD Study equation using the following parameters: serum creatinine, age, gender and race. The creatinine assay has been calibrated to be traceable to IDMS. An eGFR <60 mL/min/1.73m2 for >3 months is consistent with chronic kidney disease. Refer to KDOQI guidelines for clinical interpretation. In patients with unstable renal function, e.g. those with acute kidney injury, the eGFR may not accurately reflect actual GFR. eGFR- Date Value Ref Range Status 08/20/2015 >60 Final P.O.C.T. RESULTS: N/A May 11, [address] PERFORMED: No IV SITE: Ambulatory: A peripheral IV was started in the Right antecubital site with a Angio cath: 22 gauge. POST EXAM PIV STATUS: Discontinued PROCEDURE TYPE: NM INJECT: Hida w/ef. 5.4 mCi Tc99m CHOLETEC. CCK 1.18 micrograms intravenous at 15:54. PATIENT DISCHARGED TO: Ambulatory patient, left [place] department area. Is this a therapy: No A Diagnostic radioactive procedure has taken place, with no further precautions necessary other than routine body substance precautions. More information regarding radiation safety can be found using this link: [email or web address] SIGNATURE: SHANDA Rutherford) PATIENT NAME: Marlys Carrero DATE: May 11, 2024 TIME: 1:29 PM PAGER/CONTACT #: documented in this encounter [facility] 05-11-2024 Note HNO ID: [id number] Author: VERONICA SERRANO RT(R) Service: Nuclear Medicine Author Type: Technologist Type: Progress Notes Filed: 05/11/2024 13:57 Note Text: RADIOLOGY SERVICE PROGRESS NOTE SERVICE DATE: 05/11/2024 SERVICE TIME: 1:29 PM PATIENT IDENTITY VERIFICATION COMPLETED USING TWO (2) STANDARD IDENTIFIERS: Name and Date of confirmed by patient verbally FALL SCREENING: Has the patient had 2 falls in the last year or 1 fall with injury or currently using an Ambulatory Assistive Device (Walker, Cane, Wheelchair, Crutches, etc.)? No PATIENT GENDER DATA: .female : No ALLERGIES: N/A MEDICATIONS REVIEWED: Not applicable PATIENT RELEVANT IMPLANT DATA REVIEWED: Not Applicable PATIENT PRESENTS WITH AN IMPLANTABLE OR ATTACHED SENIOR QC TECHNICIAN: No CREATININE: Creatinine Date Value Ref Range Status 08/20/2015 0.84 0.70 - 1.40 mg/dL Final 03/07/2000 0.8 0.3 - 1.0 mg/dL Final eGFR-All Other Races Date Value Ref Range Status 08/20/2015 >60 . Final Comment: eGFR (Estimated GFR) Units of measure: mL/min/1.73 meters squared eGFR is derived from the reexpressed MDRD Study equation using the following parameters: serum creatinine, age, gender and race. The creatinine assay has been calibrated to be traceable to IDMS. An eGFR <60 mL/min/1.73m2 for >3 months is consistent with chronic kidney disease. Refer to KDOQI guidelines for clinical interpretation. In patients with unstable renal function, e.g. those with acute kidney injury, the eGFR may not accurately reflect actual GFR. eGFR- Date Value Ref Range Status 08/20/2015 >60 Final P.O.C.T. RESULTS: N/A May 11, [address] PERFORMED: No IV SITE: Ambulatory: A peripheral IV was started in the Right antecubital site with a Angio cath: 22 gauge. POST EXAM PIV STATUS: Discontinued PROCEDURE TYPE: NM INJECT: Hida w/ef. 5.4 mCi Tc99m CHOLETEC. CCK 1.18 micrograms intravenous at 15:54. PATIENT DISCHARGED TO: Ambulatory patient, left [place] department area. Is this a therapy: No A Diagnostic radioactive procedure has taken place, with no further precautions necessary other than routine body substance precautions. More information regarding radiation safety can be found using this link: [email or web address] [email or web address] SIGNATURE: RT Sangeeta(R) PATIENT NAME: Marlys Carrero DATE: May 11, 2024 TIME: 1:29 PM PAGER/CONTACT #: [facility] 04-30-2024 History of Present illness Narrative Images from the original note were not included. [facility] DATE: 04/30/2024 PATIENT NAME: Marlys Carreor : 1990 CHIEF COMPLAINT: Patient presents with: Consult: Gastric pain HPI: Marlys Carrero is a 34 year old female with a past medical history of POTS, SVT and malignant melanoma who is here today for follow up. She was first seen 09/27/23 for generalized abdominal pain, nausea, vomiting, diarrhea and rectal bleeding. Work-up included: - EGD 10/14/23: Normal. Stomach biopsy: Minimal chronic congestion. - Colonoscopy 10/14/23: Perianal hemorrhoids. Exam otherwise normal. Random colon biopsy: normal. - MRE abd/pelvis 10/31/23: Normal. - US gallbladder 11/23/23: Normal. - Celiac testing 10/31/23 -- negative Had OV with Dr. Johnson 11/07/23 SIBO BT ordered - negative Gastric emptying study rec - not done because she did not wish to due the test with radioactive eggs Cannot stomach eggs or think she could keep them down Symptoms are no better Will have at least 1 day per month that she has a sudden onset of generalized (L>R) abdominal pain Pain is sharp and can last for 3 days Crawls up in a ball the pain is so bad Feels she has to go to the bathroom, but can't Once the pain is gone, she has massive diarrhea No rectal bleeding Tries to throw up, bile or saliva comes out Cannot eat or drink much at all during this time Has been unable to identify a trigger such as certain foods, etc Bentyl and zofran take the edge off PMH: PAST MEDICAL HISTORY Diagnosis Date DJD (degenerative joint disease) C2-6 Melanoma (HCC) malignant Neurocardiogenic syncope Osteoarthritis C5 &6 POTS (postural orthostatic tachycardia syndrome) Seizure (HCC) SVT (supraventricular tachycardia) (HCC) Syncope and collapse TMJ (dislocation of temporomandibular joint) PSH: PAST SURGICAL HISTORY Procedure Laterality Date SECTION HX 2022 PAST SURGICAL HISTORY OF 04/04/2008 wisdom teeh removal ALLERGIES: ALLERGIES Allergen Reactions Midodrine Itching CURRENT MEDS PRIOR TO VISIT: Current Outpatient Medications Medication Sig Dispense Refill dicyclomine (BENTYL) 20 mg tablet Take 1 tablet by mouth four times a day as needed. 90 tablet 1 ondansetron orally disintegrating (ZOFRAN ODT) 4 mg disintegrating tablet Take 1 tablet by mouth every 8 hours as needed for nausea/vomiting. 60 tablet 1 No current facility-administered medications for this visit. ALLERGIES: ALLERGIES Allergen Reactions Midodrine Itching FH: Family History Problem Relation Age of Onset Genitourinary () Mother Psychiatry Mother depression Thyroid Mother Hypertension Father SH: SOCIAL HISTORY No social history on file. REVIEW OF SYSTEMS: A complete and comprehensive 12 system ROS was otherwise negative unless listed in HPI. OBJECTIVE: VITALS: BP 106/75 Pulse 92 Temp 98.2 Ht 5' 8 (1.73m) Wt 130 lb (59.0kg) LMP 10/03/2023 BMI 19.77 kg/(m^2). PHYSICAL EXAMINATION GEN: Appears well nourished. No signs of acute distress present. Speech is normal. Alert and oriented X 3. No involuntary movement. Patient is cooperative. HEAD/FACE: Normocephalic on inspection. EYES: Sclerae clear and anicteric. NECK: Neck is supple RESP: Respiration rate is normal. CV: Rate is regular. Rhythm is regular. ABDOMEN: Abdomen is soft, nontender, and nondistended without guarding, rigidity or rebound tenderness. No abdominal masses palpable. No palpable hepatosplenomegaly. PERINEUM/ANUS/RECTUM: Exam deferred at this time. SKIN: Skin is warm and dry with no jaundice, lesions or rashes. NEURO: No focal deficits appreciated. ASSESSMENT/PLAN: 1. Generalized abdominal pain - ICD9: 789.07, ICD10: R10.84 2. Nausea - ICD9: 787.02, ICD10: R11.0 - Reviewed testing so far that is negative - HIDA scan - Continue bentyl and zofran PRN for symptom relief - Discussed that her symptoms correlate with an IBS picture; can consider a low dose TCA (amitriptyline) at the next visit - RTC in [address] Elizabeth Unger APRN.CNP [facility] [address] [place] [address] Office: [phone] documented in this encounter [facility] 12-08-2023 History of Present illness Narrative Negative SIBO. Lor Unger APRN.YADIRA Glucose - SIBO CPT 43872 Hydrogen Breath Test Marlys Carrero 1990 December 06, 2023 Referring Physician: Neil Johnson MD Indication: NSG TEST INDICATIONS: GENERALIZED ABDOMINAL PAIN R10.84 Weight: 127 lbs Location: [facility] Duration of Test: 2 Hours Hydrogen Methane CO2 MEASURED CORRECTION FACTOR TESTERS NAME Baseline 7:30 am 2 5 3.1 1.77 Lucy Bina, RMA Test Solution Given: 100 gm Glucose 10 oz Liquid JUSTINO Younger #1 - 15 minutes 7:45 am 3 5 3.6 1.52 Lucy Curran RMDyan #2 - 30 minutes 8:00 am 1 4 3.7 1.48 Lucy Curran RMA #3 - 45 minutes 8:15 am 1 4 3.7 1.48 Lucy Curran RMA #4 - 60 minutes 8:30 am 0 4 3.7 1.48 Lucy Curran RMA #5 - 75 minutes 8:45 am 0 5 3.6 1.52 Lucy Curran RMA #6 - 90 minutes 9:00 am 2 5 3.6 1.52 Lucy Curran RMA #7 - 105 minutes 9:15 am 3 5 3.4 1.61 Lucy Curran, RMA #8 - 120 minutes 9:30 am 0 5 3.3 1.66 Lucy Curran RMDyan Guidelines Baseline < 10 ppm Hydrogen (H2) > 20 ppm over baseline Methane (CH4) > 20 ppm over baseline Final Test Results: Physician Signature: documented in this encounter [facility] 11-07-2023 History of Present illness Narrative Images from the original note were not included. [facility] GASTRO[facility]OLOG[facility] DATE: 11/07/2023 PATIENT NAME: Marlys Carrero : 1990 CHIEF COMPLAINT Patient presents with: Follow Up: Egd and colon results HPI Marlys Carrero is a 33 year old female established patient GI symptoms Does great if does not eat anything. Liquids and shakes do fine. As soon as she eats any solid, 20-30 min later gets cramping throughout LUQ, the urge to have BM, then has diarrhea once or twice. Having diarrhea daily, pasty or liquid Wt down to 129# Used to be constipation before having kids, none since. No n/v recently Does have early satiety MRE was perfect EGD and colon bx were unremarkable Has POTS and SVT and neurocardiogenic syncope See Dr Rincon cardiology at [facility] PAST MEDICAL HISTORY No date: DJD (degenerative joint disease) Comment: C2-6 No date: Melanoma ([facility]) Comment: malignant No date: Neurocardiogenic syncope No date: Osteoarthritis Comment: C5 &6 No date: POTS (postural orthostatic tachycardia syndrome) No date: Seizure ([facility]) No date: SVT (supraventricular tachycardia) ([facility]) No date: Syncope and collapse No date: TMJ (dislocation of temporomandibular joint) PSH PAST SURGICAL HISTORY 2022: SECTION HX 04/04/2008: PAST SURGICAL HISTORY OF Comment: wisdom teeh removal ALLERGIES ALLERGIES Allergen Reactions Midodrine Itching CURRENT MEDS PRIOR TO VISIT Current Outpatient Medications Medication Sig Dispense Refill dicyclomine (BENTYL) 20 mg tablet Take 1 tablet by mouth four times a day as needed. 90 tablet 1 ondansetron orally disintegrating (ZOFRAN ODT) 4 mg disintegrating tablet Take 1 tablet by mouth every 8 hours as needed for nausea/vomiting. 60 tablet 1 No current facility-administered medications for this visit. Facility-Administered Medications Ordered in Other Visits Medication Dose Route Frequency Provider Last Rate Last Admin NaCl 0.9% iv infusion 30 mL/hr INTRAVENOUS CONTINUOUS Neil Johnson MD 30 mL/hr at 10/14/23 1049 30 mL/hr at 10/14/23 1049 ALLERGIES ALLERGIES Allergen Reactions Midodrine Itching FH Family History Problem Relation Age of Onset Genitourinary () Mother Psychiatry Mother depression Thyroid Mother Hypertension Father SH SOCIAL HISTORY No social history on file. REVIEW OF SYSTEMS ROS GASTROENTEROLOGY A complete and comprehensive 12 system ROS was ow negative. OBJECTIVE VITALS: BP 106/74 Pulse 91 Ht 5' 8 (1.73m) Wt 127 lb 12.8 oz (58.0kg) LMP 10/03/2023 BMI 19.44 kg/(m^2). PHYSICAL EXAMINATION GEN: Appears well nourished. No signs of acute distress present. Speech is normal. Alert and oriented X 3. No involuntary movement. Patient is cooperative. HEAD/FACE: Normocephalic on inspection. EYES: PERRLA. Sclerae clear and anicteric. NECK: Neck is supple RESP: Respiration rate is normal. CV: Rate is regular. Rhythm is regular. ABDOMEN: Abdomen is soft, nontender, and nondistended without guarding, rigidity or rebound tenderness. No abdominal masses palpable. No palpable hepatosplenomegaly. PERINEUM/ANUS/RECTUM: Exam deferred at this time. SKIN: Skin is warm and dry with no jaundice, lesions or rashes. NEURO: No focal deficits appreciated. LABS reviewed IMAGING reviewed 33 year old female here today for abd pain and diarrhea after eating Unclear etiology Rec: gastric emptying study SIBO BT Trial of Low FODMAP diet If all neg, may try elavil if ok'd with cardiology Can cont Bentyl prn which takes the edge off F/u 4 weeks Neil Johnson MD [facility] [address] [place] [id number] Office: [phone] documented in this encounter [facility] 10-31-2023 History of Present illness Narrative Radiology Service Progress Note DATE OF SERVICE: October 31, 2023 TIME: 7:06 AM PATIENT WEIGHT: 133 LBS PATIENT IDENTITY VERIFICATION COMPLETED USING TWO (2) STANDARD IDENTIFIERS: Name and Date of confirmed by patient verbally and Name and Date of confirmed by identification band. FALL SCREENING: Has the patient had 2 falls in the last year or 1 fall with injury or currently using an Ambulatory Assistive Device (Walker, Cane, Wheelchair, Crutches, etc.)? No PATIENT GENDER DATA: Female. status: : No status: NO. ALLERGIES: Reviewed and unchanged CONTRAST ALLERGY: No EXAM: MRI - CONTRAST TYPE: GROUP II IV SITE: Ambulatory: A peripheral IV was started in the Right forearm with a Angio cath: 22 gauge. and A Saline lock was inserted per protocol IV SITE APPEARANCE: Clean,Dry and Intact SIGNATURE: Marlys Nevarez RN PATIENT NAME: Marlys Carrero DATE: October 31, 2023 TIME: 7:06 AM Radiology Service Progress Note PATIENT NAME: Marlys Carrero DATE OF SERVICE: October 31, 2023 TIME: 7:25 AM PATIENT IDENTITY VERIFICATION COMPLETED USING TWO (2) STANDARD IDENTIFIERS: Name and Date of confirmed by patient verbally and Name and Date of confirmed by identification band. PATIENT GENDER DATA: Female. status: : No status: NO. PATIENT RELEVANT IMPLANT DATA REVIEWED: Not Applicable ALLERGIES: Reviewed and unchanged MEDICATIONS REVIEWED: YES PROCEDURE: Enterography Oral contrast prep: Breeza (2) 500ml bottles per protocol and Glucagon 1 mg IV IV SITE: Ambulatory: A peripheral IV was started in the Right forearm with a Angio cath: 22 gauge. and A Saline lock was inserted per protocol PERIPHERAL IV ACCESS: Discontinued PATIENT TOLERATED PROCEDURE: Without incident. PATIENT DISCHARGED TO: Home/Self Care SIGNED BY: Marlys Nevarez RN October 31, 2023 7:25 AM Radiology Service Progress Note PATIENT NAME: Marlys Carrero DATE OF SERVICE: October 31, 2023 TIME: 8:37 AM PATIENT IDENTITY VERIFICATION COMPLETED USING TWO (2) IDENTIFIERS: Name and Date of confirmed by patient verbally. FALL SCREENING: Has the patient had 2 falls in the last year or 1 fall with injury or currently using an Ambulatory Assistive Device (Walker, Cane, Wheelchair, Crutches, etc.)? No PATIENT GENDER DATA: Female. status: : No status: NO. PATIENT RELEVANT IMPLANT DATA REVIEWED: Yes PATIENT PRESENTS WITH AN IMPLANTABLE OR ATTACHED SENIOR QC TECHNICIAN: No RADIOLOGY DEPARTMENT: MR; Exam(s) Completed: Body: Enterography PERIPHERAL IV DATA: Site assessment: Clean,Dry and Intact, Site disposition Left in for next appointment SIGNED BY: RT Tri(R) October 31, 2023 8:37 AM documented in this encounter [facility] 10-31-2023 Note HNO ID: [id number] Author: MARCO ANTONIO FORRESTER RT(Harsha) Service: Radiology Author Type: Technologist Type: Progress Notes Filed: 10/31/2023 08:37 Note Text: Radiology Service Progress Note PATIENT NAME: Marlys Carrero DATE OF SERVICE: October 31, 2023 TIME: 8:37 AM PATIENT IDENTITY VERIFICATION COMPLETED USING TWO (2) IDENTIFIERS: Name and Date of confirmed by patient verbally. FALL SCREENING: Has the patient had 2 falls in the last year or 1 fall with injury or currently using an Ambulatory Assistive Device (Walker, Cane, Wheelchair, Crutches, etc.)? No PATIENT GENDER DATA: Female. status: : No status: NO. PATIENT RELEVANT IMPLANT DATA REVIEWED: Yes PATIENT PRESENTS WITH AN IMPLANTABLE OR ATTACHED SENIOR QC TECHNICIAN: No RADIOLOGY DEPARTMENT: MR; Exam(s) Completed: Body: Enterography PERIPHERAL IV DATA: Site assessment: Clean,Dry and Intact, Site disposition Left in for next appointment SIGNED BY: RT Tri(R) October 31, 2023 8:37 AM [facility] 10-31-2023 Note HNO ID: [id number] Author: MARLYS NEVAREZ RN Service: Radiology Author Type: Registered Nurse Type: Progress Notes Filed: 10/31/2023 07:25 Note Text: Radiology Service Progress Note DATE OF SERVICE: October 31, 2023 TIME: 7:06 AM PATIENT WEIGHT: 133 LBS PATIENT IDENTITY VERIFICATION COMPLETED USING TWO (2) STANDARD IDENTIFIERS: Name and Date of confirmed by patient verbally and Name and Date of confirmed by identification band. FALL SCREENING: Has the patient had 2 falls in the last year or 1 fall with injury or currently using an Ambulatory Assistive Device (Walker, Cane, Wheelchair, Crutches, etc.)? No PATIENT GENDER DATA: Female. status: : No status: NO. ALLERGIES: Reviewed and unchanged CONTRAST ALLERGY: No EXAM: MRI - CONTRAST TYPE: GROUP II IV SITE: Ambulatory: A peripheral IV was started in the Right forearm with a Angio cath: 22 gauge. and A Saline lock was inserted per protocol IV SITE APPEARANCE: Clean,Dry and Intact SIGNATURE: Marlys Nevarez RN PATIENT NAME: Marlys Payanbury DATE: October 31, 2023 TIME: 7:06 AM [facility] 10-31-2023 Note HNO ID: [id number] Author: MARLYS NEVAREZ RN Service: Radiology Author Type: Registered Nurse Type: Progress Notes Filed: 10/31/2023 07:25 Note Text: Radiology Service Progress Note PATIENT NAME: Marlys Carrero DATE OF SERVICE: October 31, 2023 TIME: 7:25 AM PATIENT IDENTITY VERIFICATION COMPLETED USING TWO (2) STANDARD IDENTIFIERS: Name and Date of confirmed by patient verbally and Name and Date of confirmed by identification band. PATIENT GENDER DATA: Female. status: : No status: NO. PATIENT RELEVANT IMPLANT DATA REVIEWED: Not Applicable ALLERGIES: Reviewed and unchanged MEDICATIONS REVIEWED: YES PROCEDURE: Enterography Oral contrast prep: Breeza (2) 500ml bottles per protocol and Glucagon 1 mg IV IV SITE: Ambulatory: A peripheral IV was started in the Right forearm with a Angio cath: 22 gauge. and A Saline lock was inserted per protocol PERIPHERAL IV ACCESS: Discontinued PATIENT TOLERATED PROCEDURE: Without incident. PATIENT DISCHARGED TO: Home/Self Care SIGNED BY: Marlys Nevarez RN October 31, 2023 7:25 AM [facility] 10-31-2023 Note HNO ID: [id number] Author: MARLYS NEVAREZ RN Service: ? Author Type: Registered Nurse Type: Progress Notes Filed: 10/31/2023 07:28 Note Text: PATIENT EDUCATION RADIOLOGY TOPIC: Procedure/Surgery: MR Enterography READINESS TO LEARN COGNITIVE ABILITY: Alert and oriented MOTIVATION TO LEARN: Eager FAMILY SUPPORT: None - Unavailable/disinterested INSTRUCTION PROVIDED TO: Patient PATIENT LEARNS BEST BY: Verbal Instruction FACTORS AFFECTING LEARNING: None PHYSICAL LIMITATIONS AFFECTING LEARNING: None LEARNING RESPONSE Procedure: Angio Procedures: Radiology Procedures: MRE METHOD OF INSTRUCTION: Verbal instruction PATIENT / FAMILY RESPONSE: Verbalizes understanding of: Pre Procedure Instructions Post Procedure Instructions FOLLOW-UP PLAN: Complete - No need for follow-up SUPPLEMENTAL MATERIAL: n/a REFERRAL (RECOMMENDATION): None Electronically Signed By Marlys eNvarez RN [facility] 10-31-2023 History of Present illness Narrative PATIENT EDUCATION RADIOLOGY TOPIC: Procedure/Surgery: MR Enterography READINESS TO LEARN COGNITIVE ABILITY: Alert and oriented MOTIVATION TO LEARN: Eager FAMILY SUPPORT: None - Unavailable/disinterested INSTRUCTION PROVIDED TO: Patient PATIENT LEARNS BEST BY: Verbal Instruction FACTORS AFFECTING LEARNING: None PHYSICAL LIMITATIONS AFFECTING LEARNING: None LEARNING RESPONSE Procedure: Angio Procedures: Radiology Procedures: MRE METHOD OF INSTRUCTION: Verbal instruction PATIENT / FAMILY RESPONSE: Verbalizes understanding of: Pre Procedure Instructions Post Procedure Instructions FOLLOW-UP PLAN: Complete - No need for follow-up SUPPLEMENTAL MATERIAL: n/a REFERRAL (RECOMMENDATION): None documented in this encounter [facility] 10-31-2023 Note Education (MRIQ) MARLYS CARRERO ([id number]) 1990 F Date Time Provider Department 10/31/23 MARLYS NEVAREZ MRIQ Reason for Visit: Patient Education [91] During your visit today, we recorded the following information about you: Allergies As of Date: 10/31/2023 Noted Allergy Reaction MIDODRINE 02/17/2015 9 - Itching Date Reviewed: 10/31/2023 Reviewed by: Marlys Nevarez RN - Fully Assessed Prescriptions as of 10/31/2023 - glucagon (GLUCAGEN) 1 mg/mL injection Inject 1 mg intravenously one time only for 1 dose. For MRI Enterography, Inject 1 mg intravenously, as directed. Slow push at the appropriate time during MRI Scan - dicyclomine (BENTYL) 20 mg tablet Take 1 tablet by mouth four times a day as needed. - ondansetron orally disintegrating (ZOFRAN ODT) 4 mg disintegrating tablet Take 1 tablet by mouth every 8 hours as needed for nausea/vomiting. Facility-Administered Medications as of 10/31/2023 - NaCl 0.9% iv infusion Encounter Status:Closed by MARLYS NEVAREZ on 10/31/23 [facility] 10-14-2023 Note [facility] Patient Name: Marlys Mcgowan Procedure Date: 10/14/2023 11:56 AM Date of : 1990 Age: 33 Gender: Female Race: Unknown Attending MD: Neil Johnson MD, [id number] Procedure: Colonoscopy Referring MD: Marlys Alcazar CNP, [place] Providers: Neil Johnson MD, Julia Dickson CRNA (Claims Associate) Indications: Generalized abdominal pain, Clinically significant diarrhea of unexplained origin, Abnormal CT of the GI tract Please see indication for EGD. Findings: Hemorrhoids were found on perianal exam. The colon (entire examined portion) appeared normal. There is no endoscopic evidence of bleeding, diverticula, inflammation, mass or polyps in the entire colon. Normal mucosa was found in the entire colon. Biopsies were taken with a cold forceps for histology. Estimated blood loss was minimal. The terminal ileum appeared normal. The retroflexed view of the distal rectum and anal verge was normal and showed no anal or rectal abnormalities. Patient Profile: This is a 33 year old female. Refer to note in patient chart for documentation of history and physical. Last Colonoscopy: October 2021. Impression: - Hemorrhoids found on perianal exam. - The entire examined colon is normal. - Normal mucosa in the entire examined colon. Biopsied. - The examined portion of the ileum was normal. - The distal rectum and anal verge are normal on retroflexion view. - No lesions to suggest cause of symptoms Recommendation: - Patient has a contact number available for emergencies. The signs and symptoms of potential delayed complications were discussed with the patient. Return to normal activities tomorrow. Written discharge instructions were provided to the patient. - Resume previous diet. - Continue present medications. - Await pathology results. - Repeat colonoscopy at age 46 for screening purposes. Medicines: Propofol total dose 200 mg IV, Deep sedation was administered, Sedation Administered by an Anesthesia Professional Procedure: Pre-Anesthesia Assessment: - Prior to the procedure, a History and Physical was performed, and patient medications and allergies were reviewed. The patient is competent. The risks and benefits of the procedure and the sedation options and risks were discussed with the patient. All questions were answered and informed consent was obtained. Patient identification and proposed procedure were verified by the physician in the procedure room. Mental Status Examination: alert and oriented. Airway Examination: normal oropharyngeal airway and neck mobility. Respiratory Examination: clear to auscultation. CV Examination: normal. Prophylactic Antibiotics: The patient does not require prophylactic antibiotics. Prior Anticoagulants: The patient has taken no anticoagulant or antiplatelet agents. ASA Grade Assessment: III - A patient with severe systemic disease. After reviewing the risks and benefits, the patient was deemed in satisfactory condition to undergo the procedure. The anesthesia plan was to use deep sedation / analgesia. Immediately prior to administration of medications, the patient was re-assessed for adequacy to receive sedatives. The heart rate, respiratory rate, oxygen saturations, blood pressure, adequacy of pulmonary ventilation, and response to care were monitored throughout the procedure. The physical status of the patient was re-assessed after the procedure. After I obtained informed (more content not included)... [facility] 10-14-2023 Note [facility] Patient Name: Marlys Mcgowan Procedure Date: 10/14/2023 11:44 AM Date of : 1990 Age: 33 Gender: Female Race: Unknown Attending MD: Neil Johnson MD, [id number] Procedure: Upper GI endoscopy Referring MD: Marlys Alcazar CNP, [place] Providers: Neil Johnson MD, Julia Dickson CRNA (Claims Associate) Indications: Upper abdominal pain, , Diarrhea. From [facility] 09/25: Marlys is a 33 year old female with a past medical history of POTS and SVT who is here today to establish GI care for multiple complaints. September 20 woke up with significant stomach pain. LUQ with some radiation to the LLQ. Sharp and stabbing. Also with pelvic cramping. She had diaphoresis, dry heaving, and bloody diarrhea. Symptoms lasted from 3-5am. The morning of September 21 the pain continued and called her PCP. Ordered an xray and zofran - did not have this completed or did not oyster picker rx. September 22 woke up with excruciating pain, worst pain out of all the days. Went to [facility] 09/23/23 for abdominal pain, nausea, vomiting, and diarrhea for 3 days. Received faxed reports from hospital. CT which showed collapsing right ovarian hemorrhagic cyst. Diagnosed with hemorrhagic cyst and gastroenteritis. Lab work unremarkable. D/C'd home with zofran and bentyl. Says these two medications have taken the edge off; but have not helped resolve her symptoms. Since last October she has had on and off abdominal pain since having her daughter via . She has kept a detailed food and activity log (did not bring to appointment); is unable to pinpoint any possible triggers. BMs are on average every other day. Sometimes everyday. Depends on what she eats. She will take a couple stool softeners or miralax when she is constipated when she is getting it moving with improvement. Cooks all their meals; eating out is very rare. Eating super bland things. She cannot stomach anything right now. No BM is several days. She reports having a colonoscopy in 2020; anal fissure and hemorrhoids. Unable to retreive this report. Rectal bleeding is at baseline. Intermittent. History of hemorrhoids. Bright red on both toilet bowl and toilet tissue. No family history of celiac disease, IBD. Maternal grandmother and paternal grandfather with CRC. A second CT scan a few days after the first showed colitis - not available to me. Given ABX Findings: The examined esophagus was normal. The entire examined stomach was normal. Biopsies were taken with a cold forceps for histology. Estimated blood loss was minimal. The duodenal bulb and second portion of the duodenum were normal. Patient Profile: This is a 33 year old female. Refer to note in patient chart for documentation of history and physical. Impression: - Normal esophagus. - Normal stomach. Biopsied. - Normal duodenal bulb and second portion of the duodenum. Recommendation: - Patient has a contact number available for emergencies. The signs and symptoms of potential delayed complications were discussed with the patient. Return to normal activities tomorrow. Written discharge instructions were provided to the patient. - Resume previous diet. - Continue present medications. - Await pathology results. - Perform a colonoscopy today, as planned. Medicines: Propofol total dose 300 mg IV, Deep sedation was administered, Sedation Administered by an Anesthesia Professional Procedure: Pre-Anesth (more content not included)... [facility] 10-14-2023 History and physical note UPDATED PROCEDURAL SEDATION HISTORY AND PHYSICAL EXAMINATION SERVICE DATE: 10/14/2023 SERVICE TIME: 11:47 AM PHYSICAL EXAM MUST BE COMPLETED ON ADMISSION PROCEDURE: egd/colon Procedure Indications: abd pain, diarrhea The History and Physical (completed in the past 30 days) has been reviewed and the patient has been examined. The contents accurately reflect the patient's condition with the following additions or revisions since the H&P was completed. ASA Class: 3 Examination indicates no changes. AIRWAY: cl LUNGS: cl CARDIAC: , rrr Provisional Diagnosis/Treatment Plan: upper endoscopy colonoscopy This H&P can be found in the Electronic Medical Record dated 09/26/2023. SIGNATURE: Neil Johnson MD PATIENT NAME: Marlys Carrero DATE: October 14, 2023 TIME: 11:47 AM [facility] 10-14-2023 History and physical note UPDATED PROCEDURAL SEDATION HISTORY AND PHYSICAL EXAMINATION SERVICE DATE: 10/14/2023 SERVICE TIME: 11:47 AM PHYSICAL EXAM MUST BE COMPLETED ON ADMISSION PROCEDURE: egd/colon Procedure Indications: abd pain, diarrhea The History and Physical (completed in the past 30 days) has been reviewed and the patient has been examined. The contents accurately reflect the patient's condition with the following additions or revisions since the H&P was completed. ASA Class: 3 Examination indicates no changes. AIRWAY: cl LUNGS: cl CARDIAC: , rrr Provisional Diagnosis/Treatment Plan: upper endoscopy colonoscopy This H&P can be found in the Electronic Medical Record dated 09/26/2023. SIGNATURE: Neil Johnson MD PATIENT NAME: Marlys Carrero DATE: October 14, 2023 TIME: 11:47 AM documented in this encounter [facility] 09-30-2023 Telephone encounter Note Spoke with patient. We have requested records from [facility]. Colonoscopy to be done as planned 10/13 [facility] 09-30-2023 Miscellaneous Notes Spoke with patient. We have requested records from [facility]. Colonoscopy to be done as planned 10/13 Marlys Carrero called today. : 1990 Allergies: Midodrine (home) [phone] (cell) Reason for call: pt went to ER last night, was diagnosed with colitis and is on an antibiotic, would like to see if she can have her co earlier Patient last appointment: 09/29/2023 The patients preferred pharmacy has been captured for this encounter? yes Debbie Abdullahi MA documented in this encounter [facility] 09-30-2023 Telephone encounter Note Marlys Carrero called today. : 1990 Allergies: Midodrine (home) [phone] (cell) Reason for call: pt went to ER last night, was diagnosed with colitis and is on an antibiotic, would like to see if she can have her co earlier Patient last appointment: 09/29/2023 The patients preferred pharmacy has been captured for this encounter? yes Debbie Abdullahi MA [facility] 09-29-2023 Telephone encounter Note Marlys Carrero called today. : 1990 Allergies: Midodrine (home) [phone] (cell) Reason for call: pain has gotten worse, going to the ER Patient last appointment: 09/27/2023 The patients preferred pharmacy has been captured for this encounter? yes Debbie Abdullahi MA [facility] 09-29-2023 Miscellaneous Notes Marlys Carrero called today. : 1990 Allergies: Midodrine (home) [phone] (cell) Reason for call: pain has gotten worse, going to the ER Patient last appointment: 09/27/2023 The patients preferred pharmacy has been captured for this encounter? yes Debbie Abdullahi MA documented in this encounter [facility] 09-27-2023 History of Present illness Narrative Images from the original note were not included. [facility] DATE: 09/26/2023 PATIENT NAME: Marlys Carrero : 1990 CHIEF COMPLAINT: Patient presents with: Consult: Follow up [facility] CT done showed gastritis HPI: Marlys Carrero is a 33 year old female with a past medical history of POTS and SVT who is here today to establish GI care for multiple complaints. September 20 woke up with significant stomach pain. LUQ with some radiation to the LLQ. Sharp and stabbing. Also with pelvic cramping. She had diaphoresis, dry heaving, and bloody diarrhea. Symptoms lasted from 3-5am. She was able to get a few hours of sleep. The morning of September 21 the pain continued and called her PCP. Ordered an xray and zofran - did not have this completed or did not oyster picker rx. September 22 woke up with excruciating pain, worst pain out of all the days. Went to [facility] 09/23/23 for abdominal pain, nausea, vomiting, and diarrhea for 3 days. Received faxed reports from hospital. She had a CT scan which showed a collapsing right ovarian hemorrhagic cyst. Diagnosed with hemorrhagic cyst and gastroenteritis. Lab work unremarkable. Discharged home with zofran and bentyl. Says these two medications have taken the edge off; but have not helped resolve her symptoms. Since last October she has had on and off abdominal pain since having her daughter via . She has kept a detailed food and activiy log (did not bring to appointment); is unable to pinpoint any possible triggers. Bowel movements are on average every other day. Sometimes everyday. Depends on what she eats. She will take a couple stool softeners or miralax when she is constipated when she is getting it moving with improvement. Cooks all their meals; eating out is very rare. Eating super bland things. She cannot stomach anything right now. No BM is several days. She reports having a colonoscopy in 2020; anal fissure and hemorrhoids. Unable to retreive this report. Rectal bleeding is at baseline. Intermittent. History of hemorrhoids. Bright red on both toilet bowl and toilet tissue. No family history of celiac disease, IBD. Maternal grandmother and paternal grandfather with CRC. Alcohol: no Tobacco: no Marijuana : no NSAIDs: no Rare caffeine use No new medications or supplements PMH: PAST MEDICAL HISTORY Diagnosis Date DJD (degenerative joint disease) C2-6 Melanoma (HCC) malignant Osteoarthritis C5 &6 POTS (postural orthostatic tachycardia syndrome) Seizure (HCC) Syncope and collapse PSH: PAST SURGICAL HISTORY Procedure Laterality Date PAST SURGICAL HISTORY OF 2008 wisdom teeh removal ALLERGIES: ALLERGIES Allergen Reactions Midodrine Itching CURRENT MEDS PRIOR TO VISIT: No current outpatient medications on file. No current facility-administered medications for this visit. ALLERGIES: ALLERGIES Allergen Reactions Midodrine Itching FH: Family History Problem Relation Age of Onset Genitourinary () Mother Psychiatry Mother depression Thyroid Mother Hypertension Father SH: SOCIAL HISTORY No social history on file. REVIEW OF SYSTEMS: A complete and comprehensive 12 system ROS was otherwise negative unless listed in HPI. OBJECTIVE: VITALS: BP 108/71 Pulse 87 Ht 5' 8 (1.73m) Wt 138 lb (62.6kg) BMI 20.99 kg/(m^2). PHYSICAL EXAMINATION GEN: Appears well nourished. No signs of acute distress present. Speech is normal. Alert and oriented X 3. No involuntary movement. Tearful. HEAD/FACE: Normocephalic on inspection. EYES: Sclerae clear and anicteric. NECK: Neck is supple RESP: Respiration rate is normal. CV: Rate is regular. Rhythm is regular. ABDOMEN: TTP LUQ, LLQ - tears up during assessment. Abdomen is soft, nondistended without guarding, rigidity or rebound tenderness. No abdominal masses palpable. No palpable hepatosplenomegaly. PERINEUM/ANUS/RECTUM: Exam deferred at this time. SKIN: Skin is warm and dry with no jaundice, lesions or rashes. NEURO: No focal deficits appreciated. LABS: None IMAGING: CT A/P ASSESSMENT/PLAN: 1. Generalized abdominal pain 2. Nausea and vomiting 3. Diarrhea 4. Rectal bleeding - Colonoscopy and EGD - Trial OTC famotidine 20mg daily and OTC pepto-bismol - Refill zofran and bentyl The endoscopic procedures were described, and risks and benefits were discussed. The risks include, but are not limited to, problems related to the sedation medications, bleeding (usually controllable), and rarely, perforation which could require surgical intervention. Questions were answered. The patient expresses understanding of the outlined plans, and has agreed to proceed. Lor Unger APRN.[facility] [address] [place] [address] Office: [phone] documented in this encounter [facility] 09-29-2021 Evaluation note Encounter Date Diagnosis Assessment Notes Sep, Anal fissure (ICD-10 - K60.2) Sep, Hemorrhoids (ICD-10 - K64.9) Sep, Rectal pain (ICD-10 - K62.89) Sep, Family history of colon cancer (ICD-10 - Z80.0) Sep, Rectal bleeding (ICD-10 - K62.5) [facility] [employer] Other 10-12-2021 Evaluation note* Encounter Date Diagnosis Assessment Notes Treatment Notes Treatment Clinical Notes Jan, Follow-up examination (ICD-10 - Z09) [...] email. She has follow-up appointment with her REHANGER today and plans to review her lab results with them. The elevation of her total and LDL cholesterol is likely due to her . She is currently 34 weeks. She has requested a reasonable alternative form, and will take this to her REHANGER today to have filled out. Again the patient was informed to review the results of her labs with both her primary care physician as well as her REHANGER. She denies any additional questions or concerns at this time. [employer] Other Evaluation noteNo assessment information available [facility] Work Phone: Evaluation note* Diagnosis Generalized abdominal pain- Primary Abdominal pain, generalized Nausea and vomiting, unspecified vomiting type Diarrhea, unspecified type Rectal bleeding Hemorrhage of rectum and anus [facility]* Diagnosis Upper abdominal pain- Primary Abdominal pain, other specified site documented in this encounter [facility]* Diagnosis Generalized abdominal pain Abdominal pain, generalized Diarrhea, unspecified type Rectal bleeding Hemorrhage of rectum and anus POTS (postural orthostatic tachycardia syndrome) Tachycardia, unspecified Nausea and vomiting, unspecified vomiting type documented in this encounter [facility]* Diagnosis Dyspepsia- Primary Dyspepsia and other specified disorders of function of stomach Diarrhea, unspecified type documented in this encounter [facility]* Diagnosis Generalized abdominal pain- Primary Abdominal pain, generalized documented [facility] this encounter [facility]* Diagnosis Generalized abdominal pain- Primary Abdominal pain, generalized Diarrhea, unspecified type Rectal bleeding Hemorrhage of rectum and anus Nausea and vomiting, unspecified vomiting type POTS (postural orthostatic tachycardia syndrome) Tachycardia, unspecified Generalized abdominal pain Abdominal pain, generalized Diarrhea, unspecified type Rectal bleeding Hemorrhage of rectum and anus POTS (postural orthostatic tachycardia syndrome) Tachycardia, unspecified Nausea and vomiting, unspecified vomiting type documented in this encounter [facility]* Diagnosis Generalized abdominal pain- Primary Abdominal pain, generalized Nausea Nausea alone documented in this encounter [facility]* Diagnosis Generalized abdominal pain Abdominal pain, generalized Nausea Nausea alone documented [facility] this encounter [facility]* Diagnosis Eustachian tube dysfunction, left- Primary [facility] Diagnosis Constipation, unspecified constipation type- Primary [facility] Diagnosis Generalized abdominal pain Abdominal pain, generalized Nausea and vomiting, unspecified vomiting type [facility] Diagnosis Abnormal defecation- Primary Other symptoms involving digestive system [facility] Diagnosis Acute non-recurrent maxillary sinusitis- Primary Non-recurrent acute serous otitis media of both ears [facility] Diagnosis Other chronic sinusitis- Primary Dysfunction of left eustachian tube Arthralgia of left temporomandibular joint Other chronic sinusitis [facility] Diagnosis Constipation, unspecified constipation type- Primary Generalized abdominal pain Abdominal pain, generalized Vagal nerve sensitivity 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 [facility] Diagnosis Syncope and collapse- Primary [facility] Diagnosis Chronic pansinusitis- Primary Other chronic sinusitis [facility] Diagnosis Constipation, unspecified constipation type [facility] Diagnosis Other constipation- Primary Irritable bowel syndrome with mixed bowel habits [facility] Diagnosis Chronic rhinitis- Primary [facility] Diagnosis Allergic rhinitis due to animals- Primary Allergic rhinitis due to animal (cat) (dog) hair and dander Xerosis cutis Other specified disease of sebaceous glands [facility] Diagnosis Acute tonsillitis, unspecified etiology- Primary Metatarsal deformity, left- Primary Metatarsal deformity, right [facility] Diagnosis Well woman exam with routine gynecological exam Routine gynecological examination Metatarsal deformity, left- Primary Metatarsal deformity, right [facility] N[facility]ative - Reported* Type Description Date Medical History Neurocardiogenic syncope Medical History POTS Medical History Chicken Pox Medical History Venous Insufficiency Medical History Measles Medical History Shingles Medical History Arthritis Medical History Fracture right arm Surgical History wisdom teeth extract [employer] Other Hospital Discharge instructions Additional Instructions Rest as much as possible.[facility] Work Phone: Reason for referral (narrative)* Outpatient Procedure (Routine) - Authorized Specialty Diagnoses / Procedures Referred By Contac t Referred To Contact [facility] Diagnoses Generalized abdominal pain Nausea and vomiting, unspecified vomiting type Procedures EGD DIAGNOSTIC ESOPHAGOGASTRODUODENOSC OPY TRANSORAL DIAGNOSTIC Neil Johnson MD [address] [facility] [address] [place] [address] [address] Referral ID Status Reason Start Date Expiration Date Visits Requested Visits Authorized [id number] Authorized Auto-Generat ed Referral 09/27/2023 09/26/2024 1 1 * Outpatient Procedure (Routine) - Authorized Specialty Diagnoses / Procedures Referred By Lc hdz Referred To Contact [facility] Diagnoses Generalized abdominal pain Diarrhea, unspecified type Rectal bleeding Procedures COLONOSCOPY DIAGNOSTIC COLONOSCOPY FLX DX W/COLLJ SPEC WHEN PFRMD Neil Johnson MD [address] [facility] [address] [place] [address] [facility] [place] [id number] Referral ID Status Reason Start Date Expiration Date Visits Requested Visits Authorized [id number] Authorized Auto-Generat ed Referral 09/27/2023 09/26/2024 1 1 [facility] for referral (narrative)* Diagnostic Procedure Only (Routine) - New Request Specialty Diagnoses / Procedures Referred By Lc hdz Referred To Contact MOLECULAR & FUNCTIONAL IMAGING Diagnoses Diarrhea, unspecified type Procedures NM GASTRIC EMPTYING SOLID GASTRIC EMPTYING STUDY Neil Johnson MD [address] [facility] [address] [place] [address] [facility] [address] [place] [address] Referral ID Status Reason Start Date Expiration Date Visits Requested Visits Authorized [id number] New Request Auto-Generat ed Referral 11/07/2023 12/06/2024 1 1 * Outpatient Procedure (Routine) - New Request Specialty Diagnoses / Procedures Referred By Lc t Referred To Contact [facility] Diagnoses Dyspepsia Procedures BREATH TEST GLUCOSE BREATH HYDROGEN/METHANE TEST Neil Johnson MD [address] [facility] [address] [place] [address] [facility]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
[2024-10-20 03:07] LABS: Age Gdln ACOG Testing Note (.); HPV Genotype 18,45 Negative (Negative); IGP, Aptima HPV, rfx 16/18,45 Note (.)
== END 2024-10-16 19:59 | disposition home or self-care (01) ==
LOC: LAB 19:58
PROVIDERS: Visit Provider Physician Assistant
DX: Z01.419 Encounter for gynecological examination (general) (routine) without abnormal findings (principal)
CPT/HCPCS: 88175